=== PATIENT | male | born 1955 | race Caucasian/White ===

== ENCOUNTER → 2018-05-14 08:15 | Outpatient (CLI) | payer OTHER, SELFPAY ==
--- NOTE | 2018-05-14 08:15 | LES_PTH ---
PATIENT: JESSICA ACUÑA LOC: [facility] U#:[id number] AGE/SX: 70/M ROOM: RE05/14/[address]: Dr. Sam Pink MD : [id number] BED: DIS: SPEC #: [id number] RECD: 05/14/18 10:38 STATUS: RAMIREZ REDavid #: [id number] MICHAEL: 05/14/18 08:[address]: Sam Pink DEPT: SURGICAL PATHOLOGY RECD BY: Prakash Al ENTERED: 05/16/18 10:41 SP TYPE: Lesion OTHR DR: Dr. Raymundo Watt MD Tissues: Skin, NOS Procedures: Surgery Specimen Level III HEADER OPERATION: Excision of right trapezoid area subcutaneous lesion PRE-OP DIAGNOSIS: Lesion of subcutaneous tissue L98.9 TISSUE SUBMITTED: Right trapezoid area subcutaneous lesion MICROSCOPIC DIAGNOSIS Subcutaneous lesion, right trapezoid area, excision: Mature adipose tissue consistent with lipoma. AM:avril 05/17/18 MICROSCOPIC DESCRIPTION Slides are reviewed. GROSS DESCRIPTION Received in fixative is one container labeled with the patient's name and designated trapezoid area. The specimen consists of four variable sized pieces of yellow adipose tissue measuring in aggregate 5 x 4 x 2 cm. Sections reveal yellow adipose cut surfaces without area of hemorrhage, necrosis or cystic degeneration. Metallurgical Analyst sections are submitted in two cassettes. / SJ:avril 05/16/18 TC:1 CPT: 72631
== END ==
PROVIDERS: Family Provider Family Medicine; PCP Family Medicine; Visit Provider Surgery
DX: L98.9 Disorder of the skin and subcutaneous tissue, unspecified (principal)
CPT/HCPCS: 88304; 88305

== ENCOUNTER 2019-02-11 22:33 | Inpatient (IN) | payer OTHER, SELFPAY ==
[2019-02-11 22:34] VITALS: BP 194/104; PULSE 83; RESP 17; TEMP 36.6; O2SAT 97; BMI 43.6
--- NOTE | 2019-02-11 22:35 | ED.RN ---
CALLED FOR EKG PER RN REQUEST, NO OLD EKGS IN MUSE
--- NOTE | 2019-02-11 22:42 | EKG12_ITS ---
Test Reason : CP Blood Pressure : / mmHG Vent. Rate : 086 BPM Atrial Rate : 086 BPM P-R Int : 186 ms QRS Dur : 076 ms QT Int : 356 ms P-R-T Axes : 019 053 217 degrees QTc Int : 426 ms Normal sinus rhythm ST & T wave abnormality, consider inferior ischemia ST & T wave abnormality, consider anterolateral ischemia Abnormal ECG Confirmed by LIZZY PERLA MD ([id number]), manager editorial ROWAN IYER ([id number]) on 02/14/2019 9:32:15 AM Referred By: Alejandro Elizondo Confirmed By:LIZZY PERLA MD
--- NOTE | 2019-02-11 22:45 | RAD_ITS ---
HISTORY:INTERMITTENT CHEST PAIN x2 DAYS, HTN INTERMITTENT CHEST PAIN x2 DAYS, HTN EXAM: XR Chest 1 View: COMPARISON: None FINDINGS: # of images incl. paperwork: 1 LINES/DEVICES: None. LUNGS: Radiographically clear. No consolidation, edema or effusion. No pneumothorax. MEDIASTINUM AND CARDIOVASCULAR STRUCTURES: Cardiac silhouette not enlarged. BONES AND SOFT TISSUES: Unremarkable. RAD/Chest 1 View (Portable) IMPRESSION: No radiographic evidence of acute cardiopulmonary disease. at 2259 Reported and signed by: Ekta Kaiser DO Electronically Signed: Ekta Kaiser DO at 22:58 EDT Tel , Service support ,
--- NOTE | 2019-02-11 22:46 | ED.VISSUMM ---
- ER Visit Summary Date of Service: 02/11/19 Chief Complaint: Chest pain History of Present Illness: The patient is a 64 M presenting with chest pain. Patient states this has been intermittent over the past couple of days. He states it is worsened when he walks. He has a midsternal chest pressure that at its worst is 6 out of 10. Currently 2 out of 10. He states the pain radiates to his left arm. It is associated with shortness of breath and diaphoresis. He denies nausea or vomiting. He has a history of hypertension, hypercholesterolemia that are both diet controlled. He denies PE/DVT risk factors. Physical Examination: Vitals are stable. Patient is afebrile. Alert no acute distress. HEENT exam is unremarkable. Neck is supple. Lungs are clear and equal bilaterally. Heart is regular rate and rhythm. Abdomen is soft nontender nondistended. Extremities are unremarkable. Skin is warm and dry. No focal neurologic deficit. Remainder of exam is unremarkable. Emergency Department Course and Treatment: Patient was given aspirin, nitro on arrival. EKG is sinus rate of 86 with inferior lateral T wave inversion. Chest x-ray shows no acute process. CBC, chemistries unremarkable. Troponin is negative. On repeat evaluation, patient is chest pain-free. Will discuss with the hospitalist for observation. Disposition: Observation Impression: Chest pain This note was generated with [employer] dictation software. It may contain incorrect words, spelling, and punctuation that were not noted in review of the chart prior to signing ED Disposition - Plan for ED Patient: Referrals: Hunter Watt MD [Primary Care Provider] -
[2019-02-11 22:58] LABS: Absolute Lymphocyte Count 2.59 X10^3/ul (0.83-4.51); Absolute Neutrophil Count 3.9 X10^3/uL (2.0-7.7); Basophil# 0.02 X10^3/uL; Basophil% 0.3 % (0-1); Eosinophil# 0.31 X10^3/uL; Eosinophils% 4.1 % (0-5); Hematocrit 43.1 % (40-54); Lymphocyte # 2.59 X10^3/ul (4.0); Lymphocyte % 34.4 % (19-41); Mean Corp Hgb Conc 34.8 g/gl (32-36); Mean Corpuscular Hgb 30.5 pg (27.0-32.0); Mean Corpuscular Volume 87.6 fL (80-94); Mean Platelet Vol. 10.8 fl (6.2-12.0); Monocyte# 0.72 X10^3/uL; Monocyte% 9.5 % (0-10); Neutrophil # 3.89 X10^3/uL (2.7-7.7); Neutrophil % 51.6 % (47-70); POSITIVE COUNT NO; POSITIVE DIFFERENTIAL NO; POSITIVE MORPHOLOGY NO; Platelet Count 215 K/mm3 (150-450); RBC Distribution Width CV 14.5 % (11.6-14.6); RBC Distribution Width SD 45.9 fl (35.1-43.9); Red Blood Count 4.92 M/mm3 (4.6-6.2); White Blood Count 7.5 K/mm3 (4.4-11.0)
[2019-02-11] MEDS: Aspirin 81 MG TAB.CHEW 324 MG PO (23:00)
[2019-02-11] MEDS: Nitroglycerin SL (ED/IMG/CATH) 0.4 MG TABLET SUBLINGUAL (23:00)
[2019-02-11 23:10] LABS: Anion Gap 6 (5-15); BUN 19 mg/dL (7-18); BUN/Creat Ratio 15.4 RATIO (10-20); Calcium,Total 8.7 mg/dL (8.5-10.1); Chloride 108 mmol/L (98-107); Creatinine, Serum 1.23 mg/dL (0.70-1.30); EST Glomerular Filtration Rate 63 mL/min (>60); Est Glom Filt Rate - Afr Amer 77 mL/min (>60); Glucose 125 mg/dL (74-106); Potassium 3.9 mmol/L (3.5-5.1); Sodium Level 141 mmol/L (136-145)
--- NOTE | 2019-02-11 23:47 | HP.PCM_ITS ---
Problem List (1) Chest pain Status: Acute History of Present Illness Date of Admission: 02/11/19 Chief Complaint: chest pain. The patient is a 64 year old M with a significant history of HTN; hyperlipidemia; obesity; former smoker who presented with to the ED with one week history of progressively worsening intermittent chest pain. His chest pain occurs with exertion. At rest he has no chest pain. Few hours before coming to the ED his chest pain occurred while walking up the stairs in his home. His chest pain is of intensity 6 out of 10. He describes his chest pain as tightness; alleviated with rest; and brought on by exertion. His chest pain radi ates to his left arm. Associated with his symptoms is SOB and diaphoresis. He denies any nausea or vomiting. His EKG showed T-wave inversion in anterior-lateral leads. Past Medical History Medical History: Medical History (Last Reviewed 02/12/19 @ 05:46 by Alejandro Elizondo MD) Elevated blood pressure reading (Acute) R03.0 Allergies penicillin G Allergy (Unknown, Verified 02/11/19 22:34) Unknown Home Medications: Ambulatory Orders Medication Instructions Recorded Naproxen [Naprosyn] 500 mg PO DAILY PRN PRN 02/11/19 Surgical History: Surgical History (Last Reviewed 02/12/19 @ 05:46 by Alejandro Elizondo MD) History of hand surgery (Acute) Z98.890 Right 3rd digit repair- 1969 Hx of LASIK (Acute) Z98.890 Lives: Spouse/ Significant Other Smoking Status: Former smoker Alcohol: Occasional - *Family History Maternal History Items: Cancer Paternal History Items: Diabetes Review of Systems Constitutional: Denies: Chills, Fever, Weight Change HEENT: Denies: Head Aches, Sinus Congestion, Sinus Drainage Cardiovascular: Reports: Chest Pain, Chest Tightness. Denies: Palpitations Respiratory: Reports: Shortness of Breath. Denies: Cough, Sputum production Gastrointestinal: Denies: Abdominal Pain, Nausea, Vomiting Genitourinary: Denies: Dysuria Musculoskeletal: Denies: Joint Pain, Joint Tenderness Skin: Denies: Rash, Wounds Neurological: Denies: Numbness, Tingling, Focal weakness Psychiatric: Denies: Anxiety, Depression, Homicidal Ideations, Suicidal Ideations Hematologic/ Lymphatic: Denies: Easy Bruising, Easy Bleeding VTE Information - Inpt Only VTE Present on Admission: No VTE Mechan Device Prophylaxis: None VTE Pharm Prophylaxis ordered?: Yes Patient Problems: Active and Suspected Problems (Last Reviewed 02/12/19 @ 05:46 by Alejandro Elizondo MD) Chest pain (Acute) - Physical Exam General: Alert, Oriented x3, Cooperative, - - obese HEENT: Atraumatic, PERRLA, EOMI, Normocephalic Neck: Supple, No JVD, Negative Carotid Bruits Lungs: Clear to auscultation, Normal air movement Cardiovascular: Regular rate, No murmurs Abdomen: Bowel Sounds Present, Soft, Non Tender Extremities: No edema, Capillary Refill Less than 3 Seconds Skin: No rashes, No breakdown Musculoskeletal: No Tenderness to Palpation of Joints or Extremities Neurological: Neuro grossly intact Psych/Mental Status: Normal Affect, Appropriate Vital Signs Temp Pulse Resp BP Pulse Ox 97.8 F 83 17 194/104 H 97 02/11/19 22:34 02/11/19 22:34 02/11/19 22:34 02/11/19 22:34 02/11/19 22:34 Oxygen Delivery Method Room Air Weight: 154.2 kg Body Mass Index (BMI) 43.6 Laboratory Tests Past 24 Hrs 02/11/19 02/11/19 22:38 22:38 WBC 7.5 RBC 4.92 Hgb 15.0 Hct 43.1 MCV 87.6 MCH 30.5 MCHC 34.8 RDW 14.5 RDW Differential 45.9 H Plt Count 215 MPV 10.8 Immature Gran % (Auto) 0.100 Neut % (Auto) 51.6 Lymph % (Auto) 34.4 [place] % (Auto) 9.5 Eos % (Auto) 4.1 Baso % (Auto) 0.3 Absolute Neuts (auto) 3.9 Absolute Lymphs (auto) 2.59 Total Counted Not Reportable Sodium 141 Potassium 3.9 Chloride 108 H Carbon Dioxide 27.0 Anion Gap 6 BUN 19 H Creatinine 1.23 Estim Creat Clear Calc 72.40 Est GFR (MDRD) Af Amer 77 Est GFR (MDRD) Non-Af 63 BUN/Creatinine Ratio 15.4 Glucose 125 H Calcium 8.7 Troponin I < 0.015 Assessment/Plan All Active Problems (Last Reviewed 02/12/19 @ 05:46 by Alejandro Elizondo MD) Chest pain (Acute) Elevated blood pressure reading (Acute) History of hand surgery (Acute) Hx of LASIK (Acute) The patient is a 64 year old M with a significant history of HTN; hyperlipidemia; obesity; former smoker who presented with to the ED with one week history of progressively worsening intermittent chest pain; and with T-wave inversions in anterior lateral leads. Chest Pain. Heart Score: 6 points (highly suspicious; nonspecific repolarization disturbanc e; age 45-64; more equal to 3 risk factors or history of atherosclerotic disease) Admit to a monitored bed on PCU CXR independently reviewed confirms no acute cardiopulmonary process. EKG independently reviewed confirms T-wave inversions in anterior-lateral leads No Old EKG to compare with Received ASA 324 mg at the ED. At home he takes Naproxen for plantar fascitis. Will hold Naproxen for now and order ASA 324 mg p.o. daily SL NTG 0.4 mg prn as needed for chest pain Morphine as needed for pain We will check lipid panel. High intensity statin ordered. Serial cardiac enzymes Stat EKG as needed for chest pain Will consult cardiology HTN He reports that outpatient he had a couple of elevated blood pressure readings. He reported that his blood pressure eventually was under control with diet however he gained about 40 to 50 pounds of weight last year. Will start on amlodipine HLD He reports border line hyperlipidemia Check lipid panel Start on Lipitor for chest pain DVT prophylaxis Lovenox ordered Code Visit OBSV E&M: 13502 Initial observation care L3
[2019-02-12] VITALS (22 sets, daily range): BP systolic 135–193; BP diastolic 82–118; PULSE 64–77; RESP 16–18; TEMP 36.4–36.6; O2SAT 92–99; BMI 43.1; BMI 43.2
[2019-02-12] MEDS: amLODIPine 5 MG Tablet PO ×2 (01:17→12:24)
[2019-02-12] MEDS: Atorvastatin Calcium 80 MG Tablet PO ×2 (01:17→21:32)
--- NOTE | 2019-02-12 02:02 | EKG12_ITS ---
Test Reason : RHYTHM Blood Pressure : / mmHG Vent. Rate : 075 BPM Atrial Rate : 075 BPM P-R Int : 194 ms QRS Dur : 076 ms QT Int : 376 ms P-R-T Axes : -05 026 200 degrees QTc Int : 419 ms Normal sinus rhythm T wave abnormality, consider inferior ischemia T wave abnormality, consider anterolateral ischemia Abnormal ECG Confirmed by KATIE NG, PITER ([id number]), manager editorial SUSAN ALFARO ([id number]) on 02/15/2019 12:29:32 PM Referred By: Alejandro Elizondo Confirmed By:PITER WILSON MD
[2019-02-12 06:09] LABS: Cholesterol 181 mg/dL (200); High Density Lipoprotein 37 mg/dL; Triglycerides 232 mg/dL; Very Low Density Lipoprotein 46 mg/dL (5-40)
[2019-02-12 07:00] LABS: Bedside Glucose 100 mg/dL (70-110)
[2019-02-12] MEDS: Enoxaparin 40 MG/0.4 ML Syringe SC (08:47)
[2019-02-12] MEDS: Aspirin E.C. 325 MG Tablet PO (08:47)
--- NOTE | 2019-02-12 11:23 | ECHOD_ITS ---
Reason For Study: Chest pain Procedure This was a 2D Doppler, Color Flow transthoracic echocardiogram. Exam performed portable in patient room. Left Ventricle Normal LV size. Concentric left ventricular hypertrophy. The estimated ejection fraction is 55 %. Normal diastology for age. No regional wall motion abnormalities noted. Right Ventricle Normal right ventricle. Normal systolic function. Atria Normal left atrium. Normal right atrium. No doppler evidence for ASD. Mitral Valve There is no mitral valve stenosis. No mitral valve insufficiency. Tricuspid Valve No significant tricuspid stenosis. Trivial tricuspid valve insufficiency. Pulmonary artery systolic pressure is 25 mmHg. Aortic Valve Trisinus/trileaflet aortic valve. There is no aortic stenosis. Trivial aortic valve insufficiency. Pulmonic Valve There is no pulmonic valvular stenosis. No pulmonic valve insufficiency. Great Vessels Normal aortic root. Pericardium/Pleural No pericardial effusion. MMode/2D Measurements & Calculations LVIDd: 4.6 cm IVSd: 1.3 cm Ao root diam: 3.7 cm LVIDs: 3.2 cm LVPWd: 1.3 cm RVDd: 2.5 cm FS: 30.2 % LAV(MOD-bp): 52.5 ml LA A4 area: 19.4 cm2 LA dimension(2D): 2.7 cm LAV(MOD-bp) Indexed: 19.4 ml/m2 LAV(MOD-sp2): 47.8 ml LAV(MOD-sp4): 52.8 ml RA A4 area: 13.8 cm2 Doppler Measurements & Calculations MV E max riky: 78.4 cm/sec Lat Peak E' Riky: 8.7 cm/sec Med Peak E' Riky: 5.6 cm/sec MV A max riky: 60.4 cm/sec E/E' lat: 9.1 E/E' med: 14.1 MV E/A: 1.3 Ao V2 max: 125.2 cm/sec LV V1 max: 115.7 cm/sec PA V2 max: 79.7 cm/sec Ao max P.3 mmHg LV V1 max P.4 mmHg TR max riky: 219.2 cm/sec TR max P.2 mmHg Interpretation Summary The estimated ejection fraction is 55 %. Normal diastology for age. Ordering Physician: Clarisse Keating Referring Physician: Raymundo Watt MD Performed By: Rashida Ohara RDCS
[2019-02-12] MEDS: Metoprolol Tartrate 25 MG Tablet PO ×2 (12:23→21:32)
[2019-02-12] MEDS: Nitroglycerin Oint 1 INCH PACKET 0.5 INCH TRANSDERM. (12:24)
--- NOTE | 2019-02-12 12:51 | PN_ITS ---
Patient Problems: Active and Suspected Problems (Last Reviewed 02/12/19 @ 05:46 by Alejandro Elizondo MD) Chest pain (Acute) Subjective: The patient was seen independently and in conjunction with TIERA Hernández. He is a 64-year-old male who presented to the emergency department at [facility] on 02/11/2019 complaining of substernal chest pain, SOB, diaphoresis and radiation to the Left arm with exertion. The sx started approximately 1 week ago with shortness of breath with exertion. In the next couple days he also started having substernal chest pain with exertion and this was sometimes associated with diaphoresis and radiation of the pain to the back and down the left arm. Yesterday he climbed a flight of stairs at home and experienced substernal chest pain, diaphoresis, shortness of breath and left arm pain. He drove himself to the emergency department. On the way to the hospital the chest pain resolved but it lasted approximately 15 minutes prior to resolving. He walked into the emergency department and with the ambulation the chest pain recurred. When he was taken to her room and sat down the pain resolved. The pain was nearly gone at the time he received sublingual nitroglycerin. Blood pressures have been markedly elevated and the patient states he has been diagnosed with borderline hypertension at his doctor's office in the past but is not been on medication. The only time he gets his blood pressure checked is when he goes to his physician's office. He denies any history of hyperlipidemia, diabetes mellitus, family history of coronary artery disease. He stopped smoking in 1991. Vital signs at presentation to the emergency room were temp 97.8, pulse rate 83, blood pressure 194/104, respiratory rate 17 and he was 97 to 99% saturated on room air. CBC was unremarkable. Random glucose was 125 and the hemoglobin A1c was 5.0. Creatinine is elevated at 1.23 with a BUN of 19 and a GFR of 63. Initial troponin was less than 0.015 but the second troponin was elevated at 0.077 and the third troponin was 0.059. Lipid panel shows triglycerides of 232, and LDL of 98 and HDL of 37. Chest x-ray showed no infiltrates, pleural effusions or pulmonary vascular congestion. EKG in the emergency department initially showed a QS complex in V1 with T wave inversions in the anterolateral precordial leads. He also had T wave inversions in the inferolateral leads. There was no ST elevation. Repeat EKG this AM showed persistent deeper T wave inversions in the inferior, lateral and anterior leads. A repeat EKG done following chest pain [place] the parks was unchanged. He was admitted to a monitored bed on PCU and started on ASA, Atorvastatin and Amlodipine. BP is still elevated and the Amlodipine has been increased to 10 mg daily and Metoprolol 25 mg BID has been started. He had recurrent CP this morning with ambulating in the parks and NTP has been started. consult has been ordered with Dr. Neal. Telemetry shows NSR, occasional PVC and 1 couplet and a brief run of SVT this morning. - Physical Exam General: Alert, Oriented x3, Cooperative, No apparent distress, Well developed, Well nourished, - - lying in bed and denies CP or SOB. HEENT: Atraumatic, Normocephalic Neck: Supple, No JVD Lungs: Clear to auscultation, No rhonchi, No wheeze, No rales, Diminished Cardiovascular: Regular rate, Regular Rhythm, Normal S1, Normal S2, No murmurs, No Gallop Abdomen: Bowel Sounds Present, Soft, Non Tender, Non-Distended, Obese Extremities: No Calf Tenderness Neurological: Cranial nerves II-XII grossly intact, Neuro grossly intact Psych/Mental Status: Normal Affect, Appropriate Vital Signs Temp Pulse Resp BP Pulse Ox 97.7 F L 77 16 166/96 H 96 02/12/19 12:18 02/12/19 12:24 02/12/19 12:18 02/12/19 12:24 02/12/19 12:18 Oxygen Delivery Method Room Air Weight: 336 lb 3.279 oz Body Mass Index (BMI) 43.1 Intake and Output for Last 24 Hours 02/10/19 02/11/19 02/12/19 23:59 23:59 23:59 Intake Total 690 / 690 Balance 690 / 690 Laboratory Tests Past 24 Hrs 02/11/19 02/11/19 02/12/19 22:38 22:38 01:39 WBC 7.5 RBC 4.92 Hgb 15.0 Hct 43.1 MCV 87.6 MCH 30.5 MCHC 34.8 RDW 14.5 RDW Differential 45.9 H Plt Count 215 MPV 10.8 Immature Gran % (Auto) 0.100 Neut % (Auto) 51.6 Lymph % (Auto) 34.4 [place] % (Auto) 9.5 Eos % (Auto) 4.1 Baso % (Auto) 0.3 Absolute Neuts (auto) 3.9 Absolute Lymphs (auto) 2.59 Total Counted Not Reportable Sodium 141 Potassium 3.9 Chloride 108 H Carbon Dioxide 27.0 Anion Gap 6 BUN 19 H Creatinine 1.23 Estim Creat Clear Calc 72.40 Est GFR (MDRD) Af Amer 77 Est GFR (MDRD) Non-Af 63 BUN/Creatinine Ratio 15.4 Glucose 125 H Hemoglobin A1c Calcium 8.7 Troponin I < 0.015 0.077 H Triglycerides Cholesterol LDL Cholesterol VLDL Cholesterol HDL Cholesterol 02/12/19 02/12/19 04:48 04:48 WBC RBC Hgb Hct MCV MCH MCHC RDW RDW Differential Plt Count MPV Immature Gran % (Auto) Neut % (Auto) Lymph % (Auto) [place] % (Auto) Eos % (Auto) Baso % (Auto) Absolute Neuts (auto) Absolute Lymphs (auto) Total Counted Sodium Potassium Chloride Carbon Dioxide Anion Gap BUN Creatinine Estim Creat Clear Calc Est GFR (MDRD) Af Amer Est GFR (MDRD) Non-Af BUN/Creatinine Ratio Glucose Hemoglobin A1c 5.0 Calcium Troponin I 0.059 H Triglycerides 232 H Cholesterol 181 LDL Cholesterol 98 VLDL Cholesterol 46 H HDL Cholesterol 37 L POC Glucose 02/12/19 06:48 POC Glucose 100 Medical Necessity - Tobacco Use Smoking Status: Former smoker Assessment/Plan All Active Problems (Last Reviewed 02/12/19 @ 05:46 by Alejandro Elizondo MD) Chest pain (Acute) Elevated blood pressure reading (Acute) History of hand surgery (Acute) Hx of LASIK (Acute) Impressions 1. ACS with elevated troponin 2. HTN - suspect this has been long standing 3. abnormal EKG with diffuse T wave inversions 4. elevated troponin - suspect this is due to long standing uncontrolled HTN 5. brief run SVT with occasional PVC 6. Remote smoking history-quit in 1991 7. morbid obesity 8. Dyslipidemia Lopressor increased to 25 BID Amlodipine increased to 10 mg daily and he was given an extra 5 mg today for a total of 10 mg Continue atorvastatin 80 mg daily continue aspirin daily Add hydralazine 10 mg every 4 hours as needed systolic greater than 40 or diastolic greater than 85 Dr. Neal has been consulted and I suspect the patient will be taken for cardiac catheterization in the a.m. Add Nitropaste 0.5 inches every 8 hours and continue as needed sublingual nitroglycerin Echo in the a.m. Check a magnesium level I explained the process for a cardiac catheterization and answered all their questions. Weight loss advised and will order a consultation with the chute operator for recommendations and education Code Visit Inpatient E&M: [id number] [facility] H[facility] L3
[2019-02-12] MEDS: Acetaminophen 325 MG Tablet 650 MG PO ×2 (14:29→20:37)
[2019-02-12] MEDS: hydrALAZINE 20 MG/ML Vial 10 MG IV (14:30)
[2019-02-12] MEDS: 0.9% NaCl Peripheral Flush Adult/Peds IV ×4 (14:31→21:32)
--- NOTE | 2019-02-12 16:42 | PCM.CONS.C ---
Problem List (1) Chest pain Status: Acute (2) Elevated blood pressure reading Status: Acute Reason for Consult Date of Consultation: 02/12/19 History of Present Illness: The patient is a 64 year old M with a significant history of HTN; hyperlipidemia; obesity; former smoker who presented with to the ED with one week history of progressively worsening intermittent chest pain. His chest pain occurs with exertion. At rest he has no chest pain. Few hours before coming to the ED his chest pain occurred while walking up the stairs in his home. His chest pain is of intensity 6 out of 10. He describes his chest pain as tightness; alleviated with rest; and brought on by exertion. His chest pain radiates to his left arm. Associated with his symptoms is SOB and diaphoresis. He denies any nausea or vomiting. Currently chest pain-free. He does have a significant headache from the nitroglycerin paste. Past Medical History Allergies/Adverse Reactions: Allergies penicillin G Allergy (Unknown, Verified 02/11/19 22:34) Unknown Home Medications: Ambulatory Orders Medication Instructions Recorded Naproxen [Naprosyn] 500 mg PO DAILY PRN PRN 02/11/19 - *Family History Maternal History Items: Cancer Paternal History Items: Diabetes Lives: Spouse/ Significant Other Smoking Status: Former smoker Alcohol: Occasional Review of Systems - Review of Systems General: Denies: Fever, Night Sweats, Fatigue Cardiovascular: Reports: Chest Discomfort. Denies: Shortness of Breath, Orthopnea, PND, Peripheral Edema, Palpitations, Lightheadedness, Dizziness, Near Syncope, Syncope Respiratory: Denies: Cough, Sputum Production, Hemoptysis Gastrointestinal: Denies: Hematemesis, Hematochezia, Melena Genitourinary: Denies: Dysuria, Hematuria Skin: Denies: Rash Objective: Vital Signs Temp Pulse Resp BP Pulse Ox 97.8 F 66 16 135/92 H 94 02/12/19 14:25 02/12/19 15:01 02/12/19 14:25 02/12/19 15:01 02/12/19 14:25 Oxygen Delivery Method Room Air Weight: 336 lb 3.279 oz Body Mass Index (BMI) 43.1 Intake and Output for Last 24 Hours 02/10/19 02/11/19 02/12/19 23:59 23:59 23:59 Intake Total 690 / 690 Balance 690 / 690 General: Awake, Alert, Oriented x 3 HEENT: PERRL, EOMI, Sclera Non Icteric Neck: Supple, Good ROM, No Lymph Node Enlargement Lungs: Clear to auscultation Cardiovascular: Regular Rhythm, Normal S1, Normal S2, No Murmurs, No Rubs, No Gallops Vascular: No Carotid Bruits, Normal Femoral Pulses, Normal Radial Pulses, Normal Dorsalis Pedal Pulse, Normal Posterior Tibial Pulses Abdomen: Bowel Sounds Present, Soft, Non Tender, No HSM, No Organomegaly Extremities: No Cyanosis, No Clubbing, No edema Neurological: No Focal Motor or Sensory Deficit 02/11/19 22:38: WBC 7.5, RBC 4.92, Hgb 15.0, Hct 43.1, MCV 87.6, MCH 30.5, MCHC 34.8, RDW 14.5, RDW Differential 45.9 H, Plt Count 215, MPV 10.8, Immature Gran % (Auto) 0.100, Neut % (Auto) 51.6, Lymph % (Auto) 34.4, [place] % (Auto) 9.5, Eos % (Auto) 4.1, Baso % (Auto) 0.3, Absolute Neuts (auto) 3.9, Total Counted Not Reportable 02/11/19 22:38: Sodium 141, Potassium 3.9, Chloride 108 H, Carbon Dioxide 27.0, Anion Gap 6, BUN 19 H, Creatinine 1.23, Est GFR (MDRD) Af Amer 77, Est GFR (MDRD) Non-Af 63, BUN/Creatinine Ratio 15.4, Glucose 125 H, Calcium 8.7, Troponin I < 0.015 02/12/19 01:39: Troponin I 0.077 H 02/12/19 04:48: Troponin I 0.059 H, Triglycerides 232 H, Cholesterol 181, LDL Cholesterol 98, VLDL Cholesterol 46 H, HDL Cholesterol 37 L 02/12/19 04:48: Hemoglobin A1c 5.0 02/12/19 04:48: Magnesium 2.0 Rhythm: EKG: Normal sinus rhythm, nonspecific ST-T changes ECHO: Stress Test: Cardiac Cath: PCI: CT Surgery: Holter monitor: EPS: PPM: CXR: Chest CT Scan: Assessment/Plan 1. Chest pain: Troponin is abnormal as well. Non-ST elevation HI. Coronary angiography tomorrow. We will discontinue the nitroglycerin paste at this time. Recommend starting weight-based IV heparin. DC Lovenox.
--- NOTE | 2019-02-12 16:47 | CON.PCM_ITS ---
Problem List (1) Chest pain Status: Acute (2) Elevated blood pressure reading Status: Acute Reason for Consult Date of Consultation: 02/12/19 History of Present Illness: The patient is a 64 year old M with a significant history of HTN; hyperlipidemia; obesity; former smoker who presented with to the ED with one week history of progressively worsening intermittent chest pain. His chest pain occurs with exertion. At rest he has no chest pain. Few hours before coming to the ED his chest pain occurred while walking up the stairs in his home. His chest pain is of intensity 6 out of 10. He describes his chest pain as tightn ess; alleviated with rest; and brought on by exertion. His chest pain radiates to his left arm. Associated with his symptoms is SOB and diaphoresis. He denies any nausea or vomiting. Currently chest pain-free. He does have a significant headache from the nitroglycerin paste. Past Medical History Allergies/Adverse Reactions: Allergies penicillin G Allergy (Unknown, Verified 02/11/19 22:34) Unknown Home Medications: Ambulatory Orders Medication Instructions Recorded Naproxen [Naprosyn] 500 mg PO DAILY PRN PRN 02/11/19 - *Family History Maternal History Items: Cancer Paternal History Items: Diabetes Lives: Spouse/ Significant Other Smoking Status: Former smoker Alcohol: Occasional Review of Systems - Review of Systems General: Denies: Fever, Night Sweats, Fatigue Cardiovascular: Reports: Chest Discomfort. Denies: Shortness of Breath, Ortho pnea, PND, Peripheral Edema, Palpitations, Lightheadedness, Dizziness, Near Syncope, Syncope Respiratory: Denies: Cough, Sputum Production, Hemoptysis Gastrointestinal: Denies: Hematemesis, Hematochezia, Melena Genitourinary: Denies: Dysuria, Hematuria Skin: Denies: Rash Objective: Vital Signs Temp Pulse Resp BP Pulse Ox 97.8 F 66 16 135/92 H 94 02/12/19 14:25 02/12/19 15:01 02/12/19 14:25 02/12/19 15:01 02/12/19 14:25 Oxygen Delivery Method Room Air Weight: 336 lb 3.279 oz Body Mass Index (BMI) 43.1 Intake and Output for Last 24 Hours 02/10/19 02/11/19 02/12/19 23:59 23:59 23:59 Intake Total 690 / 690 Balance 690 / 690 General: Awake, Alert, Oriented x 3 HEENT: PERRL, EOMI, Sclera Non Icteric Neck: Supple, Good ROM, No Lymph Node Enlargement Lungs: Clear to auscultation Cardiovascular: Regular Rhythm, Normal S1, Normal S2, No Murmurs, No Rubs, No Gallops Vascular: No Carotid Bruits, Normal Femoral Pulses, Normal Radial Pulses, Normal Dorsalis Pedal Pulse, Normal Posterior Tibial Pulses Abdomen: Bowel Sounds Present, Soft, Non Tender, No HSM, No Organomegaly Extremities: No Cyanosis, No Clubbing, No edema Neurological: No Focal Motor or Sensory Deficit 02/11/19 22:38: WBC 7.5, RBC 4.92, Hgb 15.0, Hct 43.1, MCV 87.6, MCH 30.5, MCHC 34.8, RDW 14.5, RDW Differential 45.9 H, Plt Count 215, MPV 10.8, Immature Gran % (Auto) 0.100, Neut % (Auto) 51.6, Lymph % (Auto) 34.4, [place] % (Auto) 9.5, Eos % (Auto) 4.1, Baso % (Auto) 0.3, Absolute Neuts (auto) 3.9, Total Counted Not Reportable 02/11/19 22:38: Sodium 141, Potassium 3.9, Chloride 108 H, Carbon Dioxide 27.0, Anion Gap 6, BUN 19 H, Creatinine 1.23, Est GFR (MDRD) Af Amer 77, Est GFR (MDRD) Non-Af 63, BUN/Creatinine Ratio 15.4, Glucose 125 H, Calcium 8.7, Troponin I < 0.015 02/12/19 01:39: Troponin I 0.077 H 02/12/19 04:48: Troponin I 0.059 H, Triglycerides 232 H, Cholesterol 181, LDL Cholesterol 98, VLDL Cholesterol 46 H, HDL Cholesterol 37 L 02/12/19 04:48: Hemoglobin A1c 5.0 02/12/19 04:48: Magnesium 2.0 Rhythm: EKG: Normal sinus rhythm, nonspecific ST-T changes ECHO: Stress Test: Cardiac Cath: PCI: CT Surgery: Holter monitor: EPS: PPM: CXR: Chest CT Scan: Assessment/Plan 1. Chest pain: Troponin is abnormal as well. Non-ST elevation DE. Coronary angiography tomorrow. We will discontinue the nitroglycerin paste at this time. Recommend starting weight-based IV heparin. DC Lovenox.
[2019-02-12] MEDS: Morphine 2 MG/ML Syringe IV ×2 (17:21→21:32)
[2019-02-12 17:51] LABS: Prothrombin Time (Protime)PT. 12.8 SECONDS (11.7-14.9)
[2019-02-12 17:52] LABS: Partial Thromboplast Time 28.8 Seconds (24.1-36.2)
[2019-02-12] MEDS: Heparin Injection (Vial) 5,000 UNIT/ML VIAL 12000 UNIT IV (18:06)
[2019-02-12] MEDS: HEPARIN/D5w 25,000 UNITS 25,000 UNITS/250 ML IV.SOLN. 19 UNITS IV (18:06)
[2019-02-13] VITALS (37 sets, daily range): BP systolic 129–198; BP diastolic 73–120; PULSE 64–106; RESP 11–26; TEMP 36.6–36.8; O2SAT 93–99
[2019-02-13 00:59] LABS: Partial Thromboplast Time 80.6 Seconds (24.1-36.2)
[2019-02-13 01:33] LABS: Bacteria 0 SEEN /hpf (None Seen); Mucous, Urine 0 SEEN /hpf (<or=2+); Red Blood Cells-Urine 0 SEEN /hpf (0-5); Squamous Epithelial Cells - UA 0 SEEN /hpf (0-5); White Blood Cells 0 SEEN /hpf (0-5)
[2019-02-13 01:53] LABS: Color, Urine Yellow (Yellow); Glucose, Dipstick Normal (Normal); Ketone-Dipstick Negative (Negative); Leukocyte Esterase-Dipstick Negative /ul (Negative); Nitrite-Dipstick Negative (Negative); Occult Blood-Urine Negative /ul (Negative); Protein-Dipstick Negative (Negative); Specific Gravity, Urine 1.005 (1.002-1.030); Urine Bilirubin Dipstick Negative (Negative); Urine Clarity Clear (Clear); Urine Urobilinogen Normal (Normal)
--- NOTE | 2019-02-13 05:55 | EKG12_ITS ---
Test Reason : AM EKG Blood Pressure : / mmHG Vent. Rate : 064 BPM Atrial Rate : 064 BPM P-R Int : 190 ms QRS Dur : 080 ms QT Int : 408 ms P-R-T Axes : 022 054 201 degrees QTc Int : 420 ms Normal sinus rhythm T wave abnormality, consider anterolateral ischemia Abnormal ECG Confirmed by KATIE NG, PITER ([id number]), non linear editor SUSAN ALFARO ([id number]) on 02/15/2019 12:28:27 PM Referred By: Alejandro Elizondo Confirmed By:PITER WILSON MD
[2019-02-13] MEDS: Metoprolol Tartrate 25 MG Tablet PO ×2 (06:48→21:49)
[2019-02-13] MEDS: Aspirin E.C. 325 MG Tablet PO (06:48)
[2019-02-13] MEDS: amLODIPine 10 MG Tablet PO (06:49)
[2019-02-13] MEDS: 0.9% Normal Saline 1,000 ML 15 ML IV (06:49)
[2019-02-13 06:59] LABS: Absolute Lymphocyte Count 1.97 X10^3/ul (0.83-4.51); Absolute Neutrophil Count 3.7 X10^3/uL (2.0-7.7); Basophil# 0.03 X10^3/uL; Basophil% 0.5 % (0-1); Eosinophil# 0.26 X10^3/uL; Eosinophils% 3.9 % (0-5); Hematocrit 43.2 % (40-54); Hemoglobin 15.2 g/dl (13.0-16.5); Lymphocyte # 1.97 X10^3/ul (4.0); Lymphocyte % 29.9 % (19-41); Mean Corp Hgb Conc 35.2 g/gl (32-36); Mean Corpuscular Hgb 30.9 pg (27.0-32.0); Mean Corpuscular Volume 87.8 fL (80-94); Mean Platelet Vol. 10.4 fl (6.2-12.0); Monocyte# 0.67 X10^3/uL; Monocyte% 10.2 % (0-10); Neutrophil # 3.65 X10^3/uL (2.7-7.7); Neutrophil % 55.3 % (47-70); Platelet Count 188 K/mm3 (150-450); RBC Distribution Width CV 14.2 % (11.6-14.6); RBC Distribution Width SD 45.9 fl (35.1-43.9); Red Blood Count 4.92 M/mm3 (4.6-6.2); White Blood Count 6.6 K/mm3 (4.4-11.0)
[2019-02-13 07:00] LABS: POSITIVE COUNT NO; POSITIVE DIFFERENTIAL NO; POSITIVE MORPHOLOGY NO
[2019-02-13 07:04] LABS: Prothrombin Time (Protime)PT. 13.3 SECONDS (11.7-14.9)
[2019-02-13 07:05] LABS: Partial Thromboplast Time 53.9 Seconds (24.1-36.2)
[2019-02-13 07:39] LABS: Anion Gap 9 (5-15); BUN 14 mg/dL (7-18); BUN/Creat Ratio 14.1 RATIO (10-20); Calcium,Total 8.8 mg/dL (8.5-10.1); Chloride 107 mmol/L (98-107); EST Glomerular Filtration Rate 81 mL/min (>60); Est Glom Filt Rate - Afr Amer 98 mL/min (>60); Estimated Creatinine Clearance 89.05 ml/min; Glucose 92 mg/dL (74-106); Potassium 4.1 mmol/L (3.5-5.1); Sodium Level 141 mmol/L (136-145)
--- NOTE | 2019-02-13 08:46 | CASEMGMT ---
TRACEY ZACARIAS NOTE: Call placed to [facility] and spoke to Brenda. According to Brenda, [facility] is IN-network with [facility]. Call Refernce # [id number]. Also, the following tertiary care centers are IN-network w/[facility] if transfer is recommended: [facility], [place], [facility], [facility], [facility], [facility], [facility], [facility], [facility], and . Brett NAVA RN CM.
[2019-02-13] MEDS: hydrALAZINE 20 MG/ML Vial 10 MG IV ×3 (09:45→18:38)
--- NOTE | 2019-02-13 10:32 | NURSING ---
Pt down to senior laboratory technician for procedure. Report called to Salima WEBB.
--- NOTE | 2019-02-13 12:00 | NURSING ---
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
[2019-02-13] MEDS: 0.9% Normal Saline 1,000 ML 100 ML IV (13:03)
[2019-02-13] MEDS: Acetaminophen 325 MG Tablet 650 MG PO ×2 (13:06→20:32)
--- NOTE | 2019-02-13 13:24 | PN_ITS ---
Patient Problems: Active and Suspected Problems (Last Reviewed 02/12/19 @ 05:46 by Alejandro Elizondo MD) Chest pain (Acute) Subjective: No CP/SOB today. Underwent C this AM with successful stent placement with Dr. Graham. - Physical Exam General: Alert, Oriented x3, Cooperative HEENT: Atraumatic, PERRLA, EOMI, Normocephalic Neck: Supple, No JVD, Negative Carotid Bruits Lungs: Clear to auscultation, Normal air movement Cardiovascular: Regular rate, No murmurs Abdomen: Bowel Sounds Present, Soft, Non Tender Extremities: No edema, Capillary Refill Less than 3 Seconds Skin: No rashes, No breakdown Musculoskeletal: No Tenderness to Palpation of Joints or Extremities Neurological: Cranial nerves II-XII grossly intact Psych/Mental Status: Normal Affect, Appropriate, Alert and oriented to time, place, person, mood and affect Vital Signs Temp Pulse Resp BP Pulse Ox 97.8 F 66 16 142/83 H 98 02/13/19 09:37 02/13/19 09:45 02/13/19 09:37 02/13/19 10:27 02/13/19 09:37 Oxygen Delivery Method Room Air Weight: 336 lb 3.279 oz Body Mass Index (BMI) 43.1 Intake and Output for Last 24 Hours 02/11/19 02/12/19 02/13/19 23:59 23:59 23:59 Intake Total 690 / 690 735 / 735 Balance 690 / 690 735 / 735 Laboratory Tests Past 24 Hrs 02/12/19 02/12/19 02/13/19 04:48 17:37 00:14 WBC RBC Hgb Hct MCV MCH MCHC RDW RDW Differential Plt Count MPV Immature Gran % (Auto) Neut % (Auto) Lymph % (Auto) [place] % (Auto) Eos % (Auto) Baso % (Auto) Absolute Neuts (auto) Absolute Lymphs (auto) Total Counted PT 12.8 INR 1.0 APTT 28.8 80.6 H Sodium Potassium Chloride Carbon Dioxide Anion Gap BUN Creatinine Estim Creat Clear Calc Est GFR (MDRD) Af Amer Est GFR (MDRD) Non-Af BUN/Creatinine Ratio Glucose Calcium Magnesium 2.0 TSH 2.30 Urine Color Urine Clarity Urine pH Ur Specific [place] Urine Protein Urine Glucose (UA) Urine Ketones Urine Occult Blood Urine Nitrite Urine Bilirubin Urine Urobilinogen Ur Leukocyte Esterase Urine RBC Urine WBC Ur Squamous Epith Cells Urine Bacteria Urine Mucus 02/13/19 02/13/19 02/13/19 01:20 06:50 06:50 WBC 6.6 RBC 4.92 Hgb 15.2 Hct 43.2 MCV 87.8 MCH 30.9 MCHC 35.2 RDW 14.2 RDW Differential 45.9 H Plt Count 188 MPV 10.4 Immature Gran % (Auto) 0.200 Neut % (Auto) 55.3 Lymph % (Auto) 29.9 [place] % (Auto) 10.2 H Eos % (Auto) 3.9 Baso % (Auto) 0.5 Absolute Neuts (auto) 3.7 Absolute Lymphs (auto) 1.97 Total Counted Not Reportable PT INR APTT Sodium 141 Potassium 4.1 Chloride 107 Carbon Dioxide 25.0 Anion Gap 9 BUN 14 Creatinine 1.00 Estim Creat Clear Calc 89.05 Est GFR (MDRD) Af Amer 98 Est GFR (MDRD) Non-Af 81 BUN/Creatinine Ratio 14.1 Glucose 92 Calcium 8.8 Magnesium TSH Urine Color Yellow Urine Clarity Clear Urine pH 7.0 Ur Specific [place] 1.005 Urine Protein Negative Urine Glucose (UA) Normal Urine Ketones Negative Urine Occult Blood Negative Urine Nitrite Negative Urine Bilirubin Negative Urine Urobilinogen Normal Ur Leukocyte Esterase Negative Urine RBC 0 SEEN Urine WBC 0 SEEN Ur Squamous Epith Cells 0 SEEN Urine Bacteria 0 SEEN Urine Mucus 0 SEEN 02/13/19 06:50 WBC RBC Hgb Hct MCV MCH MCHC RDW RDW Differential Plt Count MPV Immature Gran % (Auto) Neut % (Auto) Lymph % (Auto) [place] % (Auto) Eos % (Auto) Baso % (Auto) Absolute Neuts (auto) Absolute Lymphs (auto) Total Counted PT 13.3 INR 1.0 APTT 53.9 H Sodium Potassium Chloride Carbon Dioxide Anion Gap BUN Creatinine Estim Creat Clear Calc Est GFR (MDRD) Af Amer Est GFR (MDRD) Non-Af BUN/Creatinine Ratio Glucose Calcium Magnesium TSH Urine Color Urine Clarity Urine pH Ur Specific [place] Urine Protein Urine Glucose (UA) Urine Ketones Urine Occult Blood Urine Nitrite Urine Bilirubin Urine Urobilinogen Ur Leukocyte Esterase Urine RBC Urine WBC Ur Squamous Epith Cells Urine Bacteria Urine Mucus Medical Necessity - Tobacco Use Smoking Status: Former smoker Assessment/Plan All Active Problems (Last Reviewed 02/12/19 @ 05:46 by Alejandro Elizondo MD) Chest pain (Acute) Elevated blood pressure reading (Acute) History of hand surgery (Acute) Hx of LASIK (Acute) 1. Chest pain, CAD - underwent successful PTCA this AM, cath report pending. Currently recovering in CVICU. Continue statin, brilinta, metoprolol, novasc. 2. HTN - improved 3. Morbid obesity - dietary eval. A1C 5.0. 4. HLD - on statin DC planning: likely home in AM This patient was seen by Kaveh Montiel PA-C under the supervision of Dr. Keating.
--- NOTE | 2019-02-13 13:54 | CRPHASE1 ---
Patient Communication PHII Cardiac Rehab Discussed with Patient:: Yes Guide to Cardiac Rehab Given to Patient:: Yes Cardiac Rehab Facility Choice List Given to Patient:: Yes Choice Program Other:: Communication Given to CR, With permission faxed order and referral information Cash Management Associate:: Rei Graham Refer Phase II Cardiac Rehab:: Yes Sessions:: 36 sessions - 3 days/wk, 12 weeks - PT CHOSE [facility] TO DO HIS CR / ORDER AND INFORMATION SENT TO THEM Risk Factors/Lifestyle Smoking Status: Former smoker Hx Hypertension: Yes Hx Diabetes Mellitus Type 1: No Hx Diabetes Mellitus Type 2: No Hx Metabolic Disorders: Yes Hx Dyslipidemia: Yes Hx Obesity: Yes Height: 6 ft 2 in - BMI 43.2 Stress: Work-related, Home/Family Risk Factor for Sedentary Lifestyle: Moderate Risk Laboratory Values: Cardiac Rehab Phase I Labs Hemoglobin A1c 5.0 % (4.2-6.3) 02/12/19 04:48 Triglycerides 232 mg/dL (-199) H 02/12/19 04:48 Cholesterol 181 mg/dL (200) 02/12/19 04:48 LDL Cholesterol 98 mg/dL (0-130) 02/12/19 04:48 HDL Cholesterol 37 mg/dL (40-) L 02/12/19 04:48 Phase I Education Given On:: [place], Nutrition, Antiplatelet medication Issues Affecting Care:: None Knowledge of Condition:: Yes Learning Preferences: Verbal, Written - AT BEDSIDE Hospital Course Presenting Symptoms:: C/P WITH EXERTION Medical/Surgical History [place]:: No CAD:: No COPD:: No Diabetes:: No Hypertension:: Yes Dyslipidemia:: Yes Discharge/Home/Social Eval Discharge Disposition: Home Marital Status: Cardiac Rehabilitation Info Cardiac Rehabilitation Program Information: Cardiac Rehabilitation is important for patients like you who are recovering from a heart problem. Cardiac rehabilitation programs are recognized as integral to the continued care of the patient with coronary heart disease. The cardiac rehabilitation program is designed to optimize a patient's physical, psychological, and social functioning. Health health care technician work in cardiac rehabilitation programs and assist you with getting the treatments you need to get stronger and healthier - like exercise, healthy eating habits, and medications. Cardiac rehabilitation has been show to help people with heart problems live longer and have better life enjoyment than people who do not go to cardiac rehabilitation. Please contact the Cardiac Rehabilitation Program at [facility] at in two weeks if you have not heard from them.
--- NOTE | 2019-02-13 13:57 | CRPHASE1_ITS ---
Patient Communication PHII Cardiac Rehab Discussed with Patient:: Yes Guide to Cardiac Rehab Given to Patient:: Yes Cardiac Rehab Facility Choice List Given to Patient:: Yes Choice Program Other:: Communication Given to CR, With permission faxed order and referral information [employer]:: Rei Graham Refer Phase II Cardiac Rehab:: Yes Sessions:: 36 sessions - 3 days/wk, 12 weeks - PT CHOSE [facility] TO DO HIS CR / ORDER AND INFORMATION SENT TO THEM Risk Factors/Lifestyle Smoking Status: Former smoker Hx Hypertension: Yes Hx Diabetes Mellitus Type 1: No Hx Diabetes Mellitus Type 2: No Hx Metabolic Disorders: Yes Hx Dyslipidemia: Yes Hx Obesity: Yes Height: 6 ft 2 in - BMI 43.2 Stress: Work-related, Home/Family Risk Factor for Sedentary Lifestyle: Moderate Risk Laboratory Values: Cardiac Rehab Phase I Labs Hemoglobin A1c 5.0 % (4.2-6.3) 02/12/19 04:48 Triglycerides 232 mg/dL (-199) H 02/12/19 04:48 Cholesterol 181 mg/dL (200) 02/12/19 04:48 LDL Cholesterol 98 mg/dL (0-130) 02/12/19 04:48 HDL Cholesterol 37 mg/dL (40-) L 02/12/19 04:48 Phase I Education Given On:: [place], Nutrition, Antiplatelet medication Issues Affecting Care:: None Knowledge of Condition:: Yes Learning Preferences: Verbal, Written - AT BEDSIDE Hospital Course Presenting Symptoms:: C/P WITH EXERTION Medical/Surgical History [place]:: No CAD:: No COPD:: No Diabetes:: No Hypertension:: Yes Dyslipidemia:: Yes Discharge/Home/Social Eval Discharge Disposition: Home Marital Status: Cardiac Rehabilitation Info Cardiac Rehabilitation Program Information: Cardiac Rehabilitation is important for patients like you who are recovering from a heart problem. Cardiac rehabilitation programs are recognized as integral to the continued care of the patient with coronary heart disease. The cardiac rehabilitation program is designed to optimize a patient's physical, psychological, and social functioning. Health director of primary care work in cardiac rehabilitation programs and assist you with getting the treatments you need to get stronger and healthier - like exercise, healthy eating habits, and medications. Cardiac rehabilitation has been show to help people with heart problems live longer and have better life enjoyment than people who do not go to cardiac rehabilitation. Please contact the Cardiac Rehabilitation Program at [facility] at in two weeks if you have not heard from them.
--- NOTE | 2019-02-13 13:57 | CRPH1.INSTRU ---
General Education CAD and cardiac anatomy and function:: Patient communicates acknowledgment, Family communicates acknowledgment Explanation of diagnoses and procedures:: Patient communicates acknowledgment, Family communicates acknowledgment Sign/Symptoms of HI:: Patient communicates acknowledgment, Family communicates acknowledgment Antiplatelet therapy: Patient communicates acknowledgment, Family communicates acknowledgment Proper use of NTG-SL: Not instructed Emergency procedures and activation of EMS: Patient communicates acknowledgment, Family communicates acknowledgment Compliance of all prescribed medications: Patient communicates acknowledgment, Family communicates acknowledgment - AT BEDSIDE Smoking Recommendations Include:: Previous smoker; encourage continued cessation Nicotine/Smoking Response Code:: Patient communicates acknowledgment, Family communicates acknowledgment Dyslipidemia Patient Dyslipidemia Risk Factors Are:: Total Cholesterol, Triglycerides, HDL, LDL Recommendations Include:: Lipid profile provided, Reviewed NCEP/ATP guidelines, Therapeutic Lifestyle Change dietary guidelines Dyslipidemia Response Code:: Patient communicates acknowledgment, Family communicates acknowledgment Overweight/Obesity Patient Overweight/Obesity Risk Factors Are:: Obesity - > or = 30 Recommendations Include:: Weight loss of 5-10%, Reduced calorie diet, Exercise 5-7 times/week Overweight/Obesity:: Patient communicates acknowledgment, Family communicates acknowledgment Hypertension Recommendations Include:: Maintain BP <130/85, DASH dietary guidelines, Decrease/maintain normal body weight, Moderation of ETOH Hypertension:: Patient communicates acknowledgment, Family communicates acknowledgment Heart Disease Recommendations Include:: Educated family members of their risk Heart Disease Response Code:: Patient communicates acknowledgment, Family communicates acknowledgment Diabetes Patient Diabetes Risk Factors Are:: No documented hx of diabetes Metabolic Syndrome Patient Metabolic Syndrome Risk Factors Are [3 of 5]:: Waist circumference > 35 [female] or 40 [male], High triglyceride >150, Hypertension, Low HDL <40 [male] or < 50 [female] Recommendations Include:: Reinforce compliance to risk factor modifications, Encouraged follow-up with Primary Care Physician Metabolic Syndrome Response Code:: Patient communicates acknowledgment, Family communicates acknowledgment Sedentary Patient Sedentary Risk Factors Are:: Lack of regular exercise Recommendations Include:: Aerobic exercise 5-7 times/week for 20-30 minutes continuously, Benefits of regular exercise, Discussed home walking program, Monitored Outpatient Cardiac Rehab Sedentary Response Code:: Patient communicates acknowledgment, Family communicates acknowledgment Stress Recommendations Include:: Identification of stressors, and assessment of coping skills, Stress management techniques Stress Response Code:: Patient communicates acknowledgment, Family communicates acknowledgment
--- NOTE | 2019-02-13 17:24 | CL.I_ITS ---
Patient Name: JESSICA ACUÑA Study Date: 02/13/2019 Performing: Mikayla Graham MD Ht: 74 inches 188 cm : 1955 Wt: 337.7 lbs 153 kg Age: 64 Gender: male BSA: 2.71 PROCEDURE(S) PERFORMED [id number] W OR WO PTCA, SINGLE CORONARY ARTERY [id number] W OR WO PTCA, SINGLE CORONARY ARTERY CLINICAL PROFILE AND CO-MORBIDITIES Indications: ACS <= 24 hrs Heart Failure: None Stress/Imaging Stress/Image Study Performed: No CAD Presentations: Non-STEMI. Symptom onset Date/Time: 02/11/19 Time Not Available CONCLUSIONS Severe CAD as described Successful PCI with CRISTIAN to proximal LAD, mLAD and dLCx RECOMMENDATIONS PCI of LAD and LCx today and staged PCI of Ramus in 4 weeks Pt. should return for PCI of Ramus in 4 weeks Follow up with primary specimen accessioner Risk factor modification ASA Indefinitley Brilinta for at least 12 months DESCRIPTION OF PROCEDURE The patient arrived to the procedure lab. The risks and benefits of the procedure as well as a full d escription of our services here and lack of surgical backup were fully explained to the patient and/o r their significant other prior to the catheterization. The Timeout was completed, verifying the chuy ect patient and procedure. The patient's procedural site was prepped and draped in the usual fashion. Local anesthetic was given subcutaneously to right radial region with Lidocaine 2%. Using a modified Seldinger technique, arterial access was obtained via the right radial artery, a 6Fr sheath was inse rted.. Left Coronary Artery selective angiography was performed in multiple views using a 5 Fr. JL3. 5 catheter. Right Coronary Artery selective angiography was then performed in multiple views using a 5 Fr. JR 4 catheterThe images were reviewed and options discussed. A decision was then made to procee d with an Intervention, IVUS or other adjunct procedure. XB 3.5 Guide catheter was inserted and engaged into the LCA. BMW Guide wire was advanced to the L AD. 3x12 Emerge Balloon catheter was inserted. Balloon catheter was advanced across lesion in the LAD , proximal. PTCA balloon inflated at 6 atms for 12 secs. PTCA balloon inflated at 8 atms for 30 secs. 3x16 Synergy Drug Eluting stent was inserted. Drug Eluting stent was advanced across the lesion in t he LAD, mid. Angiogram performed post stent deployment. 3.5x12 Synergy Drug Eluting stent was inserte d. Drug Eluting stent was advanced across the lesion in the LAD, proximal. Angiogram performed post s tent deployment. BMW Guide wire was repositioned to the Circumflex 2x12 Emerge Balloon catheter was i nserted. Balloon catheter was advanced across lesion in the circumflex, distal. PTCA balloon inflated at 10 atms for 10 secs. PTCA balloon inflated at 12 atms for 20 secs. PTCA balloon inflated at 12 at ms for 6 secs. PTCA balloon inflated at 12 atms for 12 secs. PTCA balloon inflated at 10 atms for 8 secs. Balloon catheter was repositioned to additional lesion in the circumflex, mid. PTCA balloon inflated at 12 atms for 8 secs. 2.25x28 Synergy Drug Eluting stent was inserted. Drug Eluting stent was advanced across the lesion in the circumflex, distal. Angiogram performed post stent deplo yment. Angiogram performed post stent deployment. The arterial sheath was pulled and a TR Band was applied for hemostasis, 14cc of air applied to band CORONARY ANGIOGRAPHY DOMINANCE: Right Dominant LEFT MAIN: Mild luminal irregularities LEFT ANTERIOR DESCENDING ARTERY: PROX LAD: 90 % Stenosis MID LAD: 80 % Stenosis CIRCUMFLEX ARTERY: DISTAL CIRC: 95 % Stenosis RAMUS: 80 % Stenosis RIGHT CORONARY ARTERY: MID RCA: 50 % Stenosis INTERVENTION INFORMATION LESION SITE: LAD (Proximal) Lesion Complexity: High/C, chronic total occlusion: No, lesion at bifurcation: No, thrombus present: No, lesion length: 11 mm, culprit lesion: Yes, Previously treated lesion: No Pre Stenosis: 90 % Pre intervention ANKIT flow: 3 PROCEDURE: Drug Eluting Stent with pre dilatation. Post Stenosis: 0 % Post intervention ANKIT flow: 3 Lesion Devices: Larios .014 BMW [place] Straight 190cm Cordis 6 Fr XB3.5 100cm Guide Catheter Meek Sci EMERGE MR 3.00x12 BALLOON Meek Sci Synergy MR CRISTIAN 3.50x12 LESION SITE: LAD (Mid) Lesion Complexity: High/C, chronic total occlusion: No, lesion at bifurcation: No, thrombus present: No, lesion length: 12 mm, culprit lesion: Yes, Previously treated lesion: No Pre Stenosis: 80 % Pre intervention ANKIT flow: 3 PROCEDURE: Drug Eluting Stent Post Stenosis: 0 % Post intervention ANKIT flow: 3 Lesion Devices: Larios .014 BMW [place] Straight 190cm Cordis 6 Fr XB3.5 100cm Guide Catheter Meek Sci Synergy MR CRISTIAN 3.00x16 LESION SITE: Circumflex (Distal) Lesion Complexity: High/C, chronic total occlusion: No, lesion at bifurcation: No, thrombus present: No, lesion length: 27 mm, culprit lesion: Yes, Previously treated lesion: No Pre Stenosis: 95 % Pre intervention ANKIT flow: 3 PROCEDURE: Bare Metal Stent with pre dilatation. 0 % Post intervention ANKIT flow: 3 Lesion Devices: Meek Sci EMERGE MR 2.00x12 BALLOON Meek Sci Synergy MR CRISTIAN 2.25x28 COMPLICATIONS No Complications PROCEDURE MEDICATIONS Versed 1 mg IV Fentanyl 50 mcg IV Oxygen: 2 L/min via nasal cannula Brilinta 180 mg PO @ 02/13/2019 12:17:17 Heparin given IA 02/13/2019 11:13:59 Heparin 7000 unit(s) IV 02/13/2019 11:26:19 Nitro 100 mcg IC 02/13/2019 11:48:54 Verapamil 2.5mg, Ntg 100mcgs, 3000 units of Heparin given IA 02/13/2019 11:13:59 SUMMARY OF HEMODYNAMIC DATA Time AIR REST ECG 10:51:09 AO 84/64 (74) SA 11:17:21 AO 63/47 (53) 11:23:15 AO 103/69 (84) 11:30:13 AO 147/89 (114) 11:45:32 Signed By Mikayla Graham MD On 02/13/2019 5:23:34 PM Mikayla Graham MD
[2019-02-13] MEDS: Morphine 2 MG/ML Syringe IV ×2 (17:44→21:55)
[2019-02-13] MEDS: Atorvastatin Calcium 80 MG Tablet PO (21:49)
[2019-02-13] MEDS: TICAGRELOR 90 MG TABLET PO (21:50)
[2019-02-13] MEDS: MELATONIN 3 MG TABLET PO (21:51)
[2019-02-13] MEDS: 0.9% NaCl Peripheral Flush Adult/Peds IV (21:56)
[2019-02-14] VITALS (14 sets, daily range): BP systolic 135–178; BP diastolic 70–116; PULSE 64–100; RESP 10–20; TEMP 36.3–36.7; O2SAT 95–98
[2019-02-14] MEDS: hydrALAZINE 20 MG/ML Vial 10 MG IV (04:15)
[2019-02-14 05:17] LABS: Absolute Lymphocyte Count 1.89 X10^3/ul (0.83-4.51); Absolute Neutrophil Count 6.2 X10^3/uL (2.0-7.7); Basophil# 0.03 X10^3/uL; Basophil% 0.3 % (0-1); Eosinophil# 0.17 X10^3/uL; Eosinophils% 1.8 % (0-5); Hematocrit 44.3 % (40-54); Hemoglobin 16.1 g/dl (13.0-16.5); Lymphocyte # 1.89 X10^3/ul (4.0); Lymphocyte % 20.3 % (19-41); Mean Corp Hgb Conc 36.3 g/gl (32-36); Mean Corpuscular Hgb 30.9 pg (27.0-32.0); Mean Platelet Vol. 10.4 fl (6.2-12.0); Monocyte# 1.02 X10^3/uL; Monocyte% 10.9 % (0-10); Neutrophil % 66.5 % (47-70); Platelet Count 234 K/mm3 (150-450); RBC Distribution Width CV 14.3 % (11.6-14.6); Red Blood Count 5.21 M/mm3 (4.6-6.2); White Blood Count 9.3 K/mm3 (4.4-11.0)
[2019-02-14 05:20] LABS: POSITIVE COUNT NO; POSITIVE DIFFERENTIAL NO; POSITIVE MORPHOLOGY NO
[2019-02-14 05:32] LABS: Anion Gap 10 (5-15); BUN 13 mg/dL (7-18); BUN/Creat Ratio 13.7 RATIO (10-20); Calcium,Total 8.8 mg/dL (8.5-10.1); Chloride 108 mmol/L (98-107); Creatinine, Serum 0.95 mg/dL (0.70-1.30); EST Glomerular Filtration Rate 85 mL/min (>60); Est Glom Filt Rate - Afr Amer 103 mL/min (>60); Estimated Creatinine Clearance 93.74 ml/min; Glucose 106 mg/dL (74-106); Potassium 3.8 mmol/L (3.5-5.1); Sodium Level 142 mmol/L (136-145)
[2019-02-14] MEDS: amLODIPine 10 MG Tablet PO (07:58)
--- NOTE | 2019-02-14 08:39 | PN.CARD_ITS ---
Subjectve: Patient seen and evaluated. Objective: Vital Signs Temp Pulse Resp BP Pulse Ox 97.4 F L 90 18 148/103 H 98 02/14/19 08:00 02/14/19 08:00 02/14/19 08:00 02/14/19 08:00 02/14/19 08:00 Oxygen Delivery Method Room Air Weight: 336 lb 3.279 oz Body Mass Index (BMI) 43.1 Intake and Output for Last 24 Hours 02/12/19 02/13/19 02/14/19 23:59 23:59 23:59 Intake Total 690 / 690 2313 / 2313 Output Total 2750 / 2750 525 / 525 Balance 690 / 690 -437 / -437 -525 / -525 General: Awake, Alert, Oriented x 3 HEENT: PERRL, EOMI, Sclera Non Icteric Neck: Supple, Good ROM, No Lymph Node Enlargement Lungs: Clear to auscultation Cardiovascular: Regular Rhythm, Normal S1, Normal S2, No Murmurs, No Rubs, No Gallops Vascular: No Carotid Bruits, Normal Femoral Pulses, Normal Radial Pulses, Normal Dorsalis Pedal Pulse, Normal Posterior Tibial Pulses Abdomen: Bowel Sounds Present, Soft, Non Tender, No HSM, No Organomegaly Extremities: No Cyanosis, No Clubbing, No edema Musculoskeletal: No Erythema Skin: No Rashes Lymphatic: No Lymph Node Enlargement Neurological: No Focal Motor or Sensory Deficit Psych/Mental Status: Appropriate 02/14/19 05:00: WBC 9.3, RBC 5.21, Hgb 16.1, Hct 44.3, MCV 85.0, MCH 30.9, MCHC 36.3 H, RDW 14.3, RDW Differential 44.0 H, Plt Count 234, MPV 10.4, Immature Gran % (Auto) 0.200, Neut % (Auto) 66.5, Lymph % (Auto) 20.3, [place] % (Auto) 10.9 H, Eos % (Auto) 1.8, Baso % (Auto) 0.3, Absolute Neuts (auto) 6.2, Total Counted Not Reportable 02/14/19 05:00: Sodium 142, Potassium 3.8, Chloride 108 H, Carbon Dioxide 24.0, Anion Gap 10, BUN 13, Creatinine 0.95, Est GFR (MDRD) Af Amer 103, Est GFR (MDRD) Non-Af 85, BUN/Creatinine Ratio 13.7, Glucose 106, Calcium 8.8 Rhythm: EKG: ECHO: Stress Test: Cardiac Cath: PCI: CT Surgery: Holter monitor: EPS: PPM: CXR: Chest CT Scan: Medical Necessity - Tobacco Use Smoking Status: Former smoker Assessment/Plan 1. Status post multivessel angioplasty. Patient appeared to be doing well. Has not had any cardiac complaints. Plan will be to continue him on his current medical therapy and arrange for him to have outpatient follow-up for staged angioplasty. * This will be performed of the ramus intermedius vessel. * * Thank you for allowing me to participate in the care of your patient. Please don't hesitate to call if any issues arise
[2019-02-14] MEDS: TICAGRELOR 90 MG TABLET PO (09:03)
[2019-02-14] MEDS: Metoprolol Tartrate 50 MG Tablet PO (09:32)
--- NOTE | 2019-02-14 09:35 | DCINST_ITS ---
- Discharge Diagnoses Current Active Problems: Current Active and Chronic Problems (Last Updated 02/14/19 @ 07:20 by ANGELICA Pepper) History of coronary artery stent placement (Chronic) Successful PCI with CRISTIAN to proximal LAD, mLAD and dLCx on 02/13/2019; Atherosclerosis [place] coronary artery [place] heart without angina pectoris (Chronic) Successful PCI with CRISTIAN to proximal LAD, mLAD and dLCx on 02/13/2019; Chest pain (Acute) You will use the following diet at home:: Cardiac Your food should be the consistency of: Regular Your liquids should be the consistency of: Regular/Thin Discharge Activity: - - You may remove the dressing in 1 day. You may shower in 1 day. No sex for 10-14 days. Do not lift more than 10 pounds for the next 10-14 days. No strenuous activity. You may start a walking program and work up to 30 minutes daily 5-6 times a week. No hills. May resume sexual activity in: 10-14 days Call your doctor if your incision/area has: Continuous Slow Oozing, Sudden Increased Bleeding, Increased Pain/ Swelling, Increased Redness, Foul Smelling Discharge, Swelling at the incision site Call your doctor if you observe: Fever of 101 or Higher, Shortness of breath, Dizziness, Fainting spells, Swelling in the ankles, Chest pain Instructions: What Are Snoring and Sleep Apnea?, Continuous Positive Air Pressu re (CPAP) Additional Instructions: 1. You had a small heart attack that did not damage the heart. It still squeezes normally. You will need to come back to the hospital in 4 weeks to have another stent placed. 2. The overnight pulse oxygen showed that you desaturated 540 times while sleeping. I think you have sleep apnea but the only way to prove that is to get a sleep study. I have talked to the research recruiter and he will see you in the office as an out patient and get you scheduled for an overnight sleep study. 3. No strenous activity........you can walk but no [place]. No sex for 10-14 days. The puncture site in the groin will be stable in 10-14. Until then you are at risk for the artery to open and you can get a large hematoma or a dissection. Allergies/Adverse Reactions: Allergies penicillin G Allergy (Unknown, Verified 02/11/19 22:34) Unknown Medications to take at Discharge Acetaminophen [Tylenol] 325 mg PO Q4H PRN PRN #1 tab 02/14/19 Amlodipine [Norvasc] 10 mg PO DAILY #30 tab 02/14/19 Aspirin [Aspir-Low] 81 mg PO DAILY #30 tablet. 02/14/19 Atorvastatin Calcium [Lipitor] 80 mg PO QHS #30 tab 02/14/19 Metoprolol Tartrate 50 mg PO BID #60 tab 02/14/19 Ticagrelor [Brilinta] 90 mg PO BID #60 tab 02/14/19 The following prescriptions were given: Aspirin [Aspir-Low] 81 mg PO DAILY #30 tablet. Prescription Printed Ticagrelor [Brilinta] 90 mg PO BID #60 tab Prescription Printed Atorvastatin Calcium [Lipitor] 80 mg PO QHS #30 tab Prescription Printed Metoprolol Tartrate 50 mg PO BID #60 tab Prescription Printed Amlodipine [Norvasc] 10 mg PO DAILY #30 tab Prescription Printed Acetaminophen [Tylenol] 325 mg PO Q4H PRN PRN #1 tab PRN Reason: Pain Prescription Printed Primary Care Physician: Hunter Watt MD [Primary Care Provider] - Please follow up with your Primary Care Physician in: 5-7 days for a BP check Test Results: Test results from this visit will be discussed in further detail at your follow- up appointment, if applicable. Please Follow Up With: Rei Graham MD Proposed Discharge Date: 02/14/19
--- NOTE | 2019-02-14 09:50 | DS.PCM_ITS ---
Discharge Date and Diagnosis - Problem List Patient Problems: Active and Suspected Problems (Last Updated 02/14/19 @ 07:20 by RENEE Pepper) NSTEMI (non-ST elevated myocardial infarction) (Acute) History of coronary artery stent placement (Acute) Successful PCI with CRISTIAN to proximal LAD, mLAD and dLCx on 02/13/2019; Date of Admission: 02/11/19 Date of Discharge: 02/14/19 - Primary Discharge Diagnosis Active and Suspected Problems (Last Updated 02/14/19 @ 07:20 by RENEE Pepper) NSTEMI (non-ST elevated myocardial infarction) (Acute) History of coronary artery stent placement (Acute) Successful PCI with CRISTIAN to proximal LAD, mLAD and dLCx on 02/13/2019; - Secondary Discharge Diagnosis Chronic Problems (Last Updated 02/14/19 @ 07:20 by ANGELICA Pepper) Sleep-disordered breathing (Chronic) Former smoker (Chronic) - quit in 1991 HLD (hyperlipidemia) (Chronic) Morbid obesity (Chronic) LVH (left ventricular hypertrophy) (Chronic) HTN (hypertension) (Chronic) Hospital Course and Treatment Imaging Results: Clinical Impression(s) from Imaging Studies Chest X-Ray 02/11/19 22:45 IMPRESSION: No radiographic evidence of acute cardiopulmonary disease. at 2259 Reported and signed by: Ekta Kaiser DO Electronically Signed: Ekta Kaiser DO at 22:58 EDT Tel , Service support , Laboratory Tests 02/14/19 02/14/19 02/13/19 Range/Units 05:00 05:00 06:50 WBC 9.3 (4.4-11.0) K/mm3 RBC 5.21 (4.6-6.2) M/mm3 Hgb 16.1 (13.0-16.5) g/dl Hct 44.3 (40-54) % MCV 85.0 (80-94) fL MCH 30.9 (27.0-32.0) pg MCHC 36.3 H (32-36) g/gl RDW 14.3 (11.6-14.6) % RDW Differential 44.0 H (35.1-43.9) fl Plt Count 234 (150-450) K/mm3 MPV 10.4 (6.2-12.0) fl Immature Gran % (Auto) 0.200 (0.0-0.9) % Neut % (Auto) 66.5 (47-70) % Lymph % (Auto) 20.3 (19-41) % Cottle % (Auto) 10.9 H (0-10) % Eos % (Auto) 1.8 (0-5) % Baso % (Auto) 0.3 (0-1) % Absolute Neuts (auto) 6.2 (2.0-7.7) X10^3/uL Absolute Lymphs (auto) 1.89 (0.83-4.51) X10^3/ul Total Counted Not Reportable PT 13.3 (11.7-14.9) SECONDS INR 1.0 APTT 53.9 H (24.1-36.2) Seconds Sodium 142 (136-145) mmol/L Potassium 3.8 (3.5-5.1) mmol/L Chloride 108 H (98-107) mmol/L Carbon Dioxide 24.0 (21.0-32.0) mmol/L Anion Gap 10 (5-15) BUN 13 (7-18) mg/dL Creatinine 0.95 (0.70-1.30) mg/dL Estim Creat Clear Calc 93.74 ml/min Est GFR (MDRD) Af Amer 103 (>60) mL/min Est GFR (MDRD) Non-Af 85 (>60) mL/min BUN/Creatinine Ratio 13.7 (10-20) RATIO Glucose 106 (74-106) mg/dL Hemoglobin A1c (4.2-6.3) % Calcium 8.8 (8.5-10.1) mg/dL Magnesium (1.6-2.6) mg/dL Troponin I (<0.045) ng/mL Triglycerides ( - 199) mg/dL Cholesterol (200) mg/dL LDL Cholesterol (0-130) mg/dL VLDL Cholesterol (5-40) mg/dL HDL Cholesterol (40 - ) mg/dL TSH (0.358-3.74) uIU/mL Urine Color (Yellow) Urine Clarity (Clear) Urine pH (5.0 - 8.0) Ur Specific [place] (1.002-1.030) Urine Protein (Negative) mg/dl Urine Glucose (UA) (Normal) mg/dl Urine Ketones (Negative) mg/dl Urine Occult Blood (Negative) /ul Urine Nitrite (Negative) Urine Bilirubin (Negative) mg/dL Urine Urobilinogen (Normal) mg/dl Ur Leukocyte Esterase (Negative) /ul Urine RBC (0-5) /hpf Urine WBC (0-5) /hpf Ur Squamous Epith Cells (0-5) /hpf Urine Bacteria (None Seen) /hpf Urine Mucus (<or=2+) /hpf POC Glucose (70-110) mg/dL 02/13/19 02/13/19 02/13/19 Range/Units 06:50 06:50 01:20 WBC 6.6 (4.4-11.0) K/mm3 RBC 4.92 (4.6-6.2) M/mm3 Hgb 15.2 (13.0-16.5) g/dl Hct 43.2 (40-54) % MCV 87.8 (80-94) fL MCH 30.9 (27.0-32.0) pg MCHC 35.2 (32-36) g/gl RDW 14.2 (11.6-14.6) % RDW Differential 45.9 H (35.1-43.9) fl Plt Count 188 (150-450) K/mm3 MPV 10.4 (6.2-12.0) fl Immature Gran % (Auto) 0.200 (0.0-0.9) % Neut % (Auto) 55.3 (47-70) % Lymph % (Auto) 29.9 (19-41) % Cottle % (Auto) 10.2 H (0-10) % Eos % (Auto) 3.9 (0-5) % Baso % (Auto) 0.5 (0-1) % Absolute Neuts (auto) 3.7 (2.0-7.7) X10^3/uL Absolute Lymphs (auto) 1.97 (0.83-4.51) X10^3/ul Total Counted Not Reportable PT (11.7-14.9) SECONDS INR APTT (24.1-36.2) Seconds Sodium 141 (136-145) mmol/L Potassium 4.1 (3.5-5.1) mmol/L Chloride 107 (98-107) mmol/L Carbon Dioxide 25.0 (21.0-32.0) mmol/L Anion Gap 9 (5-15) BUN 14 (7-18) mg/dL Creatinine 1.00 (0.70-1.30) mg/dL Estim Creat Clear Calc 89.05 ml/min Est GFR (MDRD) Af Amer 98 (>60) mL/min Est GFR (MDRD) Non-Af 81 (>60) mL/min BUN/Creatinine Ratio 14.1 (10-20) RATIO Glucose 92 (74-106) mg/dL Hemoglobin A1c (4.2-6.3) % Calcium 8.8 (8.5-10.1) mg/dL Magnesium (1.6-2.6) mg/dL Troponin I (<0.045) ng/mL Triglycerides ( - 199) mg/dL Cholesterol (200) mg/dL LDL Cholesterol (0-130) mg/dL VLDL Cholesterol (5-40) mg/dL HDL Cholesterol (40 - ) mg/dL TSH (0.358-3.74) uIU/mL Urine Color Yellow (Yellow) Urine Clarity Clear (Clear) Urine pH 7.0 (5.0 - 8.0) Ur Specific [place] 1.005 (1.002-1.030) Urine Protein Negative (Negative) mg/dl Urine Glucose (UA) Normal (Normal) mg/dl Urine Ketones Negative (Negative) mg/dl Urine Occult Blood Negative (Negative) /ul Urine Nitrite Negative (Negative) Urine Bilirubin Negative (Negative) mg/dL Urine Urobilinogen Normal (Normal) mg/dl Ur Leukocyte Esterase Negative (Negative) /ul Urine RBC 0 SEEN (0-5) /hpf Urine WBC 0 SEEN (0-5) /hpf Ur Squamous Epith Cells 0 SEEN (0-5) /hpf Urine Bacteria 0 SEEN (None Seen) /hpf Urine Mucus 0 SEEN (<or=2+) /hpf POC Glucose (70-110) mg/dL 02/13/19 02/12/19 02/12/19 Range/Units 00:14 17:37 06:48 WBC (4.4-11.0) K/mm3 RBC (4.6-6.2) M/mm3 Hgb (13.0-16.5) g/dl Hct (40-54) % MCV (80-94) fL MCH (27.0-32.0) pg MCHC (32-36) g/gl RDW (11.6-14.6) % RDW Differential (35.1-43.9) fl Plt Count (150-450) K/mm3 MPV (6.2-12.0) fl Immature Gran % (Auto) (0.0-0.9) % Neut % (Auto) (47-70) % Lymph % (Auto) (19-41) % Cottle % (Auto) (0-10) % Eos % (Auto) (0-5) % Baso % (Auto) (0-1) % Absolute Neuts (auto) (2.0-7.7) X10^3/uL Absolute Lymphs (auto) (0.83-4.51) X10^3/ul Total Counted PT 12.8 (11.7-14.9) SECONDS INR 1.0 APTT 80.6 H 28.8 (24.1-36.2) Seconds Sodium (136-145) mmol/L Potassium (3.5-5.1) mmol/L Chloride (98-107) mmol/L Carbon Dioxide (21.0-32.0) mmol/L Anion Gap (5-15) BUN (7-18) mg/dL Creatinine (0.70-1.30) mg/dL Estim Creat Clear Calc ml/min Est GFR (MDRD) Af Amer (>60) mL/min Est GFR (MDRD) Non-Af (>60) mL/min BUN/Creatinine Ratio (10-20) RATIO Glucose (74-106) mg/dL Hemoglobin A1c (4.2-6.3) % Calcium (8.5-10.1) mg/dL Magnesium (1.6-2.6) mg/dL Troponin I (<0.045) ng/mL Triglycerides ( - 199) mg/dL Cholesterol (200) mg/dL LDL Cholesterol (0-130) mg/dL VLDL Cholesterol (5-40) mg/dL HDL Cholesterol (40 - ) mg/dL TSH (0.358-3.74) uIU/mL Urine Color (Yellow) Urine Clarity (Clear) Urine pH (5.0 - 8.0) Ur Specific [place] (1.002-1.030) Urine Protein (Negative) mg/dl Urine Glucose (UA) (Normal) mg/dl Urine Ketones (Negative) mg/dl Urine Occult Blood (Negative) /ul Urine Nitrite (Negative) Urine Bilirubin (Negative) mg/dL Urine Urobilinogen (Normal) mg/dl Ur Leukocyte Esterase (Negative) /ul Urine RBC (0-5) /hpf Urine WBC (0-5) /hpf Ur Squamous Epith Cells (0-5) /hpf Urine Bacteria (None Seen) /hpf Urine Mucus (<or=2+) /hpf POC Glucose 100 (70-110) mg/dL 02/12/19 02/12/19 02/12/19 Range/Units 04:48 04:48 04:48 WBC (4.4-11.0) K/mm3 RBC (4.6-6.2) M/mm3 Hgb (13.0-16.5) g/dl Hct (40-54) % MCV (80-94) fL MCH (27.0-32.0) pg MCHC (32-36) g/gl RDW (11.6-14.6) % RDW Differential (35.1-43.9) fl Plt Count (150-450) K/mm3 MPV (6.2-12.0) fl Immature Gran % (Auto) (0.0-0.9) % Neut % (Auto) (47-70) % Lymph % (Auto) (19-41) % [place] % (Auto) (0-10) % Eos % (Auto) (0-5) % Baso % (Auto) (0-1) % Absolute Neuts (auto) (2.0-7.7) X10^3/uL Absolute Lymphs (auto) (0.83-4.51) X10^3/ul Total Counted PT (11.7-14.9) SECONDS INR APTT (24.1-36.2) Seconds Sodium (136-145) mmol/L Potassium (3.5-5.1) mmol/L Chloride (98-107) mmol/L Carbon Dioxide (21.0-32.0) mmol/L Anion Gap (5-15) BUN (7-18) mg/dL Creatinine (0.70-1.30) mg/dL Estim Creat Clear Calc ml/min Est GFR (MDRD) Af Amer (>60) mL/min Est GFR (MDRD) Non-Af (>60) mL/min BUN/Creatinine Ratio (10-20) RATIO Glucose (74-106) mg/dL Hemoglobin A1c 5.0 (4.2-6.3) % Calcium (8.5-10.1) mg/dL Magnesium 2.0 (1.6-2.6) mg/dL Troponin I 0.059 H (<0.045) ng/mL Triglycerides 232 H ( - 199) mg/dL Cholesterol 181 (200) mg/dL LDL Cholesterol 98 (0-130) mg/dL VLDL Cholesterol 46 H (5-40) mg/dL HDL Cholesterol 37 L (40 - ) mg/dL TSH 2.30 (0.358-3.74) uIU/mL Urine Color (Yellow) Urine Clarity (Clear) Urine pH (5.0 - 8.0) Ur Specific [place] (1.002-1.030) Urine Protein (Negative) mg/dl Urine Glucose (UA) (Normal) mg/dl Urine Ketones (Negative) mg/dl Urine Occult Blood (Negative) /ul Urine Nitrite (Negative) Urine Bilirubin (Negative) mg/dL Urine Urobilinogen (Normal) mg/dl Ur Leukocyte Esterase (Negative) /ul Urine RBC (0-5) /hpf Urine WBC (0-5) /hpf Ur Squamous Epith Cells (0-5) /hpf Urine Bacteria (None Seen) /hpf Urine Mucus (<or=2+) /hpf POC Glucose (70-110) mg/dL 02/12/19 02/11/19 02/11/19 Range/Units 01:39 22:38 22:38 WBC 7.5 (4.4-11.0) K/mm3 RBC 4.92 (4.6-6.2) M/mm3 Hgb 15.0 (13.0-16.5) g/dl Hct 43.1 (40-54) % MCV 87.6 (80-94) fL MCH 30.5 (27.0-32.0) pg MCHC 34.8 (32-36) g/gl RDW 14.5 (11.6-14.6) % RDW Differential 45.9 H (35.1-43.9) fl Plt Count 215 (150-450) K/mm3 MPV 10.8 (6.2-12.0) fl Immature Gran % (Auto) 0.100 (0.0-0.9) % Neut % (Auto) 51.6 (47-70) % Lymph % (Auto) 34.4 (19-41) % [place] % (Auto) 9.5 (0-10) % Eos % (Auto) 4.1 (0-5) % Baso % (Auto) 0.3 (0-1) % Absolute Neuts (auto) 3.9 (2.0-7.7) X10^3/uL Absolute Lymphs (auto) 2.59 (0.83-4.51) X10^3/ul Total Counted Not Reportable PT (11.7-14.9) SECONDS INR APTT (24.1-36.2) Seconds Sodium 141 (136-145) mmol/L Potassium 3.9 (3.5-5.1) mmol/L Chloride 108 H (98-107) mmol/L Carbon Dioxide 27.0 (21.0-32.0) mmol/L Anion Gap 6 (5-15) BUN 19 H (7-18) mg/dL Creatinine 1.23 (0.70-1.30) mg/dL Estim Creat Clear Calc 72.40 ml/min Est GFR (MDRD) Af Amer 77 (>60) mL/min Est GFR (MDRD) Non-Af 63 (>60) mL/min BUN/Creatinine Ratio 15.4 (10-20) RATIO Glucose 125 H (74-106) mg/dL Hemoglobin A1c (4.2-6.3) % Calcium 8.7 (8.5-10.1) mg/dL Magnesium (1.6-2.6) mg/dL Troponin I 0.077 H < 0.015 (<0.045) ng/mL Triglycerides ( - 199) mg/dL Cholesterol (200) mg/dL LDL Cholesterol (0-130) mg/dL VLDL Cholesterol (5-40) mg/dL HDL Cholesterol (40 - ) mg/dL TSH (0.358-3.74) uIU/mL Urine Color (Yellow) Urine Clarity (Clear) Urine pH (5.0 - 8.0) Ur Specific [place] (1.002-1.030) Urine Protein (Negative) mg/dl Urine Glucose (UA) (Normal) mg/dl Urine Ketones (Negative) mg/dl Urine Occult Blood (Negative) /ul Urine Nitrite (Negative) Urine Bilirubin (Negative) mg/dL Urine Urobilinogen (Normal) mg/dl Ur Leukocyte Esterase (Negative) /ul Urine RBC (0-5) /hpf Urine WBC (0-5) /hpf Ur Squamous Epith Cells (0-5) /hpf Urine Bacteria (None Seen) /hpf Urine Mucus (<or=2+) /hpf POC Glucose (70-110) mg/dL [facility] Operations: None Procedures: Cardiac catheterization Summary of Care Provided: The patient is a 64 year old M [] Patient Problems: Active and Suspected Problems (Last Updated 02/14/19 @ 07:20 by Burak Fox, ELECTRIC DETECTOR OPERATOR- C) NSTEMI (non-ST elevated myocardial infarction) (Acute) History of coronary artery stent placement (Acute) Successful PCI with CRISTIAN to proximal LAD, mLAD and dLCx on 02/13/2019; - Physical Exam Vital Signs Temp Pulse Resp BP Pulse Ox 98.1 F 97 12 178/99 H 95 02/14/19 09:00 02/14/19 09:32 02/14/19 09:00 02/14/19 09:32 02/14/19 09:00 Oxygen Delivery Method Room Air Weight: 336 lb 3.279 oz Body Mass Index (BMI) 43.1 Intake and Output for Last 24 Hours 02/12/19 02/13/19 02/14/19 23:59 23:59 23:59 Intake Total 690 / 690 2313 / 2313 Output Total 2750 / 2750 525 / 525 Balance 690 / 690 -437 / -437 -525 / -525 Laboratory Tests Past 24 Hrs 02/14/19 02/14/19 05:00 05:00 WBC 9.3 RBC 5.21 Hgb 16.1 Hct 44.3 MCV 85.0 MCH 30.9 MCHC 36.3 H RDW 14.3 RDW Differential 44.0 H Plt Count 234 MPV 10.4 Immature Gran % (Auto) 0.200 Neut % (Auto) 66.5 Lymph % (Auto) 20.3 Cottle % (Auto) 10.9 H Eos % (Auto) 1.8 Baso % (Auto) 0.3 Absolute Neuts (auto) 6.2 Absolute Lymphs (auto) 1.89 Total Counted Not Reportable Sodium 142 Potassium 3.8 Chloride 108 H Carbon Dioxide 24.0 Anion Gap 10 BUN 13 Creatinine 0.95 Estim Creat Clear Calc 93.74 Est GFR (MDRD) Af Amer 103 Est GFR (MDRD) Non-Af 85 BUN/Creatinine Ratio 13.7 Glucose 106 Calcium 8.8 Discharge Activity: - - You may remove the dressing in 1 day. You may shower in 1 day. No sex for 10-14 days. Do not lift more than 10 pounds for the next 10-14 days. No strenuous activity. You may start a walking program and work up to 30 minutes daily 5-6 times a week. No hills. May resume sexual activity in: 10-14 days Call your doctor if your incision/area has: Continuous Slow Oozing, Sudden Increased Bleeding, Increased Pain/ Swelling, Increased Redness, Foul Smelling Discharge, Swelling at the incision site Call your doctor if you observe: Fever of 101 or Higher, Shortness of breath, Dizziness, Fainting spells, Swelling in the ankles, Chest pain Home Medications: Medications to take at Discharge Acetaminophen [Tylenol] 325 mg PO Q4H PRN PRN #1 tab 02/14/19 Amlodipine [Norvasc] 10 mg PO DAILY #30 tab 02/14/19 Aspirin [Aspir-Low] 81 mg PO DAILY #30 tablet. 02/14/19 Atorvastatin Calcium [Lipitor] 80 mg PO QHS #30 tab 02/14/19 Metoprolol Tartrate 50 mg PO BID #60 tab 02/14/19 Ticagrelor [Brilinta] 90 mg PO BID #60 tab 02/14/19 Following Prescrptions Were Given to Patient: Aspirin [Aspir-Low] 81 mg PO DAILY #30 tablet. Prescription Printed Ticagrelor [Brilinta] 90 mg PO BID #60 tab Prescription Printed Atorvastatin Calcium [Lipitor] 80 mg PO QHS #30 tab Prescription Printed Metoprolol Tartrate 50 mg PO BID #60 tab Prescription Printed Amlodipine [Norvasc] 10 mg PO DAILY #30 tab Prescription Printed Acetaminophen [Tylenol] 325 mg PO Q4H PRN PRN #1 tab PRN Reason: Pain Prescription Printed Primary Care Physician: Hunter Watt MD [Primary Care Provider] - Please follow up with your Primary Care Physician in: 5-7 days for a BP check Please Follow Up With: Rei Graham MD Patient Instructions: What Are Snoring and Sleep Apnea?, Continuous Positive Air Pressure (CPAP) Medical Necessity - Tobacco Use Smoking Status: Former smoker
--- NOTE | 2019-02-14 10:00 | EKG12_ITS ---
Test Reason : CP ADMIT Blood Pressure : / mmHG Vent. Rate : 064 BPM Atrial Rate : 064 BPM P-R Int : 194 ms QRS Dur : 076 ms QT Int : 396 ms P-R-T Axes : 032 053 221 degrees QTc Int : 408 ms Normal sinus rhythm T wave abnormality, consider inferolateral ischemia Abnormal ECG Confirmed by KATIE NG, PITER ([id number]), tape editor SUSAN ALFARO ([id number]) on 02/15/2019 12:34:31 PM Referred By: Alejandro Elizondo Confirmed By:PITER WILSON MD
[2019-02-14] MEDS: Aspirin 81 MG TAB.CHEW PO (10:03)
--- NOTE | 2019-02-14 11:03 | CASEMGMT ---
RN CM Note: Intro role of CM to patient who is being discharged. He denies any needs on dc, is independent and denies difficulty with f/u plans. [facility] Retail pharmacy delivering medications. [facility] and explained for subsequent pharmacy fills as pt wishes to go home as quickly as possible. No further dc needs identified. Julia GRULLONN RN ACM
--- NOTE | 2019-02-14 15:00 | PCM.DC.SUM ---
Discharge Date and Diagnosis - Problem List Patient Problems: Active and Suspected Problems (Last Updated 02/14/19 @ 09:39 by Judy Keating DO) NSTEMI (non-ST elevated myocardial infarction) (Acute) History of coronary artery stent placement (Acute) Successful PCI with CRISTIAN to proximal LAD, mLAD and dLCx on 02/13/2019; Date of Admission: 02/11/19 Date of Discharge: 02/14/19 - Primary Discharge Diagnosis Active and Suspected Problems (Last Updated 02/14/19 @ 09:39 by Judy Keating DO) CAD with NSTEMI (non-ST elevated myocardial infarction) (Acute) History of coronary artery stent placement (Acute) Successful PCI with CRISTIAN to proximal LAD, mLAD and dLCx on 02/13/2019; Morbid obesity HTN HLD - Secondary Discharge Diagnosis Chronic Problems (Last Updated 02/14/19 @ 09:39 by Judy Keating DO) Sleep-disordered breathing (Chronic) Former smoker (Chronic) HLD (hyperlipidemia) (Chronic) Morbid obesity (Chronic) LVH (left ventricular hypertrophy) (Chronic) HTN (hypertension) (Chronic) Atherosclerosis of [place] coronary artery of [place] heart without angina pectoris (Chronic) Successful PCI with CRISTIAN to proximal LAD, mLAD and dLCx on 02/13/2019; Hospital Course and Treatment Imaging Results: RAD/Chest 1 View (Portable) IMPRESSION: No radiographic evidence of acute cardiopulmonary disease. Echo: Interpretation Summary The estimated ejection fraction is 55 %. Normal diastology for age. Left heart cath: CONCLUSIONS Severe CAD as described Successful PCI with CRISTIAN to proximal LAD, mLAD and dLCx RECOMMENDATIONS PCI of LAD and LCx today and staged PCI of Ramus in 4 weeks Pt. should return for PCI of Ramus in 4 weeks Follow up with primary production mechanic Risk factor modification ASA Indefinitlerudolph Brilinta for at least 12 months Consults: Cardiology - [place] Operations: None Procedures: 2-D Echocardiogram, Cardiac catheterization Summary of Care Provided: Hospital Course: The patient is a 64 year old M who presented to the ER with c/o chest pain described as midsternal pain with SOB worse with exertion better at rest. EKG showed T wave inversions. He was admitted to the PCU with [facility] for chest pain workup. Troponin elevated to an indeterminate level. His symptoms continued when ambulating in the halls and resolved with rest. Cardiology was consulted and took the patient for a heart cath. He was found to have severe disease and underwent PCI of the LAD. He was recommended to have PCI of the ramus in 4 weeks as well. He recovered well following the cath/stents. He was placed on aspirin, brillinta, metoprolol, atorvastatin, and norvasc. Blood pressure remains somewhat elevated and this will need rechecked as an outpatient with adjustments next time he is seen if indicated. He was discharged home in stable condition and will need follow up with his PCP in 1 week and cardiology as directed. This patient was seen by Kaveh Montiel PA-C under the supervision of Dr. Keating. [] Patient Problems: Active and Suspected Problems (Last Updated 02/14/19 @ 09:39 by Judy Keating DO) NSTEMI (non-ST elevated myocardial infarction) (Acute) History of coronary artery stent placement (Acute) Successful PCI with CRISTIAN to proximal LAD, mLAD and dLCx on 02/13/2019; - Physical Exam General: Alert, Oriented x3, Cooperative HEENT: Atraumatic, PERRLA, EOMI, Normocephalic Neck: Supple, No JVD, Negative Carotid Bruits Lungs: Clear to auscultation, Normal air movement Cardiovascular: Regular rate, No murmurs Abdomen: Bowel Sounds Present, Soft, Non Tender Extremities: No edema, Capillary Refill Less than 3 Seconds Skin: No rashes, No breakdown Musculoskeletal: No Tenderness to Palpation of Joints or Extremities Neurological: Cranial nerves II-XII grossly intact Psych/Mental Status: Normal Affect, Appropriate, Alert and oriented to time, place, person, mood and affect Vital Signs Temp Pulse Resp BP Pulse Ox 98.1 F 97 20 H 135/70 H 97 02/14/19 09:00 02/14/19 10:04 02/14/19 10:04 02/14/19 10:04 02/14/19 10:04 Oxygen Delivery Method Room Air Weight: 336 lb 3.279 oz Body Mass Index (BMI) 43.1 Intake and Output for Last 24 Hours 02/12/19 02/13/19 02/14/19 23:59 23:59 23:59 Intake Total 690 / 690 2313 / 2313 Output Total 2750 / 2750 525 / 525 Balance 690 / 690 -437 / -437 -525 / -525 Laboratory Tests Past 24 Hrs 02/14/19 02/14/19 05:00 05:00 WBC 9.3 RBC 5.21 Hgb 16.1 Hct 44.3 MCV 85.0 MCH 30.9 MCHC 36.3 H RDW 14.3 RDW Differential 44.0 H Plt Count 234 MPV 10.4 Immature Gran % (Auto) 0.200 Neut % (Auto) 66.5 Lymph % (Auto) 20.3 [place] % (Auto) 10.9 H Eos % (Auto) 1.8 Baso % (Auto) 0.3 Absolute Neuts (auto) 6.2 Absolute Lymphs (auto) 1.89 Total Counted Not Reportable Sodium 142 Potassium 3.8 Chloride 108 H Carbon Dioxide 24.0 Anion Gap 10 BUN 13 Creatinine 0.95 Estim Creat Clear Calc 93.74 Est GFR (MDRD) Af Amer 103 Est GFR (MDRD) Non-Af 85 BUN/Creatinine Ratio 13.7 Glucose 106 Calcium 8.8 Discharge Diet: Low fat/ Low Cholesterol, 2000 mg Sodium Diet Discharge Activity: Return to Normal Activity, - - You may remove the dressing in 1 day. You may shower in 1 day. No sex for 10-14 days. Do not lift more than 10 pounds for the next 10-14 days. No strenuous activity. You may start a walking program and work up to 30 minutes daily 5-6 times a week. No hills. May resume sexual activity in: 10-14 days Call your doctor if your incision/area has: Continuous Slow Oozing, Sudden Increased Bleeding, Increased Pain/ Swelling, Increased Redness, Foul Smelling Discharge, Swelling at the incision site Call your doctor if you observe: Fever of 101 or Higher, Shortness of breath, Dizziness, Fainting spells, Swelling in the ankles, Chest pain Home Medications: Medications to take at Discharge Acetaminophen [Tylenol] 325 mg PO Q4H PRN PRN #1 tab 02/14/19 Amlodipine [Norvasc] 10 mg PO DAILY #30 tab 02/14/19 Aspirin [Aspir-Low] 81 mg PO DAILY #30 tablet. 02/14/19 Atorvastatin Calcium [Lipitor] 80 mg PO QHS #30 tab 02/14/19 Metoprolol Tartrate 50 mg PO BID #60 tab 02/14/19 Ticagrelor [Brilinta] 90 mg PO BID #60 tab 02/14/19 Following Prescrptions Were Given to Patient: Aspirin [Aspir-Low] 81 mg PO DAILY #30 tablet.dr Prescription Printed Ticagrelor [Brilinta] 90 mg PO BID #60 tab Prescription Printed Atorvastatin Calcium [Lipitor] 80 mg PO QHS #30 tab Prescription Printed Metoprolol Tartrate 50 mg PO BID #60 tab Prescription Printed Amlodipine [Norvasc] 10 mg PO DAILY #30 tab Prescription Printed Acetaminophen [Tylenol] 325 mg PO Q4H PRN PRN #1 tab PRN Reason: Pain Prescription Printed Primary Care Physician: Hunter Watt MD [Primary Care Provider] - Please follow up with your Primary Care Physician in: 5-7 days for a BP check Please Follow Up With: Rei Graham MD When: as directed Patient Instructions: What Are Snoring and Sleep Apnea?, Continuous Positive Air Pressure (CPAP) Disposition: Home Minutes spent on discharge:: 35 Patient Condition:: Stable Medical Necessity - Tobacco Use Smoking Status: Former smoker Meaningful Use Info Meaningful Use Diagnoses (Choose all that apply): AMI - AMI Aspirin given w/in 24hrs of arrival?: Yes ASA at discharge?: Yes Statins at discharge?: Yes Ant/ARB at discharge?: No Reason Ant/ARB not ordered:: Not indicated Beta Hyun at discharge?: Yes Done w/ Acute UT measure.: Yes Documented LVEF (%): 55
== END 2019-02-14 11:12 | disposition home or self-care (01) | DRG 247 ==
LOC: ED 23:01 → PCU 02-12 00:22 → ICU 02-14 09:29
PROVIDERS: Physician Assistant; Specialist; Admitting Provider Hospitalist; Emergency Provider Emergency Medicine; Family Provider Family Medicine; PCP Family Medicine; Referring Provider Hospitalist; Visit Provider Internal Medicine
DX: I21.4 Non-ST elevation (NSTEMI) myocardial infarction (principal); Z68.41 Body mass index [BMI] 40.0-44.9, adult; E78.5 Hyperlipidemia, unspecified; E66.01 Morbid (severe) obesity due to excess calories; Z87.891 Personal history of nicotine dependence; G47.30 Sleep apnea, unspecified; I51.7 Cardiomegaly; I10 Essential (primary) hypertension; I25.10 Atherosclerotic heart disease of native coronary artery without angina pectoris
CPT/HCPCS: 36415; 71045; 80048; 80061; 81001; 82962; 83036; 83735; 84443; 84484; 85025; 85610; 85730; 92928; 93005; 93306; 93454; 97161; 97165; 97802; 99152; 99153; 99285; J7030; Q9957; Q9967; A4216; C1725; C1769; C1874; C1887; C1894; C9600; J1327

== ENCOUNTER → 2019-03-23 20:00 | Outpatient (CLI) | payer OTHER, SELFPAY ==
[2019-02-20 11:27] VITALS: BMI 41.7
== END ==
PROVIDERS: Family Provider Family Medicine; PCP Family Medicine; Referring Provider Internal Medicine Critical Care Medicine; Visit Provider Internal Medicine Critical Care Medicine
DX: G47.33 Obstructive sleep apnea (adult) (pediatric) (principal)
CPT/HCPCS: 95811

== ENCOUNTER 2019-03-24 07:09 | Day surgery (SDC) | payer OTHER, SELFPAY ==
[2019-02-28 11:34] VITALS: BMI 41.7
[2019-02-28 13:18] LABS: Absolute Lymphocyte Count 1.61 X10^3/ul (0.83-4.51); Absolute Neutrophil Count 5.7 X10^3/uL (2.0-7.7); Basophil# 0.04 X10^3/uL; Basophil% 0.5 % (0-1); Eosinophil# 0.32 X10^3/uL; Eosinophils% 3.8 % (0-5); Hematocrit 39.6 % (40-54); Hemoglobin 13.8 g/dl (13.0-16.5); Lymphocyte # 1.61 X10^3/ul (4.0); Lymphocyte % 18.9 % (19-41); Mean Corp Hgb Conc 34.8 g/gl (32-36); Mean Corpuscular Hgb 30.6 pg (27.0-32.0); Mean Corpuscular Volume 87.8 fL (80-94); Mean Platelet Vol. 10.4 fl (6.2-12.0); Monocyte# 0.82 X10^3/uL; Monocyte% 9.6 % (0-10); Neutrophil # 5.72 X10^3/uL (2.7-7.7); POSITIVE COUNT NO; POSITIVE DIFFERENTIAL NO; POSITIVE MORPHOLOGY NO; Platelet Count 306 K/mm3 (150-450); RBC Distribution Width CV 14.2 % (11.6-14.6); RBC Distribution Width SD 45.5 fl (35.1-43.9); Red Blood Count 4.51 M/mm3 (4.6-6.2); White Blood Count 8.5 K/mm3 (4.4-11.0)
[2019-02-28 13:49] LABS: Anion Gap 11 (5-15); BUN 18 mg/dL (7-18); BUN/Creat Ratio 16.4 RATIO (10-20); Calcium,Total 8.7 mg/dL (8.5-10.1); Chloride 107 mmol/L (98-107); EST Glomerular Filtration Rate 72 mL/min (>60); Est Glom Filt Rate - Afr Amer 87 mL/min (>60); Glucose 86 mg/dL (74-106); Potassium 4.2 mmol/L (3.5-5.1); Sodium Level 142 mmol/L (136-145)
[2019-03-22 08:36] VITALS: BMI 41.5
[2019-03-24] VITALS (23 sets, daily range): BP systolic 114–180; BP diastolic 59–111; PULSE 55–75; RESP 12–20; TEMP 36.4; O2SAT 95–99; BMI 40.8
[2019-03-24 07:50] LABS: International Normalized Ratio 1.1; Partial Thromboplast Time 29.5 Seconds (24.1-36.2); Prothrombin Time (Protime)PT. 13.8 SECONDS (11.7-14.9)
--- NOTE | 2019-03-24 11:00 | EKG12_ITS ---
Test Reason : POST STENT Blood Pressure : / mmHG Vent. Rate : 058 BPM Atrial Rate : 058 BPM P-R Int : 212 ms QRS Dur : 086 ms QT Int : 422 ms P-R-T Axes : 017 056 245 degrees QTc Int : 414 ms Sinus bradycardia with 1st degree A-V block T wave abnormality, consider anterolateral ischemia Abnormal ECG When compared with ECG of 14-FEB-2019 04:55, No significant change was found Confirmed by ARSEN BETH [id number]), scientific editor PEPITO HARTMAN ([id number]) on 04/05/2019 3:39:43 PM Referred By: Rei Graham Confirmed By:ARSEN BETH
--- NOTE | 2019-03-24 11:10 | CL.I_ITS ---
Patient Name: JESSICA ACUÑA Study Date: 03/24/2019 Performing: Mikayla Graham MD Ht: 74 inches 188 cm : 1955 Wt: 317.9 lbs 144 kg Age: 64 Gender: male BSA: 2.65 PROCEDURE(S) PERFORMED [id number] W OR WO PTCA, SINGLE CORONARY ARTERY CLINICAL PROFILE AND CO-MORBIDITIES Indications: Staged PCI of known ramus stenosis Heart Failure: None Stress/Imaging Stress/Image Study Performed: No CAD Presentations: Other: shortness of breath CONCLUSIONS Successful PCI with CRISTIAN to the proximal ramus RECOMMENDATIONS Follow up with primary surgical specialist SONI Uribe for at least 12 months Routine post interventional care DESCRIPTION OF PROCEDURE The patient arrived to the procedure lab. The risks and benefits of the procedure as well as a full d escription of our services here and current unavailability of surgical backup were fully explained to the patient and/or their significant other prior to the catheterization. The Timeout was completed, verifying the correct patient and procedure. The patient's procedural site was prepped and draped in the usual fashion. Local anesthetic was given subcutaneously to right radial region with Lidocaine 2% . Using a modified Seldinger technique, arterial access was obtained via the right radial artery, a 6 Fr sheath was inserted.. XB 3.5 Guide catheter was inserted and engaged into the LCA. [employer] [place] Guide wire was advance d to the Ramus. Synergy 3.0 x 12 Drug Eluting stent was inserted. Drug Eluting stent was advanced acr oss the lesion in the ramus branch, proximal. Angiogram performed pre stent deployment. Angiogram per formed post stent deployment. The arterial sheath was pulled and a TR Band was applied for hemostasi s INTERVENTION INFORMATION LESION SITE: Ramus (Proximal) Lesion Complexity: High/C, chronic total occlusion: No, lesion at bifurcation: No, thrombus present: No, lesion length: 10 mm, culprit lesion: Yes, Previously treated lesion: No, In-stent restenosis: No Pre Stenosis: 80 % Pre intervention ANKIT flow: 3 PROCEDURE: Drug Eluting Stent Post Stenosis: 0 % Post intervention ANKIT flow: 3 Lesion Devices: Cordis 6 Fr XB3.5 100cm Guide Catheter Larios .014 [employer] [place] Straight 190cm Meek Sci Synergy MR CRISTIAN 3.00x12 COMPLICATIONS No Complications PROCEDURE MEDICATIONS Fentanyl 25 mcg IV Versed 1 mg IV Oxygen: 2 L/min via nasal cannula Heparin 7000 unit(s) IV 03/24/2019 09:55:18 Heparin given IA 03/24/2019 09:56:40 Verapamil 2.5mg, Ntg 100mcgs, 3000 units of Heparin given IA 03/24/2019 09:56:40 SUMMARY OF HEMODYNAMIC DATA Time AIR REST ECG 07:55:52 AO 138/71 (95) SA 09:58:00 Signed By Mikayla Graham MD On 03/24/2019 11:09:39 AM Mikayla Graham MD
[2019-03-24] MEDS: 0.9% Normal Saline 1,000 ML 100 ML IV (11:45)
--- NOTE | 2019-03-24 12:27 | PCM.DC.CCA ---
Discharge Diet: Low fat/ Low Cholesterol Discharge Activity: Return to Normal Activity May shower in (days): 1 Lifting Restrictions: 10 pounds and also avoid any pushing or pulling for 3 days after your test. Call your doctor if your incision/area has: Continuous Slow Oozing, Sudden Increased Bleeding, Increased Pain/ Swelling, Increased Redness, Foul Smelling Discharge, Swelling at the incision site Call your doctor if you observe: Fever of 101 or Higher, Shortness of breath, Chest pain Cleanse incision/area with: Soap & Water Additional Dressing/Incision Instructions:: Keep the dressing (bandage) on until the next morning. You may then shower, but do not take a tub bath for 5 days after your test. It is normal to have some tenderness and discomfort at the puncture site. Sometimes bruising also occurs. However, if pain, numbness, or coldness occurs below the puncture site (in your leg, toes, arms or fingers) call your doctor at once. You may have a small, marble sized knot at the puncture site. This is normal. Do not rub it. It will go away in 4-6 weeks. Bleeding can occur from the area where the puncture was done. Blood may spurt or drip from the site. If blood spurts, apply pressure right away to stop bleeding and call 911. Although rare, bleeding into the tissue (hematoma) can also occur. If this happens, a large, firm area goose egg under the skin will appear. If any of these occur, lie down as flat as you can and have someone apply firm pressure to the cath site with a gauze pad or a clean washcloth for 10-15 minutes. Call 911 or go to the Emergency Department. Allergies/Adverse Reactions: Allergies penicillin G Allergy (Unknown, Verified 03/22/19 08:48) Unknown Medications to take at Discharge Acetaminophen [Tylenol] 325 mg PO Q4H PRN PRN #1 tab 02/14/19 Amlodipine [Norvasc] 10 mg PO DAILY #30 tab 02/14/19 Aspirin [Aspir-Low] 81 mg PO DAILY #30 tablet. 02/14/19 Atorvastatin Calcium [Lipitor] 80 mg PO QHS #30 tab 02/14/19 Metoprolol Tartrate 50 mg PO BID #60 tab 02/14/19 Ticagrelor [Brilinta] 90 mg PO BID #60 tab 02/14/19 Lisinopril [Zestril] 5 mg PO DAILY #30 tab 03/24/19 The following prescriptions were given: Lisinopril [Zestril] 5 mg PO DAILY #30 tab Transmission Status: [facility] to [facility] Primary Care Physician: Hunter Watt MD [Primary Care Provider] - Test Results: Test results from this visit will be discussed in further detail at your follow-up appointment, if applicable. Please Follow Up With: Rei Graham MD When: 04/10 at 1:30 pm Cardiac Rehabilitation Info Cardiac Rehabilitation Program Information: Cardiac Rehabilitation is important for patients like you who are recovering from a heart problem. Cardiac rehabilitation programs are recognized as integral to the continued care of the patient with coronary heart disease. The cardiac rehabilitation program is designed to optimize a patient's physical, psychological, and social functioning. Health youth care worker work in cardiac rehabilitation programs and assist you with getting the treatments you need to get stronger and healthier - like exercise, healthy eating habits, and medications. Cardiac rehabilitation has been show to help people with heart problems live longer and have better life enjoyment than people who do not go to cardiac rehabilitation. Please contact the Cardiac Rehabilitation Program at [facility] at in two weeks if you have not heard from them.
--- NOTE | 2019-03-24 12:39 | CRPHASE1_ITS ---
Patient Communication Former Patient:: Phase I - Patient was previously seen by CR staff on 02/13/2019 @ 13:57 following previous PCI/stent PHII Cardiac Rehab Discussed with Patient:: Yes Guide to Cardiac Rehab Given to Patient:: Yes Cardiac Rehab Facility Choice List Given to Patient:: Yes - [place], [place] Choice Program Other:: Communication Given to CR, With permission faxed order and referral information Turning Lathe Tender:: Rei Graham Refer Phase II Cardiac Rehab:: Yes Sessions:: 36 sessions - 3 days/wk, 12 weeks Risk Factors/Lifestyle Family History: Family History (Last Reviewed 02/28/19 @ 12:05 by Rei Graham MD) Father COPD (chronic obstructive pulmonary disease) Grandmother Diabetes Cardiac Rehabilitation Info Cardiac Rehabilitation Program Information: Cardiac Rehabilitation is important for patients like you who are recovering from a heart problem. Cardiac rehabilitation programs are recognized as integral to the continued care of the patient with coronary heart disease. The cardiac rehabilitation program is designed to optimize a patient's physical, psychological, and social functioning. Health health care facilities inspector work in cardiac rehabilitation programs and assist you with getting the treatments you need to get stronger and healthier - like exercise, healthy eating habits, and medications. Cardiac rehabilitation has been show to help people with heart problems live longer and have better life enjoyment than people who do not go to cardiac rehabilitation. Please contact the Cardiac Rehabilitation Program at [facility] at in two weeks if you have not heard from them.
--- NOTE | 2019-03-24 12:42 | CRPH1.INSTRU ---
General Education CAD and cardiac anatomy and function:: Not instructed Explanation of diagnoses and procedures:: Not instructed Sign/Symptoms of [place]:: Not instructed Antiplatelet therapy: Not instructed Proper use of NTG-SL: Not instructed Emergency procedures and activation of EMS: Not instructed Compliance of all prescribed medications: Not instructed - Patient was previously seen by CR staff on 02/13/2019@13:57 with instruction of the above.
[2019-03-24] MEDS: Lisinopril 5 MG Tablet PO (14:47)
--- NOTE | 2019-03-24 15:42 | CASEMGMT ---
RN CM Note: Pt is already on Brillinta @ home. No difficulty with cost of medication. Plan is home on discharge with family support. Julia NAVA RN ACM
[2019-03-24] MEDS: Metoprolol Tartrate 50 MG Tablet PO (21:03)
[2019-03-24] MEDS: Atorvastatin Calcium 80 MG Tablet PO (21:03)
[2019-03-24] MEDS: TICAGRELOR 90 MG TABLET PO (21:03)
[2019-03-25] VITALS (16 sets, daily range): BP systolic 113–169; BP diastolic 71–100; PULSE 52–74; RESP 7–17; TEMP 36.4–36.7; O2SAT 92–99
[2019-03-25 05:34] LABS: Hematocrit 38.2 % (40-54); Hemoglobin 13.3 g/dL (13.0-16.5); Mean Corp Hgb Conc 34.8 g/dL (32-36); Mean Corpuscular Hgb 31.6 pg (27.0-32.0); Mean Corpuscular Volume 90.7 fL (80-94); Mean Platelet Vol. 10.3 fl (6.2-12.0); Platelet Count 174 K/mm3 (150-450); RBC Distribution Width CV 14.6 % (11.6-14.6); Red Blood Count 4.21 M/mm3 (4.6-6.2)
[2019-03-25 05:43] LABS: Anion Gap 9 (5-15); BUN 13 mg/dL (7-18); BUN/Creat Ratio 12.9 RATIO (10-20); Calcium,Total 8.4 mg/dL (8.5-10.1); Chloride 109 mmol/L (98-107); Creatinine, Serum 1.01 mg/dL (0.70-1.30); EST Glomerular Filtration Rate 80 mL/min (>60); Est Glom Filt Rate - Afr Amer 96 mL/min (>60); Estimated Creatinine Clearance 88.17 ml/min; Glucose 95 mg/dL (74-106); Sodium Level 144 mmol/L (136-145)
[2019-03-25] MEDS: Aspirin E.C. 81 MG Tablet PO (09:10)
[2019-03-25] MEDS: Lisinopril 5 MG Tablet PO (09:10)
[2019-03-25] MEDS: TICAGRELOR 90 MG TABLET PO (09:10)
[2019-03-25] MEDS: Metoprolol Tartrate 50 MG Tablet PO (09:10)
[2019-03-25] MEDS: amLODIPine 10 MG Tablet PO (09:10)
--- NOTE | 2019-03-25 10:00 | EKG12_ITS ---
Test Reason : AM EKG Blood Pressure : / mmHG Vent. Rate : 060 BPM Atrial Rate : 060 BPM P-R Int : 206 ms QRS Dur : 086 ms QT Int : 398 ms P-R-T Axes : 010 036 179 degrees QTc Int : 398 ms Normal sinus rhythm Nonspecific T wave abnormality Abnormal ECG When compared with ECG of 24-MAR-2019 10:32, MANUAL COMPARISON REQUIRED, DATA IS UNCONFIRMED Confirmed by ARSEN BETH ([id number]), associate editor PEPITO HARTMAN ([id number]) on 04/05/2019 3:40:14 PM Referred By: Rei Graham Confirmed By:ARSEN BETH
--- NOTE | 2019-03-25 11:47 | PCM.DC.SUM ---
Discharge Date and Diagnosis Date of Admission: 03/24/19 Date of Discharge: 03/25/19 - Primary Discharge Diagnosis Coronary artery disease with residual stenosis in the ramus. Patient came in for staged PCI of ramus - Secondary Discharge Diagnosis Chronic Problems (Last Updated 03/24/19 @ 12:08 by Lakisha Herron) Nicotine dependence, cigarettes, in remission (Chronic) Obesity (Chronic) Essential hypertension (Chronic) Sleep-disordered breathing (Chronic) Former smoker (Chronic) HLD (hyperlipidemia) (Chronic) Morbid obesity (Chronic) LVH (left ventricular hypertrophy) (Chronic) History of coronary artery stent placement (Chronic) Successful PCI with CRISTIAN to proximal LAD, mLAD and dLCx on 02/13/2019; Synergy 3.0 x 12 CRISTIAN to proximal ramus 03/24/19 Atherosclerosis of [place] coronary artery of [place] heart without angina pectoris (Chronic) Successful PCI with CRISTIAN to proximal LAD, mLAD and dLCx on 02/13/2019; Synergy 3.0 x 12 CRISTIAN to proximal ramus 03/24/19 Hospital Course and Treatment Imaging Results: Patient underwent PCI of ramus without any complications. He had an uneventful hospital course. He is being discharged home in stable condition. Summary of Care Provided: The patient is a 64 year old M [] - Physical Exam General: Alert, Oriented x3 HEENT: Atraumatic Oral: Moist Mucosa Neck: Supple Lungs: Clear to auscultation Cardiovascular: Regular rate, Normal S1, Normal S2 Abdomen: Soft Extremities: No edema Psych/Mental Status: Normal Affect Vital Signs Temp Pulse Resp BP Pulse Ox 98.1 F 66 16 134/77 H 96 03/25/19 08:00 03/25/19 11:18 03/25/19 11:18 03/25/19 11:18 03/25/19 11:18 Oxygen Flow Rate (L/min) 2 Oxygen Delivery Method Room Air Weight: 320 lb 15.889 oz Body Mass Index (BMI) 40.8 Intake and Output for Last 24 Hours 03/23/19 03/24/19 03/25/19 23:59 23:59 23:59 Intake Total 1300 / 1300 Output Total 1275 / 1275 650 / 650 Balance -650 / -650 Laboratory Tests Past 24 Hrs 03/25/19 03/25/19 05:10 05:10 WBC 6.0 RBC 4.21 L Hgb 13.3 Hct 38.2 L MCV 90.7 MCH 31.6 MCHC 34.8 RDW Std Deviation 48.0 H RDW Coeff of Kaleb 14.6 Plt Count 174 MPV 10.3 Sodium 144 Potassium 4.0 Chloride 109 H Carbon Dioxide 26.0 Anion Gap 9 BUN 13 Creatinine 1.01 Estim Creat Clear Calc 88.17 Est GFR (MDRD) Af Amer 96 Est GFR (MDRD) Non-Af 80 BUN/Creatinine Ratio 12.9 Glucose 95 Calcium 8.4 L Discharge Diet: Low fat/ Low Cholesterol Discharge Activity: Return to Normal Activity May shower in (days): 1 Call your doctor if your incision/area has: Continuous Slow Oozing, Sudden Increased Bleeding, Increased Pain/ Swelling, Increased Redness, Foul Smelling Discharge, Swelling at the incision site Call your doctor if you observe: Fever of 101 or Higher, Shortness of breath, Chest pain Cleanse incision/area with: Soap & Water Additional Dressing/Incision Instructions:: Keep the dressing (bandage) on until the next morning. You may then shower, but do not take a tub bath for 5 days after your test. It is normal to have some tenderness and discomfort at the puncture site. Sometimes bruising also occurs. However, if pain, numbness, or coldness occurs below the puncture site (in your leg, toes, arms or fingers) call your doctor at once. You may have a small, marble sized knot at the puncture site. This is normal. Do not rub it. It will go away in 4-6 weeks. Bleeding can occur from the area where the puncture was done. Blood may spurt or drip from the site. If blood spurts, apply pressure right away to stop bleeding and call 911. Although rare, bleeding into the tissue (hematoma) can also occur. If this happens, a large, firm area goose egg under the skin will appear. If any of these occur, lie down as flat as you can and have someone apply firm pressure to the cath site with a gauze pad or a clean washcloth for 10-15 minutes. Call 911 or go to the Emergency Department. Home Medications: Medications to take at Discharge Acetaminophen [Tylenol] 325 mg PO Q4H PRN PRN #1 tab 02/14/19 Amlodipine [Norvasc] 10 mg PO DAILY #30 tab 02/14/19 Aspirin [Aspir-Low] 81 mg PO DAILY #30 tablet. 02/14/19 Atorvastatin Calcium [Lipitor] 80 mg PO QHS #30 tab 02/14/19 Metoprolol Tartrate 50 mg PO BID #60 tab 02/14/19 Ticagrelor [Brilinta] 90 mg PO BID #60 tab 02/14/19 Lisinopril [Zestril] 5 mg PO DAILY #30 tab 03/24/19 Following Prescrptions Were Given to Patient: Lisinopril [Zestril] 5 mg PO DAILY #30 tab Transmission Status: Received by [facility] [facility] Primary Care Physician: Hunter Watt MD [Primary Care Provider] - Please Follow Up With: Rei Graham MD When: 04/10 at 1:30 pm Medical Necessity - Tobacco Use Smoking Status: Former smoker Meaningful Use Info Meaningful Use Diagnoses (Choose all that apply): None applicable
== END 2019-03-25 11:35 | disposition home or self-care (01) ==
LOC: CLSP 07:09 → ICU 15:47
PROVIDERS: Family Provider Family Medicine; PCP Family Medicine; Referring Provider Specialist; Visit Provider Specialist
DX: I25.10 Atherosclerotic heart disease of native coronary artery without angina pectoris (principal); R06.02 Shortness of breath; E66.9 Obesity, unspecified; I10 Essential (primary) hypertension; E78.5 Hyperlipidemia, unspecified; F17.211 Nicotine dependence, cigarettes, in remission; E66.01 Morbid (severe) obesity due to excess calories; Z95.5 Presence of coronary angioplasty implant and graft; Z68.41 Body mass index [BMI] 40.0-44.9, adult
CPT/HCPCS: 36415; 80048; 85025; 85027; 85610; 85730; 92928; 93005; 99152; 99153; J7030; J7040; Q9967; C1769; C1874; C1887; C1894; C9600

== ENCOUNTER → 2019-04-06 08:00 | Outpatient (CLI) | payer OTHER, SELFPAY ==
[2019-04-03 11:10] VITALS: BMI 40.8
== END ==
PROVIDERS: Family Provider Family Medicine; PCP Family Medicine; Referring Provider Nurse Practitioner Acute Care; Visit Provider Nurse Practitioner Acute Care
DX: Z46.89 Encounter for fitting and adjustment of other specified devices (principal)

== ENCOUNTER → 2019-05-24 08:49 | Outpatient (CLI) | payer OTHER, SELFPAY ==
[2019-05-05 10:50] VITALS: BMI 41.7
[2019-05-24 09:00] VITALS: PULSE 106; PULSE 71; PULSE 73; PULSE 93; PULSE 95; PULSE 97; PULSE 98; O2SAT 92; O2SAT 93; O2SAT 94; O2SAT 95; O2SAT 96; O2SAT 97
--- NOTE | 2019-05-25 07:46 | PCM.PSN.6M ---
PSN 6 Minute Walk Test - 6 Minute Walk Test 6 Minute Walk Test: 6 Minute Walk Test PSN:6-Minute Walk Test Start: 05/24/19 09:57 Freq: Status: Active Protocol: [id number] Document 05/24/19 09:00 [facility] (Rec: 05/24/19 10:02 [facility] [id number]) 6 Minute Walk Test Date Performed 05/24/19 Time Performed 09:00 Height 6 ft 2 in Weight: 320 lb Weight in Pounds 320.[address]: Fany Laguna Assistive device used: None Pre-test Oxygen Delivery Method Room Air Pulse Ox (%) 96 Pulse Rate (60-100 beats/min) 71 Dyspnea Osmin Scale (0-10) 1 Exertion Osmin Scale (6-20) 6 1st minute Oxygen Delivery Method Room Air Pulse Ox (%) 94 Pulse Rate (60-100 beats/min) 93 2nd minute Oxygen Delivery Method Room Air Pulse Ox (%) 94 Pulse Rate (60-100 beats/min) 95 3rd minute Oxygen Delivery Method Room Air Pulse Ox (%) 93 Pulse Rate (60-100 beats/min) 97 4th minute Oxygen Delivery Method Room Air Pulse Ox (%) 95 Pulse Rate (60-100 beats/min) 98 5th minute Oxygen Delivery Method Room Air Pulse Ox (%) 92 Pulse Rate (60-100 beats/min) 98 6th minute Oxygen Delivery Method Room Air Pulse Ox (%) 92 Pulse Rate (60-100 beats/min) 106 H Post-test Oxygen Delivery Method Room Air Pulse Ox (%) 97 Pulse Rate (60-100 beats/min) 73 Dyspnea Osmin Scale (0-10) 3 Exertion Osmin Scale (6-20) 12 Full Laps Walked 19 Partial Lap, Number of Tiles Walked 22 Total Distance Walked (ft) 1143 - Interpretation Interpretation: The patient ambulated 1143 feet over the course of 6 minutes beginning on room air without assistive devices or breaks. Pretesting oxygen saturation was noted to be 96% on room air. With ambulation, the missy oxygen saturation was 92%. There was no significant exertional oxygen desaturation. - Recommendations Recommendations: There is no indication for the use of supplemental oxygen at this time.
== END ==
PROVIDERS: Family Provider Family Medicine; PCP Family Medicine; Referring Provider Nurse Practitioner Acute Care; Visit Provider Nurse Practitioner Acute Care
DX: R06.02 Shortness of breath (principal)
CPT/HCPCS: 94618

== ENCOUNTER → 2019-05-26 06:59 | Outpatient (CLI) | payer OTHER, SELFPAY ==
[2019-05-05 10:50] VITALS: BMI 41.7
--- NOTE | 2019-05-27 08:21 | PFT ---
INTRODUCTION: The patient is a 64-year-old male that presents for pulmonary function studies secondary to a diagnosis of shortness of breath. Respiratory therapy reports good patient effort. Bronchodilators were used during testing. INTERPRETATION: Forced expiration spirometry demonstrates no evidence of a large airways obstructive ventilatory defect. There was no significant response to aerosolized bronchodilators, based upon strict ATS criteria. Spirograms are of good quality and plateau normally. Body plethysmography was performed and reveals lung volumes to be within normal limits. Diffusing capacity by single breath CO is within normal limits as well. IMPRESSION: Essentially normal pulmonary function studies.
== END ==
PROVIDERS: Family Provider Family Medicine; PCP Family Medicine; Referring Provider Nurse Practitioner Acute Care; Visit Provider Nurse Practitioner Acute Care
DX: R06.02 Shortness of breath (principal)
CPT/HCPCS: 94060; 94726; 94729

== ENCOUNTER → 2019-06-26 | Outpatient (CLI) | payer OTHER, SELFPAY ==
[2019-06-02 09:06] VITALS: BMI 41.5
[2019-06-26 12:43] LABS: ALB/GLOB Ratio 1.2 RATIO (0.9-2.4); AST(SGOT) 21 U/L (15-37); Alanine Aminotransfer ALT/SGPT 45 U/L (16-61); Albumin, Serum 3.9 g/dL (3.2-5.0); Alkaline Phosphatase 83 U/L (45-117); Anion Gap 6 (5-15); BUN 16 mg/dL (7-18); BUN/Creat Ratio 16.3 RATIO (10-20); Calcium,Total 8.9 mg/dL (8.5-10.1); Chloride 109 mmol/L (98-107); Cholesterol 116 mg/dL (200); Creatinine, Serum 0.98 mg/dL (0.70-1.30); EST Glomerular Filtration Rate 82 mL/min (>60); Est Glom Filt Rate - Afr Amer 100 mL/min (>60); Globulin 3.3 g/dL (2.2-4.2); Glucose 95 mg/dL (74-106); High Density Lipoprotein 38 mg/dL; PSA,Total - Annual Screen 0.31 ng/mL (0.00-4.00); Potassium 4.1 mmol/L (3.5-5.1); Protein, Total 7.2 g/dL (6.4-8.2); Sodium Level 140 mmol/L (136-145); Thyroid Stim Hormone (TSH) 1.46 uIU/mL (0.358-3.74); Triglycerides 128 mg/dL; Very Low Density Lipoprotein 26 mg/dL (5-40)
[2019-06-26 15:43] LABS: Microalbumin,Random Urine 7.8 mg/L (NO RANGE EST.); Microalbumin:Creatinine Ratio 6.7 mg/g CRE (<30 mg/g CRE)
[2019-06-27 16:08] LABS: CHOLESTEROL TOTAL 118 mg/dL (100-199); HDL-C 34 mg/dL (>39); HDL-P TOTAL 28.2 umol/L (>=30.5); SMALL LDL-P 827 nmol/L (<=527); TRIGLYCERIDES 126 mg/dL (0-149)
[2019-06-27 20:20] LABS: INSULIN RESISTANCE SCORE 74 (<=45); LDL SIZE 19.6 nm (>20.5); LDL-C 59 mg/dL (0-99); LDL-P 994 nmol/L (<1000)
== END | disposition home or self-care (01) ==
LOC: MFPLAB 10:03
PROVIDERS: Family Provider Family Medicine; PCP Family Medicine; Visit Provider Family Medicine
DX: Z00.00 Encounter for general adult medical examination without abnormal findings (principal); I25.10 Atherosclerotic heart disease of native coronary artery without angina pectoris; R06.00 Dyspnea, unspecified; Z12.5 Encounter for screening for malignant neoplasm of prostate
CPT/HCPCS: 36415; 80053; 80061; 82043; 82570; 83704; 84153; 84443; G0103

== ENCOUNTER 2020-02-15 11:56 | Emergency (ER) | payer BC, SELFPAY ==
[2020-01-04 10:21] VITALS: BMI 41.5
[2020-02-15 11:57] VITALS: BP 147/68; PULSE 67; RESP 18; TEMP 36.4; O2SAT 97; BMI 40.8
--- NOTE | 2020-02-15 12:07 | CT_ITS ---
STUDY: CT BRAIN WITHOUT CONTRAST REASON FOR EXAM: Male, 65 years old. FALL 10-12 FEET RADIATION DOSAGE (If Supplied By Facility): CTDIvol = ( 44.99 ) mGy, DLP = ( 863.60 ) mGycm TECHNIQUE: Transaxial CT imaging of the brain was performed without administration of intravenous contrast material. Individualized dose optimization techniques were used for this CT. COMPARISON: No relevant priors. FINDINGS: Normal soft tissue structures. Normal calvarium. Normal size ventricles and extra-axial spaces for the patient''s age. Normal white matter tracts of the cerebral hemispheres. Normal basal ganglia and thalami. Normal brainstem. Normal cerebellum. There is no intracranial hemorrhage. There are no findings of an acute ischemic infarction. Normal visualized paranasal sinuses. CT/Brain/Head without Contrast IMPRESSION: Normal unenhanced CT scan of the brain. Electronically Signed: Manuel Camargo MD at 14:33 EDT Tel , Service support ,
--- NOTE | 2020-02-15 12:09 | CT_ITS ---
STUDY: CT CHEST WITH CONTRAST REASON FOR EXAM: Male, 65 years old. TRAUMA, FELL ONTO CHAIR FROM 10 FT., PAIN TO LT SIDE RADIATION DOSAGE (If Supplied By Facility): CTDIvol = ( 24.73 ) mGy, DLP = ( 2469.63 ) mGycm TECHNIQUE: Transaxial imaging was performed following intravenous administration of IV 100mL Isovue-300. Individualized dose optimization techniques were used for this CT. COMPARISON: None. FINDINGS: Some left lower lobe atelectasis. Small left-sided pneumothorax. Normal heart and pericardium. Normal mediastinum. Normal hilar regions. Normal enhanced pulmonary arteries. Normal aorta arch and descending thoracic aorta. Multiple healed left rib fractures. Acute fracture of the lateral aspect of left third, fourth, and fifth ribs. There is no demonstrated abnormality of the visualized upper abdomen. CT/Chest WITH Contrast IMPRESSION: Acute fractures of the lateral left third, fourth, and fifth ribs with a small pneumothorax and some left lower lobe atelectasis. Electronically Signed: Manuel Camargo MD at 14:40 EDT Tel , Service support ,
--- NOTE | 2020-02-15 12:10 | CT_ITS ---
STUDY: CT ABDOMEN AND PELVIS WITH CONTRAST REASON FOR EXAM: Male, 65 years old. TRAUMA, FELL ONTO CHAIR FROM 10 FT., PAIN TO LT SIDE RADIATION DOSAGE (If Supplied By Facility): CTDIvol = ( 24.73 ) mGy, DLP = ( 2469.63 ) mGycm TECHNIQUE: Transaxial images were obtained from the dome of the diaphragm to the symphysis pubis without oral contrast. IV 100mL Isovue-300 was administered. Sagittal and coronal images were reconstructed. Individualized dose optimization techniques were used for this CT. COMPARISON: None. FINDINGS: The visualized lung bases are unremarkable. The visualized portions of the heart are within normal limits. Normal liver. Normal gallbladder and extrahepatic biliary system. Normal spleen. Normal pancreas. Normal bilateral adrenal glands. Normal right kidney. Normal left kidney. Normal visualized stomach. Normal small intestine. There are multiple colonic diverticula consistent with diverticulosis. The appendix is visualized and appears normal. Normal abdominal aorta. Normal inferior vena cava. Normal retroperitoneum. Normal urinary bladder. Normal abdominal wall. Abnormal soft tissue attenuation with punctate calcifications within the left hip joint with thinning of acetabulum and into the obturator musculature worrisome for tumor. Correlation with MRI with contrast is recommended. CT/Abdomen/Pelvis W IV Cont ONLY IMPRESSION: 1. No solid organ injury or other acute abnormality. 2. Infiltrative soft tissue mass with punctate calcifications arising from the left hip joint and into the surrounding soft tissues with destruction of the medial wall of the acetabulum of the left hip joint worrisome for tumor. Correlation with MRI with contrast would be useful. Electronically Signed: Manuel Camargo MD at 14:39 EDT Tel , Service support ,
[2020-02-15] MEDS: 0.9% Normal Saline 1,000 ML 150 ML IV (12:22)
[2020-02-15] MEDS: Morphine 4 MG/ML Syringe IV (12:23)
[2020-02-15] MEDS: Ondansetron 4 MG/2 ML Vial IV (12:24)
[2020-02-15 12:32] LABS: Absolute Lymphocyte Count 2.04 X10^3/uL (0.83-4.51); Basophil# 0.06 X10^3/uL; Basophil% 0.7 % (0-1); Eosinophil# 0.27 X10^3/uL; Eosinophils% 3.3 % (0-5); Hematocrit 43.8 % (40-54); Hemoglobin 14.9 g/dL (13.0-16.5); Lymphocyte # 2.04 X10^3/ul (4.0); Lymphocyte % 24.9 % (19-41); Mean Corpuscular Volume 91.3 fL (80-94); Mean Platelet Vol. 10.4 fl (6.2-12.0); Monocyte# 0.79 X10^3/uL; Monocyte% 9.6 % (0-10); NRBC Flagged by Analyzer 0 % (0-5); Neutrophil # 4.99 X10^3/uL (2.7-7.7); Neutrophil % 60.9 % (47-70); Platelet Count 248 K/mm3 (150-450); RBC Distribution Width CV 14.7 % (11.6-14.6); White Blood Count 8.2 K/mm3 (4.4-11.0)
[2020-02-15 12:49] LABS: ALB/GLOB Ratio 1.2 RATIO (0.9-2.4); AST(SGOT) 28 U/L (15-37); Alanine Aminotransfer ALT/SGPT 45 U/L (16-61); Albumin, Serum 4.3 g/dL (3.2-5.0); Alkaline Phosphatase 82 U/L (45-117); Anion Gap 7 (5-15); BUN 18 mg/dL (7-18); BUN/Creat Ratio 14.3 RATIO (10-20); Calcium,Total 9.2 mg/dL (8.5-10.1); Chloride 110 mmol/L (98-107); Creatinine, Serum 1.26 mg/dL (0.70-1.30); EST Glomerular Filtration Rate 61 mL/min (>60); Est Glom Filt Rate - Afr Amer 74 mL/min (>60); Estimated Creatinine Clearance 67.82 ml/min; Globulin 3.5 g/dL (2.2-4.2); Glucose 102 mg/dL (74-106); Potassium 4.2 mmol/L (3.5-5.1); Protein, Total 7.8 g/dL (6.4-8.2); Sodium Level 143 mmol/L (136-145)
[2020-02-15] MEDS: HYDROmorphone 1 MG/ML Syringe IV ×3 (12:49→15:48)
--- NOTE | 2020-02-15 13:06 | ED.DCSUM_ITS ---
- ER Visit Summary Date of Service: 02/15/20 Chief Complaint: [Fall] History of Present Illness: The patient is a 65 M [presents to the emergency department with a fall today off of a roof. Patient believes that he fell about 10 to 12 feet. No loss of consciousness. He does not think he hit his head. He apparently fell on some sort of a chair. He complains of pain to the left chest and ribs. Patient complains of pain with deep breath. He denies any abdominal pain. He has been ambulatory since the fall. He denies any neck pain. Patient has history of coronary artery disease, hypertension, high cholesterol, obstructive sleep apnea.] Physical Examination: [HEENT-PERRLA, EOMI. Cranial nerves II through XII grossly intact. TMs clear. Mucous membranes moist. No adenopathy. No C-spine tenderness on palpation. External evidence of trauma to his head. Cardiovascular-regular rate and rhythm without murmur or ectopy Lungs-clear to auscultation, chest wall stable without crepitus or subcu emphysema. Patient does have tenderness palpation over the left chest wall and ribs. He is got abrasions to the left chest wall in the midaxillary line. Abdomen-normoactive bowel sounds, soft, nontender, no rebound or rigidity, no peritoneal signs. Extremities-intact ?4, normal range of motion, normal pulses. Patient has superficial abrasion to the right collier as well as the left knee. Patient has superficial abrasions to the left elbow.] Test Results: [BC with it was normal. Chemistries unremarkable. LFTs were normal.] CT scan of the chest and abdomen as well as the head were obtained. On my initial interpretation patient appears to have at least 4 broken ribs on the left with small pneumothorax. Rays of the right forearm ordered and pending Emergency Department Course and Treatment: [She was medicated with Dilaudid and Zofran for pain. He had multiple doses. He was given Ativan 1 mg IV. Patient had a very difficult time laying flat because of the pain so he had to be medicated multiple times therefore there was a delay in obtaining the images.] Treatment Plan: [Patient turned over to evening physician awaiting results of CTs and final disposition. I feel patient will require admission whether here or transfer to trauma center.] Disposition: [Pending] Impression: Mechanical fall Left rib fractures Pneumothorax-small ] This note was generated with [employer] software. It may contain incorrect words, spelling, and punctuation that were not noted in review of the chart prior to signing <Rosalinda Cabezas - Last Filed: 02/15/20 14:32> - ER Visit Summary Date of Service: 02/15/20 CTs were reviewed. The patient does have a very small apical pneumothorax. He has multiple rib fractures. He also has soft tissue mass within the left hip. I do feel that he is going to require higher level of care. The patient will be transferred to [facility] his request. He was discussed with [facility] and was accepted in transfer. This note was generated with [employer] software. It may contain incorrect words, spelling, and punctuation that were not noted in review of the chart prior to signing <Hcetor Arrieta - Last Filed: 02/15/20 14:57> ED Disposition <Rosalinda Cabezas - Last Filed: 02/15/20 14:32> <Hector Arrieta - Last Filed: 02/15/20 14:57> - Plan for ED Patient: Referrals: Hunter Watt MD [Primary Care Provider] -
[2020-02-15] MEDS: HYDROmorphone 1 MG/ML Syringe 2 MG IV (13:41)
[2020-02-15] MEDS: LORazepam 2 MG/ML Syringe 1 MG IV (13:41)
--- NOTE | 2020-02-15 14:55 | RAD_ITS ---
STUDY: X-RAY - RIGHT RADIUS AND ULNA REASON FOR EXAM: Male, 65 years old. FELL 10-12 FT ONTO CHAIR, PAIN ON LATERAL MID FOREARM AND WRIST TECHNIQUE: 2 view(s) of the forearm. COMPARISON: None. FINDINGS: There is no demonstrated soft tissue swelling. Normal visualized radius. Normal visualized ulna. RAD/Forearm 2 Views IMPRESSION: Normal x-ray examination of the radius and ulna. Electronically Signed: Manuel Camargo MD at 15:38 EDT Tel , Service support ,
--- NOTE | 2020-02-15 15:10 | ED.RN ---
report called to nadya at [facility].
[2020-02-15 15:24] VITALS: BP 150/87; PULSE 60
== END 2020-02-15 16:09 | disposition short-term general hospital (02) ==
LOC: ED 12:42
PROVIDERS: Emergency Provider Emergency Medicine; PCP Family Medicine
DX: S22.42XA Multiple fractures of ribs, left side, initial encounter for closed fracture (principal); S27.0XXA Traumatic pneumothorax, initial encounter; W19.XXXA Unspecified fall, initial encounter; E78.00 Pure hypercholesterolemia, unspecified; G47.33 Obstructive sleep apnea (adult) (pediatric); I10 Essential (primary) hypertension; I25.10 Atherosclerotic heart disease of native coronary artery without angina pectoris; Z95.5 Presence of coronary angioplasty implant and graft
CPT/HCPCS: 70450; 71260; 73090; 74177; 80053; 85025; 96361; 96374; 96375; 96376; 99285; J7040; Q9967; A4216; J2405

== ENCOUNTER → 2020-02-19 16:34 | Outpatient (CLI) | payer BC, SELFPAY ==
[2020-02-15 11:57] VITALS: BMI 40.8
--- NOTE | 2020-02-19 16:37 | RAD_ITS ---
STUDY: X-RAY CHEST REASON FOR EXAM: Male, 65 years old. FALL LAST WEEK- BROKEN LEFT RIBS WITH PNEUMOTHORAX- FOLLOW UP ON PNEUMOTHORAX TECHNIQUE: PA and lateral views of the chest. COMPARISON: February 11, 2019 February 15, 2020 CT of the chest FINDINGS: Small apical pneumothorax on the left reidentified at approximately 10-15%. Small left lung volume with chronic pleural and parenchymal scarring and thickening unchanged from the prior exams. Left basilar atelectasis is present. Old and acute left rib fractures reidentified. The right lung is clear. A small left pleural effusion has developed. Normal heart size. The remaining structures are stable. RAD/Chest PA and Lateral IMPRESSION: 1. Small left apical pneumothorax 2. Small left pleural effusion and basilar atelectasis. Multiple left-sided acute rib fractures. Electronically Signed: Lobo Dutton MD at 18:46 EDT , Service support ,
== END ==
PROVIDERS: PCP Family Medicine; Referring Provider Family Medicine; Visit Provider Family Medicine
DX: J93.9 Pneumothorax, unspecified (principal)
CPT/HCPCS: 71046

== ENCOUNTER → 2020-02-20 13:03 | Outpatient (CLI) | payer BC, SELFPAY ==
[2020-02-15 11:57] VITALS: BMI 40.8
--- NOTE | 2020-02-20 13:25 | RAD_ITS ---
STUDY: X-RAY - PELVIS AND LEFT HIP REASON FOR EXAM: Male, 65 years old. Recent fall from 10 feet up, noticed something on the left hip on CT pelvis after the fall -- -- pt upright for images, cannot tolerate lying down due to rib fx''s TECHNIQUE: 4 views of the pelvis and hip. COMPARISON: CT abdomen pelvis from 02/15/20 FINDINGS: There is a non-specific bowel gas pattern. Normal visualized soft tissue structures. There is narrowing with cortical sclerosis and osteophyte formation of the sacroiliac joint consistent with degenerative osteoarthritic changes. Normal right superior and inferior pubic rami. Normal pubic symphysis. Normal right ischial tuberosity. Persistent irregular lucency noted in the medial left acetabulum and left inferior pubic ramus worrisome for neoplastic process, perhaps metastasis. These are better seen on the previous CT scan which also showed some soft tissue involvement. Normal visualized femoral head. Normal acetabulum. There is moderate articular joint space narrowing of the hip. RAD/HIP, UNI W/ Pelvis 2-3 Views IMPRESSION: Persistent irregular lucencies in the medial left acetabulum and left inferior pubic ramus, please see previous CT scan from 02/15/2024. That CT scan showed soft tissue as well as osseous involvement. Age consistent bilateral hip and SI joint arthrosis, no demonstrated fracture Electronically Signed: Ez Randhawa MD at 8:21 EDT , Service support ,
== END ==
PROVIDERS: PCP Family Medicine; Referring Provider Family Medicine; Visit Provider Family Medicine
DX: R22.40 Localized swelling, mass and lump, unspecified lower limb (principal)
CPT/HCPCS: 73502

== ENCOUNTER 2020-02-28 18:11 | Emergency (ER) | payer BC, SELFPAY ==
[2020-02-28 18:12] VITALS: BP 136/83; PULSE 97; RESP 17; TEMP 36.1; O2SAT 95; BMI 42.2
--- NOTE | 2020-02-28 18:31 | ED.VIS.GEN ---
History of Present Illness Chief Complaint: Rash Informant: Patient Onset: Yesterday Timing: Continuous Current Severity: Mild Maximum Severity: Mild Associated Symptoms: None Narrative: Presents for evaluation of a rash on the right inner thigh which has been present for a couple of days. It is getting worse today. He said no systemic signs or symptoms. He states that he is had no abrasions in this area. No history of MRSA or cellulitis in the past. Past Medical History - Allergies and Home Meds Allergies/Adverse Reactions: Allergies ticagrelor [From Brilinta] Allergy (Intermediate, Verified 02/28/20 18:11) Nausea, dizziness, shortness of breath penicillin G Allergy (Unknown, Verified 02/28/20 18:11) Unknown Primary Care Physician: Hunter Watt MD [Primary Care Provider] - Prior records reviewed: Yes Surgical History: noncontributory Lives: Spouse/ Significant Other Smoking Status: Never smoker Alcohol: None Drugs: None - Family History Maternal Family History: Family History (Last Reviewed 01/04/20 @ 10:[address] Rob Preston DO) Father COPD (chronic obstructive pulmonary disease) Grandmother Diabetes Family History: Reports: Cancer Paternal Family History: Family History (Last Reviewed 01/04/20 @ 10:[address] Rob Preston DO) Father COPD (chronic obstructive pulmonary disease) Grandmother Diabetes Family History: Reports: Diabetes Review of Systems General: Denies: Chills, Fever Eyes: Denies: Visual changes - left Skin: Reports: Rash Physical Exam Vital Signs/Narrative: Vital Signs Temp Pulse Resp BP Pulse Ox 02/28/20 18:12 97.0 F L 97 17 136/83 H 95 Inital Vital Signs reviewed: Yes General: Well nourished, Well developed Head: Normocephalic, Atraumatic Eyes: Perrl, EOMI ENT: Moist mucous membranes Cardiovascular: Regular rate, Regular rhythm Respiratory: CTA bilaterally Extremities: Nontender, Tenderness - There is to palpation over inner thigh over area of erythema Skin: Rash - 5 x 4 area of erythema and warmth. No significant induration. No lymphangitic streaking or lymphadenopathy. No fluctuance. Neurological: Alert, Oriented x3 Psychological: Normal affect Diagnostic/Tx/Re-eval - Medical Decision Making Presents with rash which is consistent with an early cellulitis. He will be treated with doxycycline as he has a penicillin allergy which causes severe swelling. He was counseled on wound care. He will follow-up with his PCP to ensure resolution. He is given return precautions. ED Disposition - Plan for ED Patient: Disposition: Home or Assisted Living Diagnosis: Cellulitis, Morbid obesity Instructions: Cellulitis Referrals: Hunter Watt MD [Primary Care Provider] -
[2020-02-28] MEDS: Doxycycline 100 MG CAPSULE PO (18:44)
[2020-02-28 18:49] VITALS: BP 149/77; PULSE 92; PULSE 93; RESP 15; O2SAT 95
== END 2020-02-28 18:56 | disposition home or self-care (01) ==
LOC: ED 18:49
PROVIDERS: Emergency Provider Student in an Organized Health Care Education/Training Program; PCP Family Medicine
DX: L03.115 Cellulitis of right lower limb (principal); E66.01 Morbid (severe) obesity due to excess calories; Z88.0 Allergy status to penicillin
CPT/HCPCS: 99282

== ENCOUNTER → 2020-02-29 09:32 | Outpatient (CLI) | payer BC, SELFPAY ==
[2020-02-28 18:12] VITALS: BMI 42.2
--- NOTE | 2020-02-29 09:33 | VDLE_ITS ---
Reason For Study: pain RIGHT GSV is normal. CFV is compressible, spontaneous, phasic, competent and demonstrates normal augmentation. FV is compressible, spontaneous, phasic, competent and demonstrates normal augmentation. POP V is compressible, spontaneous, phasic, competent and demonstrates normal augmentation. T/P Trunk is compressible. PTV is compressible. RT PerV is compressible. Procedure Exam performed in department. The exam was abbreviated due to the COVID 19 protocol. The exam was diagnostic. Interpretation Summary Deep veins of the right lower extremity are patent and compressible segmentally. There is no evidence of right lower extremity deep vein thrombosis. Valvular competence appears intact within the proximal deep venous system on the right . The right great saphenous vein appears patent and compressible segmentally. Ordering Physician: Cedric Sesay Performed By: Cuba Carter RVT
== END ==
PROVIDERS: PCP Family Medicine; Referring Provider Student in an Organized Health Care Education/Training Program; Visit Provider Student in an Organized Health Care Education/Training Program
DX: M79.604 Pain in right leg (principal)
CPT/HCPCS: 93971

== ENCOUNTER → 2020-03-21 16:35 | Outpatient (CLI) | payer BC, SELFPAY ==
[2020-02-28 18:12] VITALS: BMI 42.2
--- NOTE | 2020-03-21 16:40 | RAD_ITS ---
STUDY: X-RAY CHEST REASON FOR EXAM: Male, 65 years old. Chest pain, history of rib fractures TECHNIQUE: PA and 2 lateral views of the chest. COMPARISON: 02/19/2020 FINDINGS: Previously described left apical pneumothorax not seen on current study. Previously described left rib fractures have undergone some progressive healing since the previous study but have not yet completely healed. There is nonspecific pleural thickening in the left hemithorax likely due to the rib fractures. Chronic interstitial changes in the left lung without a superimposed infiltrate or effusion. Previously described effusion and atelectasis in the left lung base has resolved. The right lung is clear and expanded. Normal size heart. Normal mediastinum and rachel. Normal visualized pulmonary arteries. Normal visualized aortic arch and descending thoracic aorta. There are diffuse degenerative changes of the visualized thoracic spine. There is no demonstrated abnormality of the visualized soft tissue structures of the upper abdomen. RAD/Chest PA and Lateral IMPRESSION: Previously noted left pneumothorax not clearly identified on today''s examination. There is no mediastinal shift. Partial but not yet complete healing of previous described displaced left rib fractures Previously noted left pleural effusion and likely atelectasis have resolved. There are interstitial changes in the left lung without a superimposed process. Right lung is clear Electronically Signed: Ez Randhawa MD at 8:09 EDT , Service support ,
== END ==
PROVIDERS: PCP Family Medicine; Referring Provider Family Medicine; Visit Provider Family Medicine
DX: J93.9 Pneumothorax, unspecified (principal)
CPT/HCPCS: 71046

== ENCOUNTER → 2020-07-15 08:57 | Outpatient (CLI) | payer BC, SELFPAY ==
[2020-04-24 13:42] VITALS: BMI 42.2
[2020-07-15 10:15] LABS: ALB/GLOB Ratio 1.1 RATIO (0.9-2.4); AST(SGOT) 24 U/L (15-37); Alanine Aminotransfer ALT/SGPT 42 U/L (16-61); Albumin, Serum 3.8 g/dL (3.2-5.0); Alkaline Phosphatase 81 U/L (45-117); Anion Gap 7 (5-15); BUN 14 mg/dL (7-18); BUN/Creat Ratio 11.3 RATIO (10-20); Calcium,Total 8.9 mg/dL (8.5-10.1); Chloride 109 mmol/L (98-107); Cholesterol 140 mg/dL (200); Creatinine, Serum 1.24 mg/dL (0.70-1.30); EST Glomerular Filtration Rate 63 mL/min (>60); Est Glom Filt Rate - Afr Amer 76 mL/min (>60); Globulin 3.4 g/dL (2.2-4.2); Glucose 94 mg/dL (74-106); High Density Lipoprotein 40 mg/dL; Potassium 4.1 mmol/L (3.5-5.1); Protein, Total 7.2 g/dL (6.4-8.2); Sodium Level 142 mmol/L (136-145); Triglycerides 200 mg/dL; Very Low Density Lipoprotein 40 mg/dL (5-40)
== END ==
PROVIDERS: PCP Family Medicine; Referring Provider Family Medicine; Visit Provider Family Medicine
DX: I25.10 Atherosclerotic heart disease of native coronary artery without angina pectoris (principal); I21.4 Non-ST elevation (NSTEMI) myocardial infarction; Z12.5 Encounter for screening for malignant neoplasm of prostate
CPT/HCPCS: 36415; 80053; 80061; 84153; G0103

== ENCOUNTER → 2022-05-21 | Outpatient (CLI) | payer MEDICARE, SELFPAY ==
[2022-05-21 17:06] LABS: AST(SGOT) 22 U/L (15-37); Alanine Aminotransfer ALT/SGPT 38 U/L (16-61); Albumin, Serum 3.7 g/dL (3.2-5.0); Alkaline Phosphatase 83 U/L (45-117); Bilirubin, Direct 0.14 mg/dL (0.00-0.30); Cholesterol 92 mg/dL (200); Globulin 3.3 g/dL (2.2-4.2); High Density Lipoprotein 32 mg/dL; Triglycerides 218 mg/dL; Very Low Density Lipoprotein 44 mg/dL (5-40)
== END | disposition home or self-care (01) ==
LOC: LAB 14:45
PROVIDERS: PCP Family Medicine; Referring Provider Internal Medicine Cardiovascular Disease; Visit Provider Internal Medicine Cardiovascular Disease
DX: E78.00 Pure hypercholesterolemia, unspecified (principal)
CPT/HCPCS: 36415; 80061; 80076

== ENCOUNTER → 2022-06-05 | Outpatient (CLI) | payer MEDICARE, SELFPAY ==
--- NOTE | 2022-06-05 17:04 | STRESSREP ---
Stress Test Report Signs myocardial perfusion stress test. 67-year-old male with a history of chest pain. Stress protocol: Resting KG demonstrates sinus bradycardia with a rate of 56 bpm normal intervals are noted resting blood pressure is 128/86 mmHg. The patient exercised according to the regular Urbano protocol for total duration of 5 minutes completing stage II of the Urbano protocol in 2 minutes. The maximum heart rate was 141 bpm which was 90% of max impacted heart rate the maximum workload was 7 metabolic equivalents. At rest there were no ST or T wave changes noted suggest ischemia and at peak exercise there was approximately 1.[address] depression noted in the aVF 1.[address] depression noted in V6 and 1.[address] depression noted in V5. No chest pain was noted the test was terminated due to dyspnea. Myocardial perfusion protocol. 15.0 mCi of technetium 99m sestamibi was injected at rest. The patient exercised according to regular Urbano protocol and at peak exercise 45.0 mCi of technetium 99m sestamibi was injected stress images were obtained stress and rest images were reconstructed and compared in the short axis vertical long and horizontal long axis. Gated images were also obtained Perfusion SPECT analysis: Review of the stress images demonstrate normal uptake of tracer noted in all areas of the myocardium. The resting images similar demonstrate normal uptake of tracer noted in all areas of the myocardium. No reversibility is noted suggest ischemia no previous infarct is noted. Gated SPECT analysis: The gated ejection fraction is 58%. Conclusion: Normal exercise myocardial perfusion stress test at a moderate workload. Preserved ejection fraction.
== END | disposition home or self-care (01) ==
LOC: CVS 06:31
PROVIDERS: PCP Family Medicine; Visit Provider Internal Medicine Cardiovascular Disease
DX: I25.10 Atherosclerotic heart disease of native coronary artery without angina pectoris (principal); Z95.5 Presence of coronary angioplasty implant and graft
CPT/HCPCS: 78452; 93017; A9500; A4216

== ENCOUNTER → 2022-06-25 | Outpatient (CLI) | payer MEDICARE, SELFPAY ==
--- NOTE | 2022-06-25 07:44 | AAAS_ITS ---
Reason For Study: AAA Screening Aorta Measurements Aorta Doppler Measurements Proximal aorta measures2.80 x 2.80cm. in cross- Peak systolic flow velocities within the proximal sectional axis. aorta measure 74.1 cm/sec. Proximal aorta measures2.80cm. in longitudinal Peak systolic flow velocities within the mid aorta axis. measure 75.9 cm/sec. Mid aorta measures2.04 x 2.04cm. in cross- Peak systolic flow velocities within the distal sectional axis. aorta measure 63.2 cm/sec. Mid aorta measures2.06cm. in longitudinal axis. Distal aorta measures1.85 x 1.83cm. in cross- sectional axis. Distal aorta measures1.88cm. in longitudinal axis. Left Iliac Artery Left iliac artery measures 1.25 x 1.33 cm. in the cross-sectional axis. Left iliac artery measures 1.30 cm. in the longitudinal axis. Peak systolic velocity in the left iliac artery measures 70.5 cm/sec. Right Iliac Artery Right iliac artery measures 1.25 x 1.30 cm. in the cross-sectional axis. Right iliac artery measures 1.23 cm. in the longitudinal axis. Peak systolic velocity in the right iliac artery measures 110.4 cm/sec. Procedure Aorta IVC Iliac vasculature or bypass grafts 58015. Exam performed in department. VL/AAA Screening Interpretation Summary Maximal aortic diameter proximally at 2.8 x 2.8 cm consistent with ectasia. Normal aortic flow velocities identified Left common iliac artery 1.25 x 1.33 cm diameter consistent with mild ectasia Right common iliac artery 1.25 x 1.3 cm diameter consistent with mild ectasia Ordering Physician: Hunter Watt Referring Physician: Hunter Watt Performed By: Sunitha Salmeron RVT
== END | disposition home or self-care (01) ==
LOC: CVS 07:40
PROVIDERS: PCP Family Medicine; Referring Provider Family Medicine; Visit Provider Family Medicine
DX: Z13.6 Encounter for screening for cardiovascular disorders (principal); I71.40 Abdominal aortic aneurysm, without rupture, unspecified
CPT/HCPCS: 76706

== ENCOUNTER → 2023-06-30 | Outpatient (CLI) | payer MEDICARE, OTHER, SELFPAY ==
[2023-06-30 11:30] LABS: AST(SGOT) 23 U/L (15-37); Alanine Aminotransfer ALT/SGPT 40 U/L (16-61); Albumin, Serum 3.6 g/dL (3.2-5.0); Alkaline Phosphatase 77 U/L (45-117); Anion Gap 7 (5-15); BUN 18 mg/dL (7-18); BUN/Creat Ratio 16.7 RATIO (10-20); Calcium,Total 8.5 mg/dL (8.5-10.1); Chloride 110 mmol/L (98-107); Cholesterol 123 mg/dL (200); Creatinine, Serum 1.08 mg/dL (0.70-1.30); EST Glomerular Filtration Rate 73 mL/min (>60); Est Glom Filt Rate - Afr Amer 88 mL/min (>60); Globulin 3.3 g/dL (2.2-4.2); Glucose 94 mg/dL (74-106); High Density Lipoprotein 36 mg/dL; PSA,Total - Annual Screen 0.38 ng/mL (0.00-4.00); Potassium 4.1 mmol/L (3.5-5.1); Protein, Total 6.9 g/dL (6.4-8.2); Sodium Level 142 mmol/L (136-145); Triglycerides 177 mg/dL; Very Low Density Lipoprotein 35 mg/dL (5-40)
== END | disposition home or self-care (01) ==
PROVIDERS: PCP Family Medicine; Referring Provider Family Medicine; Visit Provider Family Medicine
DX: I10 Essential (primary) hypertension (principal); Z12.5 Encounter for screening for malignant neoplasm of prostate; E78.00 Pure hypercholesterolemia, unspecified
CPT/HCPCS: 36415; 80048; 80061; 80076; 84153; G0103

== ENCOUNTER 2023-12-09 18:01 | Emergency (ER) | payer MEDICARE, OTHER, SELFPAY ==
[2023-12-09 18:01] VITALS: BP 157/88; PULSE 80; RESP 16; TEMP 36.7; O2SAT 96
[2023-12-09 18:02] VITALS: BP 157/88; PULSE 83; RESP 15; TEMP 36.7; O2SAT 96; BMI 42.3
[2023-12-09 18:03] VITALS: BP 157/88; PULSE 76; RESP 15; TEMP 36.7; O2SAT 96
--- NOTE | 2023-12-09 18:05 | RAD_ITS ---
INDICATION: INJURY EXAMINATION/TECHNIQUE: X-RAY - RIGHT XR Elbow Min 3 Views COMPARISON: : No relevant prior comparison study available FINDINGS: SOFT TISSUES: No soft tissue swelling or gas. No radiopaque foreign body. BONES/JOINTS: There is no displacement of the anterior or posterior fat pads. No fracture or subluxation however moderate osteophyte formation particularly in the radial neck, olecranon, and coronoid process. Normal alignment. Preservation of the joint space. No sclerotic or destructive changes observed. RAD/Elbow min 3 Views IMPRESSION: 1. No evidence fracture, malalignment or focal bony or joint space abnormality. 2. Degenerative changes are present with osteophyte formation. Electronically Signed: Manuel Carrizales MD at 18:47 EDT ,
--- NOTE | 2023-12-09 19:18 | EX.ED.UPPERE ---
HPI History of Present Illness Chief Complaint: Upper Extremity Injury Detail of Chief Complaint: Swelling and pain right elbow status post blunt trauma 1 week ago Informant: patient Occured/Mechanism Mechanism/Context: Yes blunt trauma Comment: Hip elbow against object. Pain and swelling over the past 24+ hours. Onset/Context/Timing Context: Sudden Onset Timing: Continuous Quality of Pain: Dull Location: Right forearm and elbow Current Severity: Moderate Maximum Severity: Moderate Worsened by: Nothing Relieved by: Nothing Associated Symptoms Associated Symptoms: Negative for Parasthesia, Weakness or Loss of Funtion Narrative Narrative: Patient is a 68-year-old faopr-ywdm-fabatyxz male. Presents because of blunt trauma to his right elbow 1 week ago. The last 24 hours she has had some warmth, redness and swelling involving the right elbow. He denies paresthesia, anesthesia medics. He is on a baby aspirin a day. No anticoagulant. He does have history of hypertension hypercholesterolemia. He is on no immunosuppressive drugs. He has no history of rheumatic fever, heart murmur mitral valve prolapse. He denies nausea, vomiting or diarrhea. He has no other complaints. Prior similar symptoms: No Recent Illness/Hospitalization: No PFSH PFSH Medical History Atherosclerosis of [place] coronary artery of [place] heart without angina pectoris Essential hypertension HLD (hyperlipidemia) LVH (left ventricular hypertrophy) Morbid obesity NSTEMI (non-ST elevated myocardial infarction) (02/12/19) ADIEL treated with BiPAP Sleep-disordered breathing Home Medications aspirin 81 mg tablet,delayed release 81 mg PO DAILY ##30 02/14/19 [Rx Last Taken 02/28/20] amlodipine 10 mg tablet 10 mg PO DAILY #90 tabs 10/29/23 [Rx Last Taken Unknown] atorvastatin 80 mg tablet 80 mg PO DAILY #90 tabs 10/29/23 [Rx Last Taken Unknown] lisinopril 5 mg tablet 5 mg PO DAILY #90 tabs 10/29/23 [Rx Last Taken Unknown] metoprolol tartrate 50 mg tablet 50 mg PO BID #180 tabs 10/29/23 [Rx Last Taken Unknown] clindamycin HCl 300 mg capsule (Cleocin HCl) 300 mg PO Q6H #28 CAPSULES 12/09/23 [Rx Last Taken Unknown] Allergy/AdvReac Type Severity Reaction Status Date / Time ticagrelor [From Brilinta] Allergy Intermediate Nausea, Verified 12/09/23 18:04 dizziness, shortness of breath penicillin G Allergy Unknown Unknown Verified 12/09/23 18:04 Family History Father COPD (chronic obstructive pulmonary disease) Grandmother Diabetes Surgical History History of coronary artery stent placement (03/24/19) History of hand surgery Social History Smoking Status: Former smoker Tobacco: How many years used: 20 how long ago did patient quit smokin, 2.5ppd second hand exposure: Yes alcohol intake: current alcohol intake frequency: a few times a month substance use type: does not use caffeine: Yes Type: coffee Number of servings: 1 what type of physical activity do you participate in: none frequency: does not exercise seatbelt use: always ROS ROS ED Constitutional Constitutional ED: Denies chills, fever(s), subjective, sweats or weight loss Cardiovascular Cardiovascular: Denies chest pain or palpitations Respiratory/Chest Respiratory/Chest: Denies cough, dyspnea or dyspnea on exertion Gastrointestinal Gastrointestinal: Denies abdominal pain, nausea or vomiting Integumentary Denies Abrasions or rash Neurologic Neurologic: Denies paresthesias or weakness Hematologic/Lymphatic Hematologic/Lymphatic: Denies easy bleeding or easy bruising EXAM Physical Exam Const Vital Signs: 12/09/23 18:01 12/09/23 18:02 12/09/23 18:03 Temperature 98.1 F 98.1 F 98.1 F Temperature Source Temporal Temporal Temporal Pulse Rate 80 83 76 Respiratory Rate 16 15 15 Blood Pressure 157/88 H 157/88 H 157/88 H Blood Pressure Mean 111 111 111 Pulse Ox 96 96 96 Oxygen Delivery Method Room Air Room Air Room Air Positive well nourished and well developed General Appearance ED: well developed and NAD HEENT Reports moist mucous membranes normocephalic and atraumatic Eyes PERRL and EOMs intact bilaterally Neck full ROM Resp normal respiratory effort and clear to auscultation bilaterally Cardio regular rate, regular rhythm, S1 normal heart sound, S2 normal heart sound and no murmurs Extremity Negative for normal to inspection Extremity Narrative: The right elbow and proximal radial right forearm are swollen. There is edema noted lateral proximal right forearm. There is pain outpatient over the olecranon process and question of fluctuance. There is slight erythema. There is no induration there is no lymphangitis. There is no actual lymphadenopathy. There is no swelling of the hand. The swelling is localized. Neuro oriented x3, CN's II-XII intact bilaterally, no focal motor deficits and no sensory deficits noted Neuro Narrative: Axillary, median, radial and ulnar function intact. Psych mental status grossly normal Skin Lesions: no lesions Rashes: No no rashes MDM MDM MDM Narrative Medical decision making narrative: X-rays today include nurse protocol. This was obtained to evaluate for foreign body. Concern patient may have olecranon bursitis. Will perform needle aspirate. There is also concern for cellulitis. There is no neurovasc compromise of the right upper extremity. To work patient up will obtain CBC, electrolyte panel and ESR. Needle aspiration of olecranon bursa. Lab Data Attestation: I reviewed the patient's lab results. Lab results narrative: CBC was unremarkable. There is no evidence of endorgan dysfunction. Patient was treated with antibiotics for presumed infection. Radiography Chest X-Ray - ED: Read by ED Physician (Three-view x-ray reveals no anterior posterior fat-pad i.e. effusion. There is no fracture, subluxation dislocation there is no loss of foreign body.) Diagnostic Testing: Clinical Impression(s) from Imaging Studies Elbow X-Ray 12/09/23 18:05 IMPRESSION: 1. No evidence fracture, malalignment or focal bony or joint space abnormality. 2. Degenerative changes are present with osteophyte formation. Electronically Signed: Manuel Carrizales MD at 18:47 EDT , Treatment and Re-Evaluation Narrative: Since the swelling is localized there is warmth slight erythema over the area of swelling suspect this represents an early infection. Will treat with clindamycin since he had a life-threatening allergic reaction to penicillin as a child. If there is no improvement in 24 to 48 hours patient will need an outpatient venous duplex study of the upper extremity. Will have him return if there is no improvement. Discharge Plan Triage Chief Complaint: Upper Extremity Injury ED Provider: Jignesh Culver Dx/Rx/DC Orders Clinical Impression: Cellulitis of right upper extremity, HLD (hyperlipidemia), Essential hypertension, ADIEL (obstructive sleep apnea), History of coronary artery stent placement Instructions: ED Cellulitis Prescriptions: New clindamycin HCl [Cleocin HCl] 300 mg capsule 300 mg PO Q6H Qty: 28 0RF No Action aspirin 81 MG tablet,delayed release (DR/EC) 81 mg PO DAILY Qty: 30 0RF atorvastatin 80 mg tablet 80 mg PO DAILY Qty: 90 3RF lisinopril 5 mg tablet 5 mg PO DAILY Qty: 90 3RF metoprolol tartrate 50 mg tablet 50 mg PO BID Qty: 180 3RF amlodipine 10 mg tablet 10 mg PO DAILY Qty: 90 3RF Primary Care Provider: Raymundo Watt Referrals: Raymundo Watt MD [Primary Care Provider] - 2 Days for wound check Activity Restrictions/Additional Instructions: If you are unable to see Dr. Valentin in 2 days for recheck return to the emergency department if there is no improvement for an outpatient venous duplex study Disposition Disposition: Home, Self Care
[2023-12-09 19:33] LABS: Absolute Lymphocyte Count 1.93 X10^3/uL (0.83-4.51); Absolute Neutrophil Count 5.7 X10^3/uL (2.0-7.7); Basophil# 0.06 X10^3/uL; Basophil% 0.7 % (0-1); Eosinophil# 0.29 X10^3/uL; Eosinophils% 3.2 % (0-5); Hematocrit 39.2 % (40-54); Hemoglobin 13.4 g/dL (13.0-16.5); Lymphocyte # 1.93 X10^3/ul (0.83-4.51); Mean Corp Hgb Conc 34.2 g/dL (32-36); Mean Corpuscular Hgb 30.7 pg (27.0-32.0); Mean Corpuscular Volume 89.9 fL (80-94); Mean Platelet Vol. 10.3 fl (6.2-12.0); Monocyte# 1.15 X10^3/uL; Monocyte% 12.5 % (0-10); NRBC Flagged by Analyzer 0 % (0-5); Neutrophil # 5.71 X10^3/uL (2.7-7.7); Neutrophil % 62.2 % (47-70); Platelet Count 226 K/mm3 (150-450); RBC Distribution Width CV 14.2 % (11.6-14.6); RBC Distribution Width SD 46.8 fl (35.1-43.9); Red Blood Count 4.36 M/mm3 (4.6-6.2); White Blood Count 9.2 K/mm3 (4.4-11.0)
[2023-12-09 19:40] LABS: Erythrocyte Sedimentation Rate 24 mm/hr (0-20)
[2023-12-09 19:51] LABS: Anion Gap 3 (5-15); BUN 17 mg/dL (7-18); BUN/Creat Ratio 15.9 RATIO (10-20); Calcium,Total 8.8 mg/dL (8.5-10.1); Chloride 113 mmol/L (98-107); Creatinine, Serum 1.07 mg/dL (0.70-1.30); EST Glomerular Filtration Rate 73 mL/min (>60); Est Glom Filt Rate - Afr Amer 89 mL/min (>60); Estimated Creatinine Clearance 104.89 ml/min; Glucose 104 mg/dL (74-106); Potassium 3.8 mmol/L (3.5-5.1); Sodium Level 142 mmol/L (136-145)
[2023-12-09 19:57] LABS: Lactic Acid 1.3 mmol/L (0.4-1.9)
[2023-12-09 21:00] VITALS: BP 157/71; PULSE 78; RESP 16; TEMP 36.3; O2SAT 97
[2023-12-09] MEDS: Clindamycin HCl 150 MG Capsule 300 MG PO (21:07)
== END 2023-12-09 21:16 | disposition home or self-care (01) ==
PROVIDERS: Emergency Provider Emergency Medicine; PCP Family Medicine; Visit Provider Emergency Medicine
DX: L03.113 Cellulitis of right upper limb (principal); G47.33 Obstructive sleep apnea (adult) (pediatric); Z95.5 Presence of coronary angioplasty implant and graft; I10 Essential (primary) hypertension; E78.5 Hyperlipidemia, unspecified; Z87.891 Personal history of nicotine dependence; I25.2 Old myocardial infarction; I25.10 Atherosclerotic heart disease of native coronary artery without angina pectoris; Z99.89 Dependence on other enabling machines and devices
CPT/HCPCS: 20605; 99283; 73080; 80048; 83605; 85025; 85652; A4216

== ENCOUNTER 2023-12-11 17:16 | Inpatient (IN) | payer MEDICARE, OTHER, SELFPAY ==
[2023-12-11] VITALS (7 sets, daily range): BP systolic 147–166; BP diastolic 68–91; PULSE 68–88; RESP 16–18; TEMP 35.6–37.2; O2SAT 98; BMI 45.0; BMI 42.7
--- NOTE | 2023-12-11 17:31 | EDS_ITS ---
<Statement entered by Bárbara Dolan MD - 12/11/23 18:22> I have personally performed a face to face assessment of the patient and have reviewed the STEPH Note. Patient returns to the ER secondary to continued redness and swelling to the right upper extremity. Patient was initially seen on the approximately 1 week after a blunt injury to his elbow. He was diagnosed with cellulitis and started on clindamycin. He does have a penicillin allergy. Patient states that he was advised if he is not improving in 48 hours he should return. He notes the redness has spread and he has noted increased swelling. He does not have fever and does not otherwise feel ill. Patient sitting upright in bed no acute distress. Nontoxic-appearing. Head and neck examination unremarkable. Heart is regular rate and rhythm. Lung sounds are clear. Abdomen is soft and nontender. Right upper extremity examination does reveal mild diffuse edema. He is able to flex and extend at all joints. He does have light erythema noted over the extensor surface of the right elbow. He has good distal pulses and normal sensation. Lab work is repeated. White count remains normal. Sed rate is slightly improved from 24 down to 20. CRP is elevated at 15.3. With patient having progression of symptoms despite being on 48 hours of antibiotics he will be given a dose of IV vancomycin and discussed with hospitalist for admission. HPI History of Present Illness Chief Complaint: Cellulitis Narrative Narrative: Patient is a 68-year-old male with history of hypertension hyperlipidemia obesity obstructive sleep apnea who presents to the emergency department for worsening swelling, discomfort to his right arm. Patient was seen here on December 09, 2023, x-rays were completed, laboratory values were completed, patient was placed on clindamycin and told to come if not improved. Patient states that there is more redness and warmth going up the bicep and down towards the hand. He states that there is more swelling and he is here for evaluation. He denies any systemic symptoms such as fever chills nausea or vomiting. Patient denies any chest pain or shortness of breath. No history of blood clots in the legs or lungs. [facility] Medical History Atherosclerosis of [place] coronary artery of [place] heart without angina pe ctoris Essential hypertension HLD (hyperlipidemia) LVH (left ventricular hypertrophy) Morbid obesity NSTEMI (non-ST elevated myocardial infarction) (02/12/19) ADIEL treated with BiPAP Sleep-disordered breathing Home Medications aspirin 81 mg tablet,delayed release 81 mg PO DAILY ##30 02/14/19 [Rx Last Taken 02/28/20] amlodipine 10 mg tablet 10 mg PO DAILY #90 tabs 10/29/23 [Rx Last Taken Unknown] atorvastatin 80 mg tablet 80 mg PO DAILY #90 tabs 10/29/23 [Rx Last Taken Unknown] lisinopril 5 mg tablet 5 mg PO DAILY #90 tabs 10/29/23 [Rx Last Taken Unknown] metoprolol tartrate 50 mg tablet 50 mg PO BID #180 tabs 10/29/23 [Rx Last Taken Unknown] clindamycin HCl 300 mg capsule (Cleocin HCl) 300 mg PO Q6H #28 CAPSULES 12/09/23 [Rx Last Taken Unknown] Allergy/AdvReac Type Severity Reaction Status Date / Time ticagrelor [From Brilinta] Allergy Intermediate Nausea, Verified 12/11/23 17:19 dizziness, shortness of breath penicillin G Allergy Unknown Unknown Verified 12/11/23 17:19 Family History Father COPD (chronic obstructive pulmonary disease) Grandmother Diabetes Surgical History History of coronary artery stent placement (03/24/19) History of hand surgery Social History Smoking Status: Unknown if ever smoked Tobacco: How many years used: 20 how long ago did patient quit smokin, 2.5ppd second hand exposure: Yes alcohol intake: current alcohol intake frequency: a few times a month substance use type: does not use caffeine: Yes Type: coffee Number of servings: 1 what type of physical activity do you participate in: none frequency: does not exercise seatbelt use: always ROS ROS ED ROS Narrative Constitutional: Negative for fever, chills, weight loss, weakness Eyes: Negative for vision loss, vision change, double vision ENT: Negative for any sore throat, ear pain, congestion Cardiovascular: Negative for any chest pain, tightness, palpitations Respiratory: Negative for any cough, sputum production, hemoptysis, dyspnea, dyspnea on exertion, orthopnea Gastrointestinal: Negative for any abdominal pain, nausea, vomiting, diarrhea, constipation, blood in stool, blood in vomit : Negative for any urinary frequency, dysuria, retention, blood in urine Muscle skeletal: Negative for any neck pain, back pain. Positive for pain to the right arm, swelling to the right arm Neurological: Negative for any headache, syncope, dizziness Skin: Negative for any rashes, itching, abrasions, lacerations Psychiatric: Negative for any depression, anxiety, stress, suicidal ideation, homicidal ideation Hematologic: Negative for any excessive bruising, easy bleeding EXAM Physical Exam Narrative Exam Narrative: Vital signs reviewed. HEET: Head normocephalic atraumatic, TMs clear bilaterally. Posterior pharynx is clear, moist mucous membranes. Nares clear bilaterally. Neck: Supple with no lymphadenopathy or tenderness. No signs of meningismus. Cardiac: Regular rate and rhythm no murmurs gallops or rubs, equal peripheral pulses bilaterally. Respiratory: Lungs clear to auscultation bilaterally. No chest tenderness. Abdomen: Soft, nontender, nondistended. No abdominal bruit or pulsatile masses. No hepatosplenomegaly Extremities: Patient does have swelling to the posterior arm by the elbow, this does wrap around to the antecubital area, redness to the forearm. There does appear to be some tight skin secondary to edema. When putting both arms together there is obvious different. Patient has no lymphadenopathy in the axilla. +2 radial pulse. Patient is able to flex and extend at the elbow he says it feels tight and is uncomfortable however the pain is not excruciating. Active full range of motion of all extremities. Neuro: Cranial nerves II through XII intact, no focal neurological deficits. Skin: Clean dry and intact with no rash, purpura, petechiae, vesicles or pustules. Backs/flank: No CVA tenderness, no midline spinal tenderness, no deformity. Psych: Normal mood and affect. No SI, HI or acute psychosis. Const Vital Signs: 12/11/23 17:17 12/11/23 18:19 Temperature 96.1 F L 96.1 F L Temperature Source Temporal Oral Pulse Rate 78 77 Respiratory Rate 16 18 Blood Pressure 148/91 H 147/68 H Blood Pressure Mean 110 94 Pulse Ox 98 98 Oxygen Delivery Method Room Air Room Air [facility] Lab Data Labs: Laboratory Results - last 24 hr 12/11/23 17:40 WBC 8.1 RBC 4.25 L Hgb 12.9 L Hct 38.4 L MCV 90.4 MCH 30.4 MCHC 33.6 RDW Std Deviation 46.0 H RDW Coeff of Kaleb 13.9 Plt Count 240 MPV 10.3 Immature Gran % (Auto) 0.400 Neut % (Auto) 58.9 Lymph % (Auto) 25.3 [facility] % (Auto) 10.5 H Eos % (Auto) 4.0 Baso % (Auto) 0.9 Absolute Neuts (auto) 4.8 Absolute Lymphs (auto) 2.04 Nucleated RBC % 0 ESR 20 Sodium 140 Potassium 4.0 Chloride 111 H Carbon Dioxide 24.0 Anion Gap 5 BUN 15 Creatinine 1.12 Estim Creat Clear Calc 103.70 Est GFR (MDRD) Af Amer 84 Est GFR (MDRD) Non-Af 70 BUN/Creatinine Ratio 13.4 Glucose 97 Calcium 8.6 C-React Prot Ext Range 15.30 H Treatment and Re-Evaluation :: Differential diagnosis includes however is not limited to: Right arm cellulitis, septic joint, septic arthritis, olecranon bursitis infectious bursitis Patient appears to be in no obvious respiratory distress vital signs are stable. Presenting to the emergency department with complaints of worsening pain, redness and swelling to the right elbow, right arm. I do believe that DVT was in the differential however patient has no risk factors, there is some redness, pain that is burning and redness that is going down the arm. Patient will receive basic laboratory values including lactic as well as sed rate and CRP, I will compare these from 2 days ago. Patient CBC shows slight anemia hemoglobin 12.9, white blood count 8.1, this is similar from 2 days ago. Patient's chemistries were unremarkable, creatinine 1.12, sed rate was 20, previous 24. C-reactive protein is 15.3. Lactic acid still pending. However secondary to the patient continuing being on 2 days of clindamycin every 6 hours, the patient is having worsening redness worsening swelling worsening pain I do believe that the patient needs to be admitted to hospital and further workup. IV vancomycin will be ordered. I will speak with hospitalist. I spoke with hospitalist, patient be admitted to the hospital. Patient is stable and comfortable with the decision to stay. Discharge Plan Triage Chief Complaint: Cellulitis ED Midlevel Provider: Ashu Estrada ED Provider: Bárbara Dolan Dx/Rx/DC Orders Clinical Impression: Localized swelling of right forearm, Cellulitis of arm, right Prescriptions: No Action aspirin 81 MG tablet,delayed release (DR/EC) 81 mg PO DAILY Qty: 30 0RF clindamycin HCl [Cleocin HCl] 300 mg capsule 300 mg PO Q6H Qty: 28 0RF atorvastatin 80 mg tablet 80 mg PO DAILY Qty: 90 3RF lisinopril 5 mg tablet 5 mg PO DAILY Qty: 90 3RF metoprolol tartrate 50 mg tablet 50 mg PO BID Qty: 180 3RF amlodipine 10 mg tablet 10 mg PO DAILY Qty: 90 3RF Primary Care Provider: Raymundo Watt Referrals: Raymundo Watt MD [Primary Care Provider] -
[2023-12-11 17:49] LABS: Absolute Lymphocyte Count 2.04 X10^3/uL (0.83-4.51); Absolute Neutrophil Count 4.8 X10^3/uL (2.0-7.7); Basophil# 0.07 X10^3/uL; Basophil% 0.9 % (0-1); Eosinophil# 0.32 X10^3/uL; Hematocrit 38.4 % (40-54); Hemoglobin 12.9 g/dL (13.0-16.5); Lymphocyte # 2.04 X10^3/ul (0.83-4.51); Lymphocyte % 25.3 % (19-41); Mean Corp Hgb Conc 33.6 g/dL (32-36); Mean Corpuscular Hgb 30.4 pg (27.0-32.0); Mean Corpuscular Volume 90.4 fL (80-94); Mean Platelet Vol. 10.3 fl (6.2-12.0); Monocyte# 0.85 X10^3/uL; Monocyte% 10.5 % (0-10); NRBC Flagged by Analyzer 0 % (0-5); Neutrophil # 4.76 X10^3/uL (2.7-7.7); Neutrophil % 58.9 % (47-70); Platelet Count 240 K/mm3 (150-450); RBC Distribution Width CV 13.9 % (11.6-14.6); Red Blood Count 4.25 M/mm3 (4.6-6.2); White Blood Count 8.1 K/mm3 (4.4-11.0)
[2023-12-11 18:05] LABS: Anion Gap 5 (5-15); BUN 15 mg/dL (7-18); BUN/Creat Ratio 13.4 RATIO (10-20); Calcium,Total 8.6 mg/dL (8.5-10.1); Chloride 111 mmol/L (98-107); Creatinine, Serum 1.12 mg/dL (0.70-1.30); EST Glomerular Filtration Rate 70 mL/min (>60); Erythrocyte Sedimentation Rate 20 mm/hr (0-20); Est Glom Filt Rate - Afr Amer 84 mL/min (>60); Glucose 97 mg/dL (74-106); Sodium Level 140 mmol/L (136-145)
--- NOTE | 2023-12-11 18:27 | PCM.HP.STD ---
[facility] - General General Date of Admission: 12/11/23 Date of Service: 12/11/23 Chief Complaint: Right arm swelling HPI Narrative JESSICA ACUÑA, is a 68 M with past medical history of coronary artery disease, obesity, left ventricular hypertrophy, essential hypertension, hyperlipidemia, morbid obesity, ADIEL, who presents to the ED following worsening swelling and stiffness of his right. He presented on 12/09/2023 with concerns regarding right elbow cellulitis following an blunt trauma injury. At the time there was no neurovascular compromise and he was discharged from the ED on clindamycin 300 mg every 6 hours. Following his discharge the erythema is reduced but there is persistent swelling and he fears that the swelling is worsening. No fever, no change in his systemic symptoms. Overall feeling well. [facility] Medical History Atherosclerosis of [place] coronary artery of [place] heart without angina pectoris Essential hypertension HLD (hyperlipidemia) LVH (left ventricular hypertrophy) Morbid obesity NSTEMI (non-ST elevated myocardial infarction) (02/12/19) ADIEL treated with BiPAP Sleep-disordered breathing Home Medications aspirin 81 mg tablet,delayed release 81 mg PO DAILY ##30 02/14/19 [Rx Last Taken 02/28/20] amlodipine 10 mg tablet 10 mg PO DAILY #90 tabs 10/29/23 [Rx Last Taken Unknown] atorvastatin 80 mg tablet 80 mg PO DAILY #90 tabs 10/29/23 [Rx Last Taken Unknown] lisinopril 5 mg tablet 5 mg PO DAILY #90 tabs 10/29/23 [Rx Last Taken Unknown] metoprolol tartrate 50 mg tablet 50 mg PO BID #180 tabs 10/29/23 [Rx Last Taken Unknown] clindamycin HCl 300 mg capsule (Cleocin HCl) 300 mg PO Q6H #28 CAPSULES 12/09/23 [Rx Last Taken Unknown] Allergy/AdvReac Type Severity Reaction Status Date / Time ticagrelor [From Brilinta] Allergy Intermediate Nausea, Verified 12/11/23 17:19 dizziness, shortness of breath penicillin G Allergy Unknown Unknown Verified 12/11/23 17:19 Family History Father COPD (chronic obstructive pulmonary disease) Grandmother Diabetes Surgical History History of coronary artery stent placement (03/24/19) History of hand surgery Social History Smoking Status: Unknown if ever smoked Tobacco: How many years used: 20 how long ago did patient quit smokin, 2.5ppd second hand exposure: Yes alcohol intake: current alcohol intake frequency: a few times a month substance use type: does not use caffeine: Yes Type: coffee Number of servings: 1 what type of physical activity do you participate in: none frequency: does not exercise seatbelt use: always ROS Review of Systems ROS Unobtainable: Denies due to encephalopathy, due to endotracheal tube, due to mental condition, due to mental status or other Constitutional Constitutional: Denies anorexia, change in weight, chills, fatigue, fever(s), malaise, night sweats, weakness or other Eyes Eyes: Denies blurry vision, change in eye color, change in vision, discharge from eye(s), double vision, erythema, eye pain, loss of vision or other ENT HEENT: Denies abnormal hearing, dysphagia, ear pain, epistaxis, headache(s), hearing loss, nasal congestion, nasal discharge, post nasal drip, sinus pressure, sore throat or other Cardiovascular Cardiovascular: Denies chest pain, claudication, dyspnea on exertion, edema, lightheadedness, orthopnea, palpitations, paroxysmal nocturnal dyspnea, rapid heart rate, syncope or other Respiratory/Chest Respiratory/Chest: Denies cough, dyspnea, excessive phlegm production, hemoptysis, productive cough, shortness of breath at rest, shortness of breath with exertion, wheezing or other Gastrointestinal Gastrointestinal: Denies abdominal pain, coffee ground emesis, constipation, diarrhea, dyspepsia, hematemesis, hematochezia, loose stools, melena, nausea, vomiting or other Neurologic Neurologic: Denies abnormal gait, abnormal speech, confusion, disequilibrium, dizziness, focal weakness, headache(s), numbness, paresthesias, seizure-like activity, seizures, syncope, tingling, tremor(s) or other Psychiatric Psychiatric: Denies anxiety, depression, homicidal ideation, suicidal ideation or other Vital Signs Vital Signs Vital Signs: 12/11/23 17:17 Temperature 96.1 F L Temperature Source Temporal Pulse Rate 78 Respiratory Rate 16 Blood Pressure 148/91 H Blood Pressure Mean 110 Pulse Ox 98 Oxygen Delivery Method Room Air Weight Weight: 351 lb Body Mass Index (BMI) 45.0 Physical Exam Const alert and oriented x3 HEENT normocephalic, head/scalp atraumatic, hearing grossly normal bilaterally, moist oral mucous membranes, oropharynx normal and dentition normal Eyes PERRL, EOMs intact bilaterally and conjunctivae normal Neck no lymphadenopathy, supple, no JVD and no carotid bruits Resp normal respiratory effort, no retractions, no use of accessory muscles and clear to auscultation bilaterally Cardio regular rate, regular rhythm, S1 normal heart sound, S2 normal heart sound, no murmurs, no rub, no gallops, no clicks and no JVD Extremity Extremity Narrative: Right arm diffuse swelling, minimal erythema over the elbow and adjoining lesions present, no significant tenderness on examination. Neuro oriented x3 Sensorium / Orientation: awake and alert Results Medical Records Data Attestation: I reviewed the patient's medical records Lab / Micro Data Attestation: I reviewed the patient's lab results. 12/11/23 17:40 12/11/23 17:40 Labs: Laboratory Results - last 24 hr 12/11/23 17:40: WBC 8.1, RBC 4.25 L, Hgb 12.9 L, Hct 38.4 L, MCV 90.4, MCH 30.4, MCHC 33.6, RDW Std Deviation 46.0 H, RDW Coeff of Kaleb 13.9, Plt Count 240, MPV 10.3, Immature Gran % (Auto) 0.400, Neut % (Auto) 58.9, Lymph % (Auto) 25.3, [place] % (Auto) 10.5 H, Eos % (Auto) 4.0, Baso % (Auto) 0.9, Absolute Neuts (auto) 4.8, Absolute Lymphs (auto) 2.04, Nucleated RBC % 0, ESR 20, Sodium 140, Potassium 4.0, Chloride 111 H, Carbon Dioxide 24.0, Anion Gap 5, BUN 15, Creatinine 1.12, Estim Creat Clear Calc 103.70, Est GFR (MDRD) Af Amer 84, Est GFR (MDRD) Non-Af 70, BUN/Creatinine Ratio 13.4, Glucose 97, Calcium 8.6, C-React Prot Ext Range 15.30 H Assessment & Plan Assessment/Plan (1) Cellulitis of arm, right: PLAN: Plan 62-year-old man with prior history of obesity, hypertension, coronary artery disease presents with swelling over his right arm following an episode of cellulitis that is responding to clindamycin therapy. The possible reason for his swelling is venous thrombosis, deep infection is also possibility, will switch from oral to IV antibiotics during his course of hospitalization. 1. Cellulitis and swelling over right arm: -There is a possibility of venous thrombosis and will get right upper quadrant ultrasound given the degree of swelling -Will switch to IV Levofloxacin given the penicillin allergy 2. Hypertension: continue amlodipine, lisinopril 5 mg daily metoprolol 50 mg daily 3. Coronary artery disease: continue aspirin 81 mg daily 4. Dyslipidemia: continue atorvastatin 80 mg daily Charges/Coding Visit Charges Inpatient E&M: 17473 Init Hosp L2
--- NOTE | 2023-12-11 18:36 | VDUE_ITS ---
Reason For Study: BUE Swelling Right Proximal Left Proximal Right jugular vein is spontaneous, widely Left jugular vein is spontaneous, widely patent, phasic, with no intraluminal patent, phasic, with no intraluminal echogenicity noted. echogenicity noted. Right subclavian vein is spontaneous, widely Left subclavian vein is spontaneous, widely patent, phasic, with no intraluminal patent, phasic, with no intraluminal echogenicity noted. echogenicity noted. Right Lower Arm Left Arm Right radial vein is compressible. Left axillary vein is spontaneous, patent, Right ulnar vein is compressible. phasic, competent, compressible and Right Arm demonstrates augmentation. Right axillary vein is spontaneous, patent, Left brachial vein is compressible. phasic, competent, compressible and Left cephalic vein is compressible. demonstrates augmentation. Left basilic vein is compressible. Right brachial vein is compressible. Left Lower Arm Right cephalic vein is compressible. Left radial vein is compressible. Right basilic vein is compressible. Left ulnar vein is compressible. Patient Safety Preliminary results reported to PCU community living coach. VL/Venous Duplex US - Josef Extrem Interpretation Summary Deep veins of the bilateral upper extremities are patent and compressible segme ntally. There is no evidence of deep vein thrombosis. Superficial veins of the bilateral upper extremities are patent and compressibl e segmentally. There is no evidence of superficial vein thrombosis. Ordering Physician: Sujit Wall Referring Physician: Raymundo Rothman Performed By: Celio Parkinson, KARL ???
[2023-12-11] MEDS: Vancomycin HCl 2,000 MG in 0.9% Normal Saline (500mL Bag) 500 ML 250 MG IV (18:47)
[2023-12-11] MEDS: Metoprolol Tartrate 50 MG Tablet PO (21:13)
[2023-12-11] MEDS: Atorvastatin Calcium 80 MG Tablet PO (21:14)
[2023-12-11] MEDS: Enoxaparin 40 MG/0.4 ML Syringe SC (21:14)
[2023-12-12 03:05] VITALS: BP 126/58; PULSE 61; RESP 18; TEMP 36.4; O2SAT 98
[2023-12-12 06:48] LABS: Absolute Lymphocyte Count 1.66 X10^3/uL (0.83-4.51); Absolute Neutrophil Count 4.1 X10^3/uL (2.0-7.7); Basophil# 0.05 X10^3/uL; Basophil% 0.7 % (0-1); Eosinophil# 0.29 X10^3/uL; Eosinophils% 4.3 % (0-5); Hematocrit 37.6 % (40-54); Hemoglobin 12.5 g/dL (13.0-16.5); Lymphocyte # 1.66 X10^3/ul (0.83-4.51); Lymphocyte % 24.3 % (19-41); Mean Corp Hgb Conc 33.2 g/dL (32-36); Mean Corpuscular Hgb 30.6 pg (27.0-32.0); Mean Corpuscular Volume 92.2 fL (80-94); Mean Platelet Vol. 10.5 fl (6.2-12.0); Monocyte# 0.71 X10^3/uL; Monocyte% 10.4 % (0-10); NRBC Flagged by Analyzer 0 % (0-5); Neutrophil # 4.09 X10^3/uL (2.7-7.7); Platelet Count 204 K/mm3 (150-450); RBC Distribution Width SD 47.5 fl (35.1-43.9); Red Blood Count 4.08 M/mm3 (4.6-6.2); White Blood Count 6.8 K/mm3 (4.4-11.0)
[2023-12-12 07:17] LABS: ALB/GLOB Ratio 1.1 RATIO (0.9-2.4); AST(SGOT) 18 U/L (15-37); Alanine Aminotransfer ALT/SGPT 28 U/L (16-61); Albumin, Serum 3.3 g/dL (3.2-5.0); Alkaline Phosphatase 82 U/L (45-117); Anion Gap 3 (5-15); BUN 11 mg/dL (7-18); BUN/Creat Ratio 10.7 RATIO (10-20); Calcium,Total 8.9 mg/dL (8.5-10.1); Chloride 110 mmol/L (98-107); Creatinine, Serum 1.03 mg/dL (0.70-1.30); EST Glomerular Filtration Rate 77 mL/min (>60); Est Glom Filt Rate - Afr Amer 93 mL/min (>60); Estimated Creatinine Clearance 109.48 ml/min; Globulin 3.1 g/dL (2.2-4.2); Glucose 108 mg/dL (74-106); Potassium 4.1 mmol/L (3.5-5.1); Protein, Total 6.4 g/dL (6.4-8.2); Sodium Level 141 mmol/L (136-145)
[2023-12-12] MEDS: Acetaminophen 500 MG Tablet 1000 MG PO ×3 (08:48→22:27)
[2023-12-12 08:49] VITALS: PULSE 81
[2023-12-12] MEDS: Metoprolol Tartrate 50 MG Tablet PO ×2 (08:49→22:28)
[2023-12-12] MEDS: Aspirin E.C. 81 MG Tablet PO (08:49)
[2023-12-12] MEDS: amLODIPine 10 MG Tablet PO (08:50)
[2023-12-12] MEDS: Enoxaparin 40 MG/0.4 ML Syringe SC ×2 (08:50→22:28)
[2023-12-12] MEDS: Lisinopril 5 MG Tablet PO (08:50)
[2023-12-12 09:05] VITALS: BP 158/94; PULSE 66; RESP 16; TEMP 36.2; O2SAT 97
--- NOTE | 2023-12-12 09:20 | PCM.PN.HOSP ---
Reason for Visit Reason for Visit: Diagnoses Cellulitis of right upper limb (12/11/23) Objective Data Objective Data Vital Signs: Vital Signs Temp Pulse Resp BP Pulse Ox O2 Del Method 97.5 F L 81 18 126/58 H 98 Bi-pap 12/12/23 03:05 12/12/23 08:49 12/12/23 03:05 12/12/23 03:05 12/12/23 03:05 12/12/23 03:10 Oxygen Delivery Method Bi-pap Weight: 332 lb 14.368 oz Body Mass Index (BMI) 42.7 Intake & Output: Intake and Output for Last 24 Hours 12/10/23 12/11/23 12/12/23 23:59 23:59 23:59 Intake Total 540 / 540 Balance 540 / 540 Lab / Micro Data 12/12/23 06:12 12/12/23 06:12 Labs: Laboratory Results - last 24 hr 12/11/23 17:40: WBC 8.1, RBC 4.25 L, Hgb 12.9 L, Hct 38.4 L, MCV 90.4, MCH 30.4, MCHC 33.6, RDW Std Deviation 46.0 H, RDW Coeff of Kaleb 13.9, Plt Count 240, MPV 10.3, Immature Gran % (Auto) 0.400, Neut % (Auto) 58.9, Lymph % (Auto) 25.3, [place] % (Auto) 10.5 H, Eos % (Auto) 4.0, Baso % (Auto) 0.9, Absolute Neuts (auto) 4.8, Absolute Lymphs (auto) 2.04, Nucleated RBC % 0, ESR 20, Sodium 140, Potassium 4.0, Chloride 111 H, Carbon Dioxide 24.0, Anion Gap 5, BUN 15, Creatinine 1.12, Estim Creat Clear Calc 103.70, Est GFR (MDRD) Af Amer 84, Est GFR (MDRD) Non-Af 70, BUN/Creatinine Ratio 13.4, Glucose 97, Lactic Acid 1.0, Calcium 8.6, C-React Prot Ext Range 15.30 H 12/12/23 06:12: WBC 6.8, RBC 4.08 L, Hgb 12.5 L, Hct 37.6 L, MCV 92.2, MCH 30.6, MCHC 33.2, RDW Std Deviation 47.5 H, RDW Coeff of Kaleb 14.0, Plt Count 204, MPV 10.5, Immature Gran % (Auto) 0.300, Neut % (Auto) 60.0, Lymph % (Auto) 24.3, [place] % (Auto) 10.4 H, Eos % (Auto) 4.3, Baso % (Auto) 0.7, Absolute Neuts (auto) 4.1, Absolute Lymphs (auto) 1.66, Nucleated RBC % 0 Sodium 141, Potassium 4.1, Chloride 110 H, Carbon Dioxide 28.0, Anion Gap 3 L, BUN 11, Creatinine 1.03, Estim Creat Clear Calc 109.48, Est GFR (MDRD) Af Amer 93, Est GFR (MDRD) Non-Af 77, BUN/Creatinine Ratio 10.7, Glucose 108 H, Calcium 8.9, Total Bilirubin 0.40, AST 18, ALT 28, Alkaline Phosphatase 82, Total Protein 6.4, Albumin 3.3, Globulin 3.1, Albumin/Globulin Ratio 1.1 Physical Exam Narrative Seen and examined. Patient admitted with right upper extremity cellulitis after he accidentally hit right elbow about 3 days ago. It progressed bidirectionally from elbow to arm and forearm. No fever Physical exam General: Alert, Oriented x3, Cooperative, morbid obesity BMI 42.7 kg/m? HEENT: Atraumatic, PERRLA, EOMI, Normocephalic Oral: No Gingival or Mucosal Lesions/ Ulcerations Neck: Supple, No JVD, Negative Carotid Bruits Chest wall/Lungs: Air entry diminished in bilateral lung bases. No crepitation/rhonchi Cardiovascular: Regular rate, Regular Rhythm, Normal S1, Normal S2, No M/G/R Abdomen: Bowel Sounds Present, Soft, Non Tender, Non-Distended : No dysuria. No renal angle tenderness. No suprapubic tenderness. Extremities: No edema, Capillary Refill Less than 3 Seconds Skin: Mild tenderness around right elbow/olecranon process. Mild skin thickening and induration around arm and forearm but erythema has almost resolved. No open ulcer or draining sinus. Musculoskeletal: Mild tenderness to right upper extremity, arm and forearm. No palpable axillary lymph node. Neurological: Cranial nerves II-XII grossly intact, DTR 2+/4. No acute focal neurological deficit. Psych/Mental Status: Normal Affect, Appropriate. Assessment & Plan Assessment/Plan (1) Cellulitis of arm, right: PLAN: Plan 62-year-old man with prior history of obesity, hypertension, coronary artery disease presents with swelling over his right arm following an episode of cellulitis, not responding to clindamycin therapy after seen ED on 12/08. 1. Cellulitis and swelling over right arm: Patient admitted in PCU. Venous duplex done but report not available.Prelim report is negative. Patient on IV levofloxacin as he is allergic to penicillin. Conservative management with right upper extremity elevation. 2. Hypertension: continue amlodipine, lisinopril 5 mg daily metoprolol 50 mg daily 3. Coronary artery disease: continue aspirin 81 mg daily 4. Dyslipidemia: continue atorvastatin 80 mg daily Anticipate discharge tomorrow. Charges/Coding Visit Charges Inpatient E&M: 31273 Subs Hosp L2
[2023-12-12] MEDS: levoFLOXacin IV 750 MG/150 ML BAG 100 MG IV (09:42)
[2023-12-12] MEDS: 0.9% Saline Lock 10 ML Syringe IV (09:43)
[2023-12-12 14:44] VITALS: BP 127/76; PULSE 59; RESP 15; TEMP 35.9; O2SAT 97
[2023-12-12 22:22] VITALS: BP 111/54; PULSE 72; RESP 16; TEMP 36.4; O2SAT 97
[2023-12-12] MEDS: Atorvastatin Calcium 80 MG Tablet PO (22:27)
[2023-12-12 22:28] VITALS: PULSE 72
[2023-12-13] VITALS (8 sets, daily range): BP systolic 129–143; BP diastolic 79–91; PULSE 60–70; RESP 16–18; TEMP 36.3–36.7; O2SAT 96–99
[2023-12-13] MEDS: Enoxaparin 40 MG/0.4 ML Syringe SC ×2 (08:08→20:16)
[2023-12-13] MEDS: Aspirin E.C. 81 MG Tablet PO (08:09)
[2023-12-13] MEDS: Metoprolol Tartrate 50 MG Tablet PO ×2 (08:09→20:15)
[2023-12-13] MEDS: Lisinopril 5 MG Tablet PO (08:10)
[2023-12-13] MEDS: amLODIPine 10 MG Tablet PO (08:10)
[2023-12-13] MEDS: levoFLOXacin IV 750 MG/150 ML BAG 100 MG IV (09:04)
[2023-12-13] MEDS: 0.9% Saline Lock 10 ML Syringe IV (09:05)
--- NOTE | 2023-12-13 09:30 | CASEMGMT ---
RN CM Face to Face with patient for initial transition planning/care coordination assessment. RN CM introduced self and role at [facility]. Patient sitting at edge of bed, alert and oriented, at bedside. Patient willing to participate in assessment and is able to answer all questions appropriately. Care providers, pharmacy, and demographics verified. PCP: Alysa Specialists: Shelton Preston, coal deliverer; MAYUR, pattern maker; Preferred Pharmacy: [facility] Insurance: [facility] Prescription Benefit: yes Living Will/HPOA: none LNOK: Living Arrangements: Patient lives with in a 2 story home. Patient is independent and able to ambulate stairs. Transportation: self, DME/HHC: Patient has bipap at home. No previous HHC or SNF. Patient wishes to discharge home, denies need for home health at this time. Patient states he has no further needs or concerns at this time. CM to follow for discharge planning needs that may arise. Disposition Plan: Patient to discharge home with family support and follow-up plans in place. Sunitha NAVA, RN, CM
--- NOTE | 2023-12-13 13:42 | PCM.PN.HOSP ---
Reason for Visit Reason for Visit: Diagnoses Cellulitis of right upper limb (12/12/23) Subjective Subjective No acute events overnight. Patient seen at bedside this morning, and daughter present. Patient sitting up comfortably in bed, conversing normally, in no acute distress. Patient unfortunately states that his right upper extremity cellulitis feels slightly worse today than previous days despite treatment with IV antibiotics. He states that he initially felt like he saw some improvement yesterday but then this morning his swelling and pain was worse than previous days. He denies any systemic symptoms. Denies any fevers or chills. No other acute concerns this morning. Objective Data Objective Data Vital Signs: Vital Signs Temp Pulse Resp BP Pulse Ox O2 Del Method 97.8 F 64 16 143/89 H 99 Room Air 12/13/23 09:30 12/13/23 09:44 12/13/23 09:30 12/13/23 09:30 12/13/23 09:30 12/13/23 09:30 Oxygen Delivery Method Room Air Weight: 151 kg Body Mass Index (BMI) 42.7 Intake & Output: Intake and Output for Last 24 Hours 12/11/23 12/12/23 12/13/23 23:59 23:59 23:59 Intake Total 540 / 540 630 / 630 150 / 150 Balance 540 / 540 630 / 630 150 / 150 Lab / Micro Data 12/12/23 06:12 12/12/23 06:12 Radiography Diagnostic Testing: Radiology Impression Venous Doppler Study 12/11/23 18:36 Interpretation Summary Deep veins of the bilateral upper extremities are patent and compressible segmentally. There is no evidence of deep vein thrombosis. Superficial veins of the bilateral upper extremities are patent and compressible segmentally. There is no evidence of superficial vein thrombosis. Ordering Physician: Sujit Wall Referring Physician: Raymundo Rothman Performed By: Celio Parkinson RVT ??? Physical Exam Const alert, oriented x3 and no apparent distress Constitutional Narrative: Pleasant elderly male, morbidly obese, sitting up comfortably in bed, conversing normally, no acute distress. General Appearance: cooperative and comfortable HEENT normocephalic, head/scalp atraumatic, hearing grossly normal bilaterally, nasal mucous membranes and turbinates normal and moist oral mucous membranes Eyes PERRL, EOMs intact bilaterally and conjunctivae normal Neck full ROM Chest inspection of chest normal Resp normal respiratory effort, normal air movement, no use of accessory muscles and clear to auscultation bilaterally Cardio regular rate, regular rhythm, no murmurs and peripheral pulses 2+ throughout GI normal to inspection, nondistended, normoactive bowel sounds, soft to palpation, non-tender and non-distended Back/Spine normal ROM Extremity full ROM Extremity Narrative: Right upper extremity with moderate swelling noted around right elbow down to right hand. Mild erythema noted. Mild tenderness to palpation. Neuro no focal motor deficits and no sensory deficits noted Speech: speech normal Psych mental status grossly normal Assessment & Plan Assessment/Plan (1) Cellulitis of arm, right: PLAN: Plan Patient is a 68-year-old male who presented [facility] ED on 12/11/2023 with right arm swelling and erythema. 1. Right arm cellulitis ? Presented with concern for right elbow cellulitis following a blunt trauma injury. Was initiated on p.o. clindamycin in outpatient setting with no improvement. Elbow x-ray showed no evidence of fracture, no soft tissue swelling. Right upper extremity duplex ultrasound negative for DVT. Started on IV Levaquin on admission given penicillin allergy. Unfortunately patient had no improvement, switched to IV doxycycline on 12/12. Will monitor for improvement. Plan for 7-day course of antibiotics total. Treat pain with scheduled Tylenol and IV Toradol scheduled till tomorrow, will likely plan for short course of naproxen on discharge. Chronic medical conditions: ? Morbid obesity: BMI 42 on admit. Complicates hospital course, care and prognosis. ? History of NSTEMI/hypertension/hyperlipidemia: Continue home aspirin, statin, amlodipine, lisinopril, Lopressor. ? ADIEL: Continue home CPAP. DVT prophylaxis: Lovenox CODE STATUS: Full code, verified Expected disposition: Home, 1 to 2 days Total clinical time spent by myself addressing the patient's medical issues, reviewing all the data, and collaborating with patient's care team: 35 minutes. Charges/Coding Visit Charges Inpatient E&M: 67718 Subs Hosp L2
[2023-12-13] MEDS: Acetaminophen 500 MG Tablet 1000 MG PO ×2 (14:28→20:16)
[2023-12-13] MEDS: Doxycycline 100 MG in Dextrose 5%-Water (250mL Bag) 250 ML 250 MG IV ×2 (14:31→20:16)
[2023-12-13] MEDS: 0.9% Normal Saline (250mL Bag) 250 ML 15 ML IV (14:33)
[2023-12-13] MEDS: Atorvastatin Calcium 80 MG Tablet PO (20:16)
[2023-12-14 02:10] VITALS: BP 103/60; PULSE 51; RESP 16; TEMP 36.8; O2SAT 97
[2023-12-14] MEDS: Acetaminophen 500 MG Tablet 1000 MG PO (05:39)
[2023-12-14 08:10] VITALS: BP 141/101; PULSE 64; RESP 16; TEMP 35.7; O2SAT 99
[2023-12-14] MEDS: 0.9% Saline Lock 10 ML Syringe IV (08:29)
[2023-12-14] MEDS: Aspirin E.C. 81 MG Tablet PO (08:30)
[2023-12-14] MEDS: Lisinopril 5 MG Tablet PO (08:33)
[2023-12-14] MEDS: amLODIPine 10 MG Tablet PO (08:33)
[2023-12-14 08:34] VITALS: PULSE 64
[2023-12-14] MEDS: Metoprolol Tartrate 50 MG Tablet PO (08:34)
[2023-12-14] MEDS: Doxycycline 100 MG in Dextrose 5%-Water (250mL Bag) 250 ML 250 MG IV (08:35)
[2023-12-14] MEDS: Enoxaparin 40 MG/0.4 ML Syringe SC (08:35)
--- NOTE | 2023-12-14 12:02 | DS.PCM_ITS ---
Providers Date of Admission: 12/12/23 Primary Care Physician: Dr. Raymundo Watt MD Reason For Visit: CELLULITIS Diagnosis Discharge Diagnosis (1) Cellulitis of arm, right: Status: Acute Code(s): L03.113 - Cellulitis of right upper limb Plan Patient is a 68-year-old male who presented [facility] ED on 11/28 with right arm swelling and erythema. 1. Right arm cellulitis ? Presented with concern for right elbow cellulitis following a blunt trauma injury. Was initiated on p.o. clindamycin in outpatient setting with no improvement. Elbow x-ray showed no evidence of fracture, no soft tissue swelli ng. Right upper extremity duplex ultrasound negative for DVT. Started on IV Levaquin on admission given penicillin allergy. Unfortunately patient had no improvement, switched to IV doxycycline on 12/12. Will monitor for improvement. Plan for 7-day course of antibiotics total. Treat pain with scheduled Tylenol and IV Toradol scheduled till tomorrow, will likely plan for short course of naproxen on discharge. Chronic medical conditions: ? Morbid obesity: BMI 42 on admit. Complicates hospital course, care and prognosis. ? History of NSTEMI/hypertension/hyperlipidemia: Continue home aspirin, statin, amlodipine, lisinopril, Lopressor. ? ADIEL: Continue home CPAP. DVT prophylaxis: Lovenox CODE STATUS: Full code, verified Expected disposition: Home, 1 to 2 days Total clinical time spent by myself addressing the patient's medical issues, reviewing all the data, and collaborating with patient's care team: 35 minutes. Medications at Discharge Home Medications aspirin 81 mg tablet,delayed release 81 mg PO DAILY ##30 02/14/19 amlodipine 10 mg tablet 10 mg PO DAILY #90 tabs 10/29/23 atorvastatin 80 mg tablet 80 mg PO DAILY #90 tabs 10/29/23 lisinopril 5 mg tablet 5 mg PO DAILY #90 tabs 10/29/23 metoprolol tartrate 50 mg tablet 50 mg PO BID #180 tabs 10/29/23 doxycycline hyclate 100 mg capsule 100 mg PO BID 6 days #12 caps 12/14/23 Weight / BMI Weight Weight: 151 kg Body Mass Index (BMI) 42.7 ABG / Lab / Microbiology Data 12/12/23 06:12 12/12/23 06:12 D/C Instructions Discharge Diet: No restrictions Weight Bearing Status: Full weight bearing Discharge Plan Admission Admit Date/Time: 12/12/23 12:29 Primary Reason for Your Visit: Right arm cellulitis Attending Provider: Nato Pedro Primary Care Provider: Raymundo Watt Consulting Providers: Sujit Wall; Matthew Estrada Discharge Orders/Prescriptions Prescriptions: New doxycycline hyclate 100 mg capsule 100 mg PO BID 6 Days Qty: 12 0RF Continued aspirin 81 MG tablet,delayed release (DR/EC) 81 mg PO DAILY Qty: 30 0RF atorvastatin 80 mg tablet 80 mg PO DAILY Qty: 90 3RF lisinopril 5 mg tablet 5 mg PO DAILY Qty: 90 3RF metoprolol tartrate 50 mg tablet 50 mg PO BID Qty: 180 3RF amlodipine 10 mg tablet 10 mg PO DAILY Qty: 90 3RF Discontinued clindamycin HCl [Cleocin HCl] 300 mg capsule 300 mg PO Q6H Qty: 28 0RF Referrals / Follow Up: Raymundo Watt MD [Primary Care Provider] - Disposition Disposition (needs filled in before D/C Order can be placed): Home, Self Care
--- NOTE | 2023-12-14 12:02 | PCM.DC.SUM ---
Providers Date of Admission: 12/12/23 Date of Discharge: 12/14/23 Primary Care Physician: Dr. Raymundo Watt MD Reason For Visit: CELLULITIS Diagnosis Discharge Diagnosis (1) Cellulitis of arm, right: Status: Acute Code(s): L03.113 - Cellulitis of right upper limb Medications at Discharge Home Medications aspirin 81 mg tablet,delayed release 81 mg PO DAILY ##30 02/14/19 amlodipine 10 mg tablet 10 mg PO DAILY #90 tabs 10/29/23 atorvastatin 80 mg tablet 80 mg PO DAILY #90 tabs 10/29/23 lisinopril 5 mg tablet 5 mg PO DAILY #90 tabs 10/29/23 metoprolol tartrate 50 mg tablet 50 mg PO BID #180 tabs 10/29/23 doxycycline hyclate 100 mg capsule 100 mg PO BID 6 days #12 caps 12/14/23 Hospital Course Operations None Procedures - (Elbow x-ray, right upper extremity venous Doppler study) Summary of Care Provided Minutes Spent on Discharge: 35 Hospital Course: Patient is a 68-year-old male who presented [facility] ED on 12/11/2023 with right arm swelling and erythema. Hospital course as noted below. Patient discharged home with no therapy needs in stable condition on 12/13. 1. Right arm cellulitis ? Presented with concern for right elbow cellulitis following a blunt trauma injury. Was initiated on p.o. clindamycin in outpatient setting with no improvement. Elbow x-ray showed no evidence of fracture, no soft tissue swelling. Right upper extremity duplex ultrasound negative for DVT. Started on IV Levaquin on admission given penicillin allergy. Unfortunately patient had no improvement, switched to IV doxycycline on 12/12. Had significant improvement on IV doxycycline. He was also given a few doses of IV Toradol and had improvement in swelling as well. Discharged on p.o. doxycycline to complete 7-day course of antibiotics total, end date 12/18. Continue scheduled Tylenol as needed for pain on discharge. Chronic medical conditions: ? Morbid obesity: BMI 42 on admit. Complicated hospital course, care and prognosis. ? History of NSTEMI/hypertension/hyperlipidemia: Continue home aspirin, statin, amlodipine, lisinopril, Lopressor. ? ADIEL: Continue home CPAP. Total clinical time spent by myself addressing the patient's medical issues, reviewing all the data, and collaborating with patient's care team: 35 minutes. Physical Exam Const alert, oriented x3 and no apparent distress Constitutional Narrative: Pleasant elderly male, morbidly obese, sitting up comfortably in bed, conversing normally, no acute distress. General Appearance: cooperative and comfortable HEENT normocephalic, head/scalp atraumatic, hearing grossly normal bilaterally, nasal mucous membranes and turbinates normal and moist oral mucous membranes Eyes PERRL, EOMs intact bilaterally and conjunctivae normal Neck full ROM Chest inspection of chest normal Resp normal respiratory effort, normal air movement, no use of accessory muscles and clear to auscultation bilaterally Cardio regular rate, regular rhythm, no murmurs and peripheral pulses 2+ throughout GI normal to inspection, nondistended, normoactive bowel sounds, soft to palpation, non-tender and non-distended Back/Spine normal ROM Extremity full ROM Extremity Narrative: Right upper extremity with mild swelling around right elbow, significantly improved from admission. Erythema much improved. No tenderness to palpation on discharge. Neuro no focal motor deficits and no sensory deficits noted Speech: speech normal Psych mental status grossly normal Weight / BMI Weight Weight: 151 kg Body Mass Index (BMI) 42.7 ABG / Lab / Microbiology Data 12/12/23 06:12 12/12/23 06:12 D/C Instructions Discharge Diet: No restrictions Weight Bearing Status: Full weight bearing Meaningful Use Info Meaningful Use Diagnoses (Choose all that apply): None applicable Discharge Plan Admission Admit Date/Time: 12/12/23 12:29 Primary Reason for Your Visit: Right arm cellulitis Attending Provider: Nato Pedro Primary Care Provider: Raymundo Watt Consulting Providers: Sujit Wall; Matthew Estrada Discharge Orders/Prescriptions Prescriptions: New doxycycline hyclate 100 mg capsule 100 mg PO BID 6 Days Qty: 12 0RF Continued aspirin 81 MG tablet,delayed release (DR/EC) 81 mg PO DAILY Qty: 30 0RF atorvastatin 80 mg tablet 80 mg PO DAILY Qty: 90 3RF lisinopril 5 mg tablet 5 mg PO DAILY Qty: 90 3RF metoprolol tartrate 50 mg tablet 50 mg PO BID Qty: 180 3RF amlodipine 10 mg tablet 10 mg PO DAILY Qty: 90 3RF Discontinued clindamycin HCl [Cleocin HCl] 300 mg capsule 300 mg PO Q6H Qty: 28 0RF Referrals / Follow Up: Raymundo Watt MD [Primary Care Provider] - Disposition Disposition (needs filled in before D/C Order can be placed): Home, Self Care Charges/Coding Visit Charges Inpatient E&M: 07862 Disch Hosp >30min
--- NOTE | 2023-12-14 12:18 | CASEMGMT ---
Patient has order for discharge. RN CM in to discuss needs at discharge. Patient denies needs or help at discharge. Patient had no further questions or concerns.
[2023-12-14 13:00] VITALS: BP 138/98; PULSE 64; RESP 16; TEMP 36.1; O2SAT 99
== END 2023-12-14 13:08 | disposition home or self-care (01) | DRG 603 ==
LOC: ED 18:20 → PCU 18:48
PROVIDERS: Nurse Practitioner; Admitting Provider Internal Medicine; Emergency Provider Emergency Medicine; PCP Family Medicine; Visit Provider Hospitalist
DX: L03.113 Cellulitis of right upper limb (principal); Z68.41 Body mass index [BMI] 40.0-44.9, adult; E66.01 Morbid (severe) obesity due to excess calories; Z99.81 Dependence on supplemental oxygen; I10 Essential (primary) hypertension; I25.10 Atherosclerotic heart disease of native coronary artery without angina pectoris; E78.5 Hyperlipidemia, unspecified; G47.33 Obstructive sleep apnea (adult) (pediatric); I25.2 Old myocardial infarction; Z87.891 Personal history of nicotine dependence; Z95.5 Presence of coronary angioplasty implant and graft; Z79.82 Long term (current) use of aspirin; Z79.899 Other long term (current) drug therapy
CPT/HCPCS: 36415; 73080; 80048; 80053; 83605; 85025; 85652; 86140; 93970; 99283; 99284; J7040; J7050; A4216

== ENCOUNTER → 2024-08-11 | Outpatient (CLI) | payer MEDICARE, OTHER, SELFPAY ==
[2024-08-11 11:25] LABS: AST(SGOT) 25 U/L (15-37); Alanine Aminotransfer ALT/SGPT 48 U/L (16-61); Alkaline Phosphatase 81 U/L (45-117); Bilirubin, Direct 0.22 mg/dL (0.00-0.30); Cholesterol 118 mg/dL (200); High Density Lipoprotein 42 mg/dL; Triglycerides 241 mg/dL; Very Low Density Lipoprotein 48 mg/dL (5-40)
== END | disposition home or self-care (01) ==
LOC: LAB 09:36
PROVIDERS: PCP Family Medicine; Referring Provider Physician Assistant Medical; Visit Provider Physician Assistant Medical
DX: E78.5 Hyperlipidemia, unspecified (principal)
CPT/HCPCS: 36415; 80061; 80076

== ENCOUNTER → 2024-10-27 | Outpatient (CLI) | payer MEDICARE, OTHER, SELFPAY ==
[2024-10-27 10:54] LABS: AST(SGOT) 35 U/L (<=37); Alanine Aminotransfer ALT/SGPT 45 U/L (<=46); Albumin, Serum 4.4 g/dL (3.4-4.8); Alkaline Phosphatase 77 U/L (40-129); Bilirubin, Direct 0.28 mg/dL (0.00-0.30); Cholesterol 125 mg/dL (<=200); Globulin 2.6 g/dL (2.2-4.2); High Density Lipoprotein 39 mg/dL; Low Density Lipoprotein Calc. 48 mg/dL; Total Bilirubin 0.77 mg/dL (0.00-1.30); Triglycerides 192 mg/dL; Very Low Density Lipoprotein 38 mg/dL (5-40); cholesterol:hdl ratio screen 3.25
== END | disposition home or self-care (01) ==
LOC: LAB 09:21
PROVIDERS: PCP Family Medicine; Referring Provider Physician Assistant Medical; Visit Provider Physician Assistant Medical
DX: E78.00 Pure hypercholesterolemia, unspecified (principal)
CPT/HCPCS: 36415; 80061; 80076

== ENCOUNTER 2025-02-23 09:52 | Outpatient (CLI) | payer MEDICARE, OTHER, SELFPAY ==
[2025-02-23 13:09] LABS: ALB/GLOB Ratio 1.8 RATIO (0.9-2.4); AST(SGOT) 38 U/L (<=37); Alanine Aminotransfer ALT/SGPT 51 U/L (<=46); Albumin, Serum 4.3 g/dL (3.4-4.8); Alkaline Phosphatase 78 U/L (40-129); Amylase 55 U/L (28-100); Anion Gap 11 (5-15); BUN 13 mg/dL (4-19); BUN/Creat Ratio 12.1 RATIO (10-20); Calcium,Total 9.4 mg/dL (7.6-11.0); Carbon Dioxide 23.5 mmol/L (21.0-32.0); Chloride 106 mmol/L (98-108); Creatinine, Serum 1.09 mg/dL (0.70-1.20); EST Glomerular Filtration Rate 74 (>60); Globulin 2.5 g/dL (2.2-4.2); Glucose 95 mg/dL (70-99); Lipase 37 U/L (13-75); Potassium 4.3 mmol/L (3.3-5.1); Protein, Total 6.8 g/dL (5.9-8.4); Sodium Level 141 mmol/L (133-145); Total Bilirubin 0.68 mg/dL (0.00-1.30)
[2025-02-25 08:07] LABS: GGTP 30 IU/L (0-65)
== END 2025-02-23 23:59 | disposition home or self-care (01) ==
LOC: MTLAB 09:53
PROVIDERS: PCP Family Medicine; Referring Provider Nurse Practitioner Family; Visit Provider Nurse Practitioner Family
DX: R10.11 Right upper quadrant pain (principal)
CPT/HCPCS: 36415; 80053; 82150; 82977; 83690

== ENCOUNTER → 2025-02-27 | Outpatient (CLI) | payer MEDICARE, OTHER, SELFPAY ==
--- NOTE | 2025-02-27 15:25 | RAD_ITS ---
PROCEDURE: ACUTE ABDOMEN INC CHEST 02/27/2025 REASON FOR EXAM: RIGHT RIB PAIN TECHNIQUE: 8 view ACUTE ABDOMEN INC CHEST COMPARISON: Button Clamper from a CT examination 02/05/2020 and chest x-ray of 03/21/2020. RAD/Acute Abdomen Inc Chest IMPRESSION: A tortuous aorta is seen. No evidence of cardiomegaly. Right hemidiaphragm elevation/eventration again noted. Lungs appear clear of acute disease. No pleural effusion or pneumothorax is noted. No evidence of pneumoperitoneum. Ajud-hl-[id number] degenerative changes of the visualized spine noted. No fractu re site is evident. If clinical concern persists, short-term follow-up imaging may be obtained to r ule out a currently occult fracture. The bowel-gas pattern is unremarkable. No mass or mass effect is seen Reading Location: [place] [address]
--- NOTE | 2025-02-27 15:25 | RAD_ITS ---
PROCEDURE: ACUTE ABDOMEN INC CHEST 02/27/2025 REASON FOR EXAM: RIGHT RIB PAIN TECHNIQUE: 8 view ACUTE ABDOMEN INC CHEST COMPARISON: Curriculum Specialist from a CT examination 02/05/2020 and chest x-ray of 03/21/2020. RAD/Acute Abdomen Inc Chest IMPRESSION: A tortuous aorta is seen. No evidence of cardiomegaly. Right hemidiaphragm elevation/eventration again noted. Lungs appear clear of acute disease. No pleural effusion or pneumothorax is noted. No evidence of pneumoperitoneum. Ivso-zf-[id number] degenerative changes of the visualized spine noted. No fractu re site is evident. If clinical concern persists, short-term follow-up imaging may be obtained to r ule out a currently occult fracture. The bowel-gas pattern is unremarkable. No mass or mass effect is seen Reading Location: [place] [id number]
== END | disposition home or self-care (01) ==
PROVIDERS: PCP Family Medicine
DX: R07.81 Pleurodynia (principal)
CPT/HCPCS: 74022

== ENCOUNTER → 2025-03-07 | Outpatient (CLI) | payer MEDICARE, OTHER, SELFPAY ==
--- NOTE | 2025-03-07 09:54 | US_ITS ---
PROCEDURE: ABDOMEN LIMITED 03/07/2025 REASON FOR EXAM: ABD PAIN RUQ COMPARISON: None FINDINGS: Liver: Diffusely echogenic suggesting fatty infiltration. Hepatomegaly. The liver measures 19.1 cm. Gallbladder: Small amount of sludge is seen within the gallbladder lumen. No evidence of gallstones. Common bile duct: Normal measuring 7 mm. . Pancreas: Visualized portions are sonographically unremarkable. Other: Visualized portions of the right kidney are unremarkable. 2 small cysts are seen in the inferior pole. The larger measures 1.1 cm 1.2 cm x 0.8 cm. No right upper quadrant ascites. US/Abdomen Limited IMPRESSION: Hepatomegaly and diffuse fatty infiltration of the liver. Sludge is seen within the gallbladder lumen. Small right renal cysts. Reading Location: [place] [id number]
== END | disposition home or self-care (01) ==
LOC: US 09:50
PROVIDERS: PCP Family Medicine
DX: R10.11 Right upper quadrant pain (principal)
CPT/HCPCS: 76705

== ENCOUNTER 2025-03-09 09:48 | Outpatient (CLI) | payer MEDICARE, OTHER, SELFPAY ==
[2025-03-11 12:07] LABS: HEPATITIS B SURFACE AG Negative (Negative); Hep C Antibodies Non Reactive (Non Reactive)
== END 2025-03-09 23:59 | disposition home or self-care (01) ==
LOC: MFPLAB 09:49
PROVIDERS: PCP Family Medicine; Visit Provider Family Medicine
DX: K76.0 Fatty (change of) liver, not elsewhere classified (principal)
CPT/HCPCS: 36415; 80074

== ENCOUNTER 2025-07-30 05:59 | Day surgery (SDC) | payer MEDICARE, OTHER, SELFPAY ==
--- NOTE | 2025-07-25 07:22 | EKG12_ITS ---
Test Reason : PRE OP Blood Pressure : */* mmHG Vent. Rate : 57 BPM Atrial Rate : 57 BPM P-R Int : 264 ms QRS Dur : 82 ms QT Int : 446 ms P-R-T Axes : * 52 45 degrees QTcB Int : 434 ms Sinus bradycardia with 1st degree A-V block Otherwise normal ECG Confirmed by PAN NG, LIZZY ([id number]), marketing editor ROWAN IYER ([id number]) on 07/25/2025 1:56:24 PM Referred By: Norris Melton Confirmed By: LIZZY PERLA MD
[2025-07-25 08:49] LABS: Hematocrit 39.6 % (40-54); Hemoglobin 13.8 g/dL (13.0-16.5); Mean Corp Hgb Conc 34.8 g/dL (32-36); Mean Corpuscular Volume 88.6 fL (80-94); Mean Platelet Vol. 10.6 fl (6.2-12.0); Platelet Count 209 K/mm3 (150-450); RBC Distribution Width CV 14.1 % (11.6-14.6); RBC Distribution Width SD 45.2 fl (35.1-43.9); Red Blood Count 4.47 M/mm3 (4.6-6.2); White Blood Count 6.2 K/mm3 (4.4-11.0)
[2025-07-25 09:41] LABS: Anion Gap 10 (5-15); BUN 17 mg/dL (4-19); BUN/Creat Ratio 15.4 RATIO (10-20); Calcium,Total 9.0 mg/dL (7.6-11.0); Carbon Dioxide 24.6 mmol/L (21.0-32.0); Chloride 105 mmol/L (98-108); Glucose 95 mg/dL (70-99); Potassium 4.6 mmol/L (3.3-5.1)
--- NOTE | 2025-07-25 11:12 | PAT.ANESEVAL ---
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 When Was Last Pacemaker Check QUESTION #4 FULL TEXT: You/Your Family Experience fever (hyperthermia) with Anesthesia Last Oral Intake Last Oral intake: Last Oral Intake NPO since Meds taken in AM with sips of water? 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 Female No 07/24/25 15:08 HX of Motion Sickness No 07/24/25 15:08 HX of N/V After Surgery No 07/24/25 15:08 Non-Smoker Yes 07/24/25 15:08 Duration of Surgery greater Yes 07/24/25 15:08 than 60 minutes Number of Risk Factors 2 07/24/25 15:08 PONV Score Moderate Risk 07/24/25 15:08 Height & Weight Height & Weight: Anesthesia: Height & Weight Height 6 ft 2 in 05/02/25 08:08 Respiratory Assessment Respiratory Assessment - heating equipment installer: Respiratory Tract Infection Hx - heating equipment installer Hx Respiratory Tract Infection No 07/24/25 15:08 STOP Sleep Apnea STOP Sleep Apnea - heating equipment installer: STOP Sleep Apnea - heating equipment installer Hx Hypertension Yes: CONTROLLED WITH MED 07/24/25 15:08 Hx Sleep Apnea Yes 07/24/25 15:08 CPAP No 07/24/25 15:08 BIPAP Yes 07/24/25 15:08 Do you snore loudly (louder than talking or can be heard Do you often feel tired/ fatigued/ sleepy during daytime? Has anyone observed you stop breathing during sleep? STOP Results Positive 07/24/25 15:08 QUESTION #5 FULL TEXT : Do you snore loudly (louder than talking or can be heard through closed doors)? 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 Specify any problems Hx of Preganancy in last 3 N/A 07/24/25 15:08 Months Nurse Filling Out Transfusion DSCHRIBER 07/24/25 15:08 & Questions: Date: 07/24/25 07/24/25 15:08 Time: 15:10 07/24/25 15:08 Patient unable to answer at this time (ie. confused, unrespo /Reproduction History /Reproductive History - heating equipment installer: /Reproductive Hx- heating equipment installer Hx Now No 07/24/25 15:08 Gestational Age (in weeks): EDC: Hx Hx Para Hx Section SAB No 07/24/25 15:08 Does the father of the baby or his family experience fever w Father of the baby Malignant Hypertension history comment PFSH Medical History (Updated 07/24/25 @ 15:16 by Kathleen Mackenzie) Loss of hearing Wears glasses Alcohol use Arthritis Fatty liver High cholesterol Injury of head and neck Former smoker Shortness of breath on exertion History of stress test Cardiology follow-up encounter BiPAP (biphasic positive airway pressure) dependence Umbilical hernia Essential hypertension HLD (hyperlipidemia) NSTEMI (non-ST elevated myocardial infarction) (02/12/19) LVH (left ventricular hypertrophy) Atherosclerosis of [place] coronary artery of [place] heart without angina pectoris Home Medications Medication Instructions Recorded Last Taken Type aspirin 81 mg tablet,delayed 81 mg PO DAILY ##30 02/14/19 02/28/20 Rx release meloxicam 15 mg tablet 15 mg PO QDAY 05/02/25 Unknown History semaglutide 0.25 mg/0.05 mL 0.135 mg subcut SUWE 05/02/25 07/22/25 History subcutaneous syringe amlodipine 10 mg tablet 10 mg PO DAILY #90 tabs 07/19/25 Unknown Rx lisinopril 5 mg tablet 5 mg PO DAILY #90 tabs 07/19/25 Unknown Rx metoprolol tartrate 50 mg tablet 50 mg PO BID #180 tabs 07/19/25 Unknown Rx atorvastatin 80 mg tablet 80 mg PO QHS 07/24/25 Unknown History Allergy/AdvReac Type Severity Reaction Status Date / Time ticagrelor (From Brilinta) Allergy Intermediate Nausea, Verified 07/24/25 15:06 dizziness, shortness of breath penicillin G Allergy Unknown Unknown Verified 07/24/25 15:06 Family History Father COPD (chronic obstructive pulmonary disease) Grandmother Diabetes Surgical History (Updated 07/24/25 @ 15:16 by Kathleen Mackenzie) Hx of colonoscopy Status post pneumothorax History of hand surgery History of coronary artery stent placement (03/24/19) Social History current occupational status: retired 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 [employer] Smoking Status: Former smoker Tobacco: How many years used: 20 how long ago did patient quit smokin, 2.5ppd second hand exposure: Yes alcohol intake: current alcohol intake frequency: a few times a month substance use type: does not use caffeine: Yes Type: coffee Number of servings: 1 what type of physical activity do you participate in: none frequency: does not exercise seatbelt use: always Audit: Pertinent Findings HISTORY of Pertinent Findings History of Pertinent Findings: Cardiology note 08/22: He has a history of coronary artery disease with non-STEMI in which he had stenting to his LAD and circumflex. This was in January 2019. He came back in February 2019 for drug-eluting stent placed to the ramus intermedius. An echocardiogram performed at that time also demonstrated preserved ejection fraction. He is still using his CPAP. From a cardiac standpoint, patient is doing well. Pertinent Findings EKG Perinent findings: Normal sinus rhythm Nonspecific T wave abnormality Abnormal ECG When compared with ECG of 24-MAR-2019 10:32, MANUAL COMPARISON REQUIRED, DATA IS UNCONFIRMED Confirmed by ARSEN BETH ([id number]), film or videotape editor PEPITO HARTMAN ([id number]) on 04/05/2019 3:40:14 PM Stress test pertinent findings: 05/2022: Conclusion: Normal exercise myocardial perfusion stress test at a moderate workload. Preserved ejection fraction. Echo (EF%) pertinent findings: ECHOCARDIOGRAM 02/12/2019 Interpretation Summary The estimated ejection fraction is 55 %. Normal diastology for age. No regional wall motion abnormalities noted. Concentric left ventricular hypertrophy Recommendation Anesthesia Recommendation Anesthesia recommendation: OPTIMIZED for anesthesia
[2025-07-30] VITALS (11 sets, daily range): BP systolic 105–159; BP diastolic 64–96; PULSE 53–60; RESP 16–18; TEMP 36.1–36.5; O2SAT 92–97; BMI 43.2
--- OUTSIDE RECORDS SUMMARY | 2025-07-30 06:02 | XMS RPT_ITS | CCD ---
Author Organization [facility] Care Team Providers Care Scales Inspector Name Role Phone Storm Alaniz Unavailable Unavailable Unknown, Referring Provider Unavailable Unav ailable Dr. Hunter Watt Primary Care Provider Dr. Hunter Watt Referring Provider Dr. Luis Darnell Attending Provider Dr. Luis Darnell Other Provider Dr. Roberto Campbell Attending Provider Dr. Raymundo Watt Primary Care Provider Dr. Bárbara Dolan Emergency Provider Dr. Sujit Wall Attending Provider Unavailab Dr. Mayur Baxter Attending Provider [phone] Sujit Wall Admit Provider Unavailable Dr. Sujit Wall Other Provider Unavailable Dr. Nato Pedro Attending Provider Dr. Nato Pedro Other Provider Dr. Matthew Estrada Other Provider Dr. Raymundo Watt MD Primary Care Provider Dr. Raymundo Watt MD Referring Provider Cristiane Huang Attending Provider Cristiane Huang Referring Provider Gemma Pretty Attending Provider Dr. Raymundo Watt MD Primary Care Provider Dr. Raymundo Watt MD Referring Provider Ro DURANC, Gemma Rhodes Attending Provider Rafa TELEGRAPH SERVICE CLERK-C, Ofelia Attending Provider Rafa TELEGRAPH SERVICE CLERK-C, Ofelia Referring Provider Jeevan TELEGRAPH SERVICE CLERK-C, Elida Attending Provider Shankchelle TELEGRAPH SERVICE CLERK-C, Elida Referring Provider Rock Perdomo MD Attending Provider Rileyney, Christopher Referring Unavailable Gemma Starr Attending Unavailable Ranney, Christopher Primary Care Unavailable Ranney, Christopher Referring Unavailable Ranney, Christopher Primary Care Unavailable Gemma Starr Attending Unavailable Ranney, Christopher Primary Care Unavailable Jeevan TELEGRAPH SERVICE CLERK, Elida Attending Unavailable Shankchelle TELEGRAPH SERVICE CLERK, Elida Referring Unavailable Ranney, Christopher Primary Care Unavailable Rock Perdomo Attending Unavailable Cristiane Huang Attending Unavail able Gisela PA, Cristiane Rhodes Referring Unavail able Ranney, Christopher Primary Care Unavailable Gisela PA, Cristiane Rhodes Attending Unavail able Gisela PA, Cristiane Rhodes Referring Unavail able Ranney, Christopher Primary Care Unavailable Ranney, Christopher Primary Care Unavailable Rafa TELEGRAPH SERVICE CLERK, Ofelia Attending Unavailable Rfaa TELEGRAPH SERVICE CLERK, Ofelia Referring Unavailable Ranney, Christopher Primary Care Unavailable Jeevan TELEGRAPH SERVICE CLERK, Elida Attending Unavailable Shankel TELEGRAPH SERVICE CLERK, Elida Referring Unavailable Ranney, Christopher Referring Unavailable Ranney, Christopher Primary Care Unavailable Norris Melton Attending Unavailable Ranney, Christopher Referring Unavailable Cristiane Huang Attending Unavail able Ranney, Christopher Primary Care Unavailable Allergies Allergy Classification Reported Allergen(s) Allergy Type Date of Onset Reaction(s) Facility (11 sources) Penicillin G Drug Allergy 2 Unknown [facility] (11 sources) Ticagrelor Drug Allergy 2 Nausea, dizziness, shortness of breath [facility] (1 source) Penicillin Drug Allergy 5 [facility] (1 source) Ticagrelor Drug Allergy 5 [facility] Medications Current Medications Medication Drug Class(es) Dates Sig (Normalized) Sig (Original) aspirin 81 mg delayed release oral tablet (11 sources) Platelet Aggregation Inhibitor, Nonsteroidal Anti-inflammatory Drug Start: 02-14-2019 take 1 tablet by mouth once daily Aspirin 81 MG tablet,delayed release (DR/EC) Active 81 mg PO DAILY 30 0 February 14, 2019 12:00am Completed/Discontinued Medications Medication Drug Class(es) Dates Sig (Normalized) Sig (Original) amLODIPine 10 mg oral tablet (20 sources) Dihydropyridine Calcium Channel Hyun Start: 02-14-2019 End: 09-11-2024 take 1 tablet by mouth once daily Amlodipine 10 mg tablet Discontinued 10 mg PO DAILY 90 October 29, 2023 8:49am September 11, 2024 2:20pm atorvastatin 80 mg oral tablet (20 sources) HMG-CoA Reductase Inhibitor Start: 02-14-2019 End: 09-11-2024 take 1 tablet by mouth once daily Atorvastatin 80 mg tablet Discontinued 80 mg PO DAILY 90 October 29, 2023 8:49am September 11, 2024 2:20pm clindamycin 300 mg oral capsule (8 sources) Lincosamide Antibacterial Start: 12-09-2023 End: 12-14-2023 take 1 capsule by mouth every six hours Clindamycin Hcl (Cleocin Hcl) 300 mg capsule Discontinued 300 mg PO EVERY 6 HOURS 28 0 December 09, 2023 12:00am December 14, 2023 12:00pm clopidogrel 75 mg oral tablet (20 sources) P2Y12 Platelet Inhibitor Start: 06-27-2019 End: 04-24-2020 take 1 tablet by mouth once daily Clopidogrel 75 mg tablet Discontinued 75 mg PO DAILY 90 3 June 27, 2019 1:55pm April 24, 2020 2:47pm doxycycline hyclate 100 mg oral capsule (17 sources) Tetracycline-class Drug Start: 12-14-2023 End: 2024 take 1 capsule by mouth twice daily Doxycycline Hyclate 100 mg capsule Discontinued 100 mg PO TWICE A DAY 12 6 0 December 14, 2023 12:00am 2024 8:10am Start: 02-28-2020 End: 07-16-2020 take 1 tablet by mouth twice daily Doxycycline Hyclate 100 MG tablet,delayed release (DR/EC) Discontinued 100 mg PO TWICE A DAY 20 0 February 28, 2020 12:00am July 16, 2020 10:16am lisinopril 5 mg oral tablet (20 sources) Angiotensin Converting Enzyme Inhibitor Start: 03-24-2019 End: 09-11-2024 take 1 tablet by mouth once daily Lisinopril 5 mg tablet Discontinued 5 mg PO DAILY 90 October 29, 2023 8:49am September 11, 2024 2:20pm metoprolol tartrate 50 mg oral tablet (20 sources) beta-Adrenergic Hyun Start: 02-14-2019 End: 09-11-2024 take 1 tablet by mouth twice daily Metoprolol Tartrate 50 mg tablet Discontinued 50 mg PO TWICE A DAY 180 October 29, 2023 8:49am September 11, 2024 2:20pm naproxen 500 mg oral tablet (11 sources) Nonsteroidal Anti-inflammatory Drug Start: 02-11-2019 End: 02-14-2019 take 1 tablet by mouth once daily as needed for pain Naproxen 500 MG tablet Discontinued 500 mg PO DAILY NEEDED as needed for Pain February 11, 2019 12:00am February 14, 2019 9:27am ticagrelor 90 mg oral tablet (11 sources) Start: 02-14-2019 End: 06-27-2019 take 1 tablet by mouth twice daily Ticagrelor 90 MG tablet Discontinued 90 mg PO TWICE A DAY 60 0 February 14, 2019 12:00am June 27, 2019 12:05pm Problems Active Problems Problem Classification Problem Date Documented Da te Episodic/Chronic Abdominal pain (1 source) Right upper quadrant pain; Translations: [Right upper quadrant pain] Onset: 03-20-2025 Episodic Acute myocardial infarction (11 sources) Myocardial infarction; Translations: [Non-ST elevation (NSTEMI) myocardial infarction] Onset: 02-12-2019 05-20-2022 Chronic Coronary atherosclerosis and other heart disease (11 sources) Coronary atherosclerosis; Translations: [Atherosclerotic heart disease of [place] coronary artery without angina pectoris] 05-20-2022 Chronic Disorders of lipid metabolism (17 sources) Hyperlipidemia; Translations: [Hyperlipidemia, unspecified] Onset: 09-14-2024 Chronic Essential hypertension (15 sources) Essential hypertension; Translations: [Essential (primary) hypertension] Chronic Neoplasms of unspecified nature or uncertain behavior (1 source) Synovial chondromatosis; Translations: [Synovial chondromatosis] Episodic Other and ill-defined heart disease (11 sources) Left ventricular hypertrophy; Translations: [Cardiomegaly] 02-28-2020 Chronic Other liver diseases (1 source) Fatty (change of) liver, not elsewhere classified; Translations: [Fatty (change of) liver, not elsewhere classified] Onset: 03-20-2025 Chronic Other lower respiratory disease (1 source) Pleurodynia; Translations: [Pleurodynia] Onset: 03-07-2025 Episodic Other nutritional; endocrine; and metabolic disorders (16 sources) Morbid obesity; Translations: [Morbid (severe) obesity due to excess calories] 02-28-2020 Chronic Other skin disorders (1 source) Mass of soft tissue; Translations: [Soft tissue mass] Episodic Other skin disorders (2 sources) Localized swelling of right forearm; Translations: [Localized swelling, mass and lump, right upper limb] 12-11-2023 Episodic Other skin disorders (2 sources) Localized swelling, mass and lump, right upper limb; Translations: [Swelling of limb] 12-11-2023 Episodic Other upper respiratory disease (11 sources) Deviated nasal septum; Translations: [Deviated nasal septum] 06-02-2019 Episodic Residual codes; unclassified (11 sources) Finding related to sleep; Translations: [Sleep apnea, unspecified] 05-20-2022 Chronic Residual codes; unclassified (16 sources) Obstructive sleep apnea syndrome; Translations: [Obstructive sleep apnea (adult) (pediatric)] 12-09-2023 Chronic Skin and subcutaneous tissue infections (20 sources) Cellulitis; Translations: [Cellulitis, unspecified] 12-09-2023 Episodic Substance-related disorders (11 sources) Tobacco dependence in remission; Translations: [Nicotine dependence, cigarettes, in remission] 02-20-2019 Chronic Past or Other Problems Problem Classification Problem Date Documented Da te Episodic/Chronic Coronary atherosclerosis and other heart disease (3 sources) Presence of coronary angioplasty implant and graft; Translations: [Percutaneous transluminal coronary angioplasty status] Onset: 03-24-2019 Episodic NEGATED: Highlighted row has not occurred!Residual codes; unclassified (2 sources) Disease Episodic Results Test Name Value Interpretation Reference Range Facility Surgery Visit Reporton 05-02 Surgery Visit Report [facility] [address] [place] [address] OFFICE VISIT Date of Service: 05/02/25 MR#: [id number] Acct: [id number] Name: JESSICA ACUÑA Rep #: [id number] : 1955 Provider: Dr. Norris june MD Age/Sex: 70/M Location: [facility] Status: Signed Intake Vital Signs 12/22/24 05:25 05/02/25 08:08 Height 6 ft 2 in 6 ft 2 in Weight: 335 lb BMI 43.0 BP 132/79 H Blood Pressure Location Rt brachial Position Sitting Respiration 16 Intake Visit Reasons: Hernia Chief Complaint: hernia Email Deployment Specialist Required: No Is patient in pain?: No Allergies ticagrelor (From Brilinta) Allergy (Intermediate, Verified 05/02/25 08:09) Nausea, dizziness, shortness of breath penicillin G Allergy (Unknown, Verified 05/02/25 08:09) Unknown Medications ???Medication ???Instructions ???Recorded ???Confirmed ???Type aspirin 81 mg tablet,delayed 81 mg PO DAILY ##30 02/14/1905/02 Rx release amlodipine 10 mg tablet 10 mg PO DAILY #90 tabs 09/11/24 0 05/02/25 Rx atorvastatin 80 mg tablet 80 mg PO DAILY #90 tabs 09/11/24 0 05/02/25 Rx lisinopril 5 mg tablet 5 mg PO DAILY #90 tabs 09/11/24 Rx metoprolol tartrate 50 mg tablet 50 mg PO BID #180 tabs 09/11/24 Rx meloxicam 15 mg tablet 15 mg PO QDAY 05/02/25 05/02/25 Hi story semaglutide 0.25 mg/0.05 mL 0.135 mg subcut .twice weekly 11/2105/02/25 History subcutaneous syringe Have you fallen in the past year?: No PFSH Medical History (Updated 05/02/25 @ 08:[address] Norris Melton MD) Umbilical hernia ADIEL treated with BiPAP Essential hypertension Sleep-disordered breathing HLD (hyperlipidemia) Morbid obesity NSTEMI (non-ST elevated myocardial infarction) (02/12/19) LVH (left ventricular hypertrophy) Atherosclerosis of [place] coronary artery of [place] heart without angina pectoris Surgical History (Updated 05/02/25 @ 08:08 by Ofelia Salguero) Status post pneumothorax History of hand surgery History of coronary artery stent placement (03/24/19) Family History Father COPD (chronic obstructive pulmonary disease) Grandmother Diabetes Social History current occupational status: retired 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 He states that this was discovered on a routine exam with his primary care physician. Patient states that he really was not aware of this hernia prior to this recent visit. He states that this really does not cause him any significant pain or discomfort. He does admit that he is very physical with his activity and this really has not affected his daily routines. He presents today to have this evaluated and to discuss possibly having this repaired. Of note he was just recently started on a GLP-1 for weight loss purposes. Ideally he would like to lose about 100 pounds. ROS General General: No weight change, appetite, fatigue, colon cancer, breast cancer or weakness HEENT HEENT: No difficulty swallowing, eye injury, eye surgery, swollen glands or hoarseness Endo Endocrine: No thyroid disease, diabetes mellitus, thyroid cancer, Hair loss, heat intolerance or cold intolerance Skin Skin: No rash or changing moles Breast Breast: No left breast lump, right breast lump, nipple discharge, breast pain, abnormal mammogram, abnormal US or breast enlargement Musc Musculoskeletal: Yes arthritis; No back problems, rheumatoid arthritis, gout or joint pain Cardio Cardiovascular: Yes high blood pressure and heart stent; No murmur, pacemaker, heart disease, atrial fibrillation, heart attack, palpitations, shortness of breath with exertion or chest pain Psych Psychiatric: No depression, anxiety or hearing voices Resp Respiratory: No shortness of breath, Yes sleep apnea, No cough, No COPD, No asthma, No emphysema and No wheezing Gastro Gastrointestinal: No abdominal pain, No nausea or vomiting, No diarrhea, No constipation, No blood in stool, No acid reflux, No hemorrhoids, No ulcers, No gallbladder problem and No black,tarry stools Spike Hematologic: Yes blood thinners, No blood disorders, No bleeding, No anemia and No blood clots Neuro Neurologic: No system reviewed and no add (more content not included)... Normal [facility] Hepatitis Panel Acuteon - COMMENT Comment Normal . [facility] Comment on above: Result Comment: Not infected with HCV unless early or acute infection is suspected (which may be delayed in an immunocompromised individual), or other evidence exists to indicate HCV infection. Performed at: [facility] [id number] Community Organizer: Shiv Nazario PhD, Phone: [phone] Performed By: #### L 3000.0375 ####[facility] [address] [place], [place], [id number] HEP B CORE,IgM Negative Normal Negative [facility] Comment on above: Performed By: #### L 3000.0375 ####[facility] [address] [place], [address] HEP B SURF AG Negative Normal Negative [facility] Comment on above: Performed By: #### L 3000.0375 ####[facility] [address] [place], [address] HEP C VIRUS AB Non-Reactive Normal Non Reactive [facility] Comment on above: Performed By: #### L 3000.0375 ####[facility] [address] [place], [place], [id number] HEPATITIS A-IgM Negative Normal Negative [facility] Comment on above: Result Comment: A ne gative anti-HAV IgM result suggests no recent or current HAV infection. Performed By: #### L 3000.0375 ####[facility] [address] [place], [address] No Panel InformationOrdered By: Rock Perdomo on 03-09-2025 Hepatitis C Antibody Comment Comment . [facility] Comment on above: Not infected with HC V unless early or acute infection issuspected (which may be delayed in an immunocompromisedindividual), or other evidence exists to indicate HCVinfection.Performed at: [facility] [id number] [place], [place] [id number] Director: Shiv Nazario PhD, Phone: [phone] Serum or plasma hepatitis B virus surface antigen detection by immunoassayOrdered By: Rock Perdomo on 03-09-2025 HBV surface Ag IA Ql Negative Negative [facility] Abdomen Limitedon 03-07-2025 Abdomen Limited [facility] [address] [place] [address] Abdomen Limited MR#: [id number] Acct: [id number] Name: JESSICA ACUÑA Rep #: [id number] : 1955 M 70 From: Beto hutson MD PCP: Dr. Raymundo Watt MD Status: REG CLI Study: Abdomen Limited Date of Exam: 03/07/25 Exam# [id number] Ordering Dr: Elida Chew NP, NP PROCEDURE: ABDOMEN LIMITED 03/07/2025 REASON FOR EXAM: ABD PAIN RUQ COMPARISON: None FINDINGS: Liver: Diffusely echogenic suggesting fatty infiltration. Hepatomegaly. The liver measures 19.1 cm. Gallbladder: Small amount of sludge is seen within the gallbladder lumen. No evidence of gallstones. Common bile duct: Normal measuring 7 mm. . Pancreas: Visualized portions are sonographically unremarkable. Other: Visualized portions of the right kidney are unremarkable. 2 small cysts are seen in the inferior pole. The larger measures 1.1 cm 1.2 cm x 0.8 cm. No right upper quadrant ascites. US/Abdomen Limited IMPRESSION: Hepatomegaly and diffuse fatty infiltration of the liver. Sludge is seen within the gallbladder lumen. Small right renal cysts. Reading Location: [facility] CC: Elida Chew; Dr. Raymundo Watt MD Chief Deputy Clerk/Bailiff: Signed Normal [facility] Acute Abdomen Inc Cheston Acute Abdomen Inc Chest [facility] [address] [place], [place] [id number] Acute Abdomen Inc Chest MR#: [id number] Acct: [id number] Name: JESSICA ACUÑA Rep #: [id number] : 1955 M 70 From: Jessica Cid PCP: Dr. 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 RAD/Acute Abdomen Inc Chest IMPRESSION: A tortuous aorta is seen. No evidence of cardiomegaly. Right hemidiaphragm elevation/eventration again noted. Lungs appear clear of acute disease. No pleural effusion or pneumothorax is noted. No evidence of pneumoperitoneum. Jgya-[id number] degenerative changes of the visualized spine noted. No fracture site is evident. If clinical concern persists, short-term follow-up imaging may be obtained to rule out a currently occult fracture. The bowel-gas pattern is unremarkable. No mass or mass effect is seen Reading Location: [place] [address] CC: Elida LUKE NP-Karyna Chew; Dr. Raymundo Watt MD Chief Deputy Clerk/Bailiff: Signed Normal [facility] L501.5101on 02-25-2025 GGTP 30 IU/L Normal 0-65 [facility] Comment on above: Order Comment: Order Date: 02/23/25 Order Info: 2324-2 - GGTP Result Comment: Perf ormed at: - [facility] [address] [id number] Community Organizer: Shiv Nazario PhD, Phone: [phone] Performed By: #### L 501.5101 #### [facility] [address] [place], [place], [address] Amylaseon 02-23-2025 YASMIN 55 U/L Normal 28-100 [facility] Comment on above: Order Comment: Order Date: 02/23/25 Order Info: 0786- - CMP Order Info: 1798-03 - YASMIN Order Info: 3040-3 - LIPASE Performed By: #### L 501.2400, L500.4050, L501.2455 #### [facility] [address] [place], [place], [id number] Anion gap in Serum or Plasma Ordered By: Ofelia Craig on 02-23-2025 Anion gap [Moles/Vol] 11 mmol/L 5-15 [facility] BUN/creatinine ratioOrdered By: Ofelia Craig on 02-23-2025 Urea nitrogen/Creatinine [Mass ratio] 12.1 mg/mg 10-20 [facility] Bilirubin, totalOrdered By: Ofelia Craig on 02-23-2025 Bilirubin [Mass/Vol] 0.68 mg/dL 0.00-1.30 [facility] Carbon dioxide, total [Moles /volume] in Central venous bloodOrdered By: Ofelia Craig on 02-23-2025 CO2 [Moles/Vol] 23.5 mmol/L 21.0-32.0 [facility] Chloride assayOrdered By: Bernabe Craig on 02-23-2025 Chloride [Moles/Vol] 106 mmol/L 98-108 [facility] Comprehensive Metabolic Prof ilon 02-23-2025 Albumin [Mass/Vol] 4.3 g/dL Normal 3.4-4.8 [facility] Comment on above: Order Comment: Order Date: 02/23/25 Order Info: 0786-1 - CMP Order Info: 1798-03 - YASMIN Order Info: 3040-3 - LIPASE Performed By: #### L 501.2400, L500.4050, L501.2450 #### [facility] [address] [place], [place], [address] Albumin/Globulin [Mass ratio] 1.8 {ratio} Normal 0.9-2.4 [facility] Comment on above: Order Comment: Order Date: 02/23/25 Order Info: 785-1 - CMP Order Info: 1798-03 - YASMIN Order Info: 3040-3 - LIPASE Performed By: #### L 501.2400, L500.4050, L501.2450 #### [facility] [address] [place], [address] ALK PHOS 78 U/L Normal 40-129 [facility] Comment on above: Order Comment: Order Date: 02/23/25 Order Info: 785-1 - CMP Order Info: 1798-03 - YASMIN Order Info: 3040-3 - LIPASE Performed By: #### L 501.2400, L500.4050, L501.2450 #### [facility] [address] [place], [address] ALT [Catalytic activity/Vol] 51 U/L High <=46 [facility] Comment on above: Order Comment: Order Date: 02/23/25 Order Info: 785-1 - CMP Order Info: 1798-03 - YASMIN Order Info: 3040-3 - LIPASE Performed By: #### L 501.2400, L500.4050, L501.2450 #### [facility] [address] [place], [address] AST [Catalytic activity/Vol] 38 U/L Normal <=37 [facility] Comment on above: Order Comment: Order Date: 02/23/25 Order Info: 07-1 - CMP Order Info: 1798-03 - YASMIN Order Info: 3040-3 - LIPASE Performed By: #### L 501.2400, L500.4050, L501.2450 #### [facility] [address] [place], [address] Bilirubin [Mass/Vol] 0.68 mg/dL Normal 0.00-1.30 [facility] Comment on above: Order Comment: Order Date: 02/23/25 Order Info: 0786-1 - CMP Order Info: 1798-03 - YASMIN Order Info: 3040-3 - LIPASE Performed By: #### L 501.2400, L500.4050, L501.2450 #### [facility] [address] [place], [address] BUN/CRE 12.1 RATIO Normal 10-20 [facility] Comment on above: Order Comment: Order Date: 02/23/25 Order Info: 785-1 - CMP Order Info: 1798-03 - YASMIN Order Info: 3040-3 - LIPASE Performed By: #### L 501.2400, L500.4050, L501.2450 #### [facility] [address] [place], [address] Calcium [Mass/Vol] 9.4 mg/dL Normal 7.6-11.0 [facility] Comment on above: Order Comment: Order Date: 02/23/25 Order Info: 785-08 - CMP Order Info: 1798-03 - YASMIN Order Info: 3040-3 - LIPASE Performed By: #### L 501.2400, L500.4050, L501.2450 #### [facility] [address] [place], [address] Chloride [Moles/Vol] 106 mmol/L Normal 98-108 [facility] Comment on above: Order Comment: Order Date: 02/23/25 Order Info: 785-08 - CMP Order Info: 1798-03 - YASMIN Order Info: 3040-3 - LIPASE Performed By: #### L 501.2400, L500.4050, L501.2450 #### [facility] [address] [place], [address] CO2 [Moles/Vol] 23.5 mmol/L Normal 21.0-32.0 [facility] Comment on above: Order Comment: Order Date: 02/23/25 Order Info: 785-1 - CMP Order Info: 1798-03 - YASMIN Order Info: 3040-3 - LIPASE Performed By: #### L 501.2400, L500.4050, L501.2450 #### [facility] [address] [place], [address] Creatinine [Mass/Vol] 1.09 mg/dL Normal 0.70-1.20 [facility] Comment on above: Order Comment: Order Date: 02/23/25 Order Info: 785-08 - CMP Order Info: 1798-03 - YASMIN Order Info: 3040-3 - LIPASE Performed By: #### L 501.2400, L500.4050, L501.2450 #### [facility] [address] [place], [address] GAP 11 Normal 5-15 [facility] Comment on above: Order Comment: Order Date: 02/23/25 Order Info: 785-08 - CMP Order Info: 1798-03 YASMIN Order Info: 3040-3 - LIPASE Performed By: #### L 501.2400, L500.4050, L501.2450 #### [facility] [address] [place], [address] GFR/1.73 sq M.predicted among non-blacks MDRD (S/P/Bld) [Vol rate/Area] 74 mL/min/{1.73_m2} Normal >60 [facility] Comment on above: Order Comment: Order Date: 02/23/25 Order Info: 785-08 - CMP Order Info: 1798-03 - YASMIN Order Info: 3040-3 - LIPASE Result Comment: mL/m in/1.73m2 CKD-EPI Creatinine Equation (2020) Performed By: #### L 501.2400, L500.4050, L501.2450 #### [facility] [address] [place], [address] Globulin (S) [Mass/Vol] 2.5 g/dL Normal 2.2-4.2 [facility] Comment on above: Order Comment: Order Date: 02/23/25 Order Info: 785-08 - CMP Order Info: 1798-03 - YASMIN Order Info: 3040-3 - LIPASE Performed By: #### L 501.2400, L500.4050, L501.2450 #### [facility] [address] [place], [address] Glucose [Mass/Vol] 95 mg/dL Normal 70-99 [facility] Comment on above: Order Comment: Order Date: 02/23/25 Order Info: 785- - CMP Order Info: 1798-03 - YASMIN Order Info: 3040-3 - LIPASE Performed By: #### L 501.2400, L500.4050, L501.2450 #### [facility] [address] [place], [address] Potassium [Moles/Vol] 4.3 mmol/L Normal 3.3-5.1 [facility] Comment on above: Order Comment: Order Date: 02/23/25 Order Info: 785- - CMP Order Info: 1798-03 - YASMIN Order Info: 3040-3 - LIPASE Performed By: #### L 501.2400, L500.4050, L501.2450 #### [facility] [address] [place], [address] Sodium [Moles/Vol] 141 mmol/L Normal 133-145 [facility] Comment on above: Order Comment: Order Date: 02/23/25 Order Info: [id number] - CMP Order Info: 1798-03 - YASMIN Order Info: 3040-3 - LIPASE Performed By: #### L 501.2400, L500.4050, L501.2450 #### [facility] [address] [place], [address] T PROT 6.8 g/dL Normal 5.9-8.4 [facility] Comment on above: Order Comment: Order Date: 02/23/25 Order Info: 785-1 - CMP Order Info: 1798-03 - YASMIN Order Info: 3040-3 - LIPASE Performed By: #### L 501.2400, L500.4050, L501.2450 #### [facility] [address] [place], [place], [address] Urea nitrogen [Mass/Vol] 13 mg/dL Normal 4-19 [facility] Comment on above: Order Comment: Order Date: 02/23/25 Order Info: 0786-1 - CMP Order Info: [id number] - YASMIN Order Info: 3040-3 - LIPASE Performed By: #### L 501.2400, L500.4050, L501.2450 #### [facility] [address] [place], [place], [address] Gamma glutamyl transferase ( GGT) measurementOrdered By: Ofelia Craig on 02-23-2025 Amylase [Catalytic activity/Vol] 30 U/L 0-65 [facility] Comment on above: Performed at: [place] [id number] Director: Shiv Nazario PhD, Phone: [phone] Glomerular filtration rate ( GFR) estimation/1.73 sq m using serum, plasma, or whole bOrdered By: Ofelia Craig on 02-23-2025 GFR/1.73 sq M.predicted among non-blacks MDRD (S/P/Bld) [Vol rate/Area] 74 mL/min/{1.73_m2} >60 [facility] Comment on above: mL/min/1.73m2 CKD-EP I Creatinine Equation (2020) Laboratory - Chemistry and C hemistry - challengeOrdered By: Ofelia Craig on 02-23-2025 AST [Catalytic activity/Vol] 38 U/L <38 [facility] Lipaseon 02-23-2025 Lipase [Catalytic activity/Vol] 37 U/L Normal 13-75 [facility] Comment on above: Order Comment: Order Date: 02/23/25Order Info: 0786-1 - CMPOrder Info: 1798 - AMYOrder Info: 3040-3 - LIPASE Result Comment: Michael johnson note: LIPASE revised reference range effective 22. New Lipase methodology. Expected to produce lower values than the previous assay method. NEW Reference Range: 13 - 75 U/L Performed By: #### L 501.6620, L500.4050, L501.2450 ####[facility] [id number] [place], [address] Lipase measurementOrdered By : Ofelia Craig on 02-23-2025 Lipase [Catalytic activity/Vol] 37 U/L 13-75 [facility] Comment on above: Please note:LIPASE r evised reference range effective 22. New Lipase methodology. Expected to produce lower values than the previous assay method. NEW Reference Range: 13 - 75 U/L Potassium measurement (mass/ volume)Ordered By: Ofelia Craig on 02-23-2025 Potassium (Unsp spec) [Mass/Vol] 4.3 mmol/L 3.3-5.1 [facility] Serum creatinine measurement (mass/volume)Ordered By: Ofelia Craig on 02-23-2025 Creatinine [Mass/Vol] 1.09 mg/dL 0.70-1.20 [facility] Serum globulin measurementOr dered By: Ofelia Craig on 02-23-2025 Globulin (S) [Mass/Vol] 2.5 g/dL 2.2-4.2 [facility] Serum glucose measurement (m ass/volume)Ordered By: Ofelia Craig on 02-23-2025 Glucose [Mass/Vol] 95 mg/dL 70-99 [facility] Serum or plasma alanine mart otransferase (ALT) measurementOrdered By: Ofelia Craig on 02-23-2025 ALT [Catalytic activity/Vol] 51 U/L High <47 [facility] Serum or plasma albumin madeline urement (mass/volume)Ordered By: Ofelia Craig on 02-23-2025 Albumin [Mass/Vol] 4.3 g/dL 3.4-4.8 [facility] Serum or plasma albumin/glob ulin mass ratioOrdered By: Ofelianeptali Craig on 02-23-2025 Albumin/Globulin [Mass ratio] 1.8 {ratio} 0.9-2.4 [facility] Serum or plasma alkaline thompson sphatase measurementOrdered By: Ofelia Craig on 02-23-2025 ALP [Catalytic activity/Vol] 78 U/L 40-129 [facility] Serum or plasma amylase madeline urement (enzymatic activity/volume)Ordered By: Ofelianeptali Craig on 02-23-2025 Amylase [Catalytic activity/Vol] 55 U/L 28-100 [facility] Serum or plasma calcium madeline urement (mass/volume)Ordered By: Ofelianeptali Craig on 02-23-2025 Calcium [Mass/Vol] 9.4 mg/dL 7.6-11.0 [facility] Serum or plasma urea nitroge n measurement (mass/volume)Ordered By: Ofelia Craig on 02-23-2025 Urea nitrogen [Mass/Vol] 13 mg/dL 4-19 [facility] Sodium levelOrdered By: Ofelianeptali Craig on 02-23-2025 Sodium [Moles/Vol] 141 mmol/L 133-145 [facility] Total proteinOrdered By: Nunu Craig on 02-23-2025 Protein [Mass/Vol] 6.8 g/dL 5.9-8.4 [facility] Pulmonary Visit Reporton Pulmonary Visit Report [facility] [place] [address] [place] [address] OFFICE VISIT Date of Service: 12/22/24 MR#: [id number] Acct: [id number] Name: JESSICA ACUÑA Rep #: [id number] : 1955 Provider: Gemma Starr NP Age/Sex: 69/M Location: [facility] Status: Signed Assessment and Plan Assessment and Plan (1) ADIEL (obstructive sleep apnea): Status: Chronic Plan: The patient has received excellent benefit from adding a chinstrap to his device. I recommend that he continue with BiPAP at current settings, 18 over 14 cm. The patient should notify this practice if he has worsening daytime hypersomnia and his follow-up will be advanced. I recommend a compliance download on follow-up in 12 months. No indication for titration study at this time. (2) Morbid obesity: Status: Chronic Plan: This complicates exam, care, plan, prognosis. I have asked him to return to a physical exercise regimen. Prudent dieting is also warranted, specifically discussed increasing vegetable intake today. Plan Details Follow Up: 1 Year (LMR) HPI HPI Comments Details: Patient is a 69-year-old male who presents to the office today to discuss issues with the PAP pressures. He has a history of obstructive sleep apnea. He is ambulatory and currently on room air. He has not recently been seen in the ED or urgent care for any respiratory illness. He has not required any antibiotics or prednisone for any breathing problems. He does have shortness of breath with exertion especially long distances and stairs and hills. He has started a exercise regimen again. He denies any wheezing, chest tightness, chest pain or palpitations. He has not had any cough, sputum production or hemoptysis. He also denies any fever, chills or body aches. He is awakening feeling refreshed now he has worked with vendor for a mask that fits him. He is not experiencing headache or dry mouth since using his new mask. He does nap on occasion without the device. He is not struggling with the current air settings. ESS is 2. He is now using a chin strap. He is getting a foam mask. The chin strap made a huge improvement. He is a former smoker, quitting back in 1991. He is not appropriate for LDCT. Compliance report for the past 30 days shows 100% compliance with an average use of 8 hours and 10 minutes per night. Current setting is 18/14 cmH2O with residual AHI of 2.3 events per hour. Leaks do not appear to be problematic. This is reviewed with patient today. Intake Vital Signs 10/27/24 05:49 12/22/24 05:25 Height 6 ft 2 in 6 ft 2 in Weight: 345 lb BMI 44.3 BP 138/80 H Blood Pressure Location Lt brachial Position Sitting Respiration 20 H Pulse 53 L Pulse Source Monitor Temp 97.3 F L Temperature Source Temporal Artery Pulse Oximetry (%) 97 Oxygen Delivery Method room air Intake Visit Reasons: 8 WK FU Email Deployment Specialist Required: No DME Vendor: [employer] Accompanied by: Self Is patient in pain?: No Allergies ticagrelor (From Brilinta) Allergy (Intermediate, Verified 12/22/24 09:36) Nausea, dizziness, shortness of breath penicillin G Allergy (Unknown, Verified 12/22/24 09:36) Unknown Medications ???Medication ???Instructions ???Recorded ???Confirmed ???Type aspirin 81 mg tablet,delayed 81 mg PO DAILY ##30 02/14/1912/22 Rx release amlodipine 10 mg tablet 10 mg PO DAILY #90 tabs 09/11/24 0 12/22/24 Rx atorvastatin 80 mg tablet 80 mg PO DAILY #90 tabs 09/11/24 0 12/22/24 Rx lisinopril 5 mg tablet 5 mg PO DAILY #90 tabs 09/11/24 Rx metoprolol tartrate 50 mg tablet 50 mg PO BID #180 tabs 09/11/24 Rx Have you fallen in the past year?: No PFSH Medical History ADIEL treated with BiPAP Essential hypertension Sleep-disordered breathing HLD (hyperlipidemia) Morbid obesity NSTEMI (non-ST elevated myocardial infarction) (02/12/19) LVH (left ventricular hypertrophy) Atherosclerosis of little [place] tribe coronary artery of [place] tribe heart without angina pectoris Surgical History History of hand surgery History of coronary artery stent placement (03/24/19) Family History Father COPD (chronic obstructive pulmonary disease) Grandmother Diabetes Social History current occupational status: retired 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 Normal [facility] Bilirubin directOrdered By: Cristiane Higgins on 10-27-2024 Bilirubin.direct [Mass/Vol] 0.28 mg/dL 0.00-0.30 [facility] Bilirubin, totalOrdered By: Cristiane Higgins on 10-27-2024 Bilirubin [Mass/Vol] 0.77 mg/dL 0.00-1.30 [facility] Calculated very low density lipoprotein (VLDL) cholesterol measurementOrdered By: Cristiane Higgins on 10-27-2024 VLDL Cholesterol 38 mg/dL 5-40 [facility] LDL calc ser/plasOrdered By: Cristiane Higgins on 10-27-2024 LDL Cholesterol, Calculated 48 mg/dL [facility] Comment on above: Wqcknxwiss=207-470 m g/dL & Higher Poqi=832 mg/dL or greater Laboratory - Chemistry and C hemistry - challengeOrdered By: Cristiane Higgins on 10-27-2024 AST [Catalytic activity/Vol] 35 U/L <38 [facility] Lipid Profileon 10-27-2024 CHOL:HDL 3.25 Normal [facility] Comment on above: Performed By: #### L 500.4100, L500.3400 #### [facility] [address] [place], [address] Cholesterol [Mass/Vol] 125 mg/dL Normal <=200 [facility] Comment on above: Result Comment: Chol esterol level, Desirable <200 mg/dL Borderline high cholesterol 200-239 mg/dL High cholesterol >=240 mg/dL Recommendations of the NCEP Adult Treatment Panel for the following risk-cutoff thresholds for the [place] Citizen population. Performed By: #### L 500.4100, L500.3400 #### [facility] [address] [place], [place], [id number] (193) Cholesterol in HDL [Mass/Vol] 39 mg/dL Low [facility] Comment on above: Result Comment: [place] onal Cholesterol Education Program (NCEP) guidelines: <40 mg/dL: Low HDL-cholesterol (major risk factor for CHD) >= 60 mg/dL: High HDL-cholesterol (negative risk factor for CHD) HDL-cholesterol is affected by a number of factors, e.g. smoking, exercise, hormones, sex and age. Performed By: #### L 500.4100, L500.3400 #### [facility] [address] [place], [address] Cholesterol in LDL [Mass/Vol] 48 mg/dL Normal [facility] Comment on above: Result Comment: Bord ebjnzq=207-264 mg/dL Higher Errf=342 mg/dL or greater Performed By: #### L 500.4100, L500.3400 #### [facility] [address] [place], [address] Cholesterol in VLDL [Mass/Vol] 38 mg/dL Normal 5-40 [facility] Comment on above: Performed By: #### L 500.4100, L500.3400 #### [facility] [address] [place], [address] Triglyceride [Mass/Vol] 192 mg/dL Normal [facility] Comment on above: Result Comment: The drugs N-Acetylcysteine and Metamizole may falsely depress this assay. Normal range: <150 mg/dL Borderline High: 150-199 mg/dL High: 200-499 mg/dL Very High: >500 mg/dL Performed By: #### L 500.4100, L500.3400 #### [facility] [address] [place], [address] Liver Profileon 10-27-2024 Albumin [Mass/Vol] 4.4 g/dL Normal 3.4-4.8 [facility] Comment on above: Performed By: #### L 500.4100, L500.3400 #### [facility] [address] [place], [address] ALK PHOS 77 U/L Normal 40-129 [facility] Comment on above: Performed By: #### L 500.4100, L500.3400 #### [facility] [address] [place], [address] ALT [Catalytic activity/Vol] 45 U/L Normal <=46 [facility] Comment on above: Performed By: #### L 500.4100, L500.3400 #### [facility] [address] [place], [address] AST [Catalytic activity/Vol] 35 U/L Normal <=37 [facility] Comment on above: Performed By: #### L 500.4100, L500.3400 #### [facility] [address] [place], [address] Bilirubin [Mass/Vol] 0.77 mg/dL Normal 0.00-1.30 [facility] Comment on above: Performed By: #### L 500.4100, L500.3400 #### [facility] [address] [place], [address] Bilirubin.direct [Mass/Vol] 0.28 mg/dL Normal 0.00-0.30 [facility] Comment on above: Performed By: #### L 500.4100, L500.3400 #### [facility] [address] [place], [address] Globulin (S) [Mass/Vol] 2.6 g/dL Normal 2.2-4.2 [facility] Comment on above: Performed By: #### L 500.4100, L500.3400 #### [facility] [address] [place], [address] T PROT 7.0 g/dL Normal 5.9-8.4 [facility] Comment on above: Performed By: #### L 500.4100, L500.3400 #### [facility] [address] [place], [address] Pulmonary Visit Reporton Pulmonary Visit Report [facility] [place] [address] [place] [address] OFFICE VISIT Date of Service: 10/27/24 MR#: [id number] Acct: [id number] Name: JESSICA ACUÑA Rep #: [id number] : 1955 Provider: Gemma Starr NP Age/Sex: 69/M Location: [facility] Status: Signed Assessment and Plan Assessment and Plan (1) ADIEL (obstructive sleep apnea): Status: Chronic Plan: Uncontrolled. I am concerned that his device is malfunctioning due to patient's current symptoms despite a adequate compliance download. I have asked for him to take his device into his vendor to have it checked and placed on a manometer to evaluate the pressure. If the device is functioning properly then I recommend increasing the pressure to 20/16 and reevaluating in 8 weeks with a compliance download. If the device is broken then I recommend a replacement device because his device is outdated. I have discussed the importance of washing his face prior to placing his mask on at night. This will help create a better seal. I have recommended using a chinstrap as well. The patient does have excellent use of his device. (2) Morbid obesity: Status: Chronic Plan: This complicates exam, care, plan, prognosis. The patient would not be a candidate for the inspire device at this time if he fails PAP therapy. This was discussed with him today. Weight loss is warranted through prudent dieting and daily exercise. Plan Details Follow Up: 8 Weeks (LMR) HPI HPI Comments Details: Patient is a 69-year-old male who presents to the office today to discuss issues with the PAP pressures. He has a history of obstructive sleep apnea. He is ambulatory and currently on room air. He has not recently been seen in the ED or urgent care for any respiratory illness. He has not required any antibiotics or prednisone for any breathing problems. He does have shortness of breath with exertion especially long distances and stairs and hills. He denies any wheezing, chest tightness, chest pain or palpitations. He has not had any cough, sputum production or hemoptysis. He also denies any fever, chills or body aches. He is awakening feeling unrefreshed at times with the use of his PAP device. He is wondering if there is something wrong with his device. He will place his hand over the tubing and reports that there is a little air coming out of it. He is gasping for air when he is falling asleep. He does nap without his machine. He admits that he does not use his PAP device if napping, and wakes up with a "headache". He does not have difficulty with nocturia, maybe once per night. He is unsure if he snores through the device. He is experiencing headache and dry mouth. ESS is 4. He is a former smoker, quitting back in 1991. He is not appropriate for LDCT. Compliance report for the past 30 days shows 100% compliance with an average use of 7 hours and 57 minutes per night. Current setting is 18/14 cmH2O with residual AHI of 3.3 events per hour. Leaks do not appear to be problematic. This is reviewed with patient today. Intake Vital Signs 08/11/24 08:51 10/27/24 05:49 Height 6 ft 2 in 6 ft 2 in Weight: 353 lb BMI 45.3 BP 127/76 H Blood Pressure Location Rt brachial Position Sitting Respiration 20 H Pulse 57 L Pulse Source Monitor Temp 96.0 F L Temperature Source Temporal Artery Pulse Oximetry (%) 95 Oxygen Delivery Method room air Intake Visit Reasons: CPAP PRESSURE ISSUES Chief Complaint: f/u ADIEL Email Deployment Specialist Required: No DME Vendor: hiram Gran[employer] Accompanied by: Self Is patient in pain?: No Allergies ticagrelor (From Brilinta) Allergy (Intermediate, Verified 10/27/24 08:42) Nausea, dizziness, shortness of breath penicillin G Allergy (Unknown, Verified 10/27/24 08:42) Unknown Medications ???Medication ???Instructions ???Recorded ???Confirmed ???Type aspirin 81 mg tablet,delayed 81 mg PO DAILY ##30 02/14/1910/27 Rx release amlodipine 10 mg tablet 10 mg PO DAILY #90 tabs 09/11/24 0 10/27/24 Rx atorvastatin 80 mg tablet 80 mg PO DAILY #90 tabs 09/11/24 0 10/27/24 Rx lisinopril 5 mg tablet 5 mg PO DAILY #90 tabs 09/11/24 Rx metoprolol tartrate 50 mg tablet 50 mg PO BID #180 tabs 09/11/24 Rx Have you fallen in the past year?: No PFSH Medical History ADIEL treated with BiPAP Essential hypertension Sleep-disordered breathing HLD (hyperlipidemia) Morbid obesity NSTEMI (non-ST elevated myocardial infarction) (02/12/19) LVH (left ventricular hypertrophy) Atherosclerosis of [place] coronary artery of [place] heart without angina pectoris Surgical History History of hand surgery History of coronary roberto (more content not included)... Normal [facility] Screening total cholesterol/ high density lipoprotein (HDL) cholesterol ratioOrdered By: Cristiane Higgins on 10-27-2024 Cholesterol.total/Chol esterol in HDL [Mass ratio] 3.25 {ratio} [facility] Serum globulin measurementOr dered By: Cristiane Higgins on 10-27-2024 Globulin (S) [Mass/Vol] 2.6 g/dL 2.2-4.2 [facility] Serum or plasma alanine mart otransferase (ALT) measurementOrdered By: Cristiane Higgins on 10-27-2024 ALT [Catalytic activity/Vol] 45 U/L <47 [facility] Serum or plasma albumin madeline urement (mass/volume)Ordered By: Cristiane Higgins on 10-27-2024 Albumin [Mass/Vol] 4.4 g/dL 3.4-4.8 [facility] Serum or plasma alkaline thompson sphatase measurementOrdered By: Cristiane Higgins on 10-27-2024 ALP [Catalytic activity/Vol] 77 U/L 40-129 [facility] Serum or plasma cholesterol in HDL measurement (mass/volume)Ordered By: Cristiane Higgins on 10-27-2024 Cholesterol in HDL [Mass/Vol] 39 mg/dL Low >40 [facility] Comment on above: National Cholesterol Education Program (NCEP) guidelines:<40 mg/dL: Low HDL-cholesterol (major risk factor for CHD)>= 60 mg/dL: High HDL-cholesterol (negative risk factor for CHD)HDL-cholesterol is affected by a number of factors, e.g. smoking, exercise, hormones, sex and age. Serum or plasma cholesterol measurement (mass/volume)Ordered By: Cristiane Higgins on 10-27-2024 Cholesterol [Mass/Vol] 125 mg/dL <201 [facility] Comment on above: Cholesterol level, D esirable <200 mg/dLBorderline high cholesterol 200-239 mg/dLHigh cholesterol >=240 mg/dLRecommendations of the NCEP Adult Treatment Panel for the following risk-cutoff thresholds for the [place] Citizen population. Total proteinOrdered By: Damián Higgins on 10-27-2024 Protein [Mass/Vol] 7.0 g/dL 5.9-8.4 [facility] Triglycerides measurementOrd ered By: Cristiane Higgins on 10-27-2024 Triglyceride [Mass/Vol] 192 mg/dL <199 [facility] Comment on above: The drugs N-Acetylcy steine and Metamizole may falsely depress this assay. Normal range: <150 mg/dLBorderline High: 150-199 mg/dLHigh: 200-499 mg/dLVery High: >500 mg/dL Bilirubin directOrdered By: Cristiane Higgins on 08-11-2024 Bilirubin.direct [Mass/Vol] 0.22 mg/dL 0.00-0.30 [facility] Bilirubin, totalOrdered By: Cristiane Higgins on 08-11-2024 Bilirubin [Mass/Vol] 0.70 mg/dL 0.20-1.00 [facility] Comment on above: For patients on eltr ombopag therapy, use of Dimension Greig TBIL is not recommended. Cardiology Visit Reporton Cardiology Visit Report [facility] [address] [place] [address] OFFICE VISIT Date of Service: 08/11/24 MR#: [id number] Acct: [id number] Name: JESSICA ACUÑA Rep #: [id number] : 1955 Provider: TIERA Barba Age/Sex: 69/M Location: [facility] Status: Signed HPI HPI History of Present Illness Details: Jessica Acuña is a 69-year-old gentleman that presents here today for a cardiovascular follow-up. He has a history of coronary artery disease with non-STEMI in which he had stenting to his LAD and circumflex. This was in January 2019. He came back in February 2019 for drug-eluting stent placed to the ramus intermedius. An echocardiogram performed at that time also demonstrated preserved ejection fraction. He is still using his CPAP. From a cardiac standpoint, patient is doing well. He does not have any chest discomfort/heaviness/ti ghtness. His exercise tolerance is stable for his age. He does not have any worsening symptoms of shortness of breath. He denies any PND. He does not have any orthopnea. He does not have any symptoms of congestive heart failure. He does not have any palpitations that he is aware of. He does not have any near-syncope or syncope. He does not have any lower extremity edema. He does not have any symptoms of claudication. Intake Vital Signs 08/06/23 10:02 01/10/24 07:51 08/11/24 08:51 Height 6 ft 2 in 6 ft 2 in 6 ft 2 in Weight: 343 lb 351 lb BMI 44.0 45.0 BP 137/78 H 122/79 H Blood Pressure Location Lt brachial Lt brachial Position Sitting Sitting Respiration 22 H 20 H Pulse 60 69 Pulse Source Monitor Monitor Temp 98.4 F Temperature Source Temporal Artery Pulse Oximetry (%) 96 95 Oxygen Delivery Method room air Intake Visit Reasons: 1 Y FU Email Deployment Specialist Required: No Is patient in pain?: No Allergies ticagrelor (From Brilinta) Allergy (Intermediate, Verified 08/11/24 08:52) Nausea, dizziness, shortness of breath penicillin G Allergy (Unknown, Verified 08/11/24 08:52) Unknown Medications ???Medication ???Instructions ???Recorded ???Confirmed ???Type aspirin 81 mg tablet,delayed 81 mg PO DAILY ##30 02/14/19 08/11/24 Rx release amlodipine 10 mg tablet 10 mg PO DAILY #90 tabs 10/29/23 08/11/24 Rx atorvastatin 80 mg tablet 80 mg PO DAILY #90 tabs 10/29/23 08/11/24 Rx lisinopril 5 mg tablet 5 mg PO DAILY #90 tabs 10/29/23 08/11/24 Rx metoprolol tartrate 50 mg tablet 50 mg PO BID #180 tabs 10/29/23 08/11/24 Rx Have you fallen in the past year?: No PFSH Medical History ADIEL treated with BiPAP Essential hypertension Sleep-disordered breathing HLD (hyperlipidemia) Morbid obesity NSTEMI (non-ST elevated myocardial infarction) (02/12/19) LVH (left ventricular hypertrophy) Atherosclerosis of [place] coronary artery of [place] heart without angina pectoris Surgical History History of hand surgery History of coronary artery stent placement (03/24/19) Family History Father COPD (chronic obstructive pulmonary disease) Grandmother Diabetes Social History Smoking Status: Former smoker Tobacco: How many years used: 20 how long ago did patient quit smokin, 2.5ppd second hand exposure: Yes alcohol intake: current alcohol intake frequency: a few times a month substance use type: does not use caffeine: Yes Type: coffee Number of servings: 1 what type of physical activity do you participate in: none frequency: does not exercise seatbelt use: always ROS Const Const: Negative for fatigue, weakness, fever(s) or headache(s) Eyes Eyes: Negative for blind spots, loss of peripheral vision or transient loss of vision ENT ENT: Negative for headache(s), dizziness, tinnitus, Nosebleed/epistaxis or balance problems Cardio Chest Pain: No Palpitations: No Edema: None Muscle aches with walking: None Resp Respiratory: Negative for SOB with activity, SOB at rest, SOB orthopnea SOB lying down or Cough GI GI: Negative nausea, vomiting, heartburn or vomiting blood/hematemesis : Negative for hematuria Musc Musc: Negative for muscle aches/ myalgia, muscle weakness, joint pain or balance problems Neuro Neuro: Negative for dizziness, lightheadedness, near syncope, syncope, orthostatic symptoms, headache(s) or weakness Spike Hematologic/Lymphatic: Negative for easy bleeding Endo Endo: Negative for fatigue Cardiology Exam Const Appearance: cooperative, healthy appearing, comfortable, no acute distress and well developed Nutritional Appearance: obese Orientation: alert, awake and orient (more content not included)... Normal [facility] High density lipoprotein (HD L) measurementOrdered By: Cristiane Higgins on 08-11-2024 Cholesterol in HDL [Mass/Vol] 42 mg/dL >40 [facility] Comment on above: The drugs N-Acetylcy steine and Metamizole may falsely depress this assay. Reference Range HDL <40 mg/dL Low HDL Cholesterol HDL >or= 60 mg/dL High HDL Cholesterol Laboratory - Chemistry and C hemistry - challengeOrdered By: Cristiane Higgins on 08-11-2024 AST [Catalytic activity/Vol] 25 U/L 15-37 [facility] Lipid Profileon 08-11-2024 Cholesterol [Mass/Vol] 118 mg/dL Normal 200 [facility] Comment on above: Order Comment: Comme nts: okay to do non fastingokay to do non fasting Result Comment: <200 mg/dL Desirable 200-240 mg/dL Borderline >240 mg/dL High Risk Performed By: #### L 500.3400, L500.4100 ####[facility] [address] [facility] [address] Cholesterol in HDL [Mass/Vol] 42 mg/dL Normal [facility] Comment on above: Order Comment: Comme nts: okay to do non fastingokay to do non fasting Result Comment: The drugs N-Acetylcysteine and Metamizole may falsely depress this assay. Reference Range HDL <40 mg/dL Low HDL Cholesterol HDL >or= 60 mg/dL High HDL Cholesterol Performed By: #### L 500.3400, L500.4100 ####[facility] [address] [place], [address] Cholesterol in LDL [Mass/Vol] 28 mg/dL Normal 0-130 [facility] Comment on above: Order Comment: Comme nts: okay to do non fastingokay to do non fasting Performed By: #### L 500.3400, L500.4100 ####[facility] [address] [place], [address] Cholesterol in VLDL [Mass/Vol] 48 mg/dL High 5-40 [facility] Comment on above: Order Comment: Comme nts: okay to do non fastingokay to do non fasting Performed By: #### L 500.3400, L500.4100 ####[facility] [address] [place], [address] Triglyceride [Mass/Vol] 241 mg/dL High [facility] Comment on above: Order Comment: Comme nts: okay to do non fastingokay to do non fasting Result Comment: The drugs N-Acetylcysteine and Metamizole may falsely depress this assay. Serum Triglycerides Reference Interval Normal <150 mg/dL Borderline high 150 - 199 mg/dL High 200 - 499 mg/dL Very High > or = 500 mg/dL Performed By: #### L 500.3400, L500.4100 ####[facility] [address] [place], [address] Liver Profileon 08-11-2024 Albumin [Mass/Vol] 4.0 g/dL Normal 3.2-5.0 [facility] Comment on above: Order Comment: Comme nts: okay to do non fastingokay to do non fasting Performed By: #### L 500.3400, L500.4100 ####[facility] [address] [place], [address] ALK P 81 U/L Normal 45-117 [facility] Comment on above: Order Comment: Comme nts: okay to do non fastingokay to do non fasting Performed By: #### L 500.3400, L500.4100 ####[facility] [address] [place], [address] ALT [Catalytic activity/Vol] 48 U/L Normal 16-61 [facility] Comment on above: Order Comment: Comme nts: okay to do non fastingokay to do non fasting Performed By: #### L 500.3400, L500.4100 ####[facility] [address] [place], [address] AST [Catalytic activity/Vol] 25 U/L Normal 15-37 [facility] Comment on above: Order Comment: Comme nts: okay to do non fastingokay to do non fasting Performed By: #### L 500.3400, L500.4100 ####[facility] [address] [place], [address] Bilirubin [Mass/Vol] 0.70 mg/dL Normal 0.20-1.00 [facility] Comment on above: Order Comment: Comme nts: okay to do non fastingokay to do non fasting Result Comment: For patients on eltrombopag therapy, use of Dimension Greig TBIL is not recommended. Performed By: #### L 500.3400, L500.4100 ####[facility] [address] [place], [address] Bilirubin.direct [Mass/Vol] 0.22 mg/dL Normal 0.00-0.30 [facility] Comment on above: Order Comment: Comme nts: okay to do non fastingokay to do non fasting Performed By: #### L 500.3400, L500.4100 ####[facility] [address] [place], [address] Globulin (S) [Mass/Vol] 3.0 g/dL Normal 2.2-4.2 [facility] Comment on above: Order Comment: Comme nts: okay to do non fastingokay to do non fasting Performed By: #### L 500.3400, L500.4100 ####[facility] [address] [place], [address] T PROT 7.0 g/dL Normal 6.4-8.2 [facility] Comment on above: Order Comment: Comme nts: okay to do non fastingokay to do non fasting Performed By: #### L 500.3400, L500.4100 ####[facility] [address] [place], [address] Low density lipoprotein (LDL ) cholesterol measurementOrdered By: Cristiane Higgins on 08-11-2024 Cholesterol in LDL [Mass/Vol] 28 mg/dL 0-130 [facility] Serum globulin measurementOr dered By: Cristiane Higgins on 08-11-2024 Globulin (S) [Mass/Vol] 3.0 g/dL 2.2-4.2 [facility] Serum or plasma alanine mart otransferase (ALT) measurementOrdered By: Cristiane Higgins on 08-11-2024 ALT [Catalytic activity/Vol] 48 U/L 16-61 [facility] Serum or plasma albumin madeline urement (mass/volume)Ordered By: Cristiane Higgins on 08-11-2024 Albumin [Mass/Vol] 4.0 g/dL 3.2-5.0 [facility] Serum or plasma alkaline thompson sphatase measurementOrdered By: Cristiane Higgins on 08-11-2024 ALP [Catalytic activity/Vol] 81 U/L 45-117 [facility] Serum or plasma cholesterol measurement (mass/volume)Ordered By: Cristiane Higgins on 08-11-2024 Cholesterol [Mass/Vol] 118 mg/dL <200 [facility] Comment on above: <200 mg/dL Desirable 200-240 mg/dL Borderline >240 mg/dL High Risk Total proteinOrdered By: Damián Higgins on 08-11-2024 Protein [Mass/Vol] 7.0 g/dL 6.4-8.2 [facility] Triglycerides measurementOrd ered By: Cristiane Higgins on 08-11-2024 Triglyceride [Mass/Vol] 241 mg/dL High <199 [facility] Comment on above: The drugs N-Acetylcy steine and Metamizole may falsely depress this assay.Serum Triglycerides Reference Interval Normal <150 mg/dL Borderline high 150 - 199 mg/dL High 200 - 499 mg/dL Very High > or = 500 mg/dL Very low density lipoprotein (VLDL) cholesterol measurementOrdered By: Cristiane Higgins on 08-11-2024 VLDL Cholesterol 48 mg/dL High 5-40 [facility] Absolute lymphocyte countOrd ered By: Sujit Wall on 12-12-2023 Lymphocytes Auto (Unsp spec) [#/Vol] 1.66 10*3/uL 0.83-4.51 [facility] Automated lymphocyte count a s percentage of total leukocytesOrdered By: Sujit Wall on 12-12-2023 Lymphocytes/100 WBC Auto (Unsp spec) 24.3 % 19-41 [facility] Basophil percentageOrdered B y: Sujit Wall on 12-12-2023 Basophils/100 WBC (Bld) 0.7 % 0-1 [facility] Bilirubin [Mass/Vol] 0.40 mg/dL 0.20-1.00 [facility] Comment on above: For patients on eltr ombopag therapy, use of Dimension Greig TBIL is not recommended. Chloride [Moles/Vol] 110 mmol/L 98-107 [facility] Eosinophils/100 WBC (Bld) 4.3 % 0-5 [facility] Glucose [Mass/Vol] 108 mg/dL 74-106 [facility] Comment on above: Fasting Glucose resu lt from 100 to 125 mg/dL suggests IMPAIRED HOMEOSTASIS per A.D.A. criteria. Hemoglobin (Bld) [Mass/Vol] 12.5 g/dL 13.0-16.5 [facility] Monocytes/100 WBC (Bld) 10.4 % 0-10 [facility] Neutrophils (Bld) [#/Vol] 4.1 10*3/uL 2.0-7.7 [facility] Neutrophils/100 WBC (Bld) 60.0 % 47-70 [facility] Potassium [Moles/Vol] 4.1 mmol/L 3.5-5.1 [facility] Protein [Mass/Vol] 6.4 g/dL 6.4-8.2 [facility] Sodium [Moles/Vol] 141 mmol/L 136-145 [facility] WBC (Bld) [#/Vol] 6.8 10*3/uL 4.4-11.0 [facility] Determination of erythrocyte mean corpuscular volume (MCV)Ordered By: Sujit Wall on 12-12-2023 MCV (RBC) [Entitic vol] 92.2 fL 80-94 [facility] Erythrocyte distribution wid th ratioOrdered By: Sujit Wall on 12-12-2023 Erythrocyte distribution width (RBC) [Ratio] 14.0 % 11.6-14.6 [facility] Erythrocyte distribution wid th standard deviationOrdered By: Sujit Wall on 12-12-2023 Erythrocyte distribution width (RBC) [Entitic vol] 47.5 fL 35.1-43.9 [facility] Hematocrit Auto (Bld) [Volum e fraction]Ordered By: Sujit Wall on 12-12-2023 Hematocrit (Bld) [Volume fraction] 37.6 % 40-54 [facility] Immature granulocytes/100 WB C Auto (Bld)Ordered By: Sujit Wall on 12-12-2023 Immature granulocytes/100 WBC (Bld) 0.300 % 0.0-0.9 [facility] Comment on above: IG% - Immature Granu locytes (promyelocytes, myelocytes and metamyelocytes) > 1% indicates that a LEFT SHIFT is Present. Laboratory - Chemistry and C hemistry - challengeOrdered By: Sujit Wall on 12-12-2023 Albumin/Globulin [Mass ratio] 1.1 {ratio} 0.9-2.4 [facility] ALP [Catalytic activity/Vol] 82 U/L 45-117 [facility] ALT [Catalytic activity/Vol] 28 U/L 16-61 [facility] CO2 [Moles/Vol] 28.0 mmol/L 21.0-32.0 [facility] Globulin (S) [Mass/Vol] 3.1 g/dL 2.2-4.2 [facility] Urea nitrogen/Creatinine [Mass ratio] 10.7 mg/mg 10-20 [facility] Laboratory - Hematology and Cell countsOrdered By: Sujit Wall on 12-12-2023 MCH (RBC) [Entitic mass] 30.6 pg 27.0-32.0 [facility] MCHC (RBC) [Mass/Vol] 33.2 g/dL 32-36 [facility] Nucleated RBC/100 WBC (Bld) [Ratio] 0 % 0-5 [facility] Platelet mean volume (Bld) [Entitic vol] 10.5 fL 6.2-12.0 [facility] Platelets (Bld) [#/Vol] 204 10*3/uL 150-450 [facility] No Panel InformationOrdered By: Sujit Wall on 12-12-2023 Estimated Creatinine Clearance Calc 109.48 ml/min [facility] Estimated GFR (MDRD) Amer 93 mL/min >60 [facility] Comment on above: GFR Calc Estimated GFR (MDRD) Non-Af Amer 77 mL/min >60 [facility] Comment on above: Non- GFR Calc RBC Auto (Bld) [#/Vol]Ordere d By: Sujit Wall on 12-12-2023 RBC (Bld) [#/Vol] 4.08 10*6/uL 4.6-6.2 [facility] Serum or plasma calcium madeline urement (mass/volume)Ordered By: Sujit Wall on 12-12-2023 Calcium [Mass/Vol] 8.9 mg/dL 8.5-10.1 [facility] Serum or plasma creatinine m easurement (mass/volume)Ordered By: Sujit Wall on 12-12-2023 Creatinine [Mass/Vol] 1.03 mg/dL 0.70-1.30 [facility] Comment on above: The validity of the calculated GFR & GFRAA in patients over 70 years has not been determined. Clinical correlation is essential. Serum or plasma urea nitroge n measurement (mass/volume)Ordered By: Sujit Wall on 12-12-2023 Urea nitrogen [Mass/Vol] 11 mg/dL 7-18 [facility] Thin prep Papanicolaou smear with manual screeningOrdered By: Sujit Wall on 12-12-2023 Thin prep Papanicolaou smear with manual screening 3.3 g/dL 3.2-5.0 [facility] Thin prep Papanicolaou smear with manual screening 18 U/L 15-37 [facility] Thin prep Papanicolaou smear with manual screening 3 5-15 [facility] Absolute lymphocyte countOrd ered By: Ashu Estrada on 12-11-2023 Lymphocytes Auto (Unsp spec) [#/Vol] 2.04 10*3/uL 0.83-4.51 [facility] Automated lymphocyte count a s percentage of total leukocytesOrdered By: Ashu Estrada on 12-11-2023 Lymphocytes/100 WBC Auto (Unsp spec) 25.3 % 19-41 [facility] Basophil percentageOrdered B y: Ashu Estrada on 12-11-2023 Basophils/100 WBC (Bld) 0.9 % 0-1 [facility] Chloride [Moles/Vol] 111 mmol/L 98-107 [facility] Eosinophils/100 WBC (Bld) 4.0 % 0-5 [facility] Glucose [Mass/Vol] 97 mg/dL 74-106 [facility] Hemoglobin (Bld) [Mass/Vol] 12.9 g/dL 13.0-16.5 [facility] Lactate [Moles/Vol] 1.0 mmol/L 0.4-2.0 [facility] Monocytes/100 WBC (Bld) 10.5 % 0-10 [facility] Neutrophils (Bld) [#/Vol] 4.8 10*3/uL 2.0-7.7 [facility] Neutrophils/100 WBC (Bld) 58.9 % 47-70 [facility] Potassium [Moles/Vol] 4.0 mmol/L 3.5-5.1 [facility] Sodium [Moles/Vol] 140 mmol/L 136-145 [facility] WBC (Bld) [#/Vol] 8.1 10*3/uL 4.4-11.0 [facility] Determination of erythrocyte mean corpuscular volume (MCV)Ordered By: Ashu Estrada on 12-11-2023 MCV (RBC) [Entitic vol] 90.4 fL 80-94 [facility] Erythrocyte distribution wid th ratioOrdered By: Ashu Estrada on 12-11-2023 Erythrocyte distribution width (RBC) [Ratio] 13.9 % 11.6-14.6 [facility] Erythrocyte distribution wid th standard deviationOrdered By: Ashu Estrada on 12-11-2023 Erythrocyte distribution width (RBC) [Entitic vol] 46.0 fL 35.1-43.9 [facility] Erythrocyte sedimentation ra teOrdered By: Ashu Estrada on 12-11-2023 ESR (Bld) [Velocity] 20 mm/h 0-20 [facility] Hematocrit Auto (Bld) [Volum e fraction]Ordered By: Ashu Estrada on 12-11-2023 Hematocrit (Bld) [Volume fraction] 38.4 % 40-54 [facility] Immature granulocytes/100 WB C Auto (Bld)Ordered By: Ashu Estrada on 12-11-2023 Immature granulocytes/100 WBC (Bld) 0.400 % 0.0-0.9 [facility] Comment on above: IG% - Immature Granu locytes (promyelocytes, myelocytes and metamyelocytes) > 1% indicates that a LEFT SHIFT is Present. Laboratory - Chemistry and C hemistry - challengeOrdered By: Ashu Estrada on 04-13-2024 CO2 [Moles/Vol] 24.0 mmol/L 21.0-32.0 [facility] Urea nitrogen/Creatinine [Mass ratio] 13.4 mg/mg 10-20 [facility] Laboratory - Hematology and Cell countsOrdered By: Ashu Estrada on 12-11-2023 MCH (RBC) [Entitic mass] 30.4 pg 27.0-32.0 [facility] MCHC (RBC) [Mass/Vol] 33.6 g/dL 32-36 [facility] Nucleated RBC/100 WBC (Bld) [Ratio] 0 % 0-5 [facility] Platelet mean volume (Bld) [Entitic vol] 10.3 fL 6.2-12.0 [facility] Platelets (Bld) [#/Vol] 240 10*3/uL 150-450 [facility] No Panel InformationOrdered By: Ashu Estrada on 12-11-2023 C-Reactive Protein Extended Range 15.30 mg/L 0.0-3.0 [facility] Comment on above: C-Reactive Protein ( CRP) provides useful information for thediagnosis, therapy and monitoring of inflammatory processesand associated diseases. For the evaluation of Relative Riskfor Cardiovascular Disease, a High Sensitivity CRP (HSCRP)should be ordered. Estimated Creatinine Clearance Calc 103.70 ml/min [facility] Estimated GFR (MDRD) Amer 84 mL/min >60 [facility] Comment on above: GFR Calc Estimated GFR (MDRD) Non-Af Amer 70 mL/min >60 [facility] Comment on above: Non- GFR Calc RBC Auto (Bld) [#/Vol]Ordere d By: Ashu Estrada on 12-11-2023 RBC (Bld) [#/Vol] 4.25 10*6/uL 4.6-6.2 [facility] Serum or plasma calcium madeline urement (mass/volume)Ordered By: Ashu Estrada on 12-11-2023 Calcium [Mass/Vol] 8.6 mg/dL 8.5-10.1 [facility] Serum or plasma creatinine m easurement (mass/volume)Ordered By: Ashu Estrada on 12-11-2023 Creatinine [Mass/Vol] 1.12 mg/dL 0.70-1.30 [facility] Comment on above: The validity of the calculated GFR & GFRAA in patients over 70 years has not been determined. Clinical correlation is essential. Serum or plasma urea nitroge n measurement (mass/volume)Ordered By: Ashu Estrada on 12-11-2023 Urea nitrogen [Mass/Vol] 15 mg/dL 7-18 [facility] Thin prep Papanicolaou smear with manual screeningOrdered By: Ashu Estrada on 12-11-2023 Thin prep Papanicolaou smear with manual screening 5 5-15 [facility] Absolute lymphocyte countOrd ered By: Jignesh Culver on 12-09-2023 Lymphocytes Auto (Unsp spec) [#/Vol] 1.93 10*3/uL 0.83-4.51 [facility] Automated lymphocyte count a s percentage of total leukocytesOrdered By: Jignesh Culver on 12-09-2023 Lymphocytes/100 WBC Auto (Unsp spec) 21.0 % 19-41 [facility] Basophil percentageOrdered B y: Jignesh Culver on 12-09-2023 Basophils/100 WBC (Bld) 0.7 % 0-1 [facility] Chloride [Moles/Vol] 113 mmol/L 98-107 [facility] Eosinophils/100 WBC (Bld) 3.2 % 0-5 [facility] Glucose [Mass/Vol] 104 mg/dL 74-106 [facility] Comment on above: Fasting Glucose resu lt from 100 to 125 mg/dL suggests IMPAIRED HOMEOSTASIS per A.D.A. criteria. Hemoglobin (Bld) [Mass/Vol] 13.4 g/dL 13.0-16.5 [facility] Lactate [Moles/Vol] 1.3 mmol/L 0.4-2.0 [facility] Monocytes/100 WBC (Bld) 12.5 % 0-10 [facility] Neutrophils (Bld) [#/Vol] 5.7 10*3/uL 2.0-7.7 [facility] Neutrophils/100 WBC (Bld) 62.2 % 47-70 [facility] Potassium [Moles/Vol] 3.8 mmol/L 3.5-5.1 [facility] Sodium [Moles/Vol] 142 mmol/L 136-145 [facility] WBC (Bld) [#/Vol] 9.2 10*3/uL 4.4-11.0 [facility] Determination of erythrocyte mean corpuscular volume (MCV)Ordered By: Ijgneshyasemin Culver on 12-09-2023 MCV (RBC) [Entitic vol] 89.9 fL 80-94 [facility] Erythrocyte distribution wid th ratioOrdered By: Jignesh Culver on 12-09-2023 Erythrocyte distribution width (RBC) [Ratio] 14.2 % 11.6-14.6 [facility] Erythrocyte distribution wid th standard deviationOrdered By: Jignesh Culver on 12-09-2023 Erythrocyte distribution width (RBC) [Entitic vol] 46.8 fL 35.1-43.9 [facility] Erythrocyte sedimentation ra teOrdered By: Jignesh Culver on 12-09-2023 ESR (Bld) [Velocity] 24 mm/h 0-20 [facility] Hematocrit Auto (Bld) [Volum e fraction]Ordered By: Jigneshyasemin Culver on 12-09-2023 Hematocrit (Bld) [Volume fraction] 39.2 % 40-54 [facility] Immature granulocytes/100 WB C Auto (Bld)[facility] Immature granulocytes/100 WBC (Bld) 0.400 % 0.0-0.9 [facility] Comment on above: IG% - Immature Granu locytes (promyelocytes, myelocytes and metamyelocytes) > 1% indicates that a LEFT SHIFT is Present. Laboratory - Chemistry and C hemistry - challengeOrdered By: Jigneshyasemin Culver on 12-09-2023 CO2 [Moles/Vol] 26.0 mmol/L 21.0-32.0 [facility] Urea nitrogen/Creatinine [Mass ratio] 15.9 mg/mg 10-20 [facility] Laboratory - Hematology and Cell countsOrdered By: Jigneshyasemin Culver on 12-09-2023 MCH (RBC) [Entitic mass] 30.7 pg 27.0-32.0 [facility] MCHC (RBC) [Mass/Vol] 34.2 g/dL 32-36 [facility] Nucleated RBC/100 WBC (Bld) [Ratio] 0 % 0-5 [facility] Platelet mean volume (Bld) [Entitic vol] 10.3 fL 6.2-12.0 [facility] Platelets (Bld) [#/Vol] 226 10*3/uL 150-450 [facility] No Panel InformationOrdered By: Jignesh Culver on 12-09-2023 Estimated Creatinine Clearance Calc 104.89 ml/min [facility] Estimated GFR (MDRD) Amer 89 mL/min >60 [facility] Comment on above: GFR Calc Estimated GFR (MDRD) Non-Af Amer 73 mL/min >60 [facility] Comment on above: Non- GFR Calc RBC Auto (Bld) [#/Vol]Ordere d By: Jignesh Culver on 12-09-2023 RBC (Bld) [#/Vol] 4.36 10*6/uL 4.6-6.2 [facility] Serum or plasma calcium madeline urement (mass/volume)Ordered By: Jignesh Culver on 12-09-2023 Calcium [Mass/Vol] 8.8 mg/dL 8.5-10.1 [facility] Serum or plasma creatinine m easurement (mass/volume)Ordered By: Jignesh Culver on 12-09-2023 Creatinine [Mass/Vol] 1.07 mg/dL 0.70-1.30 [facility] Comment on above: The validity of the calculated GFR & GFRAA in patients over 70 years has not been determined. Clinical correlation is essential. Serum or plasma urea nitroge n measurement (mass/volume)Ordered By: Jigneshyasemin Culver on 12-09-2023 Urea nitrogen [Mass/Vol] 17 mg/dL 7-18 [facility] Thin prep Papanicolaou smear with manual screeningOrdered By: Jigneshyasemin Culver on 12-09-2023 Thin prep Papanicolaou smear with manual screening 3 5-15 [facility] Basophil percentageon 2021 Bilirubin [Mass/Vol] 0.60 mg/dL 0.20-1.00 [facility] Work Phone: Comment on above: For patients on eltr ombopag therapy, use of Dimension Greig TBIL is not recommended. Cholesterol [Mass/Vol] 92 mg/dL <200 [facility] Work Phone: Comment on above: <200 mg/dL Desirable 200-240 mg/dL Borderline >240 mg/dL High Risk Protein [Mass/Vol] 7.0 g/dL 6.4-8.2 [facility] Work Phone: [phone] Triglyceride [Mass/Vol] 218 mg/dL <199 [facility] Work Phone: [phone] Comment on above: The drugs N-Acetylcy steine and Metamizole may falsely depress this assay.Serum Triglycerides Reference Interval Normal <150 mg/dL Borderline high 150 - 199 mg/dL High 200 - 499 mg/dL Very High > or = 500 mg/dL Direct bilirubinon Bilirubin.direct [Mass/Vol] 0.14 mg/dL 0.00-0.30 [facility] Work Phone: [phone] Laboratory - Chemistry and C hemistry - challengeon 05-21-2022 ALP [Catalytic activity/Vol] 83 U/L 45-117 [facility] Work Phone: [phone] ALT [Catalytic activity/Vol] 38 U/L 16-61 [facility] Work Phone: [phone] Globulin (S) [Mass/Vol] 3.3 g/dL 2.2-4.2 [facility] Work Phone: [phone] Serum or plasma albumin madeline urement (mass/volume)on 05-21-2022 Albumin [Mass/Vol] 3.7 g/dL 3.2-5.0 [facility] Work Phone: [phone] Serum or plasma cholesterol in HDL measurement (mass/volume)on 05-21-2022 Cholesterol in HDL [Mass/Vol] 32 mg/dL >40 [facility] Work Phone: [phone] Comment on above: The drugs N-Acetylcy steine and Metamizole may falsely depress this assay. Reference Range HDL <40 mg/dL Low HDL Cholesterol HDL >or= 60 mg/dL High HDL Cholesterol Serum or plasma cholesterol in VLDL measurement (mass/volume)on 05-21-2022 Cholesterol in VLDL [Mass/Vol] 44 mg/dL 5-40 [facility] Work Phone: Serum or plasma low density lipoprotein (LDL) cholesterol measurement (mass/volume)on 05-21-2022 Cholesterol in LDL [Mass/Vol] 16 mg/dL 0-130 [facility] Work Phone: Thin prep Papanicolaou smear with manual screeningon 05-21-2022 Thin prep Papanicolaou smear with manual screening 22 U/L 15-37 [facility] Work Phone: Otheron 02-20-2020 Please click on the link to view the study images Normal [facility] Work Phone: Basic Metabolic Panelon 01-29 Anion gap [Moles/Vol] 10 mmol/L Normal 9-18 [facility] Comment on above: Performed By: #### B MP ####[facility] [place], [place] [address] Calcium [Mass/Vol] 8.6 mg/dL Normal 8.5-10.2 [facility] Comment on above: Performed By: #### B MP ####[facility] [place], [place] [address] Chloride [Moles/Vol] 105 mmol/L Normal 97-105 [facility] Comment on above: Performed By: #### B MP ####[facility] [place], [place] [address] CO2 Blood 24 mmol/L Normal 22-30 [facility] Comment on above: Performed By: #### B MP ####[facility] [place], [place] [address] Creatinine [Mass/Vol] 0.97 mg/dL Normal 0.73-1.22 [facility] Comment on above: Performed By: #### B MP ####[facility] [place], [place] [address] Glucose [Mass/Vol] 99 mg/dL Normal 74-99 [facility] Comment on above: Result Comment: The [place] Diabetes Association (ADA) provides guidance for cutoff values for fasting glucose and random glucose. The ADA defines fasting as no caloric intake for at least 8 hours.Fasting plasma glucose results between 100 to 125 mg/dL indicate increased risk for diabetes (prediabetes). Fasting plasma glucose results greater than or equal to 126 mg/dL meet the criteria for diagnosis of diabetes. In the absence of unequivocal hyperglycemia, results should be confirmed by repeat testing. In a patient with classic symptoms of hyperglycemia or hyperglycemic crisis, random plasma glucose results greater than or equal to 200 mg/dL meet the criteria for diagnosis of diabetes. Reference: Standards of Medical Care in Diabetes 2016; [place] Diabetes Association. Diabetes Care. 2016;39(Suppl 1). Performed By: #### B MP ####[address] [address] Potassium [Moles/Vol] 4.0 mmol/L Normal 3.7-5.1 [facility] Comment on above: Performed By: #### B MP ####[address] [address] Sodium [Moles/Vol] 139 mmol/L Normal 136-144 [facility] Comment on above: Performed By: #### B MP ####[address] [address] Urea nitrogen [Mass/Vol] 10 mg/dL Normal 9-24 [facility] Comment on above: Performed By: #### B MP ####[address] [address] CASE MANAGEMon 02-17-2020 CASE MANAGEM HNO ID: [id number] Author: Jenna Arthur RN Service: Care Management Author Type: Registered Nurse Type: Care Mgt Progress Note Filed: 02/17/2020 7:16 AM Note Text: CARE MANAGEMENT PROGRESS NOTE SERVICE DATE: 02/17/2020 SERVICE TIME: 7:14 AM LOS: 1 day Chart reviewed. Patient from home with spouse. Per PT eval, recommend return home. Plan is return home when medically ready. Family can transport. SIGNATURE: Jenna Arthur RN PATIENT NAME: Jessica Acuña DATE: February 17, 2020 TIME: 7:14 AM PAGER/CONTACT #: [phone] Normal [facility] Glucose Meteron 02-17-2020 Glucose [Mass/Vol] 177 mg/dL High 70-99 [facility] Comment on above: Result Comment: RN N OTIFIED Performed By: #### G LMET ####[facility] [place] [address] Hemogram/Diffon 02-17-2020 Abs Immature Grans 0.02 thou/cmm Normal 0.00-0.05 [facility] Comment on above: Performed By: #### C BCD1 #### [facility] [place] [address] Abs Neut (ANC) 5.14 thou/cmm Normal 1.78-5.38 [facility] Comment on above: Performed By: #### C BCD1 #### [facility] [place] [address] Abs. Baso 0.04 thou/cmm Normal 0.01-0.08 [facility] Comment on above: Performed By: #### C BCD1 #### [place] [address] Abs. Coal 0.93 thou/cmm High 0.30-0.82 [facility] Comment on above: Performed By: #### C BCD1 #### [place] [address] Basophils/100 WBC (Bld) 0.5 % Normal [facility] Comment on above: Performed By: #### C BCD1 #### [place] [address] Eosinophils (Bld) [#/Vol] 0.26 thou/cmm Normal 0.04-0.54 [facility] Comment on above: Performed By: #### C BCD1 #### [facility] [place] [address] Eosinophils/100 WBC (Bld) 3.3 % Normal [facility] Comment on above: Performed By: #### C BCD1 #### [facility] [place] [address] Erythrocyte distribution width (RBC) [Ratio] 15.0 % High 11.6-14.4 [facility] Comment on above: Performed By: #### C BCD1 #### [place] [address] Hematocrit (Bld) [Volume fraction] 38.2 % Low 40.1-51.0 [facility] Comment on above: Performed By: #### C BCD1 #### [facility] [place] [address] Hemoglobin (Bld) [Mass/Vol] 12.6 g/dL Low 13.7-17.5 [facility] Comment on above: Performed By: #### C BCD1 #### [facility] [place] [address] Immature Grans 0.30 % Normal [facility] Comment on above: Performed By: #### C BCD1 #### [facility] [place] [address] Lymphocytes (Bld) [#/Vol] 1.53 thou/cmm Normal 0.84-2.85 [facility] Comment on above: Performed By: #### C BCD1 #### [place] [address] Lymphocytes/100 WBC (Bld) 19.3 % Normal [facility] Comment on above: Performed By: #### C BCD1 #### [place] [address] MCH (RBC) [Entitic mass] 30.5 pg Normal 25.7-32.2 [facility] Comment on above: Performed By: #### C BCD1 #### [place] [address] MCHC (RBC) [Mass/Vol] 33.0 % Normal 32.3-36.5 [facility] Comment on above: Performed By: #### C BCD1 #### [facility] [place] [address] MCV (RBC) [Entitic vol] 92.5 fL Normal 83.2-95.6 [facility] Comment on above: Performed By: #### C BCD1 #### [place] [address] Monocytes/100 WBC (Bld) 11.7 % Normal [facility] Comment on above: Performed By: #### C BCD1 #### [facility] [place] [address] Platelet mean volume (Bld) [Entitic vol] 10.6 fL Normal 8.7-12.0 [facility] Comment on above: Performed By: #### C BCD1 #### [facility] [place], [place] [address] Platelets (Bld) [#/Vol] 181 thou/cmm Normal 141-365 [facility] Comment on above: Performed By: #### C BCD1 #### [facility] [place] [address] RBC (Bld) [#/Vol] 4.13 mil/cmm Low 4.63-6.08 [facility] Comment on above: Performed By: #### C BCD1 #### [place] [address] RDW SD 50.6 fl High 36.1-45.8 [facility] Comment on above: Performed By: #### C BCD1 #### [facility] [place] [address] Seg Neutrophil 64.9 % Normal [facility] Comment on above: Performed By: #### C BCD1 #### [facility] [place] [address] WBC (Bld) [#/Vol] 7.92 thou/cmm Normal 4.23-9.07 [facility] Comment on above: Performed By: #### C BCD1 #### [facility] [place] [address] MDRD GFRon 02-17-2020 GFR/1.73 sq M predicted among non-blacks MDRD (S/P/Bld) [Vol rate/Area] mL/min/{1.73_m2} Normal >60mL/min/1.7 3m2 [facility] Comment on above: Result Comment: If t he patient is , multiply the result by 1.210. Performed By: #### G FR #### [place] [address] PROGRESSon 02-17-2020 PROGRESS HNO ID: [id number] Author: Geoff Ambrocio Service: General Surgery Author Type: Physician Type: Progress Notes Filed: 02/17/2020 9:54 AM Note Text: Trauma Progress Note SERVICE DATE: 02/17/2020 SUBJECTIVE: NAEON. He is tolerating a diet and passing flatus. He again denies any N/V, ABD pain, dizziness, fevers, chills, or cough. He is asking if he can go home today. He is ambulating on his own. He denies any SOB, ABD pain, N/V, fevers, chills, or cough. OBJECTIVE: Vitals: Temp (24hrs), Av.6 ?C (97.9 ?F), Min:36.4 ?C (97.5 ?F), Max:36.9 ?C (98.4 ?F) BP 133/81 Pulse 67 Temp 36.9 ?C (98.4 ?F) (Oral) Resp 16 Ht 185.4 cm (6' 1") Wt (!) 145.2 kg (320 lb) SpO2 94% BMI 42.22 kg/m? O2 Therapy: Room Air IANDO: Date 02/16/20 07 - 02/17/20 0659 02/17/20 07 - 02/18/20 0659 Shift 7960-5766 0650-9760 0349-4005 24 Hour Total 7418-2281 5793-4464 5894-1087 24 Hour Total INTAKE PO 386 386 PO 386 386 Shift Total 386 386 OUTPUT Urine Urine Not Saved. 1 x 1 x 2 x Shift Total Weight (kg) 145.1 145.1 145.1 145.1 145.1 145.1 145.1 145.1 MEDICATIONS Current Facility-Administered Medications Medication Dose Route Frequency - calcium carbonate 500 mg chewable tab(s) (TUMS) 500 mg ORAL BID PRN - enoxaparin 40 mg injection (LOVENOX) 40 mg SUBCUTANEOUS q 12 HR - atorvastatin 80 mg tab(s) (LIPITOR) 80 mg ORAL AT BEDTIME - lisinopril 5 mg tab(s) (ZESTRIL, PRINIVIL) 5 mg ORAL DAILY - metoprolol tartrate (short acting) 50 mg tab(s) (LOPRESSOR) 50 mg ORAL BID - amLODIPine 10 mg tab(s) (NORVASC) 10 mg ORAL DAILY - clopidogrel 75 mg tab(s) (PLAVIX) 75 mg ORAL DAILY - senna-docusate 8.6-50 mg 1 tablet (SENNA-S) 1 tablet ORAL BID - cyclobenzaprine 5 mg tab(s) (FLEXERIL) 5 mg ORAL TID - aspirin 81 mg chewable tab(s) 81 mg ORAL DAILY - ipratropium-albuterol 3 mL nebulizer solution (DUONEB) 3 mL INHALATION q 4 H while awake - acetaminophen 975 mg tab(s) (TYLENOL) 975 mg ORAL q 6 H - oxyCODONE IR 5-10 mg tab(s) (ROXICODONE) 5-10 mg ORAL q 6 H PRN - morphine 4 mg injection 4 mg INTRAVENOUS q 4 H PRN - lidocaine 4 % 1 Patch (SALONPAS) 1 Patch TRANSDERMAL DAILY AT 9 PM And - lidocaine patch - REMOVE OTHER DAILY And - lidocaine - VERIFY PATCH OTHER q 8 H Labs: Recent Labs 02/17/20 0642 02/16/20 0454 NA 139 141 K 4.0 4.1 CHLOR 105 106* CO2 24 23 BUN 10 14 CREAT 0.97 1.01 GLUC 99 112* ANION 10 12 CA 8.6 8.8 WBC 7.92 10.06* HB 12.6* 13.6* HCT 38.2* 39.8* PLT 181 229 PHYSICAL EXAM: Genl: Appears age appropriate. No acute distress. Resting comfortably. Head/Face: Normocephalic. Atraumatic. Eyes: EOMI. Sclera not icteric, not injected Resp: Lung sounds are clear bilat. No wheezes. No rales. Breathing is non-labored on RA @94%. + TTP of left lateral chest wall without crepitus. CVS: RRR as above; 2+ pulses at RA, DP, PT bilat. GI: Abdomen is soft, non-tender, not distended. Bowel sounds normoactive. No peritonitis. Obese. MSK: Extremities without clubbing, cyanosis, edema. Normal ROM x 4. Mild bruising with some TTP of his right forearm. Skin: Warm and dry. Not jaundiced. Some mild abrasions of his BLE. Neuro: AANDOx3. Strength and sensation normal. GAMBOA. GCS15. Psych: Normal mood. Normal affect. Appropriate insight into current situation. ASSESSMENT AND PLAN: Active Hospital Problems Diagnosis Date Noted - Fall 02/16/2020 - Multiple fractures of ribs, left side, initial encounter for closed fracture 02/16/2020 - Left Traumatic pneumothorax 02/16/2020 - Essential hypertension, benign 02/16/2020 Chronic - Hyperlipidemia Chronic - Trauma 02/15/2020 65 year old male s/p fall from ladder on 02/15/2020. Imaging performed: 1. CT H/N/C/A/P on 02/14 2. CXR, PXR, Right wrist and Right elbow XR's on 02/14 3. 2 view CXR on 02/14 4. 2 view CXR on 02/15 5. MRI left hip on 02/15 Traumatic Injuries: 1. Left rib fractures 3, 4, and 5 2. Small left pneumothorax Operations/Procedures: 1. None at this time Care Plan: 1. Multiple left rib fractures with small left traumatic pneumothorax: 1. Continue multimodal pain control 2. Continue aggressive pulmonary hygiene with IS/EZPAP/DUONEBS/BRONCH IAL HYGIENE 3. Repeat 2 view CXR completed this morning showing no definite pneumothorax 4. No chest tube at this time 5. Okay for DC home 2. Left hip soft tissue mass: 1. MRI with contrast ordered - completed but the read is pending 2. WBAT LLE 3. Continue as ordered home medications 4. PT/OT evaluations 5. Current diet order: DIET REGULAR 6. Pain regimen: Scheduled Tylenol, Flexeril, and Lidoderm patch; PRN Roxicodone and Morphine 7. Bowel regimen: Senna-S BID 8. Labs: 1. Hg 12.6 from 13.6 2. WBC 7.92 from 10.06 3. Cr. 0.97 from 1.01 PPX: 1. DVT: SCD's, mobilize order, Lovenox 40 mg q 12 2. Ulcer: n/a 3. Vit D level if > 65 yo: n/a Consulted Services and Recommendations: 1. None at this time Dispo Plannin. PT/OT recs home. Case management following. Plan for DC home today. Incidentals: 1. Soft tissue mass extending into his medial acetabular wall (left) Follow Up Needs: 1. PCP for soft tissue mass finding Staff Trauma Surgeon: Dr. Chiang Trauma Service Pager: For questions or concerns Mon-Fri 6a-5p please page [phone]. After 5pm and on Weekends and Holidays, please page [phone] if in ICU or [phone] if on RNF. SIGNATURE: Geoff Ambrocio PA-C PATIENT NAME: Jessica Acuña DATE: February 17, 2020 TIME: 9:54 AM Pager: [phone] (text, page, or call) [facility] THERAPY NTon 02-17-2020 THERAPY NT HNO ID: [id number] Author: Magnolia (Otr/L) Hayden Service: Occupational Therapy Author Type: Occupational Therapist Type: Therapy (PT/OT/Speech/Resp) Filed: 02/17/2020 11:53 AM Note Text: OCCUPATIONAL THERAPY MISSED VISIT SERVICE DATE: 02/17/2020 SERVICE TIME: 1143 to 1143 ROOM: [place] [address] Attempted Evaluation. Patient not seen due to Declined.Chart reviewed, PT reports SBA for mobility. Education provided in role of OT in acute hospital setting to facilitate safety and participation in self-care tasks with assisting with discharge planning. Patient reports independence with everything except[t supine to sit, states he sleeps in recliner. OT to sign off at this time. Re-consult with any new concerns. SIGNATURE: Magnolia Blake, OTR/L PATIENT NAME: Jessica Acuña DATE: February 17, 2020 TIME: 11:51 AM [facility] ALLIED HEALTHon 02-16-2020 ALLIED HEALTH HNO ID: [id number] Author: Suri (Student) Mary Ann Live Service: Spiritual Care Author Type: Student Type: Allied Health Filed: 02/16/2020 1:26 PM Note Text: Summary: Spiritual Care SPIRITUAL CARE PROGRESS NOTE SERVICE DATE: 02/16/2020 SERVICE TIME: 1:24pm As chemist biological I attempted to contact pt by phone but received no answer. Will try again as able. To contact the Spiritual Care Department: Please call [phone]. SIGNATURE: Mary Ann Gagnon PATIENT NAME: Jessica Acuña DATE: February 16, 2020 TIME: 1:25 PM PAGER/CONTACT #: [phone] [facility] Basic Metabolic Panelon 06-1 Anion gap [Moles/Vol] 12 mmol/L Normal 9-18 [facility] Comment on above: Performed By: #### B MP #### [facility] [place], [place] [address] Calcium [Mass/Vol] 8.8 mg/dL Normal 8.5-10.2 [facility] Comment on above: Performed By: #### B MP #### [facility] [place], [place] [address] Chloride [Moles/Vol] 106 mmol/L High 97-105 [facility] Comment on above: Performed By: #### B MP #### [facility] [place], [place] [address] CO2 Blood 23 mmol/L Normal 22-30 [facility] Comment on above: Performed By: #### B MP #### [facility] [place], [place] [address] Creatinine [Mass/Vol] 1.01 mg/dL Normal 0.73-1.22 [facility] Comment on above: Performed By: #### B MP #### [facility] [place], [place] [address] Glucose [Mass/Vol] 112 mg/dL High 74-99 [facility] Comment on above: Result Comment: The [place] Diabetes Association (ADA) provides guidance for cutoff values for fasting glucose and random glucose. The ADA defines fasting as no caloric intake for at least 8 hours.Fasting plasma glucose results between 100 to 125 mg/dL indicate increased risk for diabetes (prediabetes). Fasting plasma glucose results greater than or equal to 126 mg/dL meet the criteria for diagnosis of diabetes. In the absence of unequivocal hyperglycemia, results should be confirmed by repeat testing. In a patient with classic symptoms of hyperglycemia or hyperglycemic crisis, random plasma glucose results greater than or equal to 200 mg/dL meet the criteria for diagnosis of diabetes. Reference: Standards of Medical Care in Diabetes 2016; [place] [employer]. Diabetes Care. 2016;39(Suppl 1). Performed By: #### B MP #### [facility] [place], [place] [address] Potassium [Moles/Vol] 4.1 mmol/L Normal 3.7-5.1 [facility] Comment on above: Performed By: #### B MP #### [facility] [place] [address] Sodium [Moles/Vol] 141 mmol/L Normal 136-144 [facility] Comment on above: Performed By: #### B MP #### [facility] [place] [id number] Urea nitrogen [Mass/Vol] 14 mg/dL Normal 9-24 [facility] Comment on above: Performed By: #### B MP #### [place] [address] Coronavirus 2019on 0 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 This test was developed and its performance characteristics determined by [facility]'s [facility] Pathology and Laboratory Medicine [place]. This test has been authorized by FDA under an Emergency Use Authorization (EUA). This test has been validated in accordance with the FDA's Guidance Document Policy for Diagnostics Testing in Laboratories Certified to Perform High Complexity Testing under CLIA prior to Emergency use Authorization for Coronavirus Disease 2019 during the Public Health Emergency" issued on October 28, 2019. Performing Laboratory: Performed By: #### C D19X #### [place] [address] Hemogramon 02-16-2020 Erythrocyte distribution width (RBC) [Ratio] 15.0 % High 11.6-14.4 [facility] Comment on above: Performed By: #### C BC1 #### [facility] [place] [address] Hematocrit (Bld) [Volume fraction] 39.8 % Low 40.1-51.0 [facility] Comment on above: Performed By: #### C BC1 #### [place] [id number] Hemoglobin (Bld) [Mass/Vol] 13.6 g/dL Low 13.7-17.5 [facility] Comment on above: Performed By: #### C BC1 #### [facility] [place] [address] MCH (RBC) [Entitic mass] 31.1 pg Normal 25.7-32.2 [facility] Comment on above: Performed By: #### C BC1 #### [facility] [place] [address] MCHC (RBC) [Mass/Vol] 34.2 % Normal 32.3-36.5 [facility] Comment on above: Performed By: #### C BC1 #### [facility] [place] [address] MCV (RBC) [Entitic vol] 91.1 fL Normal 83.2-95.6 [facility] Comment on above: Performed By: #### C BC1 #### [facility] [place] [address] Platelet mean volume (Bld) [Entitic vol] 10.7 fL Normal 8.7-12.0 [facility] Comment on above: Performed By: #### C BC1 #### [facility] [place] [address] Platelets (Bld) [#/Vol] 229 thou/cmm Normal 141-365 [facility] Comment on above: Performed By: #### C BC1 #### [facility] [address] [place] [address] RBC (Bld) [#/Vol] 4.37 mil/cmm Low 4.63-6.08 [facility] Comment on above: Performed By: #### C BC1 #### [facility] [address] [place] [address] RDW SD 50.2 fl High 36.1-45.8 [facility] Comment on above: Performed By: #### C BC1 #### [facility] [address] [place] [address] WBC (Bld) [#/Vol] 10.06 thou/cmm High 4.23-9.07 [facility] Comment on above: Performed By: #### C BC1 #### [facility] [place], [place] [address] MRI HIP WO/W IVCON LTon 06- MRI HIP WO/W IVCON LT * * *Final Report* * * DATE OF EXAM: Feb 16 2020 5:09PM DAVID 0208 - MRI HIP WO/W IVCON LT / PROCEDURE REASON: Mass or lump, hip * * * * Physician Interpretation * * * * MRI LEFT HIP WITHOUT AND WITH IV CONTRAST: CLINICAL INDICATION: Reported soft tissue mass left hip as seen on CT scan. COMPARISON: None. Serial large [id number] images are obtained of both hips in the coronal and axial planes with T1 weighting and STIR with small [id number] images obtained of the left hip in the sagittal plane with T1 weighting and modified sagittal plane with fat-saturated proton density weighting. Following the IV administration of gadolinium contrast material fat-saturated T1-weighted images repeated in all three planes. Contrast: 20 mL Dotarem IV Serial images demonstrate the presence of a lobular masslike synovial proliferative process of the left hip. The mass is isointense to muscle on precontrast T1-weighted images and heterogeneously intermediate-hyperinten se on fat-saturated PD and STIR images with areas of intermediate-hypointens e signal. There is no series obtained to assess for susceptibility artifact. The mass is predominantly isointense to muscle on postcontrast T1-weighted images demonstrating regions of thin internal and peripheral enhancement. The soft tissue mass extends inferomedial from the joint space anterior to the obturator foramen and inferior pubic ramus. The soft tissue mass measures 5 cm AP by 8 cm transverse by 6 cm craniocaudal anterior to the obturator foramen. There is lesser caudal extension of the proliferative mass subjacent to the iliacus muscle measuring maximal 1.5 cm AP by 4.5 cm transverse. There are associated erosive/remodeling changes involving the medial femoral head and medial and lateral femoral neck. There is widening of the medial hip joint space with severe narrowing of the superolateral joint space. There is frond-like tumor eroding/infiltrating the acetabulum. There is no associated marrow edema. There is no appreciable pathologic fracture. There is minimal fluid within the trochanteric bursa. There is severe narrowing along the superior lateral right hip joint space. The femoral head is unremarkable. There is minimal effusion. There are intact attachments of the iliopsoas and common hamstring tendons. There is no appreciable muscle atrophy or edema. There is no pelvic or inguinal lymphadenopathy. There is diverticulosis of the sigmoid colon. IMPRESSION: Masslike synovial proliferative process with lobular margins involving the left hip with associated erosive/remodeling changes of the femoral head/neck and acetabulum as described above. Differential considerations include diffuse form of pigmented villonodular synovitis, although there is no susceptibility sequence to confirm limiting artifact typically seen in PVNS. Radiograph correlation is required. Consultation with orthopedic oncologist is recommended. Chief Deputy Clerk/Bailiff: ASHLEY Transcribe Date/Time: Feb 17 2020 2:20P Dictated by : SOLANGE CONTRERAS MD This examination was interpreted and the report reviewed and electronically signed by: SOLANGE CONTRERAS MD on Feb 17 2020 9:53PM EST Normal [facility] MRI Hip w/wo Contraston 01-28 MR Hip WO and W contrast IV Please click on the link to view the study images Normal [email or web address] Work Phone: PROGRESSon 02-16-2020 PROGRESS HNO ID: [id number] Author: Geoff Guzman) Cristóbal Service: General Surgery Author Type: Physician Type: Progress Notes Filed: 02/16/2020 10:03 AM Note Text: Trauma Progress Note SERVICE DATE: 02/16/2020 SUBJECTIVE: Patient admitted yesterday after a fall off a ladder. This morning patient complains of left sided rib/chest wall pain. He currently denies any shortness of breath or difficulty breathing. He denies any LOC from the fall. He has been able to ambulate since admission. He is tolerating a diet and passing flatus. He denies any N/V, ABD pain, dizziness, fevers, chills, or cough. OBJECTIVE: Vitals: Temp (24hrs), Av.7 ?C (98 ?F), Min:36.4 ?C (97.6 ?F), Max:36.8 ?C (98.2 ?F) BP 111/71 Pulse 65 Temp 36.8 ?C (98.2 ?F) (Oral) Resp 18 Ht 185.4 cm (6' 1") Wt (!) 145.2 kg (320 lb) SpO2 94% BMI 42.22 kg/m? O2 Therapy: Room Air IANDO: Date 02/15/20 07 - 02/16/20 0659 02/16/20 07 - 02/17/20 0659 Shift 9558-4536 9322-6236 8055-7047 24 Hour Total 4925-8185 8902-9971 1244-1313 24 Hour Total INTAKE PO 150 150 150 150 PO 150 150 150 150 Shift Total 150 150 150 150 OUTPUT Urine Urine Not Saved. 2 x 2 x Shift Total Weight (kg) 145.1 145.1 145.1 145.1 145.1 145.1 145.1 MEDICATIONS Current Facility-Administered Medications Medication Dose Route Frequency - lisinopril 5 mg tab(s) (ZESTRIL, PRINIVIL) 5 mg ORAL DAILY - metoprolol tartrate (short acting) 50 mg tab(s) (LOPRESSOR) 50 mg ORAL BID - amLODIPine 10 mg tab(s) (NORVASC) 10 mg ORAL DAILY - clopidogrel 75 mg tab(s) (PLAVIX) 75 mg ORAL DAILY - senna-docusate 8.6-50 mg 1 tablet (SENNA-S) 1 tablet ORAL BID - cyclobenzaprine 5 mg tab(s) (FLEXERIL) 5 mg ORAL TID - aspirin 81 mg chewable tab(s) 81 mg ORAL DAILY - ipratropium-albuterol 3 mL nebulizer solution (DUONEB) 3 mL INHALATION q 4 H while awake - iv contrast (radiology procedure) INTRAVENOUS DIRECTED PRN - acetaminophen 975 mg tab(s) (TYLENOL) 975 mg ORAL q 6 H - oxyCODONE IR 5-10 mg tab(s) (ROXICODONE) 5-10 mg ORAL q 6 H PRN - morphine 4 mg injection 4 mg INTRAVENOUS q 4 H PRN - lidocaine 4 % 1 Patch (SALONPAS) 1 Patch TRANSDERMAL DAILY AT 9 PM And - lidocaine patch - REMOVE OTHER DAILY And - lidocaine - VERIFY PATCH OTHER q 8 H Labs: Recent Labs 02/16/20 0454 NA 141 K 4.1 CHLOR 106* CO2 23 BUN 14 CREAT 1.01 GLUC 112* ANION 12 CA 8.8 WBC 10.06* HB 13.6* HCT 39.8* PLT 229 PHYSICAL EXAM: Genl: Appears age appropriate. No acute distress. Resting comfortably. Head/Face: Normocephalic. Atraumatic. Eyes: EOMI. Sclera not icteric, not injected Neck: No mid-line masses. C-spine non-tender. Back: T AND L Spine non-tender, no step-offs or deformities noted. No flank tenderness. Resp: Lung sounds are clear bilat. No wheezes. No rales. Breathing is non-labored on RA @94%. + TTP of left lateral chest wall without crepitus. CVS: RRR as above; 2+ pulses at RA, DP, PT bilat. GI: Abdomen is soft, non-tender, not distended. Bowel sounds normoactive. No peritonitis. Obese. MSK: Extremities without clubbing, cyanosis, edema. Normal ROM x 4. Mild bruising with some TTP of his right forearm. Skin: Warm and dry. Not jaundiced. Some mild abrasions of his BLE. Neuro: AANDOx3. Strength and sensation normal. GAMBOA. GCS15. Psych: Normal mood. Normal affect. Appropriate insight into current situation. ASSESSMENT AND PLAN: Active Hospital Problems Diagnosis Date Noted - Fall 02/16/2020 - Multiple fractures of ribs, left side, initial encounter for closed fracture 02/16/2020 - Left Traumatic pneumothorax 02/16/2020 - Essential hypertension, benign 02/16/2020 Chronic - Hyperlipidemia Chronic - Trauma 02/15/2020 65 year old male s/p fall from ladder on 02/15/2020. Imaging performed: 1. CT H/N/C/A/P on 02/14 2. CXR, PXR, Right wrist and Right elbow XR's on 02/14 3. 2 view CXR on 02/14 Traumatic Injuries: 1. Left rib fractures 3, 4, and 5 2. Small left pneumothorax Operations/Procedures: 1. None at this time Care Plan: 1. Multiple left rib fractures with small left traumatic pneumothorax: 1. Continue multimodal pain control 2. Continue aggressive pulmonary hygiene with IS/EZPAP/DUONEBS/BRONCH IAL HYGIENE 3. Repeat 2 view CXR completed this morning showing no definite pneumothorax 4. No chest tube at this time 5. Will discuss with attending on rounds today 2. Left hip soft tissue mass: 1. MRI with contrast ordered - pending 2. WBAT LLE 3. Continue as ordered home medications 4. PT/OT evaluations pending 5. Current diet order: DIET REGULAR 6. Pain regimen: Scheduled Tylenol, Flexeril, and Lidoderm patch; PRN Roxicodone and Morphine 7. Bowel regimen: Senna-S BID 8. Labs: 1. Hg 13.6 2. WBC 10.06 3. Cr. 1.01 PPX: 1. DVT: SCD's, mobilize order, Lovenox 40 mg q 12 2. Ulcer: n/a 3. Vit D level if > 65 yo: n/a Consulted Services and Recommendations: 1. None at this time Dispo Plannin. PT/OT recs pending. Case management following. Incidentals: 1. Soft tissue mass extending into his medial acetabular wall (left) Follow Up Needs: 1. TBD Staff Trauma Surgeon: Dr. Chiang Trauma Service Pager: For questions or concerns Mon-Fri 6a-5p please page [phone]. After 5pm and on Weekends and Holidays, please page [phone] if in ICU or [phone] if on RNF. SIGNATURE: Geoff Ambrocio PA-C PATIENT NAME: Jessica Acuña DATE: February 16, 2020 TIME: 9:47 AM Pager: [phone] (text, page, or call) Normal [facility] THERAPY NTon 02-16-2020 THERAPY NT HNO ID: [id number] Author: Angelia (Pt) Fercho Service: Physical Therapy Author Type: Physical Therapist Type: Therapy (PT/OT/Speech/Resp) Filed: 02/16/2020 1:37 PM Note Text: Physical Therapy Evaluation SERVICE DATE: 02/16/2020 SERVICE TIME: 1040 to 1058 ROOM: [place] [id number] Recommended Discharge Disposition: Home Recommended Discharge Disposition Comments: anticipate home with assist of spouse at discharge Recommended Discharge Equipment: No equipment needs anticipated PT Recommendations to Nursing: Ambulate without device;To bathroom;In halls;Transfer to/from chair;OOB for Meals;With assist of 1 person Device: No Device PT 6 Clicks Score: 21 ASSESSMENT : This patient was admitted for fall, trauma, has the past medical history of HTN, obesity, back pain impacting current functional level, as well as the social factors complicating the discharge of stairs to enter home. This patient is below baseline functioning of independent without device and will benefit from continued skilled therapy in the hospital for treatment of the following body systems/impairments: musculoskeletal (strength, endurance, balance, safety awareness, gait, transfers, stairs, device management). Patient Disposition at Start of Session: Supine in Bed;Call Doran in Reach Patient Disposition at End of Session: Supine in Bed;Call Doran in Reach Tolerated Full Session Physical Therapy Problem List: Education Deficit;Pain;Decreased Activity Tolerance;Functional Mobility Impairment Patient /Caregiver Goals: Go Home Goals for Plan of Care: Transfer supine to/from sit with: Independent Transfer sit to/from stand with: Independent Ambulate with: Independent Distance: 200ft intervals Device: No Device Ambulate up and down steps with: Independent Number of steps: 4 Device: Rail Rehab Potential: Good PLAN: Treatment Frequency (times per week): 3(1-3) Current admission Treatment Interventions: Education;Functional Mobility Training;Balance Training;Pain Management Plan of Care developed with: Patient TREATMENT INTERVENTIONS: Therapy Diagnosis: Reduced mobility-other;General symptoms and signs-other Interventions Provided: Evaluation;Therapeutic Activity (99977) $ Evaluation-Moderate (91898) Billed Units: 1 unit History and examination of body systems see assessment section above. This patient?s clinical presentation is evolving. The patient required a moderate complexity evaluation. Therapeutic Activity (69148) Treatment Minutes: 3 Skilled Intervention(s): Education on use of firm pillow to splint ribs during mobility/cough/sneeze/d eep breathing. Education to begin walking program, ambulation in parks TID with assist. Ambulation in parks, SpO2 maintains > 92%. Total Timed Code Treatment Minutes: 3 Total Treatment Time (minutes): 18 SUBJECTIVE: Current Hospital Course: Chart reviewed; Patient admitted after fall from ladder, rib fractures. Traumatic Injuries: 1. Left 3-4 rib fxs 2. Small left PTX Reason for Physical Therapy Consult : eval and treat Relevant Past Medical History: HTN, back pain, obesity Patient Report: Pleasant and agreeable to physical therapy. Home Environment Patient Lives With: Spouse Assistance Available: 24 Hour Entry To Home: Stairs;With Rail Number Of Stairs Into Home: 2 Number Of Stairs To Bed/Bath: can stay on main level Prior Functional Level: Within Functional Limits Prior Functional Level Comments: independent in mobility/ADLs/iADLs without device OBJECTIVE: Range of Motion: Lower Extremity Comments Right Lower Extremity ROM Comments: WFL Left Lower Extremity ROM Comments: WFL Strength: Lower Extremity Comments Right Lower Extremity Strength Comments: WFL Left Lower Extremity Strength Comments: WFL CURRENT FUNCTIONAL STATUS: Current Functional Mobility Assist Level Additional Information Rolling Supine to Sit Minimal Assistance Sit to Supine Minimal Assistance Scooting Stand By Assistance Sit to Stand Stand By Assistance Stand to Sit Stand By Assistance Bed to Chair Toilet/Commode Gait Stand By Assistance Gait Device: None Gait Distance (feet): [id number] Stairs Contact Guard Assistance Stairs Device: Rail Number of Stairs: 4 Curb Step Car Transfer General Deviations/Observations : Helen decreased;Lateral sway increased;Step length decreased Balance: Static Sitting;Dynamic Sitting;Static Standing;Dynamic Standing Static Sitting Balance: Good Patient able to maintain balance without handhold support, limited postural sway Dynamic Sitting Balance: Good Patient accepts moderate challenge, able to maintain balance while picking up object off floor Static Standing Balance: Good Patient able to maintain balance without handhold support, limited postural sway Dynamic Standing Balance: Fair Patient accepts minimal challenge, able to maintain balance while turning head/trunk -HLM: 8: Walk 250 feet or more Please see discipline specific clinical documentation flowsheet for complete details for this therapy evaluation/treatment. SIGNATURE: Angelia Brantley PT PATIENT NAME: Jessica Acuña DATE: February 16, 2020 TIME: 1:34 PM Normal [facility] XR CHEST 2V FRONTAL/LATon XR CHEST 2V FRONTAL/LAT * * *Final Report* * * DATE OF EXAM: Feb 16 2020 8:22AM AKX [id number] - XR CHEST 2V FRONTAL/LAT / PROCEDURE REASON: Chest trauma, blunt * * * * Physician Interpretation * * * * EXAMINATION: CHEST RADIOGRAPH (2 VIEW FRONTAL & LATERAL) CLINICAL HISTORY: Chest trauma, blunt MQ: [id number] EXAM DATE/TIME: 02/16/2020 8:22 AM COMPARISON: 02/15/2020. RESULT: Limitations: Body habitus, with underpenetrated frontal chest radiograph. Lines, tubes, and devices: None. Lungs and pleura: On the frontal radiograph evaluation of the left lung base is considered limited secondary to underpenetration. The left lateral costophrenic angle appears blunted. There are a couple of nodular densities measuring 5 mm and 12 mm in size seen in profile with the left anterior third rib. There is asymmetric pleural thickening left lateral chest wall. On the lateral radiograph there is increased retrocardiac opacity overlying the thoracic lower thoracic spine with loss of visualization of the posterior hemidiaphragm. There is no definite pneumothorax.. Cardiomediastinal silhouette: Stable cardiomediastinal silhouette with ectatic and tortuous appearance of the thoracic aorta. Bones and soft tissues: There are displaced fractures of the left posterolateral third and fourth ribs with suspected nondisplaced fracture of the posterior fifth rib. IMPRESSION: Left-sided rib fractures with asymmetrical pleural thickening along the lateral chest, possible pleural effusion with nonvisualized posterior hemidiaphragm and indeterminate nodular densities in profile with the anterior third rib which may represent vessels seen on end. Chief Deputy Clerk/Bailiff: PSCB Transcribe Date/Time: Feb 16 2020 8:32A Dictated by : SOLANGE CONTRERAS MD This examination was interpreted and the report reviewed and electronically signed by: SOLANGE CONTRERAS MD on Feb 16 2020 8:50AM EST Normal [facility] ALLIED HEALTHon 02-15-2020 ALLIED HEALTH HNO ID: [id number] Author: Lesley MaddenRt) Franky Bailey Service: Radiology Author Type: Orthopedic Coder Type: Allied Health Filed: 02/15/2020 7:17 PM Note Text: Called for MRI safety screening form. [id number] Normal [facility] CASE MGT INIT [facility] 2019 CASE MGT INIT 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 Last discharge within 30 days: No Advance Directive: Current Advance Directive: None Schedule Clerk Attempted to Assist with AD Completion: Yes Action: Education Provided Health LiteracyHow often do you need to have someone help you when you read instructions, pamphlets, or other written material from your doctor or pharmacy? : 1 - Never How confident are you filling out medical forms by yourself?: 1 - Extremely If Patient scores > 3 on either question, the following interventions were put into place:: Use of plain language and active listening with Patient and family;Teach back methods employed to ensure comprehension;Patient did not score > 3 on either question.;Sit with Patient;Gave Patient the opportunity to ask questions Baseline Mental Status Prior to this Illness what was the patient's Baseline Mental Status?: Alert AND Oriented Prior to this illness, has anyone described the patient having any of the following behaviors?: Not Applicable Relationship of the informant to the patient:: Self Functional Status: Independent Does Patient Currently Receive Any Community Services or Home Care?: None Equipment Prior to Admission: Bi-level Positive Airway Pressure/Continuous Positive Airway Pressure SOCIAL: Living Arrangements: Home Lives With: Spouse Financial Resources: RetiredPrimary Contact: Extended Emergency Contact Information Primary Emergency Contact: Kate Acuña [place] Relation: Spouse Supportive Patient Contact:: Yes Social Needs Food insecurity Worry: Never true Inability: Never true Resources Needed: No Social Needs Financial resource strain: Not hard at all Social Needs Transportation needs Medical: No Non-medical: No Caregiver AssessmentCaregiver is ready, willing and able to meet the patient's needs as recommended by the inter-professional team:: No Caregiver needed Does the patient have an acute stroke diagnosis, or has the patient had a stroke during this admission?: No Patient's transition needs and plan for meeting these needs: Home with self care vs. out patient PT/OT pending PT/OT Evaluation Patient's perception of need for this admission: fall Medication Adherance I am convinced of the importance of my prescription medication: 0 - Agree Completely I worry that my prescription medication will do more harm than good to me : 0 - Disagree Completely I feel financially burdened by my [id number] expenses for my prescription medication:: 0 - Disagree Completely Risk Score: 0 Patient is categorized as: Low risk < 2 Are you interested in bedside delivery of your medications? Yes Is Patient Psychosocially Complex?: No ASSESSMENT AND PLAN: Medical Needs: Medical Needs: (fall) Psychosocial Needs: Psychosocial Needs: None FREEDOM OF CHOICE EXPLAINED: [place] of Choice Given: No Reason Not Given: Unable to complete with this assessment - revisit POTENTIAL TRANSITION PLANS To Be Determined;Outpatient Therapy;Home;Home OT/PT:out patient therapy pending PT/OT Evaluation The patient was Michael ED transfer from a fall (trauma III). The patient reports he lives at home with his spouse Kate Acuña in a two story home. The patient reports he drives to appointments and is independent at home. The patient reports he uses [employer] at home for DME. The patient reports he uses [facility] and has [employer] Medicare. The patient goes to [facility] ([address] [place] [id number]) as his pharmacy. The patient reports family can get home at discharge and he reports no concerns at this time. Social work will follow appropriately. SIGNATURE: JUSTIN Ansari PATIENT NAME: Jessica Acuña DATE: February 15, 2020 TIME: 8:51 PM PAGER/CONTACT #: [phone] Normal [facility] CT Abdomen and Pelvis with I V Contraston 02-15-2020 CT Abdomen and Pelvis W contrast IV Please click on the link to view the study images Normal [facility] Work Phone: CT CERVICAL SPINE WO IVCONon 02-15-2020 CT CERVICAL SPINE WO IVCON * * *Final Report* * * DATE OF EXAM: Feb 15 2020 5:44PM [facility] 0505 - CT CERVICAL SPINE WO IVCON / PROCEDURE REASON: C-spine trauma, NEXUS/CCR positive * * * * Physician Interpretation * * * * EXAMINATION: CT CERVICAL SPINE WO IVCON CLINICAL HISTORY: Neck trauma. The patient fell from a roof TECHNIQUE: CT of the cervical spine without IV contrast. Spiral, high resolution axial images were obtained from the skull base to the cervicothoracic junction with sagittal and coronal planar reconstructions. MQ: [id number] CT Dose-Length Product (DLP): 536 mGy*cm CT Dose Reduction Employed: Automated exposure control(AEC) and iterative recon COMPARISON: None. RESULT: There is image quality degradation secondary to patient motion artifact. This is particularly problematic at the inferior cervical spine. Within these limitations, there is no evidence for cervical spinal fracture or dislocation. Soft tissues are within normal limits. IMPRESSION: Somewhat Limited exam demonstrating no evidence for cervical spinal fracture. Follow-up studies could be obtained if clinically indicated. Anatomic Variant: None. Assume 7 cervical vertebrae with counting from the craniocervical junction. Chief Deputy Clerk/Bailiff: ASHLEY Transcribe Date/Time: Feb 15 2020 5:53P Dictated by : CELESTINA ORR MD This examination was interpreted and the report reviewed and electronically signed by: CELESTINA ORR MD on Feb 15 2020 5:55PM EST [facility] ED NOTEon 02-15-2020 ED NOTE HNO ID: [id number] Author: Ever MaddenRn) TRACEY Jacobson Service: Emergency Medicine Author Type: Registered Nurse Type: ED Notes Filed: 02/15/2020 8:25 PM Note Text: This RN spoke to MRI, pt will go to MRI and then to 5206 after [facility] ED NOTE HNO ID: [id number] Author: Nereida MaddenRn) TRACEY Trejo Service: Emergency Medicine Author Type: Registered Nurse Type: ED Notes Filed: 02/15/2020 5:52 PM Note Text: Pt. To and from xray with ED staff. [facility] ED NOTE HNO ID: [id number] Author: Nereida MaddenRn) TRACEY Trejo Service: Emergency Medicine Author Type: Registered Nurse Type: ED Notes Filed: 02/15/2020 6:00 PM Note Text: Pt. To CT [facility] ED NOTE HNO ID: [id number] Author: Nereida MaddenRn) TRACEY Trejo Service: Emergency Medicine Author Type: Registered Nurse Type: ED Notes Filed: 02/15/2020 5:23 PM Note Text: Trauma resident to bedside. [facility] ED NOTE HNO ID: [id number] Author: Nereida MaddenRn) TRACEY Trejo Service: Emergency Medicine Author Type: Registered Nurse Type: ED Notes Filed: 02/15/2020 5:55 PM Note Text: This RN to bedside to cover lunch. [facility] ED NOTE HNO ID: [id number] Author: Isabelle MaddenRnJorge Pavon RN Service: ? Author Type: Registered Nurse Type: ED Notes Filed: 02/15/2020 4:55 PM Note Text: Bed: 44-ED Expected date: Expected time: Means of arrival: Comments: [facility] ED PROV NOTEon 02-15-2020 ED PROV NOTE HNO ID: [id number] Author: TIERA Kirk Pa-C Service: Emergency Medicine Author Type: Physician Insecticide Sprayer Type: ED Provider Notes Filed: 02/15/2020 6:35 PM Note Text: Attestation signed by Norris Medeiros DO at 02/19/2020 8:48 AM Attending Note I have personally performed a face to face assessment of the patient and have reviewed the PA/MANAGER LOAN note. Jessica Acuña, 65 year old, male comes in from 1 of our [facility] emergency department after a fall about 12 feet off of a ladder. Has several rib fractures and a small underlying pneumothorax, presents here for trauma evaluation. On arrival his vitals are stable he is alert and oriented. His ABCs are intact. Lung sounds are clear, chest wall is modestly tender with some crepitance. There is no dyspnea. Per the request of the trauma surgeon Gomez, trauma team category 3 to facilitate imaging and diagnostics. Critical care time is 0 Signature: Norris Medeiros DO Date: 02/19/2020 Time: 8:47 AM Signature: Norris Medeiros DO Date: 02/19/2020 Time: 8:47 AM ED Provider Note Patient Name: Jessica Acuña SERVICE DATE: 02/15/20 History Patient presents with: Fall: pt transferred from [place], he states he fell off of roof from 12 ft, landed on left side, per EMS he has fx ribs and a pneumothorax, pt A+Ox3, -LOC, +blood thinners Patient transferred from [facility] for trauma evaluation. Patient states he was going up a ladder approximately 12 feet when he went to step off on the roof bladder move the fell 12 feet out of his left side. He was found to have 3 rib fractures and small pneumothorax. CT the head negative as well as x-ray of the pelvis. Patient states that in route he had increasing pain to the left side of the chest but denies any increased shortness of breath. Denies any blurred vision, double vision, or changes in vision. Has multiple abrasions. PAST MEDICAL HISTORY Diagnosis Date - Back Pain - Cigarette Smoker - GERD (Gastroesophageal Reflux Disease) - Hyperlipidemia - PVC (Premature Ventricular Contraction) No past surgical history on file. No family history on file. Social History Tobacco Use - Smoking status: Not on file Substance and Sexual Activity - Alcohol use: Not on file - Drug use: Not on file - Sexual activity: Not on file ALLERGIES Allergen Reactions - Brilinta [Ticagrelo* Shortness of Breath - Penicillins Swelling Review of Systems Constitutional: Negative for appetite change, chills, diaphoresis, fatigue and fever. Eyes: Negative for photophobia and visual disturbance. Respiratory: Negative for cough, chest tightness, shortness of breath and wheezing. Cardiovascular: Positive for chest pain. Negative for palpitations and leg swelling. Gastrointestinal: Positive for nausea. Negative for abdominal pain, blood in stool, constipation, diarrhea and vomiting. Musculoskeletal: Positive for back pain. Negative for arthralgias, gait problem, joint swelling, myalgias, neck pain and neck stiffness. Skin: Negative for color change, pallor, rash and wound. Neurological: Positive for headaches. Negative for dizziness, weakness, light-headedness and numbness. Physical Exam BP 137/76 Pulse 59 Temp (Src) 97.6 (Oral) Resp 18 Ht 6' 1" (1.85m) SpO2 97% O2 Therapy: Nasal Cannula, Liters: 2 Physical Exam Vitals signs and nursing note reviewed. Constitutional: General: He is not in acute distress. Appearance: Normal appearance. He is obese. He is not ill-appearing, toxic-appearing or diaphoretic. HENT: Head: Normocephalic and atraumatic. Eyes: General: No scleral icterus. Right eye: No discharge. Left eye: No discharge. Extraocular Movements: Extraocular movements intact. Conjunctiva/sclera: Conjunctivae normal. Pupils: Pupils are equal, round, and reactive to light. Neck: Musculoskeletal: Normal range of motion and neck supple. No neck rigidity or muscular tenderness. Cardiovascular: Rate and Rhythm: Normal rate and regular rhythm. Pulses: Normal pulses. Heart sounds: Normal heart sounds. No murmur. No friction rub. No gallop. Pulmonary: Effort: Pulmonary effort is normal. No respiratory distress. Breath sounds: No stridor. No wheezing, rhonchi or rales. Chest: Chest wall: Tenderness (3 x 4 area of contusion over the lateral left ribs without step-off or paradoxical movement but he is tenderness) present. Abdominal: General: Abdomen is flat. Bowel sounds are normal. There is no distension. Palpations: Abdomen is soft. There is no mass. Tenderness: There is no abdominal tenderness. There is no guarding or rebound. Hernia: No hernia is present. Comments: No abdominal or flank ecchymosis Musculoskeletal: Normal range of motion. General: No swelling, tenderness, deformity or signs of injury. Right shoulder: Normal. Left shoulder: Normal. Right elbow: Normal. Left elbow: Normal. Right wrist: He exhibits swelling. He exhibits normal range of motion, no tenderness, no bony tenderness, no effusion, no crepitus, no deformity and no laceration. Left wrist: Normal. Right hip: Normal. Left hip: Normal. Right knee: Normal. Left knee: Normal. Right ankle: Normal. Left ankle: Normal. Thoracic back: Normal. Lumbar back: Normal. Comments: Soft tissue swelling over the right wrist, multiple abrasions over the volar aspect but no deep lacerations amenable to closure. Abrasions over the elbow but no tenderness to palpation. Lymphadenopathy: Cervical: No cervical adenopathy. Skin: General: Skin is warm and dry. Capillary Refill: Capillary refill takes less than 2 seconds. Coloration: Skin is not jaundiced or pale. Findings: No bruising, erythema, lesion or rash. Neurological: Mental Status: He is alert. Psychiatric: Mood and Affect: Mood normal. Behavior: Behavior normal. Thought Content: Thought content normal. Judgment: Judgment normal. Diagnostic Testing ED Labs Ordered and Reviewed - No data to display Procedures ED Course / Clinical Impression Clinical Impressions as of Feb 14 1833 Closed fracture of multiple ribs of left side, initial encounter Traumatic pneumothorax, initial encounter MDM / Disposition / Plan Patient presents via EMS for evaluation now rib fracture or pneumothorax post fall 12 feet. The trauma attending at requested a trauma activation as patient did not have any cervical spine imaging. He was given morphine, started on oxygen for comfort and C-spine imaging was obtained. I notified the trauma resident of patient's arrival with initial impression this was a trauma consult but we were informed that given his need for C-spine imaging trauma 3 would need to be activated. Patient was given morphine for pain. CT of the cervical spine shows no acute process. Chest x-ray shows displaced fractures but no obvious pneumothorax on chest x-ray. Reevaluation pain was mildly improved. I spoke with the trauma residents who advised he'll be admitting under the care of Dr. Alvarez. Patient be transferred to floor in stable condition. Covid 19 testing is pending and patient denies any symptoms The patient was ADMITTED TO: Surgery. Condition at time of disposition: stable SIGNATURE: Rasheed Chavez PA-C This note was generated using [place] voice dictation. All resonable efforts were made to correct dictation errors but they still may occur given the nature of the software. Rasheed Hobson (Adarsh) TIERA Chavez 02/15/20 1835 Norris Medeiros DO 02/19/20 0848 Normal [facility] HISTORY PHYSICALon 0 HISTORY PHYSICAL HNO ID: [id number] Author: Geoff Chiang Service: General Surgery Author Type: Physician Type: HANDP Filed: 02/17/2020 3:26 PM Note Text: CONSULT: TRAUMA SURGERY SERVICE Trauma Service Pager: For questions or concerns Mon-Fri 6a-5p please page [phone]. After 5pm and on Weekends and Holidays, please page [phone] if in ICU or [phone] if on RNF. CATEGORY: Level 3 SERVICE DATE: 02/15/2020 SERVICE TIME: 6:40 PM Subjective This is a 65 year old white male who presents to outside facility after falling 12 feet onto the side of the couch. He had his left side. He denies hitting his head. Patient has medical history significant for [place] last year which he required 4 stents. Patient was transferred to [facility] after findings of 2 rib fractures and a small pneumothorax on the left side. Patient is GCS 15 upon arrival. Vital signs are stable. He is saturating well on 2 L nasal cannula. He is only complaining of left-sided chest wall pain. And he is also complaining of right distal and proximal forearm pain. He does have a few abrasions on his shins. ALLERGIES Allergen Reactions - Brilinta [Ticagrelo* Shortness of Breath - Penicillins Swelling (Not in a hospital admission) There is no immunization history on file for this patient. PAST MEDICAL HISTORY Diagnosis Date - Back Pain - Cigarette Smoker - GERD (Gastroesophageal Reflux Disease) - Hyperlipidemia - PVC (Premature Ventricular Contraction) No past surgical history on file. Social History Tobacco Use - Smoking status: Not on file Substance Use Topics - Alcohol use: Not on file - Drug use: Not on file ROS: Is the patient having any pain? Yes LOCATION: left chest wall Constitutional: Negative Eye/Ear/Nose: Negative Respiratory: Negative Cardiovascular: Negative GI/Liver/Biliary: Negative Genitourinary: Negative Psychiatric: Negative Neurologic: Negative Musculoskeletal: Negative Integument: Negative Endocrine: Negative Heme/Lymph: Negative Objective PRIMARY SURVEY AIRWAY: Patent BREATHING: Breath sounds equal CIRCULATION: PT/DP 2+, Radials 2+, Femoral 2+ DISABILITY: Eye: 4=Spontaneous Verbal: 5=Oriented and Converses Motor: 6=Obeys Commands Total GCS: 15=4 Resp Rate: 10 to 29=4 Syst BP: > than 89=4 REVISED TRAUMA SCORE: 12 EXPOSE / ENVIRONMENT: Warm Blankets PROCEDURES: none SECONDARY SURVEY VITALS: BP 147/81 Pulse 60 Temp (Src) 97.6 (Oral) Resp 18 Ht 6' 1" (1.85m) SpO2 96% O2 Therapy: Room Air, Liters: 2 NEURO: Alert AND Oriented x 3, GCS 15, Cranial Nerves II-XII Intact, Moves All Extremities, Strength Symmetrical, No Sensory Deficits HEENT: Head: No lacerations or abrasions, no bony step offs, midface stable to palpation, Eyes: PERRL, conjunctiva/corneas without lesions, EOM intact, Ears: Canals without blood or CSF drainage, TMs clear, external ears without lacerations, Nose: Septum midline, no crepitus with motion, Throat: Oral mucosa without lacerations, teeth in place, tongue without lacerations NECK: No midline pain with palpation, No pain with active ROM, No lacerations/wounds, No JVD, Trachea midline RESPIRATORY: No crepitus, Equal Excursion, ecchymosis on left lateral chest wall CARDIOVASCULAR: Heart rate regular, S1S2 with no R/M/G ABDOMEN: Non-distended, No scars or lacerations, Non-tenderness or peritoneal signs, No masses or organomegaly, Bowel sounds present all quads PELVIC/PERINEAL: Pelvis stable to palpation BACK/SPINE: Thoracolumbar spinal column non-tender, No step off or deformity noted, No external injury noted EXTREMITIES: right distal and proximal forearm TTP - abrasions over b/l shins RADIOLOGICAL/OTHER TEST DATA: See below PRIOR TO ARRIVAL: No Loss of Consciousness No ETT IMAGES XR CHEST 2V FRONTAL/LAT Final Result IMPRESSION: Left posterior third and fourth rib fractures. Chief Deputy Clerk/Bailiff: ASHLEY Transcribe Date/Time: Feb 15 2020 5:56P Dictated by : CELESTINA ORR MD This examination was interpreted and the report reviewed and electronically signed by: CELESTINA ORR MD on Feb 15 2020 5:57PM EST CT CERVICAL SPINE WO IVCON Final Result IMPRESSION: Somewhat Limited exam demonstrating no evidence for cervical spinal fracture. Follow-up studies could be obtained if clinically indicated. Anatomic Variant: None. Assume 7 cervical vertebrae with counting from the craniocervical junction. Chief Deputy Clerk/Bailiff: [facility] Transcribe Date/Time: Feb 15 2020 5:53P Dictated by : CELESTINA ORR MD This examination was interpreted and the report reviewed and electronically signed by: CELESTINA ORR MD on Feb 15 2020 5:55PM EST XR WRIST GENERAL 3V PA/LAT/OBL RT (Results Pending) XR ELBOW GENERAL 2V AP/LAT RT (Results Pending) MRI HIP WO/W IVCON LT (Results Pending) LABS: CBC, Coags, BMP, Mg, Phos CSF AND Dilantin Liver Function, Amylase, AND Lipase Cardiac Enzymes ABGs Assessment/Plan DIAGNOSES: 65 yr old male with fall from 12 ft - left sided rib rxs and mass in hip TREATMENT/EVALUATION PLANS: Imaging performed: 1. CT HNCAP 2. CXR 3. PXR 4. R wrist and elbow xr 5. L hip MRI Traumatic Injuries: 1. Left 3-4 rib fxs 2. Small left PTX Operations: 1. none Care Plan: 1. No diet orders on file 2. Admit to trauma 3. Pain control 4. MRI p 1. Will call oncology if mass is suspicious for malignancy in morning - it may need biopsy 5. pulm toilet 6. Regular diet Prophylaxis: 1. DVT ppx: SCD, LVX Incidentals: 1. Mass in L hip Consulted Services and Recommendations: 1. PT/OT - p Dispo Plannin. TBD Follow Up Needs: 1. TBD ED DISPOSITION: To [facility] FINAL INJURIES: New injuries were identified on physical exam and review of radiological studies. The Senior/Chief Resident/Attending Physician have been informed and the above plan made for injury care and disposition. SIGNATURE: Ruddy Lim DO PATIENT NAME: Jessica Acuña DATE: February 15, 2020 TIME: 6:40 PM PAGER/CONTACT #: Trauma Service Pager: For questions or concerns Mon-Fri 6a-5p please page [phone]. After 5pm and on Weekends and Holidays, please page [phone] if in ICU or [phone] if on RNF. Trauma Attending Note I have personally seen and evaluated this patient and participated in the maddox components of this encounter. I discussed the management of this case with the surgery resident team and independently confirmed the findings and plan of care as documented either attached or in their separate note from today. Any corrections or additional notes are made as needed. I evaluated the patient on February 16, 2020 and 1015 am. Assessment and Plan: Jessica Acuña is a 65 year old male evaluated following a Level 3 activation for a fall 12 feet The patient was evaluated according to ATLS protocols. Injuries and diagnoses are notable for: Active Hospital Problems Diagnosis Date Noted - Obesity, Class III, BMI >= 40 02/16/2020 - Multiple fractures of ribs, left side, initial encounter for closed fracture 02/16/2020 - Essential hypertension, benign 02/16/2020 Chronic - Hyperlipidemia Chronic Geoff Chiang MD Delayed entry Normal [facility] Otheron 02-15-2020 Please click on the link to view the study images Normal [facility] Work Phone: XR CHEST 2V FRONTAL/LATon XR CHEST 2V FRONTAL/LAT * * *Final Report* * * DATE OF EXAM: Feb 15 2020 5:53PM [id number] - XR CHEST 2V FRONTAL/LAT / PROCEDURE REASON: SOB, pneumothorax suspected * * * * Physician Interpretation * * * * EXAMINATION: CHEST RADIOGRAPH (2 VIEW FRONTAL & LATERAL) CLINICAL HISTORY: SOB, pneumothorax suspected . The patient fell off a ladder with left-sided chest bruising and pain. MQ: [id number] EXAM DATE/TIME: 02/15/2020 5:53 PM COMPARISON: No relevant prior studies available. RESULT: Lines, tubes, and devices: None. Lungs and pleura: There is no visible pneumothorax. Lower lung zone assessment is limited by body habitus but lungs otherwise appear clear. Cardiomediastinal silhouette: Normal cardiomediastinal silhouette. Bones and soft tissues: Posterior left-sided rib fractures are noted at the third and fourth ribs. The third rib fracture is displaced. IMPRESSION: Left posterior third and fourth rib fractures. Chief Deputy Clerk/Bailiff: ASHLEY Transcribe Date/Time: Feb 15 2020 5:56P Dictated by : CELESTINA ORR MD This examination was interpreted and the report reviewed and electronically signed by: CELESTINA ORR MD on Feb 15 2020 5:57PM EST Normal [employer] [facility] XR ELBOW 2V AP/LAT RTon 01-28 XR ELBOW 2V AP/LAT RT * * *Final Report* * * DATE OF EXAM: Feb 15 2020 6:52PM [id number] - XR ELBOW 2V AP/LAT RT / PROCEDURE REASON: Fracture, elbow * * * * Physician Interpretation * * * * EXAM TITLE: XR ELBOW 2V AP/LAT RT DATE: 02/15/2020 6:55 PM INDICATION: Right elbow pain secondary to a fall COMPARISON: None. FINDINGS: Prominent. These noted at the olecranon with bony spur noted. There is otherwise no fracture or dislocation. No definite joint effusion is seen. IMPRESSION: See above. Chief Deputy Clerk/Bailiff: [facility] Transcribe Date/Time: Feb 15 2020 6:55P Dictated by : CELESTINA ORR MD This examination was interpreted and the report reviewed and electronically signed by: CELESTINA ORR MD on Feb 15 2020 6:56PM EST Normal [employer] [facility] XR WRIST 3V PA/LAT/OBL RTon 02-15-2020 XR WRIST 3V PA/LAT/OBL RT * * *Final Report* * * DATE OF EXAM: Feb 15 2020 6:52PM [id number] - XR WRIST 3V PA/LAT/OBL RT / PROCEDURE REASON: Bone pain, wrist * * * * Physician Interpretation * * * * RIGHT WRIST X-RAY SERIES HISTORY: Bone pain, fracture, wrist TECHNIQUE: PA, lateral, oblique views. COMPARISON: None available. RESULT: No acute fracture or malalignment. Old nonunited ulnar styloid fracture fragmentmild degenerative changes at the first carpometacarpal and MCP and IP joints. IMPRESSION: No acute fracture or malalignment of right wrist. Chief Deputy Clerk/Bailiff: [facility] Transcribe Date/Time: Feb 15 2020 6:57P Dictated by : JANAY MALHOTRA MD This examination was interpreted and the report reviewed and electronically signed by: JANAY MALHOTRA MD on Feb 15 2020 6:58PM EST Normal [facility] Vital Signs Date Time Vital Sign Value Performing Clinician Faci lity 12-22-2024 05:25-0400 Body mass index (BMI) [Ratio] 44.3 kg/m2 Dr. Raymundo Watt MD Work Phone: [facility] 12-22-2024 05:25-0400 Body temperature 97.3 [degF] Dr. Raymundo Watt MD Work Phone: [facility] 12-22-2024 05:25-0400 Body weight 156.[address] Raymundo Watt MD Work Phone: [facility] 12-22-2024 05:25-0400 Diastolic blood pressure 80 mm[Hg] Dr. Raymundo Watt MD Work Phone: [facility] 12-22-2024 05:25-0400 Heart rate 53 /min Dr. Raymundo Watt MD Work Phone: [facility] 12-22-2024 05:25-0400 Respiratory rate 20 /min Dr. Raymundo Watt MD Work Phone: [facility] 12-22-2024 05:25-0400 SaO2% (BldA) [Mass fraction] 97 % Dr. Raymundo Watt MD Work Phone: [facility] 12-22-2024 05:25-0400 Systolic blood pressure 138 mm[Hg] Dr. Raymundo Watt MD Work Phone: [facility] 10-27-2024 05:49-0500 Body height 187.[address] Raymundo Watt MD Work Phone: [facility] 10-27-2024 05:49-0500 Body mass index (BMI) [Ratio] 45.3 kg/m2 Dr. Raymundo Watt MD Work Phone: 1(523)[phone] [address] 10-27-2024 05:49-0500 Body temperature 96 [degF] Dr. Raymundo Watt MD Work Phone: 9(289)829-359815 [address] 10-27-2024 05:49-0500 Body weight 160.[address] Raymundo Watt MD Work Phone: 0(277)[phone] [place] [address] 10-27-2024 05:49-0500 Diastolic blood pressure 76 mm[Hg] Dr. Raymundo Watt MD Work Phone: 3(545)[phone] [place] [address] 10-27-2024 05:49-0500 Heart rate 57 /min Dr. Raymundo Watt MD Work Phone: [facility] 10-27-2024 05:49-0500 Respiratory rate 20 /min Dr. Raymundo Watt MD Work Phone: [facility] 10-27-2024 05:49-0500 SaO2% (BldA) [Mass fraction] 95 % Dr. Raymundo Watt MD Work Phone: [facility] 10-27-2024 05:49-0500 Systolic blood pressure 127 mm[Hg] Dr. Raymundo Watt MD Work Phone: [facility] 08-11-2024 08:51-0500 Body mass index (BMI) [Ratio] 45 kg/m2 Dr. Raymundo Watt MD Work Phone: [facility] 08-11-2024 08:51-0500 Body weight 159.[address] Raymundo Watt MD Work Phone: [facility] 08-11-2024 08:51-0500 Diastolic blood pressure 79 mm[Hg] Dr. Raymundo Watt MD Work Phone: [facility] 08-11-2024 08:51-0500 Heart rate 69 /min Dr. Raymundo Watt MD Work Phone: [facility] 08-11-2024 08:51-0500 Respiratory rate 20 /min Dr. Raymundo Watt MD Work Phone: [facility] 08-11-2024 08:51-0500 SaO2% (BldA) [Mass fraction] 95 % Dr. Raymundo Watt MD Work Phone: [facility] 08-11-2024 08:51-0500 Systolic blood pressure 122 mm[Hg] Dr. Raymundo Watt MD Work Phone: [facility] 12-14-2023 08:34-0400 Heart rate 64 /min Dr. Raymundo Watt Work Phone: [facility] 12-14-2023 08:10-0400 Body temperature 96.2 [degF] Dr. Raymundo Watt Work Phone: [facility] 12-14-2023 08:10-0400 Diastolic blood pressure 101 mm[Hg] Dr. Raymundo Watt Work Phone: [facility] 12-14-2023 08:10-0400 Respiratory rate 16 /min Dr. Raymundo Watt Work Phone: [facility] 12-14-2023 08:10-0400 SaO2% (BldA) [Mass fraction] 99 % Dr. Raymundo Watt Work Phone: [facility] 12-14-2023 08:10-0400 Systolic blood pressure 141 mm[Hg] Dr. Raymundo Watt Work Phone: [facility] 12-13-2023 14:25-0400 Body height 187.[address] Raymundo Watt Work Phone: [facility] 12-13-2023 14:25-0400 Body weight [address] Raymundo Watt Work Phone: [facility] 12-11-2023 19:41-0400 Body mass index (BMI) [Ratio] 42.7 kg/m2 Dr. Raymundo Watt Work Phone: [facility] 12-11-2023 19:03-0400 Body temperature 98.9 [degF] Dr. Raymundo Watt Work Phone: [facility] 12-11-2023 19:03-0400 Diastolic blood pressure 86 mm[Hg] Dr. Raymundo Watt Work Phone: [facility] 12-11-2023 19:03-0400 Heart rate 88 /min Dr. Raymundo Watt Work Phone: [facility] 12-11-2023 19:03-0400 Respiratory rate 16 /min Dr. Raymundo Watt Work Phone: [facility] 12-11-2023 19:03-0400 SaO2% (BldA) [Mass fraction] 98 % Dr. Raymundo Watt Work Phone: [facility] 12-11-2023 19:03-0400 Systolic blood pressure 147 mm[Hg] Dr. Raymundo Watt Work Phone: [facility] 12-11-2023 17:17-0400 Body height 187.[address] Raymundo Watt Work Phone: [facility] 12-11-2023 17:17-0400 Body mass index (BMI) [Ratio] 45 kg/m2 Dr. Raymundo Watt Work Phone: [facility] 12-11-2023 17:17-0400 Body weight 159.[address] Raymundo Watt Work Phone: [facility] 12-09-2023 21:00-0400 Body temperature 97.4 [degF] [facility] 12-09-2023 21:00-0400 Diastolic blood pressure 71 mm[Hg] [facility] 12-09-2023 21:00-0400 Heart rate 78 /min [facility] 12-09-2023 21:00-0400 Respiratory rate 16 /min [facility] 12-09-2023 21:00-0400 SaO2% (BldA) [Mass fraction] 97 % [facility] 12-09-2023 21:00-0400 Systolic blood pressure 157 mm[Hg] [facility] 12-09-2023 18:02-0400 Body height 187.96 cm [facility] 12-09-2023 18:02-0400 Body mass index (BMI) [Ratio] 42.3 kg/m2 [facility] 12-09-2023 18:02-0400 Body weight 149.68 kg [facility] 05-21-2022 11:59-0400 Body height 187.[address] Hunter Watt Work Phone: [facility] Work Phone: 05-21-2022 11:59-0400 Body mass index (BMI) [Ratio] 41.8 kg/m2 Dr. Hunter Watt Work Phone: [facility] Work Phone: 05-21-2022 11:59-0400 Diastolic blood pressure 73 mm[Hg] Dr. Hunter Watt Work Phone: [facility] Work Phone: 05-21-2022 11:59-0400 Systolic blood pressure 119 mm[Hg] Dr. Hunter Watt Work Phone: [facility] Work Phone: 05-21-2022 09:19-0400 Body weight 147.[address] Hunter Watt Work Phone: [facility] Work Phone: 05-21-2022 09:19-0400 Heart rate 60 /min Dr. Hunter Watt Work Phone: [facility] Work Phone: 05-21-2022 09:19-0400 Respiratory rate 16 /min Dr. Hunter Watt Work Phone: [facility] Work Phone: 05-21-2022 09:19-0400 SaO2% (BldA) [Mass fraction] 97 % Dr. Hunter Watt Work Phone: [facility] Work Phone: Encounters Encounter Date Encounter Type Care Provider Facility Start: 05-02-2025 End: 05-02-2025 ambulatory Raymundo Watt Facility:[facility] Start: 03-09-2025 End: 03-09-[address] Rock Perdomo MD -Laboratory [facility] Start: 03-09-2025 End: 03-09-[address] Raymundo Watt MD Work Phone: -Laboratory [facility] Start: 03-07-2025 End: 03-07-[address] Raymundo Watt MD Work Phone: -Ultrasound [facility] Start: 03-07-2025 End: 03-07-2025 Patient encounter procedure Elida Chew TELEGRAPH SERVICE CLERK-C -Ultrasound [facility] Work Phone: Start: 03-07-2025 End: 03-07-2025 ambulatory Raymundo Watt Facility:[facility] Start: 02-27-2025 End: 02-27-[address] Raymundo Watt MD Work Phone: -[facility] Start: 02-27-2025 End: 02-27-2025 Patient encounter procedure Elida DURANC -[facility] Work Phone: Start: 02-27-2025 End: 02-27-2025 ambulatory Raymundo Watt Facility:[facility] Start: 02-23-2025 End: 02-23-[address] Raymundo Watt MD Work Phone: -[facility] Start: 02-23-2025 End: 02-23-2025 Patient encounter procedure Ofelia Craig TELEGRAPH SERVICE CLERK-C -[facility] Work Phone: Start: 02-23-2025 End: 02-23-2025 ambulatory Raymundo Watt Facility:[facility] Start: 12-22-2024 End: 12-22-2024 Patient encounter procedure TI Starr [facility] Work Phone: Start: 12-22-2024 End: 12-22-2024 ambulatory Raymundo Watt Facility:[facility] Start: 10-27-2024 End: 10-27-2024 Patient encounter procedure TI Starr [facility] Work Phone: Start: 10-27-2024 End: 10-27-[address] Raymundo Watt MD Work Phone: [facility] Work Phone: Start: 10-27-2024 End: 10-27-2024 ambulatory Cristiane MOTT Facility:[facility] Start: 08-11-2024 End: 08-11-2024 Patient encounter procedure Cristiane MOTT -[facility] Work Phone: Start: 08-11-2024 End: 08-11-2024 ambulatory Raymundo Watt Facility:[facility] Start: 08-11-2024 End: 08-11-2024 ambulatory Cristiane MOTT Facility:[facility] Start: 12-13-2023 Non-patient / Non-visit Dr. Teri Watt Work Phone: [facility] Work Phone: Start: 12-12-2023 End: 12-14-2023 Evaluation and management of inpatient Dr. Raymundo Watt Work Phone: [facility] Work Phone: Start: 12-12-2023 Non-patient / Non-visit Dr. Teri Watt Work Phone: [facility] Start: 12-11-2023 Evaluation and management of inpatient Dr. Raymundo Watt [facility] Work [facility]: Start: 12-11-[address] Geoffrey Watt Work Phone: [facility] Work Phone: Start: 12-11-2023 Non-patient / Non-visit Dr. Teri Watt Work Phone: [facility] Work Phone: Start: 12-09-2023 End: 12-09-2023 Emergency department patient visit [facility]-Emergency Department Work Phone: Start: 06-25-2022 Non-patient / Non-visit Dr. Teri Watt Work Phone: [facility] Start: 06-25-2022 End: 06-25-[address] Hunter Watt Work Phone: [facility] Work Phone: Start: 06-25-2022 End: 06-25-[address] Hunter Watt Work Phone: [facility]Cardiovascul[facility] Start: 06-05-2022 Non-patient / Non-visit Dr. Teri Watt Work Phone: [facility] Start: 06-05-2022 End: 06-05-[address] Hunter Watt Work Phone: [facility] Work Phone: Start: 06-05-2022 End: 06-05-[address] Hunter Watt Work Phone: [facility] Start: 05-21-2022 End: 05-21-[address] Hunter Watt Work Phone: [facility] Work Phone: Start: 05-21-2022 End: 05-21-[address] Hunter Watt Work Phone: [facility]-Laboratory Start: 05-21-2022 End: 05-21-[address] Hunter Watt Work Phone: [facility] Start: 03-26-2020 Patient encounter procedure Storm Alaniz [facility] Work Phone: Start: 02-27-2020 Patient encounter procedure Storm Alaniz [facility] Work Phone: Procedures Date Procedure Procedure Detail Performing Clinician Start: 03-09-2025 Hepatitis A virus antibody, IgM type Dr. Raymundo Watt MD Work Phone: Comment on above: A negative anti-HAV IgM result suggests no recent orcurrent HAV infection. Start: 03-09-2025 Hepatitis B core ant ibody measurement, IgM type Dr. Raymundo Watt MD Work Phone: Start: 03-09-2025 Hepatitis C antibody measurement Dr. Raymundo Watt MD Work Phone: Start: 03-07-[address] Raymundo Watt MD Work Phone: Start: 02-27-2025 Plain X-ray abdomen Dr. Raymundo Watt MD Work Phone: Start: 12-09-2023 Plain x-ray of elbow Start: 06-05-2022 Radionuclide imaging of perfusion of myocardium under exercise stress Dr. Hunter Watt Work Phone: Start: 03-24-2019 History of placement of stent for coronary artery disease History of coronary artery stent placement Cristiane MOTT Comment on above: PCI-CRISTIAN to Prox LAD w/ 3.50 x 12 mm Synergy MR Stent, Mid LAD w/ 3.0 x 16 mm Synergy MR Stent and Distal LCx w/ 2.25 x 28 mm Synergy MR Stent 02/13/2019; PCI-CRISTIAN to Prox Ramus w/ 3.0 x 12 mm [employer]nergy 03/24/19 Plan of Treatment Date Care Activity Detail Author Start: 03-07-2025 Ultrasonography of abdomen Abdomen L imited [facility] Start: 03-07-2025 US Abdomen limited [facility] Start: 12-14-2023 Patient discharge [facility] Start: 12-12-2023 Elevation of affecte d extremity [facility] Start: 12-12-2023 Admission procedure [facility] [place] Start: 12-11-2023 Following clinical p athway protocol [facility] Start: 12-11-2023 Ambulation without limitation [facility] Start: 12-11-2023 Assessment of risk o f venous thromboembolism [facility] Start: 12-11-2023 Insertion of cathete r into peripheral vein [facility] Start: 12-11-2023 Providing care accor ding to standard [facility] Start: 12-11-2023 Referral to occupati onal therapist [facility] Start: 12-11-2023 End: 12-11-2023 [facility] Start: 12-11-2023 Verification routine [facility] Start: 12-11-2023 Admission procedure [facility] [place] Start: 12-11-2023 Hospital admission, emergency, from emergency room, medical nature [facility] Start: 12-09-2023 [facility] Patient Education ED Cellulitis [facility] Work Phone: Patient referral [facility] Work Phone: Radionuclide imaging of perfusion of myocardium under exercise stress [facility] Work Phone: Payers Date Payer Category Payer Self-pay [id number] 2023 Medicare [id number] 2023 Unknown [id number] Unknown [id number] Unknown JUSTIN [id number] Unknown COMMERCIAL OTHER [id number] Unknown [id number] 2.16.8 [id number] Unknown [id number] 2.16.8 [id number] Unknown [id number] 2.16.8 [id number] Unknown [id number] 2.16.8 [id number] Unknown [id number] 2.16.8 [id number] Unknown [id number] 2.16.8 [id number] Unknown [id number] 2.16.8 [id number] Unknown [id number] 2.16.8 [id number] Unknown [id number] 2.16.8 [id number] Unknown [id number] 2.16.8 [id number] Social History Date Type Detail Facility Assertion Tobacco smoking consumption unknown (finding) [facility] Work Phone: Start: 05-21-2022 End: 12-11-2023 Tobacco smoking status NHIS Unknown if ever smoked [facility] Start: 02-28-2020 None [facility] Start: 02-28-2020 Spouse/ Signif icant Other [facility] Start: 02-28-2020 Cigarettes [facility] Start: 1955 Sex Assigned At Male [facility] Start: 12-11-2023 End: 12-22-2024 Tobacco smoking status NHIS Ex-smoker (finding) [facility] Start: 11-09-2024 Sex Male (finding) [facility] Goals Date Patient Goal Desired Activity /State Functional Status Date Assessment Result Facility 12-14-2023 Functional status Chair [facility] Work Phone: NEGATED: Highlighted row Functional performance Functional status health issues are not documented Disease [facility] Work Phone: Mental Status Date Assessment Result Facility 12-13-2023 Cognitive function Voice/Name [facility] Work Phone: NEGATED: Highlighted row Cognitive function [Interpretation] Cognitive status health issues are not documented Disease [facility] Work Phone: Clinical Notes 03-24-2019 to 03-07-2025 Note Date & Type Note Facility 03-07-2025 Radiology Diagnostic study note [facility] Imaging Services [address] [place], [place] [address] Abdomen Limited MR#: [id number] Acct: [id number] Name: JESSICA ACUÑA Rep #: [id number] : 1955 M 70 From: Chico Soares MD PCP: Dr. Raymundo Watt MD Status: REG CLI Study:Abdomen Limited Date of Exam: 05/24 Exam# [id number] Ordering Dr: Elida Chew TELEGRAPH SERVICE CLERK TELEGRAPH SERVICE CLERK-C PROCEDURE: ABDOMEN LIMITED 03/07/2025 REASON FOR EXAM: ABD PAIN RUQ COMPARISON: None FINDINGS: Liver: Diffusely echogenic suggesting fatty infiltration. Hepatomegaly. The liver measures 19.1 cm. Gallbladder: Small amount of sludge is seen within the gallbladder lumen. No evidence of gallstones. Common bile duct: Normal measuring 7 mm. . Pancreas: Visualized portions are sonographically unremarkable. Other: Visualized portions of the right kidney are unremarkable. 2 small cysts are seen in the inferior pole. The larger measures 1.1 cm 1.2 cm x 0.8 cm. No right upper quadrant ascites. US/Abdomen Limited IMPRESSION: Hepatomegaly and diffuse fatty infiltration of the liver. Sludge is seen within the gallbladder lumen. Small right renal cysts. Reading Location: [facility] CC: Elida Chew; Dr. Raymundo Watt MD ~ Chief Deputy Clerk/Bailiff: Signed [facility] 02-28-2025 Radiology Diagnostic study note [facility] Services [address] [place], [place] [address] Acute Abdomen Inc Chest MR#: [id number] Acct: [id number] Name: JESSICA ACUÑA Rep #: [id number] : 1955 M 70 From: Sam Bolton MD PCP: Dr. 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 RAD/Acute Abdomen Inc Chest IMPRESSION: A tortuous aorta is seen. No evidence of cardiomegaly. Right hemidiaphragm elevation/eventration again noted. Lungs appear clear of acute disease. No pleural effusion or pneumothorax is noted. No evidence of pneumoperitoneum. Xzdk-rd-yrayhylp degenerative changes of the visualized spine noted. No fracture site is evident. If clinical concern persists, short-term follow-up imaging may be obtained to rule out a currently occult fracture. The bowel-gas pattern is unremarkable. No mass or mass effect is seen Reading Location: [facility] CC: Elida Chew; Dr. Raymundo Watt MD ~ Chief Deputy Clerk/Bailiff: Signed [facility] 04-25-2025 Evaluation note Diagnosis Onset Date Resolution Morbid obesity chronic November 9:33am ADIEL (obstructive sleep apnea) chronic December 22, 2024 9:33am [facility] Work Phone: 1(276) 711-967212-13-2024 Evaluation note* Diagnosis Onset Date Resolution Status Admit Date Essential hypertension chronic De cember 2023 8:45am History of coronary artery stent placement March 24, 2019 chronic August 11, 2 024 8:45am HLD (hyperlipidemia) chronic Dece mber 2023 8:45am Morbid obesity chronic October 012024 8:35am ADIEL (obstructive sleep apnea) chronic October 27 025 8:35am [facility] Work Phone: 1(924) 800-634104-15-2024 Progress note Author Nato Pedro [facility] December 13, 2023 4:53pm Note Date/Time December 13, 2023 1:4 2pm [facility] Medical Records Department [address] [place] [address] Progress Note - Hospitalist 12/13/23 1342 MR#: [id number] Acct: [id number] Name: JESSICA ACUÑA Rep #:[id number] : 1955 68 From: Nato miranda DO PCP: Dr. Raymundo Watt MD Status :ADM IN Location: [place] [address] Reason for Visit Reason for Visit: Diagnoses Cellulitis of right upper limb (12/12/23) Subjective Subjective No acute events overnight. Patient seen at bedside this morning, and daughter present. Patient sitting up comfortably in bed, conversing normally, in no acute distress. Patient unfortunately states that his right upper extremity cellulitis feels slightly worse today than previous days despite treatment with IV antibiotics. He states that he initially felt like he saw some improvement yesterday but then this morning his swelling and pain was worsethan previous days. He denies any systemic symptoms. Denies any fevers or chills. No other acute concerns this morning. Objective Data Objective Data Vital Signs: Vital Signs Temp Pulse Resp BP Pulse Ox O2 Del Method 97.8 F 64 16 143/89 H 99 Room Air 12/13/23 09:30 12/13/23 09:44 12/13/23 09:30 12/13/23 09:30 12/13/23 09:30 12/13/23 09:30 Oxygen Delivery Method Room Air Weight: 151 kg Body Mass Index (BMI) 42.7 Intake & Output: Intake and Output for Last 24 Hours 12/11/23 12/12/23 12/13/23 23:59 23:59 23:59 Intake Total 540 / 540 630 / 630 150 / 150 Balance 540 / 540 630 / 630 150 / 150 Lab / Micro Data 12/12/23 06:12 12/12/23 06:12 Radiography Diagnostic Testing: Radiology Impression Venous Doppler Study 12/11/23 18:36 Interpretation Summary Deep veins of the bilateral upper extremities are patent and compressible segmentally. There is no evidence of deep vein thrombosis. Superficial veins of the bilateral upper extremities are patent and compressiblesegmentally. There is no evidence of superficial vein thrombosis. Ordering Physician: Sujit Wall Referring Physician: Raymundo Rothman Performed By: Celio Parkinson RVT ??? Physical Exam Const alert, oriented x3 and no apparent distress Constitutional Narrative: Pleasant elderly male, morbidly obese, sitting up comfortably in bed, conversingnormally, no acute distress. General Appearance: cooperative and comfortable HEENT normocephalic, head/scalp atraumatic, hearing grossly normal bilaterally, nasal mucous membranes and turbinates normal and moist oral mucous membranes Eyes PERRL, EOMs intact bilaterally and conjunctivae normal Neck full ROM Chest inspection of chest normal Resp normal respiratory effort, normal air movement, no use of accessory muscles and clear to auscultation bilaterally Cardio regular rate, regular rhythm, no murmurs and peripheral pulses 2+ throughout GI normal to inspection, nondistended, normoactive bowel sounds, soft to palpation,non-tender and non-distended Back/Spine normal ROM Extremity full ROM Extremity Narrative: Right upper extremity with moderate swelling noted around right elbow down to right hand. Mild erythema noted. Mild tenderness to palpation. Neuro no focal motor deficits and no sensory deficits noted Speech: speech normal Psych mental status grossly normal Assessment & Plan Assessment/Plan (1) Cellulitis of arm, right: PLAN: Plan Patient is a 68-year-old male who presented [facility] ED on 12/11/2023 with right arm swelling and erythema. 1. Right arm cellulitis ? Presented with concern for right elbow cellulitis following a blunt trauma injury. Was initiated on p.o. clindamycin in outpatient setting with no improvement. Elbow x-ray showed no evidence of fracture, no soft tissue swelling. Right upper extremity duplex ultrasound negative for DVT. Started onIV Levaquin on admission given penicillin allergy. Unfortunately patient had noimprovement, switched to IV doxycycline on 12/12. Will monitor for improvement. Plan for 7-day course of antibiotics total. Treat pain with scheduled Tylenol and IV Toradol scheduled till tomorrow, will likely plan for short course of naproxen on discharge. Chronic medical conditions: ? Morbid obesity: BMI 42 on admit. Complicates hospital course, care and prognosis. ? History of NSTEMI/hypertension/hyperlipidemia: Continue home aspirin, statin, amlodipine, lisinopril, Lopressor. ? ADIEL: Continue home CPAP. DVT prophylaxis: Lovenox CODE STATUS: Full code, verified Expected disposition: Home, 1 to 2 days Total clinical time spent by myself addressing the patient's medical issues, reviewing all the data, and collaborating with patient's care team: 35 minutes. Charges/Coding Visit Charges Inpatient E&M: 63490 Subs Hosp L2 12/13/23 1654 <Electronically signed by Nato Pedro DO> Cosigner Signature (if applicable): CC: ~ Signed [facility] Work Phone: 1(115) 382-559204-14-2024 Progress note Author Matthew Estrada [facility] December 12, 2023 3:01pm Note Date/Time December 12, 2023 9:2 1am [facility] Medical Records Department [address] [place] [address] Progress Note - Hospitalist 12/12/23 0920 MR#: [id number] Acct: [id number] Name: JESSICA ACUÑA Rep #:[id number] : 1955 68 From: Matthew Cid PCP: Dr. Raymundo Watt MD Status :ADM IN Location: [place] [id number] Reason for Visit Reason for Visit: Diagnoses Cellulitis of right upper limb (12/11/23) Objective Data Objective Data Vital Signs: Vital Signs Temp Pulse Resp BP Pulse Ox O2 Del Method 97.5 F L 81 18 126/58 H 98 Bi-pap 12/12/23 03:05 12/12/23 08:49 12/12/23 03:05 12/12/23 03:05 12/12/23 03:05 12/12/23 03:10 Oxygen Delivery Method Bi-pap Weight: 332 lb 14.368 oz Body Mass Index (BMI) 42.7 Intake & Output: Intake and Output for Last 24 Hours 12/10/23 12/11/23 12/12/23 23:59 23:59 23:59 Intake Total 540 / 540 Balance 540 / 540 Lab / Micro Data 12/12/23 06:12 12/12/23 06:12 Labs: Laboratory Results - last 24 hr 12/11/23 17:40: WBC 8.1, RBC 4.25 L, Hgb 12.9 L, Hct 38.4 L, MCV 90.4, MCH 30.4,MCHC 33.6, RDW Std Deviation 46.0 H, RDW Coeff of Kaleb 13.9, Plt Count 240, MPV 10.3, Immature Gran % (Auto) 0.400, Neut % (Auto) 58.9, Lymph % (Auto) 25.3, Coal % (Auto) 10.5 H, Eos % (Auto) 4.0, Baso % (Auto) 0.9, Absolute Neuts (auto)4.8, Absolute Lymphs (auto) 2.04, Nucleated RBC % 0, ESR 20, Sodium 140, Potassium 4.0, Chloride 111 H, Carbon Dioxide 24.0, Anion Gap 5, BUN 15, Creatinine 1.12, Estim Creat Clear Calc 103.70, Est GFR (MDRD) Af Amer 84, Est GFR (MDRD) Non-Af 70, BUN/Creatinine Ratio 13.4, Glucose 97, Lactic Acid 1.0, Calcium 8.6, C-React Prot Ext Range 15.30 H 12/12/23 06:12: WBC 6.8, RBC 4.08 L, Hgb 12.5 L, Hct 37.6 L, MCV 92.2, MCH 30.6,MCHC 33.2, RDW Std Deviation 47.5 H, RDW Coeff of Kaleb 14.0, Plt Count 204, MPV 10.5, Immature Gran % (Auto) 0.300, Neut % (Auto) 60.0, Lymph % (Auto) 24.3, Coal % (Auto) 10.4 H, Eos % (Auto) 4.3, Baso % (Auto) 0.7, Absolute Neuts (auto)4.1, Absolute Lymphs (auto) 1.66, Nucleated RBC % 0 Sodium 141, Potassium 4.1, Chloride 110 H, Carbon Dioxide 28.0, Anion Gap 3 L, BUN 11, Creatinine 1.03, Estim Creat Clear Calc 109.48, Est GFR (MDRD) Af Amer 93, Est GFR (MDRD) Non-Af 77, BUN/Creatinine Ratio 10.7, Glucose 108 H, Calcium 8.9, Total Bilirubin 0.40, AST 18, ALT 28, Alkaline Phosphatase 82, Total Protein 6.4, Albumin 3.3, Globulin 3.1, Albumin/Globulin Ratio 1.1 Physical Exam Narrative Seen and examined. Patient admitted with right upper extremity cellulitis after he accidentally hitright elbow about 3 days ago. It progressed bidirectionally from elbow to arm and forearm. No fever Physical exam General: Alert, Oriented x3, Cooperative, morbid obesity BMI 42.7 kg/m? HEENT: Atraumatic, PERRLA, EOMI, Normocephalic Oral: No Gingival or Mucosal Lesions/ Ulcerations Neck: Supple, No JVD, Negative Carotid Bruits Chest wall/Lungs: Air entry diminished in bilateral lung bases. No crepitation/rhonchi Cardiovascular: Regular rate, Regular Rhythm, Normal S1, Normal S2, No M/G/R Abdomen: Bowel Sounds Present, Soft, Non Tender, Non-Distended : No dysuria. No renal angle tenderness. No suprapubic tenderness. Extremities: No edema, Capillary Refill Less than 3 Seconds Skin: Mild tenderness around right elbow/olecranon process. Mild skin thickening and induration around arm and forearm but erythema has almost resolved. No open ulcer or draining sinus. Musculoskeletal: Mild tenderness to right upper extremity, arm and forearm. No palpable axillary lymph node. Neurological: Cranial nerves II-XII grossly intact, DTR 2+/4. No acute focal neurological deficit. Psych/Mental Status: Normal Affect, Appropriate. Assessment & Plan Assessment/Plan (1) Cellulitis of arm, right: PLAN: Plan 62-year-old man with prior history of obesity, hypertension, coronary artery disease presents with swelling over his right arm following an episode of cellulitis, not responding to clindamycin therapy after seen ED on 12/08. 1. Cellulitis and swelling over right arm: Patient admitted in PCU. Venous duplex done but report not available.Prelim report is negative. Patient on IV levofloxacin as he is allergic to penicillin. Conservative management with right upper extremity elevation. 2. Hypertension: continue amlodipine, lisinopril 5 mg daily metoprolol 50 mg daily 3. Coronary artery disease: continue aspirin 81 mg daily 4. Dyslipidemia: continue atorvastatin 80 mg daily Anticipate discharge tomorrow. Charges/Coding Visit Charges Inpatient E&M: 94677 Subs Hosp L2 12/12/23 1501 <Electronically signed by Matthew Estrada MD> Cosigner Signature (if applicable): CC: ~ Signed [facility] Work Phone: 1(772) 333-522304-13-2024 Discharge summary Author Bárbara oDlan [facility] December 11, 2023 9:03pm Note Date/Time December 11, 2023 5:3 4pm [facility] Medical Records Department [address] [place] [address] Emergency Department Summary 12/11/23 MR#: [id number] Acct: [id number] Name: JESSICA ACUÑA Rep #:[id number] : 1955 68 From: Bárbara Dolan MD PCP: Dr. Raymundo Watt MD Status :ADM DELON Location: [place] [address]- 1 <Statement entered by Bárbara Dolan MD - 12/11/23 18:22> I have personally performed a face to face assessment of the patient and have reviewed the STEPH Note. Patient returns to the ER secondary to continued redness and swelling to the right upper extremity. Patient was initially seen on the 11th approximately 1 week after a blunt injury to his elbow. He was diagnosed with cellulitis and started on clindamycin. He does have a penicillin allergy. Patient states thathe was advised if he is not improving in 48 hours he should return. He notes the redness has spread and he has noted increased swelling. He does not have fever and does not otherwise feel ill. Patient sitting upright in bed no acute distress. Nontoxic-appearing. Head and neck examination unremarkable. Heart is regular rate and rhythm. Lung sounds are clear. Abdomen is soft and nontender. Right upper extremity examination does reveal mild diffuse edema. He is able toflex and extend at all joints. He does have light erythema noted over the extensor surface of the right elbow. He has good distal pulses and normal sensation. Lab work is repeated. White count remains normal. Sed rate is slightly improved from 24 down to 20. CRP is elevated at 15.3. With patient having progression of symptoms despite being on 48 hours of antibiotics he will be given a dose of IV vancomycin and discussed with hospitalist for admission. HPI History of Present Illness Chief Complaint: Cellulitis Narrative Narrative: Patient is a 68-year-old male with history of hypertension hyperlipidemia obesity obstructive sleep apnea who presents to the emergency department for worsening swelling, discomfort to his right arm. Patient was seen here on 2023, x-rays were completed, laboratory values were completed, patient was placed on clindamycin and told to come if not improved. Patient states that there is more redness and warmth going up the bicep and down towards the hand. He states that there is more swelling and he is here for evaluation. He denies any systemic symptoms such as fever chills nausea or vomiting. Patient denies any chest pain or shortness of breath. No history of blood clots in the legs orlungs. [facility] Medical History Atherosclerosis of [place] coronary artery of [place] heart without angina pectoris Essential hypertension HLD (hyperlipidemia) LVH (left ventricular hypertrophy) Morbid obesity NSTEMI (non-ST elevated myocardial infarction) (02/12/19) ADIEL treated with BiPAP Sleep-disordered breathing Home Medications aspirin 81 mg tablet,delayed release 81 mg PO DAILY ##30 02/14/19 [Rx Last Taken 02/28/20] amlodipine 10 mg tablet 10 mg PO DAILY #90 tabs 10/29/23 [Rx Last Taken Unknown] atorvastatin 80 mg tablet 80 mg PO DAILY #90 tabs 10/29/23 [Rx Last Taken Unknown] lisinopril 5 mg tablet 5 mg PO DAILY #90 tabs 10/29/23 [Rx Last Taken Unknown] metoprolol tartrate 50 mg tablet 50 mg PO BID #180 tabs 10/29/23 [Rx Last Taken Unknown] clindamycin HCl 300 mg capsule (Cleocin HCl) 300 mg PO Q6H #28 CAPSULES 12/09/23[Rx Last Taken Unknown] Allergy/AdvReac Type Severity Reaction Status Date / Time ticagrelor [From Brilinta] Allergy Intermediate Nausea, Verified 12/11/23 17:19 dizziness, shortness of breath penicillin G Allergy Unknown Unknown Verified 12/11/23 17:19 Family History Father COPD (chronic obstructive pulmonary disease) Grandmother Diabetes Surgical History History of coronary artery stent placement (03/24/19) History of hand surgery Social History Smoking Status: Unknown if ever smoked Tobacco: How many years used: 20 how long ago did patient quit smokin, 2.5ppd second hand exposure: Yes alcohol intake: current alcohol intake frequency: a few times a month substance use type: does not use caffeine: Yes Type: coffee Number of servings: 1 what type of physical activity do you participate in: none frequency: does not exercise seatbelt use: always ROS ROS ED ROS Narrative Constitutional: Negative for fever, chills, weight loss, weakness Eyes: Negative for vision loss, vision change, double vision ENT: Negative for any sore throat, ear pain, congestion Cardiovascular: Negative for any chest pain, tightness, palpitations Respiratory: Negative for any cough, sputum production, hemoptysis, dyspnea, dyspnea on exertion, orthopnea Gastrointestinal: Negative for any abdominal pain, nausea, vomiting, diarrhea, constipation, blood in stool, blood in vomit : Negative for any urinary frequency, dysuria, retention, blood in urine Muscle skeletal: Negative for any neck pain, back pain. Positive for pain to the right arm, swelling to the right arm Neurological: Negative for any headache, syncope, dizziness Skin: Negative for any rashes, itching, abrasions, lacerations Psychiatric: Negative for any depression, anxiety, stress, suicidal ideation, homicidal ideation Hematologic: Negative for any excessive bruising, easy bleeding EXAM Physical Exam Narrative Exam Narrative: Vital signs reviewed. HEET: Head normocephalic atraumatic, TMs clear bilaterally. Posterior pharynx is clear, moist mucous membranes. Nares clear bilaterally. Neck: Supple with no lymphadenopathy or tenderness. No signs of meningismus. Cardiac: Regular rate and rhythm no murmurs gallops or rubs, equal peripheral pulses bilaterally. Respiratory: Lungs clear to auscultation bilaterally. No chest tenderness. Abdomen: Soft, nontender, nondistended. No abdominal bruit or pulsatile masses. No hepatosplenomegaly Extremities: Patient does have swelling to the posterior arm by the elbow, this does wrap around to the antecubital area, redness to the forearm. There does appear to be some tight skin secondary to edema. When putting both arms together there is obvious different. Patient has no lymphadenopathy in the axilla. +2 radial pulse. Patient is able to flex and extend at the elbow he says it feels tight and is uncomfortable however the pain is not excruciating. Active full range of motion of all extremities. Neuro: Cranial nerves II through XII intact, no focal neurological deficits. Skin: Clean dry and intact with no rash, purpura, petechiae, vesicles or pustules. Backs/flank: No CVA tenderness, no midline spinal tenderness, no deformity. Psych: Normal mood and affect. No SI, HI or acute psychosis. Const Vital Signs: 12/11/23 17:17 12/11/23 18:19 Temperature 96.1 F L 96.1 F L Temperature Source Temporal Oral Pulse Rate 78 77 Respiratory Rate 16 18 Blood Pressure 148/91 H 147/68 H Blood Pressure Mean 110 94 Pulse Ox 98 98 Oxygen Delivery Method Room Air Room Air [facility] Lab Data Labs: Laboratory Results - last 24 hr 12/11/23 17:40 WBC 8.1 RBC 4.25 L Hgb 12.9 L Hct 38.4 L MCV 90.4 MCH 30.4 MCHC 33.6 RDW Std Deviation 46.0 H RDW Coeff of Kaleb 13.9 Plt Count 240 MPV 10.3 Immature Gran % (Auto) 0.400 Neut % (Auto) 58.9 Lymph % (Auto) 25.3 Coal % (Auto) 10.5 H Eos % (Auto) 4.0 Baso % (Auto) 0.9 Absolute Neuts (auto) 4.8 Absolute Lymphs (auto) 2.04 Nucleated RBC % 0 ESR 20 Sodium 140 Potassium 4.0 Chloride 111 H Carbon Dioxide 24.0 Anion Gap 5 BUN 15 Creatinine 1.12 Estim Creat Clear Calc 103.70 Est GFR (MDRD) Af Amer 84 Est GFR (MDRD) Non-Af 70 BUN/Creatinine Ratio 13.4 Glucose 97 Calcium 8.6 C-React Prot Ext Range 15.30 H Treatment and Re-Evaluation :: Differential diagnosis includes however is not limited to: Right arm cellulitis,septic joint, septic arthritis, olecranon bursitis infectious bursitis Patient appears to be in no obvious respiratory distress vital signs are stable. Presenting to the emergency department with complaints of worsening pain, redness and swelling to the right elbow, right arm. I do believe that DVT was in the differential however patient has no risk factors, there is some redness, pain that is burning and redness that is going down the arm. Patient will receive basic laboratory values including lactic as well as sed rate and CRP, I will compare these from 2 days ago. Patient CBC shows slight anemia hemoglobin 12.9, white blood count 8.1, this is similar from 2 days ago. Patient's chemistries were unremarkable, creatinine 1.12, sed rate was 20, previous 24. C-reactive protein is 15.3. Lactic acid still pending. However secondary to the patient continuing being on 2 days of clindamycin every 6 hours, the patient is having worsening redness worsening swelling worsening pain I do believe that the patient needs to be admitted to hospital and further workup. IV vancomycin will be ordered. I will speak with hospitalist. I spoke with hospitalist, patient be admitted to the hospital. Patient is stable and comfortable with the decision to stay. Discharge Plan Triage Chief Complaint: Cellulitis ED Midlevel Provider: Ashu Estrada ED Provider: Bárbara Dolan Dx/Rx/DC Orders Clinical Impression: Localized swelling of right forearm, Cellulitis of arm, right Prescriptions: No Action aspirin 81 MG tablet,delayed release (DR/EC) 81 mg PO DAILY Qty: 30 0RF clindamycin HCl [Cleocin HCl] 300 mg capsule 300 mg PO Q6H Qty: 28 0RF atorvastatin 80 mg tablet 80 mg PO DAILY Qty: 90 3RF lisinopril 5 mg tablet 5 mg PO DAILY Qty: 90 3RF metoprolol tartrate 50 mg tablet 50 mg PO BID Qty: 180 3RF amlodipine 10 mg tablet 10 mg PO DAILY Qty: 90 3RF Primary Care Provider: Raymundo Watt Referrals: Raymundo Watt MD [Primary Care Provider] - What to do if you have Problems For any increased pain, shortness of breath, bleeding, nausea or vomiting, chestpain, or any unexpected problems, contact your Primary Care Provider. Call [facility] ([phone]) or report to the closest Emergency Room. Call 911 if necessary. 12/11/232102 <Electronically signed by Bárbara Dolan MD> Cosigner Signature (if applicable): 12/11/231828 <Electronically signed by Ashu DOMINGUEZ> CC: Dr. Raymundo Watt MD ~ Signed [facility] Work Phone: 1(184) 660-355704-13-2024 History and physical note Author [facility] December 11, 2023 6:38pm Note Date/Time December 11, 2023 6:3 5pm [facility] Medical Records Department [address] [place] [address] H&P Exam - Hospitalist 12/11/231826 MR#: [id number] Acct: [id number] Name: JESSICA ACUÑA Rep #:[id number] : 1955 68 From: Sujit Wall MD PCP: Dr. Raymundo Watt MD Status :REG ER Location: ED HPI - General General Date of Admission: 12/11/23 Date of Service: 12/11/23 Chief Complaint: Right arm swelling HPI Narrative JESSICA ACUÑA, is a 68 M with past medical history of coronary artery disease, obesity, left ventricular hypertrophy, essential hypertension, hyperlipidemia, morbid obesity, ADIEL, who presents to the ED following worsening swelling and stiffness of his right. He presented on 12/09/2023 with concerns regarding rightelbow cellulitis following an blunt trauma injury. At the time there was no neurovascular compromise and he was discharged from the on clindamycin 300 mg every 6 hours. Following his discharge the erythema is reduced but there is persistent swellingand he fears that the swelling is worsening. No fever, no change in his systemic symptoms. Overall feeling well. [facility] Medical History Atherosclerosis of [place] coronary artery of [place] heart without angina pectoris Essential hypertension HLD (hyperlipidemia) LVH (left ventricular hypertrophy) Morbid obesity NSTEMI (non-ST elevated myocardial infarction) (02/12/19) ADIEL treated with BiPAP Sleep-disordered breathing Home Medications aspirin 81 mg tablet,delayed release 81 mg PO DAILY ##30 02/14/19 [Rx Last Taken 02/28/20] amlodipine 10 mg tablet 10 mg PO DAILY #90 tabs 10/29/23 [Rx Last Taken Unknown] atorvastatin 80 mg tablet 80 mg PO DAILY #90 tabs 10/29/23 [Rx Last Taken Unknown] lisinopril 5 mg tablet 5 mg PO DAILY #90 tabs 10/29/23 [Rx Last Taken Unknown] metoprolol tartrate 50 mg tablet 50 mg PO BID #180 tabs 10/29/23 [Rx Last Taken Unknown] clindamycin HCl 300 mg capsule (Cleocin HCl) 300 mg PO Q6H #28 CAPSULES 12/09/23[Rx Last Taken Unknown] Allergy/AdvReac Type Severity Reaction Status Date / Time ticagrelor [From Brilinta] Allergy Intermediate Nausea, Verified 12/11/23 17:19 dizziness, shortness of breath penicillin G Allergy Unknown Unknown Verified 12/11/23 17:19 Family History Father COPD (chronic obstructive pulmonary disease) Grandmother Diabetes Surgical History History of coronary artery stent placement (03/24/19) History of hand surgery Social History Smoking Status: Unknown if ever smoked Tobacco: How many years used: 20 how long ago did patient quit smokin, 2.5ppd second hand exposure: Yes alcohol intake: current alcohol intake frequency: a few times a month substance use type: does not use caffeine: Yes Type: coffee Number of servings: 1 what type of physical activity do you participate in: none frequency: does not exercise seatbelt use: always ROS Review of Systems ROS Unobtainable: Denies due to encephalopathy, due to endotracheal tube, due tomental condition, due to mental status or other Constitutional Constitutional: Denies anorexia, change in weight, chills, fatigue, fever(s), malaise, night sweats, weakness or other Eyes Eyes: Denies blurry vision, change in eye color, change in vision, discharge from eye(s), double vision, erythema, eye pain, loss of vision or other ENT HEENT: Denies abnormal hearing, dysphagia, ear pain, epistaxis, headache(s), hearing loss, nasal congestion, nasal discharge, post nasal drip, sinus pressure, sore throat or other Cardiovascular Cardiovascular: Denies chest pain, claudication, dyspnea on exertion, edema, lightheadedness, orthopnea, palpitations, paroxysmal nocturnal dyspnea, rapid heart rate, syncope or other Respiratory/Chest Respiratory/Chest: Denies cough, dyspnea, excessive phlegm production, hemoptysis, productive cough, shortness of breath at rest, shortness of breath with exertion, wheezing or other Gastrointestinal Gastrointestinal: Denies abdominal pain, coffee ground emesis, constipation, diarrhea, dyspepsia, hematemesis, hematochezia, loose stools, melena, nausea, vomiting or other Neurologic Neurologic: Denies abnormal gait, abnormal speech, confusion, disequilibrium, dizziness, focal weakness, headache(s), numbness, paresthesias, seizure-like activity, seizures, syncope, tingling, tremor(s) or other Psychiatric Psychiatric: Denies anxiety, depression, homicidal ideation, suicidal ideation or other Vital Signs Vital Signs Vital Signs: 12/11/23 17:17 Temperature 96.1 F L Temperature Source Temporal Pulse Rate 78 Respiratory Rate 16 Blood Pressure 148/91 H Blood Pressure Mean 110 Pulse Ox 98 Oxygen Delivery Method Room Air Weight Weight: 351 lb Body Mass Index (BMI) 45.0 Physical Exam Const alert and oriented x3 HEENT normocephalic, head/scalp atraumatic, hearing grossly normal bilaterally, moist oral mucous membranes, oropharynx normal and dentition normal Eyes PERRL, EOMs intact bilaterally and conjunctivae normal Neck no lymphadenopathy, supple, no JVD and no carotid bruits Resp normal respiratory effort, no retractions, no use of accessory muscles and clearto auscultation bilaterally Cardio regular rate, regular rhythm, S1 normal heart sound, S2 normal heart sound, no murmurs, no rub, no gallops, no clicks and no JVD Extremity Extremity Narrative: Right arm diffuse swelling, minimal erythema over the elbow and adjoining lesions present, no significant tenderness on examination. Neuro oriented x3 Sensorium / Orientation: awake and alert Results Medical Records Data Attestation: I reviewed the patient's medical records Lab / Micro Data Attestation: I reviewed the patient's lab results. 12/11/23 17:40 12/11/23 17:40 Labs: Laboratory Results - last 24 hr 12/11/23 17:40: WBC 8.1, RBC 4.25 L, Hgb 12.9 L, Hct 38.4 L, MCV 90.4, MCH 30.4,MCHC 33.6, RDW Std Deviation 46.0 H, RDW Coeff of Kaleb 13.9, Plt Count 240, MPV 10.3, Immature Gran % (Auto) 0.400, Neut % (Auto) 58.9, Lymph % (Auto) 25.3, Coal % (Auto) 10.5 H, Eos % (Auto) 4.0, Baso % (Auto) 0.9, Absolute Neuts (auto)4.8, Absolute Lymphs (auto) 2.04, Nucleated RBC % 0, ESR 20, Sodium 140, Potassium 4.0, Chloride 111 H, Carbon Dioxide 24.0, Anion Gap 5, BUN 15, Creatinine 1.12, Estim Creat Clear Calc 103.70, Est GFR (MDRD) Af Amer 84, Est GFR (MDRD) Non-Af 70, BUN/Creatinine Ratio 13.4, Glucose 97, Calcium 8.6, C-React Prot Ext Range 15.30 H Assessment & Plan Assessment/Plan (1) Cellulitis of arm, right: PLAN: Plan 62-year-old man with prior history of obesity, hypertension, coronary artery disease presents with swelling over his right arm following an episode of cellulitis that is responding to clindamycin therapy. The possible reason for his swelling is venous thrombosis, deep infection is also possibility, will switch from oral to IV antibiotics during his course of hospitalization. 1. Cellulitis and swelling over right arm: -There is a possibility of venous thrombosis and will get right upper quadrant ultrasound given the degree of swelling -Will switch to IV Levofloxacin given the penicillin allergy 2. Hypertension: continue amlodipine, lisinopril 5 mg daily metoprolol 50 mg daily 3. Coronary artery disease: continue aspirin 81 mg daily 4. Dyslipidemia: continue atorvastatin 80 mg daily Charges/Coding Visit Charges Inpatient E&M: 45184 Init Hosp L2 12/11/23 1838 <Electronically signed by Sujit Wall MD> Cosigner Signature (if applicable): CC: Dr. Sujit Wall MD; Dr. Raymundo Watt MD~ Signed [facility] Work Phone: 1(950) 298-152004-11-2024 Discharge summary Author Jignesh Culver [facility] December 09, 2023 8:46pm Note Date/Time December 09, 2023 7:1 9pm [facility] Medical Records Department [address] [place] [id number] Emergency Department Summary 12/09/23 MR#: [id number] Acct: [id number] Name: JESSICA ACUÑA Rep #:[id number] : 1955 68 From: Jignesh Culver MD PCP: Dr. Raymundo Watt MD Status :REG ER Location: ED HPI History of Present Illness Chief Complaint: Upper Extremity Injury Detail of Chief Complaint: Swelling and pain right elbow status post blunt trauma 1 week ago Informant: patient Occured/Mechanism Mechanism/Context: Yes blunt trauma Comment: Hip elbow against object. Pain and swelling over the past 24+ hours. Onset/Context/Timing Context: Sudden Onset Timing: Continuous Quality of Pain: Dull Location: Right forearm and elbow Current Severity: Moderate Maximum Severity: Moderate Worsened by: Nothing Relieved by: Nothing Associated Symptoms Associated Symptoms: Negative for Parasthesia, Weakness or Loss of Funtion Narrative Narrative: Patient is a 68-year-old [id number] male. Presents because of blunt trauma to his right elbow 1 week ago. The last 24 hours she has had some warmth, redness and swelling involving the right elbow. He denies paresthesia, anesthesia medics. He is on a baby aspirin a day. No anticoagulant. He does have history of hypertension hypercholesterolemia. He is on no immunosuppressive drugs. He has no history of rheumatic fever, heart murmur mitral valve prolapse. He denies nausea, vomiting or diarrhea. He has no othercomplaints. Prior similar symptoms: No Recent Illness/Hospitalization: No PFSH PFSH Medical History Atherosclerosis of [place] coronary artery of [place] heart without angina pectoris Essential hypertension HLD (hyperlipidemia) LVH (left ventricular hypertrophy) Morbid obesity NSTEMI (non-ST elevated myocardial infarction) (02/12/19) ADIEL treated with BiPAP Sleep-disordered breathing Home Medications aspirin 81 mg tablet,delayed release 81 mg PO DAILY ##30 02/14/19 [Rx Last Taken 02/28/20] amlodipine 10 mg tablet 10 mg PO DAILY #90 tabs 10/29/23 [Rx Last Taken Unknown] atorvastatin 80 mg tablet 80 mg PO DAILY #90 tabs 10/29/23 [Rx Last Taken Unknown] lisinopril 5 mg tablet 5 mg PO DAILY #90 tabs 10/29/23 [Rx Last Taken Unknown] metoprolol tartrate 50 mg tablet 50 mg PO BID #180 tabs 10/29/23 [Rx Last Taken Unknown] clindamycin HCl 300 mg capsule (Cleocin HCl) 300 mg PO Q6H #28 CAPSULES 12/09/23[Rx Last Taken Unknown] Allergy/AdvReac Type Severity Reaction Status Date / Time ticagrelor [From Brilinta] Allergy Intermediate Nausea, Verified 12/09/23 18:04 dizziness, shortness of breath penicillin G Allergy Unknown Unknown Verified 12/09/23 18:04 Family History Father COPD (chronic obstructive pulmonary disease) Grandmother Diabetes Surgical History History of coronary artery stent placement (03/24/19) History of hand surgery Social History Smoking Status: Former smoker Tobacco: How many years used: 20 how long ago did patient quit smokin, 2.5ppd second hand exposure: Yes alcohol intake: current alcohol intake frequency: a few times a month substance use type: does not use caffeine: Yes Type: coffee Number of servings: 1 what type of physical activity do you participate in: none frequency: does not exercise seatbelt use: always ROS ROS ED Constitutional Constitutional ED: Denies chills, fever(s), subjective, sweats or weight loss Cardiovascular Cardiovascular: Denies chest pain or palpitations Respiratory/Chest Respiratory/Chest: Denies cough, dyspnea or dyspnea on exertion Gastrointestinal Gastrointestinal: Denies abdominal pain, nausea or vomiting Integumentary Denies Abrasions or rash Neurologic Neurologic: Denies paresthesias or weakness Hematologic/Lymphatic Hematologic/Lymphatic: Denies easy bleeding or easy bruising EXAM Physical Exam Const Vital Signs: 12/09/23 18:01 12/09/23 18:02 12/09/23 18:03 Temperature 98.1 F 98.1 F 98.1 F Temperature Source Temporal Temporal Temporal Pulse Rate 80 83 76 Respiratory Rate 16 15 15 Blood Pressure 157/88 H 157/88 H 157/88 H Blood Pressure Mean 111 111 111 Pulse Ox 96 96 96 Oxygen Delivery Method Room Air Room Air Room Air Positive well nourished and well developed General Appearance ED: well developed and NAD HEENT Reports moist mucous membranes normocephalic and atraumatic Eyes PERRL and EOMs intact bilaterally Neck full ROM Resp normal respiratory effort and clear to auscultation bilaterally Cardio regular rate, regular rhythm, S1 normal heart sound, S2 normal heart sound and no murmurs Extremity Negative for normal to inspection Extremity Narrative: The right elbow and proximal radial right forearm are swollen. There is edema noted lateral proximal right forearm. There is pain outpatient over the olecranon process and question of fluctuance. There is slight erythema. There is no induration there is no lymphangitis. There is no actual lymphadenopathy. There is no swelling of the hand. The swelling is localized. Neuro oriented x3, CN's II-XII intact bilaterally, no focal motor deficits and no sensory deficits noted Neuro Narrative: Axillary, median, radial and ulnar function intact. Psych mental status grossly normal Skin Lesions: no lesions Rashes: No no rashes MDM MDM MDM Narrative Medical decision making narrative: X-rays today include nurse protocol. This was obtained to evaluate for foreign body. Concern patient may have olecranon bursitis. Will perform needle aspirate. There is also concern for cellulitis. There is no neurovasc compromise of the right upper extremity. To work patient up will obtain CBC, electrolyte panel and ESR. Needle aspiration of olecranon bursa. Lab Data Attestation: I reviewed the patient's lab results. Lab results narrative: CBC was unremarkable. There is no evidence of endorgan dysfunction. Patient was treated with antibiotics for presumed infection. Radiography Chest X-Ray - ED: Read by ED Physician (Three-view x-ray reveals no anterior posterior fat-pad i.e. effusion. There is no fracture, subluxation dislocation there is no loss of foreign body.) Diagnostic Testing: Clinical Impression(s) from Imaging Studies Elbow X-Ray 12/09/23 18:05 IMPRESSION: 1. No evidence fracture, malalignment or focal bony or joint space abnormality. 2. Degenerative changes are present with osteophyte formation. Electronically Signed: Manuel Carrizales MD at 18:47 EDT , Treatment and Re-Evaluation Narrative: Since the swelling is localized there is warmth slight erythema over the area ofswelling suspect this represents an early infection. Will treat with clindamycin since he had a life-threatening allergic reaction to penicillin as achild. If there is no improvement in 24 to 48 hours patient will need an outpatient venous duplex study of the upper extremity. Will have him return if there is no improvement. Discharge Plan Triage Chief Complaint: Upper Extremity Injury ED Provider: Jignesh Culver Dx/Rx/DC Orders Clinical Impression: Cellulitis of right upper extremity, HLD (hyperlipidemia), Essential hypertension, ADIEL (obstructive sleep apnea), History of coronary artery stent placement Instructions: ED Cellulitis Prescriptions: New clindamycin HCl [Cleocin HCl] 300 mg capsule 300 mg PO Q6H Qty: 28 0RF No Action aspirin 81 MG tablet,delayed release (DR/EC) 81 mg PO DAILY Qty: 30 0RF atorvastatin 80 mg tablet 80 mg PO DAILY Qty: 90 3RF lisinopril 5 mg tablet 5 mg PO DAILY Qty: 90 3RF metoprolol tartrate 50 mg tablet 50 mg PO BID Qty: 180 3RF amlodipine 10 mg tablet 10 mg PO DAILY Qty: 90 3RF Primary Care Provider: Raymundo Watt Referrals: Raymundo Watt MD [Primary Care Provider] - 2 Days for wound check Activity Restrictions/Additional Instructions: If you are unable to see Dr. Valentin in 2 days for recheck return to the emergency department if there is no improvement for an outpatient venous duplex study Disposition Disposition: Home, Self Care What to do if you have Problems For any increased pain, shortness of breath, bleeding, nausea or vomiting, chestpain, or any unexpected problems, contact your Primary Care Provider. Call [facility] ([phone]) or report to the closest Emergency Room. Call 911 if necessary. 12/09/232045 <Electronically signed by Jignesh Culver MD> Cosigner Signature (if applicable): CC: Dr. Raymundo Watt MD ~ Signed [facility] Work Phone: [phone]) 850-393207-26-2019 Evaluation note* Diagnosis Onset Date Resolution Status Essential hypertension chron ic History of coronary artery stent placement March 24, 2019 chronic HLD (hyperlipidemia) chronic [facility] Work Phone: Discharge summary [facility] December 14, 2023 12:02pm Note Date/Time December 14, 2023 12: 00pm [facility] Medical Records Department [address] [place] [address] Instructions for Home/Discharge Instructions 12/14/23 1200 MR#: [id number] Acct: [id number] Name: ARIANNEJESSICA FROY Rep #:[id number] : 1955 68 From: Nato miranda DO PCP: Dr. Raymundo Watt MD Status :ADM IN Discharge Instructions Diet Discharge Diet: No restrictions Activity Discharge Activity: No Restrictions Weight Bearing Status: Full weight bearing Follow Up Care Test Results: Test results from this visit will be discussed in further detail at your follow- up appointment, if applicable. Discharge Plan Admission Admit Date/Time: 12/12/23 12:29 Primary Reason for Your Visit: Right arm cellulitis Attending Provider: Nato Pedro Primary Care Provider: Raymundo Watt Consulting Providers: Sujit Wall; Matthew Estrada Discharge Orders/Prescriptions Prescriptions: New doxycycline hyclate 100 mg capsule 100 mg PO BID 6 Days Qty: 12 0RF Continued aspirin 81 MG tablet,delayed release (DR/EC) 81 mg PO DAILY Qty: 30 0RF atorvastatin 80 mg tablet 80 mg PO DAILY Qty: 90 3RF lisinopril 5 mg tablet 5 mg PO DAILY Qty: 90 3RF metoprolol tartrate 50 mg tablet 50 mg PO BID Qty: 180 3RF amlodipine 10 mg tablet 10 mg PO DAILY Qty: 90 3RF Discontinued clindamycin HCl [Cleocin HCl] 300 mg capsule 300 mg PO Q6H Qty: 28 0RF Referrals / Follow Up: Raymundo Watt MD [Primary Care Provider] - Disposition Disposition (needs filled in before D/C Order can be placed): Home, Self Care 12/14/23 1202<Electronically signed by Nato Pedro DO>Nato Pedro DO CC: Dr. Sujit Wall MD; Dr. Raymnudo Watt MD; Dr. Matthew Estrada MD ~ Signed [facility] Work Phone: Evaluation noteNo assessment information available [facility] Work Phone: Evaluation note* Diagnosis Onset Date Resolution Status Cellulitis of arm, right acu te Localized swelling of right forearm acute [facility] Work Phone: History and physical note Author Sujit Wall [facility] December 11, 2023 6:38pm Note Date/Time December 11, 2023 6:3 5pm [facility] Medical Records Department [address] [place] [address] H&P Exam - Hospitalist 12/11/23 1827 MR#: [id number] Acct: [id number] Name: JESSICA ACUÑA Rep #:[id number] : 1955 68 From: Sujit Wall MD PCP: Dr. Raymundo Watt MD Status :REG ER Location: ED HPI - General General Date of Admission: 12/11/23 Date of Service: 12/11/23 Chief Complaint: Right arm swelling HPI Narrative JESSICA ACUÑA, is a 68 M with past medical history of coronary artery disease, obesity, left ventricular hypertrophy, essential hypertension, hyperlipidemia, morbid obesity, ADIEL, who presents to the ED following worsening swelling and stiffness of his right. He presented on 12/09/2023 with concerns regarding rightelbow cellulitis following an blunt trauma injury. At the time there was no neurovascular compromise and he was discharged from theED on clindamycin 300 mg every 6 hours. Following his discharge the erythema is reduced but there is persistent swellingand he fears that the swelling is worsening. No fever, no change in his systemic symptoms. Overall feeling well. [facility] Medical History Atherosclerosis of [place] coronary artery of [place] heart without angina pectoris Essential hypertension HLD (hyperlipidemia) LVH (left ventricular hypertrophy) Morbid obesity NSTEMI (non-ST elevated myocardial infarction) (02/12/19) ADIEL treated with BiPAP Sleep-disordered breathing Home Medications aspirin 81 mg tablet,delayed release 81 mg PO DAILY ##30 02/14/19 [Rx Last Taken 02/28/20] amlodipine 10 mg tablet 10 mg PO DAILY #90 tabs 10/29/23 [Rx Last Taken Unknown] atorvastatin 80 mg tablet 80 mg PO DAILY #90 tabs 10/29/23 [Rx Last Taken Unknown] lisinopril 5 mg tablet 5 mg PO DAILY #90 tabs 10/29/23 [Rx Last Taken Unknown] metoprolol tartrate 50 mg tablet 50 mg PO BID #180 tabs 10/29/23 [Rx Last Taken Unknown] clindamycin HCl 300 mg capsule (Cleocin HCl) 300 mg PO Q6H #28 CAPSULES 12/09/23[Rx Last Taken Unknown] Allergy/AdvReac Type Severity Reaction Status Date / Time ticagrelor [From Brilinta] Allergy Intermediate Nausea, Verified 12/11/23 17:19 dizziness, shortness of breath penicillin G Allergy Unknown Unknown Verified 12/11/23 17:19 Family History Father COPD (chronic obstructive pulmonary disease) Grandmother Diabetes Surgical History History of coronary artery stent placement (03/24/19) History of hand surgery Social History Smoking Status: Unknown if ever smoked Tobacco: How many years used: 20 how long ago did patient quit smokin, 2.5ppd second hand exposure: Yes alcohol intake: current alcohol intake frequency: a few times a month substance use type: does not use caffeine: Yes Type: coffee Number of servings: 1 what type of physical activity do you participate in: none frequency: does not exercise seatbelt use: always ROS Review of Systems ROS Unobtainable: Denies due to encephalopathy, due to endotracheal tube, due tomental condition, due to mental status or other Constitutional Constitutional: Denies anorexia, change in weight, chills, fatigue, fever(s), malaise, night sweats, weakness or other Eyes Eyes: Denies blurry vision, change in eye color, change in vision, discharge from eye(s), double vision, erythema, eye pain, loss of vision or other ENT HEENT: Denies abnormal hearing, dysphagia, ear pain, epistaxis, headache(s), hearing loss, nasal congestion, nasal discharge, post nasal drip, sinus pressure, sore throat or other Cardiovascular Cardiovascular: Denies chest pain, claudication, dyspnea on exertion, edema, lightheadedness, orthopnea, palpitations, paroxysmal nocturnal dyspnea, rapid heart rate, syncope or other Respiratory/Chest Respiratory/Chest: Denies cough, dyspnea, excessive phlegm production, hemoptysis, productive cough, shortness of breath at rest, shortness of breath with exertion, wheezing or other Gastrointestinal Gastrointestinal: Denies abdominal pain, coffee ground emesis, constipation, diarrhea, dyspepsia, hematemesis, hematochezia, loose stools, melena, nausea, vomiting or other Neurologic Neurologic: Denies abnormal gait, abnormal speech, confusion, disequilibrium, dizziness, focal weakness, headache(s), numbness, paresthesias, seizure-like activity, seizures, syncope, tingling, tremor(s) or other Psychiatric Psychiatric: Denies anxiety, depression, homicidal ideation, suicidal ideation or other Vital Signs Vital Signs Vital Signs: 12/11/23 17:17 Temperature 96.1 F L Temperature Source Temporal Pulse Rate 78 Respiratory Rate 16 Blood Pressure 148/91 H Blood Pressure Mean 110 Pulse Ox 98 Oxygen Delivery Method Room Air Weight Weight: 351 lb Body Mass Index (BMI) 45.0 Physical Exam Const alert and oriented x3 HEENT normocephalic, head/scalp atraumatic, hearing grossly normal bilaterally, moist oral mucous membranes, oropharynx normal and dentition normal Eyes PERRL, EOMs intact bilaterally and conjunctivae normal Neck no lymphadenopathy, supple, no JVD and no carotid bruits Resp normal respiratory effort, no retractions, no use of accessory muscles and clearto auscultation bilaterally Cardio regular rate, regular rhythm, S1 normal heart sound, S2 normal heart sound, no murmurs, no rub, no gallops, no clicks and no JVD Extremity Extremity Narrative: Right arm diffuse swelling, minimal erythema over the elbow and adjoining lesions present, no significant tenderness on examination. Neuro oriented x3 Sensorium / Orientation: awake and alert Results Medical Records Data Attestation: I reviewed the patient's medical records Lab / Micro Data Attestation: I reviewed the patient's lab results. 12/11/23 17:40 12/11/23 17:40 Labs: Laboratory Results - last 24 hr 12/11/23 17:40: WBC 8.1, RBC 4.25 L, Hgb 12.9 L, Hct 38.4 L, MCV 90.4, MCH 30.4,MCHC 33.6, RDW Std Deviation 46.0 H, RDW Coeff of Kaleb 13.9, Plt Count 240, MPV 10.3, Immature Gran % (Auto) 0.400, Neut % (Auto) 58.9, Lymph % (Auto) 25.3, Coal % (Auto) 10.5 H, Eos % (Auto) 4.0, Baso % (Auto) 0.9, Absolute Neuts (auto)4.8, Absolute Lymphs (auto) 2.04, Nucleated RBC % 0, ESR 20, Sodium 140, Potassium 4.0, Chloride 111 H, Carbon Dioxide 24.0, Anion Gap 5, BUN 15, Creatinine 1.12, Estim Creat Clear Calc 103.70, Est GFR (MDRD) Af Amer 84, Est GFR (MDRD) Non-Af 70, BUN/Creatinine Ratio 13.4, Glucose 97, Calcium 8.6, C-React Prot Ext Range 15.30 H Assessment & Plan Assessment/Plan (1) Cellulitis of arm, right: PLAN: Plan 62-year-old man with prior history of obesity, hypertension, coronary artery disease presents with swelling over his right arm following an episode of cellulitis that is responding to clindamycin therapy. The possible reason for his swelling is venous thrombosis, deep infection is also possibility, will switch from oral to IV antibiotics during his course of hospitalization. 1. Cellulitis and swelling over right arm: -There is a possibility of venous thrombosis and will get right upper quadrant ultrasound given the degree of swelling -Will switch to IV Levofloxacin given the penicillin allergy 2. Hypertension: continue amlodipine, lisinopril 5 mg daily metoprolol 50 mg daily 3. Coronary artery disease: continue aspirin 81 mg daily 4. Dyslipidemia: continue atorvastatin 80 mg daily Charges/Coding Visit Charges Inpatient E&M: 56605 Init Hosp L2 12/11/238 <Electronically signed by Sujit Wall MD> Cosigner Signature (if applicable): CC: Dr. Sujit Wall MD; Dr. Raymundo Watt MD~ Signed [facility] Work Phone: Hospital Discharge instructions Additional Instructions If you are unable to see Dr. Valentin in 2 days for recheck return to the emergency department if there is no improvement for an outpatient venous duplex [facility] Work Phone: Reason for referral (narrative)No reason for referral information availableWCommunity Regional [facility] Center Work Phone: Summary Purpose Family History No Family History Records Found Relationship Condition Age at Onset Recorded Date/T pacheco father Chronic obstructive pulmonary disease Unk nown grandmother Diabetes mellitus Unknown Advance Directives No Advanced Directives Records Found Advance Directive Response Recorded Date/ Time Advance Directives No March 24 7:48am Living Will No February 28, 2020 6 :39pm Power of Roping Machine Tender No February 28, 2020 6:39pm Advance Directive Response Recorded Date/ Time Advance Directives No March 24 7:48am Living Will No December 09, 2023 9:00pm Power of Roping Machine Tender No December 08 9:00pm Advance Directive Response Recorded Date/ Time Advance Directives No March 24 7:48am Living Will No December 11, 2023 5:42pm Power of Roping Machine Tender No December 10 5:42pm Advance Directive Response Recorded Date/ Time Advance Directives No March 24 7:48am Living Will No December 11, 2023 9:00pm Power of Roping Machine Tender No December 10 9:00pm Advance Directive Response Recorded Date/ Time Living Will No February 28, 2020 6 :39pm Power of Roping Machine Tender No February 28, 2020 6:39pm Advance Directives No March 24 7:48am Advance Directive Response Recorded Date/ Time Advance Directives No March 24 7:48am Hospital Course Note HNO ID: [id number] Author: Digna Chiang Service: General Surgery Author Type: Physician Type: Discharge Summary Filed: 02/17/2020 1:30 PM Note Text: DISCHARGE SUMMARY PATIENT NAME: Jessica Acuña Code Status: Not on file Highest Readmission Risk Score: 13 The 30 day readmissions risk score is derived from an internally validated risk model which evaluates patient level characteristics, utilization history, medication orders and lab results up until the day of discharge. Patients with a score of 40 or above are considered highest risk for readmission. Specific patient level drivers will be listed at the bottom of the summary. Admission Information Admission Information ADMIT DATE: 02/15/2020 DISCHARGE DATE: 02/17/2020 MY DOCTORS AND MEDICAL TEAM: My Main Hospital Doctor: Yasmin Alvarez Primary Care Provider: Raymundo Watt MD My Medical Team Members: Treatment Team: Attending Provider: Yasmin Alvarez MY CONDITION AT DISCHARGE: Stable REASON I WAS IN THE HOSPITAL: For (more content not included)... Chief Complaint and Reason for Visit Chief Complaint 1 Y FU NEED ORDER Reason for Visit Essential hypertensi on History of coronary artery stent placement HLD (hyperlipidemia) Chief Complaint 1 Y FU NEED ORDER cad cad Reason for Visit Essential hypertensi on History of coronary artery stent placement HLD (hyperlipidemia) Chief Complaint 1 Y FU NEED ORDER cad cad AAA SCREENING Reason for Visit Essential hypertensi on History of coronary artery stent placement HLD (hyperlipidemia) Chief Complaint R ELBOW PAIN Chief Complaint R ELBOW PAIN Cellulitis CELLULITIS Reason for Visit Cellulitis of arm, r ight Localized swelling of right forearm Chief Complaint R ELBOW PAIN Cellulitis CELLULITIS Cellulitis Reason for Visit Cellulitis of arm, r ight Localized swelling of right forearm Chief Complaint Admit Date 1 Y FU August 11, 2024 8:45am INT LABS August 11, 2024 9:33am CPAP PRESSURE ISSUES October 27, 2024 8:35am int labs October 27, 2024 9:19am Reason for Visit Admit Date Essential hypertension August 11 8:45am History of coronary artery stent placeme nt August 11, 2024 8:45am HLD (hyperlipidemia) August 11, 2024 8:45am Morbid obesity October 27, 2024 8:35am ADIEL (obstructive sleep apnea) October 012024 8:35am Chief Complaint Admit Date 8 WK FU December 22, 2024 9:3 3am EORDERS February 23, 2025 9:52 am RIGHT RIB PAIN February 27, 2025 3:15p m Reason for Visit Admit Date Morbid obesity December 22, 2024 9:3 3am ADIEL (obstructive sleep apnea) November 9:33am Chief Complaint Admit Date 8 WK FU December 22, 2024 9:3 3am EORDERS February 23, 2025 9:52 am RIGHT RIB PAIN February 27, 2025 3:15p m ABD PAIN March 07, 2025 9:49a m Additional Source Comments (unrecognized sect ion and content) No Status Records FoundNo Status Records FoundNo Status Records Found INFORMATION SOURCE (unrecogn ized section and content) DATE CREATED AUTHOR 02/21/2020 [facility] DATE CREATED AUTHOR AUTHOR'S ORGANIZ ATION 02/22/2020 [facility] DATE CREATED AUTHOR AUTHOR'S ORGANIZ ATION 05/03/2025 [facility] Goals (unrecognized section and content) Goals may be documented in a n alternate sectionGoals may be documented in an alternate sectionGoals may be documented in an alternate sectionGoals may be documented in an alternate sectionGoals may be documented in an alternate sectionGoals may be documented in an alternate sectionGoals may be documented in an alternate sectionGoals may be documented in an alternate sectionGoals may be documented in an alternate sectionGoals may be documented in an alternate section Care Teams (unrecognized sec tion and content) Team Status: Active Member Role Status Dates Dr. Raymundo Watt MD Family Provider Active Dr. Raymundo Watt MD Primary Care Provider Acti ve Team Status: Inactive Member Role Status Dates Dr. Raymundo Watt MD Primary Care Provider Acti ve Dr. Jignesh Culver MD Emergency Provider Active Team Status: Active Member Role Status Dates Dr. Raymundo Watt MD Primary Care Provider Acti ve Dr. Bárbara Dolan MD Emergency Provider Active Dr. Sujit Wall MD Attending Provider Active Team Status: Active Member Role Status Dates Dr. Raymundo Watt MD Primary Care Provider Acti ve Dr. Bárbara Dolan MD Emergency Provider Active Dr. Sujit Wall MD Admit Provider, Attending Prov ider Active Team Status: Active Member Role Status Dates Dr. Raymundo Watt MD Primary Care Provider Acti ve Dr. Mayur Goddard MD Attending Provider Active Team Status: Active Member Role Status Dates Dr. Raymundo Watt MD Primary Care Provider Acti ve Dr. Bárbara Dolan MD Emergency Provider Active Dr. Sujit Wall MD Admit Provider, Other Provider Active Dr. Nato Pedro DO Attending Provider, Other Provider Active Dr. Matthew Estrada MD Other Provider Active Team Status: Inactive Member Role Status Dates Dr. Raymundo Watt MD Primary Care Provider Acti ve Dr. Bárbara Dolan MD Emergency Provider Active Dr. Sujit Wall MD Admit Provider, Other Provider Active Dr. Nato Pedro DO Attending Provider Active Dr. Matthew Estrada MD Other Provider Active Team Status: Inactive Member Role Status Dates Dr. Raymundo Watt MD Primary Care Provider Acti ve Start: August 11, 2024 End: August 11, 2024 Dr. Raymundo Watt MD Referring Provider Active Start: August 11, 2024 End: August 11, 2024 Cristiane MOTT PA Attending Provider Active Start: August 11, 2024 End: August 11, 2024 Team Status: Inactive Member Role Status Dates Dr. Raymundo Watt MD Primary Care Provider Acti ve Start: August 11, 2024 End: August 11, 2024 Cristiane MOTT PA Attending Provider Active Start: August 11, 2024 End: August 11, 2024 Cristiane MOTT PA Referring Provider Active Start: August 11, 2024 End: August 11, 2024 Team Status: Inactive Member Role Status Dates Dr. Raymundo Watt MD Primary Care Provider Acti ve Start: October 27, 2024 End: October 27, 2024 Dr. Raymundo Watt MD Referring Provider Active Start: October 27, 2024 End: October 27, 2024 RENEE MccainC Attending Provider Active Start: October 27, 2024 End: October 27, 2024 Team Status: Inactive Member Role Status Dates Dr. Raymundo Watt MD Primary Care Provider Acti ve Start: October 27, 2024 End: October 27, 2024 Cristiane MOTT PA Attending Provider Active Start: October 27, 2024 End: October 27, 2024 Cristiane MOTT PA Referring Provider Active Start: October 27, 2024 End: October 27, 2024 Team Status: Active Member Role/Relationship Status Dates Dr. Raymundo Watt MD Family Provider Active Dr. Raymundo Watt MD Primary Care Provider Acti ve Team Status: Inactive Member Role/Relationship Status Dates Dr. Raymundo Watt MD Primary Care Provider Acti ve Start: December 22, 2024 End: December 22, 2024 Dr. Raymundo Watt MD Referring Provider Active Start: December 22, 2024 End: December 22, 2024 Gemma Starr NP-C Attending Provider Active Start: December 22, 2024 End: December 22, 2024 Team Status: Inactive Member Role/Relationship Status Dates Dr. Raymundo Watt MD Primary Care Provider Acti ve Start: February 23, 2025 End: February 23, 2025 Ofelia Craig TELEGRAPH SERVICE CLERK, TELEGRAPH SERVICE CLERK-C Attending Provider Active S tart: February 23, 2025 End: February 23, 2025 Ofelia Craig NP, TELEGRAPH SERVICE CLERK-C Referring Provider Active S tart: February 23, 2025 End: February 23, 2025 Team Status: Active Member Role/Relationship Status Dates Dr. Raymundo Watt MD Primary Care Provider Acti ve Start: February 27, 2025 Elida Chew TELEGRAPH SERVICE CLERK, TELEGRAPH SERVICE CLERK-C Attending Provider Active Start: February 27, 2025 Elida Chew TELEGRAPH SERVICE CLERK, TELEGRAPH SERVICE CLERK-C Referring Provider Active Start: February 27, 2025 Team Status: Active Member Role/Relationship Status Dates Dr. Raymundo Watt MD Primary Care Provider Acti ve Team Status: Inactive Member Role/Relationship Status Dates Dr. Raymundo Watt MD Primary Care Provider Acti ve Start: February 27, 2025 End: February 27, 2025 Elida Chew TELEGRAPH SERVICE CLERK, TELEGRAPH SERVICE CLERK-C Attending Provider Active Start: February 27, 2025 End: February 27, 2025 Elidali Chew TELEGRAPH SERVICE CLERK, TELEGRAPH SERVICE CLERK-C Referring Provider Active Start: February 27, 2025 End: February 27, 2025 Team Status: Active Member Role/Relationship Status Dates Dr. Raymundo Watt MD Primary Care Provider Acti ve Start: March 07, 2025 Elida Chew TELEGRAPH SERVICE CLERK, TELEGRAPH SERVICE CLERK-C Attending Provider Active Start: March 07, 2025 Elidali Chew TELEGRAPH SERVICE CLERK, TELEGRAPH SERVICE CLERK-C Referring Provider Active Start: March 07, 2025 Team Status: Inactive Member Role/Relationship Status Dates Dr. Raymundo Watt MD Primary Care Provider Acti ve Start: March 07, 2025 End: March 07, 2025 Elida Chew TELEGRAPH SERVICE CLERK, TELEGRAPH SERVICE CLERK-C Attending Provider Active Start: March 07, 2025 End: March 07, 2025 Elida Chew TELEGRAPH SERVICE CLERK, TELEGRAPH SERVICE CLERK-C Referring Provider Active Start: March 07, 2025 End: March 07, 2025 Team Status: Active Member Role/Relationship Status Dates Dr. Raymundo Watt MD Primary Care Provider Acti ve Start: March 09, 2025 Rock Perdomo MD Attending Provider Active Start : March 09, 2025 Team Status: Inactive Member Role/Relationship Status Dates Dr. Ryamundo Watt MD Primary Care Provider Acti ve Start: March 09, 2025 End: March 09, 2025 Rock Perdomo MD Attending Provider Active Start : March 09, 2025 End: March 09, 2025 FOR RECORDS PERTAINING TO PATIENTS WHO ARE OR HAVE BEEN ENROLLED IN A CHEMICAL DEPENDENCY/SUBSTANCEABUSE PROGRAM, SOME INFORMATION MAY BE OMITTED. This clinical summary was aggregated from multiple sources. Caution should be exercised in using it in the provision of clinical care. This summary normalizes information from multiple sources, and as a consequence, information in this document may materially change the coding, format and clinical context of patient data. In addition, data may be omitted in some cases. CLINICAL DECISIONS SHOULD BE BASED ON THE PRIMARY CLINICAL RECORDS. [facility]. provides no warranty or guarantee of the accuracy or completeness of information in this document.
[2025-07-30] MEDS: Lactated Ringers 1,000 ML 15 ML IV (06:39)
--- NOTE | 2025-07-30 06:50 | PCM.PRE.AN2 ---
ASA Classification* ASA Classification ASA Classification: 2 Assessment & Plan Anesthesia* Anesthesia Assessment Anesthesia Assessment: Discussed sedation and/or anesthesia options, risks, benefits, and alternatives with patient/parents/legal guardian/POA. Questions invited. The patient/parents/legal guardian/POA seems to understand and agrees to proceed with anesthesia plan. Reviewed the physical assessment, medical history, allergy history and patient home medications list prior to surgery/procedure/anesthetic and documented any changes. Performed airway and anesthesia risk assessments. Anesthesia Type Anesthesia Type: General History Source History Obtained from:: Patient and Chart Anesthesia Focused Assessment* Temperature: 97.7 F Pulse Rate: 54 Blood Pressure: 120/74 Respiratory Rate: 16 Pulse Ox: 96 Oxygen Delivery Method: Room Air Airway Assessment Mouth opens: >3 cm Mallampati Score: II Teeth Condition: Intact Neck Range of motion (ROM): Full ROM Labs Anesthesia Preop lab: CBC WBC, (4.4-11.0) 6.2 K/mm3 07/25/25, 07:52 RBC, (4.6-6.2) 4.47 M/mm3 L 07/25/25, 07:52 Hgb, (13.0-16.5) 13.8 g/dL 07/25/25, 07:52 Hct, (40-54) 39.6 % L 07/25/25, 07:52 Plt Count, (150-450) 209 K/mm3 07/25/25, 07:52 CHEMISTRY Potassium, (3.3-5.1) 4.6 mmol/L 07/25/25, 07:52 Sodium, (133-145) 140 mmol/L 07/25/25, 07:52 Magnesium, (1.6-2.6) 2.0 mg/dL 02/12/19, 04:48 BUN, (4-19) 17 mg/dL 07/25/25, 07:52 Creatinine, (0.70-1.20) 1.13 mg/dL 07/25/25, 07:52 Glucose, (70-99) 95 mg/dL 07/25/25, 07:52 POC Glucose, (70-110) 100 mg/dL 02/12/19, 06:48 TSH, (0.358-3.74) 1.46 uIU/mL 06/26/19, 10:04 COAG PT, (11.7-14.9) 13.8 SECONDS 03/24/19, 07:12 Pre-Assessment Diagnosis/Proposed Procedure Planned Operative Procedure(s): OPEN UMBILICAL HERNIA REPAIR Anesthesia History Anesthesia History - litigation paralegal: Anesthesia History - litigation paralegal Hx Hospitalization No 07/24/25 15:08 Any Problems With Anesthesia No 07/24/25 15:08 Cholinesterase deficiency No 07/24/25 15:08 You/Your Family Experience No 07/24/25 15:08 fever (hyperthermia) with Relationship Recent Exposure to Contagious No 07/30/25 06:33 Disease Does patient have nerve No 07/24/25 15:08 stimulator Patient instructed to have device shut off --Does patient have Pacemaker No 07/30/25 06:35 or ICD? When Was Last Pacemaker Check QUESTION #4 FULL TEXT: You/Your Family Experience fever (hyperthermia) with Anesthesia Last Oral Intake Last Oral intake: Last Oral Intake NPO since 00:00 07/30/25 06:35 Meds taken in AM with sips of Yes 07/30/25 06:35 water? Meds patient instructed to meloxicam 07/30/25 06:35 take am of surgery PONV PONV - litigation paralegal: PONV - litigation paralegal Female No 07/24/25 15:08 HX of Motion Sickness No 07/24/25 15:08 HX of N/V After Surgery No 07/24/25 15:08 Non-Smoker Yes 07/24/25 15:08 Duration of Surgery greater Yes 07/24/25 15:08 than 60 minutes Number of Risk Factors 2 07/24/25 15:08 PONV Score Moderate Risk 07/24/25 15:08 Height & Weight Height & Weight: Anesthesia: Height & Weight Height 6 ft 2 in 07/30/25 06:35 Weight: 152.9 kg 07/30/25 06:35 Body Mass Index (BMI) 43.2 07/30/25 06:35 Respiratory Assessment Respiratory Assessment - litigation paralegal: Respiratory Tract Infection Hx - litigation paralegal Hx Respiratory Tract Infection No 07/24/25 15:08 STOP Sleep Apnea STOP Sleep Apnea - litigation paralegal: STOP Sleep Apnea - litigation paralegal Hx Hypertension Yes: CONTROLLED WITH MED 07/24/25 15:08 Hx Sleep Apnea Yes 07/24/25 15:08 CPAP No 07/24/25 15:08 BIPAP Yes 07/24/25 15:08 Do you snore loudly (louder than talking or can be heard Do you often feel tired/ fatigued/ sleepy during daytime? Has anyone observed you stop breathing during sleep? STOP Results Positive 07/24/25 15:08 QUESTION #5 FULL TEXT : Do you snore loudly (louder than talking or can be heard through closed doors)? Tobacco Use History Tobacco Use History - litigation paralegal: Tobacco Use History - litigation paralegal Tobacco Use Smoking Status Former smoker 07/24/25 15:08 Hx Tobacco Use No 07/24/25 15:08 Years Smoking Packs Smoked per Day Smoking Cessation Date was No - quit smoking greater 07/24/25 15:08 within the last 15 years than 15 years ago Hx Smoking Cessation Date 08/30/97 07/24/25 15:08 Hx Smoking Cessation No 07/24/25 15:08 Counseling Hematologic Medial History Hematologic Hx - litigation paralegal: Hematologic Medical Hx - flat breakdown processor Hx of Blood Transfusion No 07/24/25 15:08 Hx of Transfusion in last 3 No 07/24/25 15:08 Months Date of Last Transfusion (if within last 3 months) Ever experience any problems No 07/24/25 15:08 with transfusion(s)? Specify any problems Hx of Preganancy in last 3 N/A 07/24/25 15:08 Months Nurse Filling Out Transfusion DSCHRIBER 07/24/25 15:08 & Questions: Date: 07/24/25 07/24/25 15:08 Time: 15:10 07/24/25 15:08 Patient unable to answer at this time (ie. confused, unrespo /Reproduction History /Reproductive History - litigation paralegal: /Reproductive Hx- litigation paralegal Hx Now No 07/24/25 15:08 Gestational Age (in weeks): EDC: Hx Hx Para Hx Section SAB No 07/24/25 15:08 Does the father of the baby or his family experience fever w Father of the baby Malignant Hypertension history comment Active Medications Active Medications: Current Medications Generic Name Dose Route Start Last Admin Trade Name Freq PRN Reason Stop Dose Admin Clindamycin Phosphate 900 mg in 50 mls @ 75 mls/hr 07/30/25 07:30 Cleocin IV 07/30/25 08:09 INTRAOP ONE Lactated Ringer's 1,000 mls @ 15 mls/hr 07/30/25 06:15 07/30/25 06:39 IV 15 mls/hr .Q48H DEMOND Administration PFSH Medical History Loss of hearing Wears glasses Alcohol use Arthritis Fatty liver High cholesterol Injury of head and neck Former smoker Shortness of breath on exertion History of stress test Cardiology follow-up encounter BiPAP (biphasic positive airway pressure) dependence Umbilical hernia Essential hypertension HLD (hyperlipidemia) NSTEMI (non-ST elevated myocardial infarction) (02/12/19) LVH (left ventricular hypertrophy) Atherosclerosis of [place] coronary artery of [place] heart without angina pectoris Home Medications Medication Instructions Recorded Last Taken Type aspirin 81 mg tablet,delayed 81 mg PO DAILY ##30 02/14/19 07/29/25 Rx release meloxicam 15 mg tablet 15 mg PO QDAY 05/02/25 07/30/25 History semaglutide 0.25 mg/0.05 mL 0.135 mg subcut SUWE 05/02/25 07/22/25 History subcutaneous syringe amlodipine 10 mg tablet 10 mg PO DAILY #90 tabs 07/19/25 07/29/25 Rx lisinopril 5 mg tablet 5 mg PO DAILY #90 tabs 07/19/25 07/29/25 Rx metoprolol tartrate 50 mg tablet 50 mg PO BID #180 tabs 07/19/25 07/29/25 Rx atorvastatin 80 mg tablet 80 mg PO QHS 07/24/25 07/29/25 History Allergy/AdvReac Type Severity Reaction Status Date / Time ticagrelor (From Brilinta) Allergy Intermediate Nausea, Verified 07/24/25 15:06 dizziness, shortness of breath penicillin G Allergy Unknown Unknown Verified 07/24/25 15:06 Family History Father COPD (chronic obstructive pulmonary disease) Grandmother Diabetes Surgical History Hx of colonoscopy Status post pneumothorax History of hand surgery History of coronary artery stent placement (03/24/19) Social History 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
--- NOTE | 2025-07-30 07:18 | PCM.HP.STD ---
HPI - General General Date of Admission: 07/30/25 Date of Service: 07/30/25 Chief Complaint: Umbilical hernia HPI Narrative JESSICA ACUÑA, is a 70 M who presents for elective repair of an umbilical hernia. Patient was recently seen to the office. I offered him open umbilical hernia repair surgery as this was a fairly small hernia. We discussed the details of the planned procedure and he wished to proceed. [facility] Medical History Loss of hearing Wears glasses Alcohol use Arthritis Fatty liver High cholesterol Injury of head and neck Former smoker Shortness of breath on exertion History of stress test Cardiology follow-up encounter BiPAP (biphasic positive airway pressure) dependence Umbilical hernia Essential hypertension HLD (hyperlipidemia) NSTEMI (non-ST elevated myocardial infarction) (02/12/19) LVH (left ventricular hypertrophy) Atherosclerosis of [place] coronary artery of [place] heart without angina pectoris Home Medications Medication Instructions Recorded Last Taken Type aspirin 81 mg tablet,delayed 81 mg PO DAILY ##30 02/14/19 07/29/25 Rx release meloxicam 15 mg tablet 15 mg PO QDAY 05/02/25 07/30/25 History semaglutide 0.25 mg/0.05 mL 0.135 mg subcut SUWE 05/02/25 07/22/25 History subcutaneous syringe amlodipine 10 mg tablet 10 mg PO DAILY #90 tabs 07/19/25 07/29/25 Rx lisinopril 5 mg tablet 5 mg PO DAILY #90 tabs 07/19/25 07/29/25 Rx metoprolol tartrate 50 mg tablet 50 mg PO BID #180 tabs 07/19/25 07/29/25 Rx atorvastatin 80 mg tablet 80 mg PO QHS 07/24/25 07/29/25 History Allergy/AdvReac Type Severity Reaction Status Date / Time ticagrelor (From Brilinta) Allergy Intermediate Nausea, Verified 07/24/25 15:06 dizziness, shortness of breath penicillin G Allergy Unknown Unknown Verified 07/24/25 15:06 Family History Father COPD (chronic obstructive pulmonary disease) Grandmother Diabetes Surgical History Hx of colonoscopy Status post pneumothorax History of hand surgery History of coronary artery stent placement (03/24/19) Social History 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 occupational status: retired 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 [employer] Smoking Status: Former smoker Tobacco: How many years used: 20 how long ago did patient quit smokin, 2.5ppd second hand exposure: Yes alcohol intake: current alcohol intake frequency: a few times a month substance use type: does not use caffeine: Yes Type: coffee Number of servings: 1 what type of physical activity do you participate in: none frequency: does not exercise seatbelt use: always Vital Signs Vital Signs Vital Signs: 07/30/25 06:33 07/30/25 06:35 07/30/25 06:41 Temperature 97.7 F L Temperature Source Temporal Pulse Rate 54 L Respiratory Rate 16 Respiratory Pattern Normal Blood Pressure 120/74 Blood Pressure Mean 89 Blood Pressure Source Monitor Blood Pressure Position Supine Blood Pressure Location Right Arm Baseline BP 120/74 Pulse Ox 96 Oxygen Delivery Method Room Air 07/30/25 06:51 Temperature 97.7 F L Temperature Source Pulse Rate 54 L Respiratory Rate 16 Respiratory Pattern Blood Pressure 120/74 Blood Pressure Mean Blood Pressure Source Blood Pressure Position Blood Pressure Location Baseline BP Pulse Ox 96 Oxygen Delivery Method Room Air Weight Weight: 337 lb 1.388 oz Body Mass Index (BMI) 43.2 Physical Exam Const alert, oriented x3 and no apparent distress Results Lab / Micro Data 07/25/25 07:52 07/25/25 07:52 Assessment & Plan Assessment/Plan (1) Umbilical hernia: PLAN: Plan The patient is a 70-year-old male with umbilical hernia. He presents today to have this repaired. We discussed the details of the planned procedure and he wishes to proceed. We reviewed the risks benefits and alternatives and he wishes to proceed. Surgery began momentarily
[2025-07-30] MEDS: Lactated Ringers 1,000 ML 1000 ML IV (07:26)
--- NOTE | 2025-07-30 07:30 | HERN_PTH ---
PATIENT: JESSICA ACUÑA LOC: [facility] U#:[id number] AGE/SX: 70/M ROOM: RE07/30/[address]: Dr. Norris Melton MD : 1955 BED: DIS: 07/30/2025 SPEC #: [id number] RECD: 07/30/25 09:25 STATUS: RAMIREZ REDavid #: [id number] MICHAEL: 07/30/25 07:[address]: Norris Melton DEPT: SURGICAL PATHOLOGY RECD BY: Vasyl Cuba ENTERED: 07/30/25 10:46 SP TYPE: Hernia OTHR DR: Dr. Raymundo Watt MD Tissues: A - HERNIA Procedures: Surgery Specimen Level II HEADER OPERATION: Hernia, open umbilical repair PRE-OP DIAGNOSIS: Umbilical hernia TISSUE SUBMITTED: A- Hernia sac and contents MICROSCOPIC DIAGNOSIS A. Soft tissue, umbilical hernia, excision: - Fibroadipose tissue partially covered by mesothelium, consistent with hernia sac. MICROSCOPIC DESCRIPTION Slides are reviewed. GROSS DESCRIPTION A. Received in formalin labeled with the patient's name and date of . Designated as " hernia sac and contents" is a 3.9 x 1.8 x 0.6 cm portion of hankins-yellow lobulated soft tissue. Show Girl sections are submitted in 1 cassette. SD 07/30/2025 CPT:40466
[2025-07-30] MEDS: Lidocaine 1% (5 ml sdv) 5 ML Vial 10 ML IV (07:32)
[2025-07-30] MEDS: Bupiv/Epi 0.25% 30 ML Vial (07:45)
[2025-07-30] MEDS: fentaNYL 100 MCG/2 ML Ampul IV (08:11)
--- NOTE | 2025-07-30 08:26 | OP.PCM_ITS ---
Procedures Digestive 40xxx-49xxx: 04196 RPR AA HRN 1ST < 3 CM [facility] Operative Report (Standard) Operative Information Date of Procedure: 07/30/25 Pre-Operative Diagnosis: Umbilical hernia Post-Operative Diagnosis: Umbilical hernia Surgery/Procedure Performed: Open umbilical hernia repair digital marketing executive: Yes Wholesale Parts Salesperson: Amy Renee Tasks completed by list of first job ideas: Closing and Retracting Additional clinical data assistant?: No Type of Anesthesia: Local and MAC RN Documented Start/Stop Times: Operation Date: 07/30/25 07:30 Case Time Into Pre-Op 07/30/25 06:12 Out of Pre-Op 07/30/25 07:22 Anesthesia Start 07/30/25 07:26 Into Room 07/30/25 07:26 Procedure Start 07/30/25 07:45 Procedure End 07/30/25 08:12 Procedure Start Time: 07:45 Procedure Stop Time: 08:12 Select all DRAINS/GRAFTS/IMPLANTS that apply: None Special Medications: IV clindamycin Estimated Blood Loss: Minimal Specimen collected: Yes Description of specimen(s) removed: Hernia sac and contents Description of surgery: The patient is a 70-year-old male recently seen through the office with an umbilical hernia. This was causing him increasing pain and discomfort. He wished to have this repaired. We discussed the details of the planned procedure including risks benefits and alternatives. He wished to proceed. I offered an open umbilical hernia repair as I felt that the fascial defect was likely very small, certainly under 2 cm. The patient was brought to the operating today following informed consent. Preoperative antibiotics were given and a timeout was performed. He was placed supine on the operative table with arms outstretched and arm boards. MAC anesthesia was induced. Once adequately sedated the abdomen was then clipped prepped and draped in the usual sterile manner. Local anesthetic was infiltrated into the area. A #15 blade was then used to make a small cur vilinear incision around the inferior aspect of the umbilicus. Electrocautery was then used dissect down through the subcutaneous tissues down to the level of fascia. Once at the fascial level, a Cristal clamp was used to dissect bluntly around the umbilicus. The skin of the umbilicus was then detached from the underlying hernia sac. The hernia sac was excised along with some of the adherent fat. The fascial defect measured approximately a centimeter in size. Once the fascial edges were cleared, #1 Nurolon was then used to close the fascial defect in an interrupted manner. Multiple sutures were placed until the fascia was well-approximated. There was really minimal if any tension. The skin of the umbilicus was then reaffixed to the underlying fascia using 3-0 Vicryl. 3-0 Vicryl was also used to reapproximate the subdermal layer. 4-0 Vicryl was then run in the skin. Skin glue was then applied. A cottonball and a Tegaderm as well as an abdominal binder were applied. Patient was awakened from anesthesia. A total of about 20 cc of local anesthetic were used through the course of the operation. He was taken to recovery in good condition Surgical Findings: 1 cm fascial defect Complications Complications: No Admit VTE Documentation VTE Present on Admission: No VTE Mechan Device Prophylaxis: SCD's VTE Pharm Prophylaxis ordered?: No Reason prophylaxis not ordered: Treatment Not Indicated
--- NOTE | 2025-07-30 08:35 | DCINST_ITS ---
Discharge Instructions Diet Discharge Diet: Light diet - advance as tolerated Activity Discharge Activity: Return to Normal Activity and May Shower May shower in (days): 1 Ice area for (Minutes): 30 Lifting Restrictions: No lifting pushing or pulling more than 20 pounds for 6 weeks Dressing / Incision Call your doctor if your incision/area has: Continuous Slow Oozing, Sudden Increased Bleeding, Increased Pain/ Swelling, Increased Redness, Foul Smelling Discharge and Swelling at the incision site Call your doctor if you observe: Fever of 101 or Higher Cleanse incision/area with: Soap & Water Additional Dressing/Incision Instructions:: Please remove gauze and cotton ball prior to first shower Follow Up Care Please Follow Up With: Norris Melton MD When: 2 weeks. Please call office to schedule appointment. Test Results: Test results from this visit will be discussed in further detail at your follow- up appointment, if applicable. Discharge Plan Admission Primary Reason for Your Visit: Umbilical hernia repair Attending Provider: Norris Melton Primary Care Provider: Raymundo Watt Instructions Print Language: Indonesian Discharge Orders/Prescriptions Prescriptions: New oxycodone 5 mg tablet 5 mg PO Q8H PRN (Reason: pain) 3 Days Qty: 10 0RF Continued meloxicam 15 mg tablet 15 mg PO QDAY semaglutide 0.25 mg/0.05 mL syringe 0.135 mg subcut SUWE aspirin 81 MG tablet,delayed release (DR/EC) 81 mg PO DAILY Qty: 30 0RF atorvastatin 80 mg tablet 80 mg PO QHS amlodipine 10 mg tablet 10 mg PO DAILY Qty: 90 3RF lisinopril 5 mg tablet 5 mg PO DAILY Qty: 90 3RF metoprolol tartrate 50 mg tablet 50 mg PO BID Qty: 180 3RF Referrals / Follow Up: Raymundo Watt MD [Primary Care Provider, Family Practice] Disposition Disposition (needs filled in before D/C Order can be placed): Home, Self Care
--- NOTE | 2025-07-30 10:30 | PCM.POST.ANE ---
Anesthesia: Postop Eval I Current Vital Signs Temperature: 97.7 F Pulse Rate: 57 Blood Pressure: 111/64 Respiratory Rate: 16 Pulse Ox: 94 Assessment Airway patent: Yes Spontaneous unlabored respirations: Yes nausea: No Vomiting: No Anesthesia Complication: No Fluid Hydration Crystalloid volume administer (ml): 600 Total IV fluid infused: 600 Progress Note Anesthesia document: Postop Eval 1 completed: Yes
--- NOTE | 2025-07-30 12:23 | POSTOPAN2_ITS ---
Anesthesia Postop Eval I Sum Postop Eval Completion status Anesthesia document: Postop Eval 1 completed: Yes Anesthesia Postop Eval I Summary Anesthesia Postop Eval I Summary: Anesthesia Postop Eval I: Assessment Summary Airway patent Yes 07/30/25 10:31 PUBLICATION [email or web address].TNES Spontaneous unlabored Yes 07/30/25 10:31 PUBLICATION DESIGNER.TNES respirations Mental status nausea No 07/30/25 10:31 PUBLICATION DESIGNER.TNES Vomiting No 07/30/25 10:31 PUBLICATION DESIGNER.TNES Anesthesia Postop Eval I: Fluid Summary Crystalloid volume administer 600 07/30/25 10:31 PUBLICATION DESIGNER.TNES (ml) Colloids volume administered ( ml) Blood Product volume administered (ml) Total IV fluid infused 600 07/30/25 10:31 PUBLICATION DESIGNER.TNES Anesthesia Postop Eval I: Summary Notes Anesthesia Complication No 07/30/25 10:31 PUBLICATION DESIGNER.TNES Anesthesia Complication Comment: Post-operative progress note Anesthesia: Postop Eval II Evaluation Mental status: Awake and Calm Pain Level: 1 nausea: No Vomiting: No Complications Anesthesia Complication: No
--- NOTE | 2025-07-30 12:23 | PCM.POSTANE2 ---
Anesthesia Postop Eval I Sum Postop Eval Completion status Anesthesia document: Postop Eval 1 completed: Yes Anesthesia Postop Eval I Summary Anesthesia Postop Eval I Summary: Anesthesia Postop Eval I: Assessment Summary Airway patent Yes 07/30/25 10:31 LOCUM TENENS PSYCHIATRIST.TNES Spontaneous unlabored Yes 07/30/25 10:31 LOCUM TENENS PSYCHIATRIST.TNES respirations Mental status nausea No 07/30/25 10:31 LOCUM TENENS PSYCHIATRIST.TNES Vomiting No 07/30/25 10:31 LOCUM TENENS PSYCHIATRIST.TNES Anesthesia Postop Eval I: Fluid Summary Crystalloid volume administer 600 07/30/25 10:31 LOCUM TENENS PSYCHIATRIST.TNES (ml) Colloids volume administered ( ml) Blood Product volume administered (ml) Total IV fluid infused 600 07/30/25 10:31 LOCUM TENENS PSYCHIATRIST.TNES Anesthesia Postop Eval I: Summary Notes Anesthesia Complication No 07/30/25 10:31 LOCUM TENENS PSYCHIATRIST.TNES Anesthesia Complication Comment: Post-operative progress note Anesthesia: Postop Eval II Evaluation Mental status: Awake and Calm Pain Level: 1 nausea: No Vomiting: No Complications Anesthesia Complication: No
== END 2025-07-30 10:09 | disposition home or self-care (01) ==
LOC: SDC 06:00 → AC 06:01
PROVIDERS: Student in an Organized Health Care Education/Training Program; PCP Family Medicine; Referring Provider Surgery; Visit Provider Surgery
PROC: (CPT 49591; principal; 2025-07-30 07:15)
DX: K42.9 Umbilical hernia without obstruction or gangrene (principal); E78.00 Pure hypercholesterolemia, unspecified; Z87.891 Personal history of nicotine dependence; I25.10 Atherosclerotic heart disease of native coronary artery without angina pectoris; I10 Essential (primary) hypertension; Z79.899 Other long term (current) drug therapy
CPT/HCPCS: 49591; 00840; 36415; 80048; 83036; 85027; 88302; 93005; J2405

== ENCOUNTER → 2025-08-28 | Outpatient (CLI) | payer MEDICARE, OTHER, SELFPAY ==
[2025-08-28 12:34] LABS: PSA,Total - Annual Screen 0.46 ng/mL (0.02-4.00)
== END | disposition home or self-care (01) ==
LOC: MFPLAB 10:10
PROVIDERS: PCP Family Medicine
DX: Z12.5 Encounter for screening for malignant neoplasm of prostate (principal)
CPT/HCPCS: 36415; 84153; G0103